=== PATIENT | female | born 1960 | race American Indian/Alaskan Native ===

== ENCOUNTER 2017-12-18 17:38 | Emergency (ER) | payer MEDICAID ==
[2017-12-18 17:52] VITALS: BP 120/69
[2017-12-18] MEDS ORDERED: TYLENOL #3 PO ONE (21:05)
--- NOTE | 2017-12-18 21:13 | Emergency Department Report ---
HPI - General Chief Complaint: Dental/Oral Time Seen by Provider: 12/18/17 20:50 - HPI HPI: The patient is a 37-year-old female presents for evaluation of mouth pain. The patient reports right upper mouth pain and toothache for the past 2 weeks, constant since onset, 10/10 severity, throbbing in quality, exacerbated with chewing. She shares that she has a long-standing history of poor dentition and recurrent toothaches. She denies headache, fever, chills, night sweats, facial swelling, throat pain or swelling, difficulty swallowing. ED Past Medical Hx - Past Medical History Previous Medical History?: Yes Hx Hypertension: Yes (1994) Hx CVA: No Hx Heart Attack/AMI: Yes (10/04/201411/2015) Hx Congestive Heart Failure: Yes Hx Diabetes: Yes (1994) Hx Deep Vein Thrombosis: No Hx Pulmonary Embolism: No Hx GERD: No Hx Liver Disease: No Hx Renal Disease: No Hx Sickle Cell Disease: No Hx Arthritis: Yes Hx Headaches / Migraines: Yes Hx Seizures: No Hx Kidney Stones: No Hx Psychiatric Treatment: No Hx Asthma: Yes Hx COPD: Yes Hx Tuberculosis: No Hx Dementia: No Hx HIV: No Additional medical history: sciatica, DDD. high cholesterol. fibromyalgia. neuropathy. 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 left nephrectomy s/p aneurysm. left carotid endarterectomy (January 2016). R BKA. Triple bypass (05/2016) - Social History Smoking Status: Former Smoker - Medications Home Medications: Home Medications Medication Instructions Recorded Confirmed Last Taken Type Montelukast [Singulair] 10 mg PO QPM #30 tablet 05/01/15 03/31/16 05/18/15 Rx ALBUTEROL Inhaler [ProAir HFA 2 puff IH QID PRN 03/16/16 03/31/16 Unknown History Inhaler] Albuterol *Only Ed* [Proventil 2.5 mg IH QIDRT PRN #7 nebu 03/22/16 03/31/16 Unknown Rx 0.5% NEBS] Butalb/Acetamin/Caff 50-325-40 1 tab PO Q8HR PRN #90 tablet 03/22/16 03/31/16 Unknown Rx [Fioricet] Gabapentin [Neurontin] 600 mg PO QHS #30 capsule 03/22/16 03/31/16 Unknown Rx HYDROcodone/APAP 5-325 [[place] 1 each PO QHS #30 tablet 03/22/16 03/31/16 Unknown Rx 5-325 mg TAB] ISOSORBIDE MONOnitrate [Imdur ER] 30 mg PO QDAY #30 tablet 03/22/16 03/31/16 Unknown Rx Insulin NPH/Regular [NovoLIN 70/30] 30 unit SQ BIDDIAB #30 units 03/22/16 Unknown Rx Aspirin [Aspirin BABY CHEW TAB] 81 mg PO QDAY #15 tab.chew 04/08/16 Unknown Rx AtorvaSTATin [Lipitor] 40 mg PO QHS #15 tablet 04/08/16 Unknown Rx Clopidogrel [Plavix] 75 mg PO QDAY #15 tablet 04/08/16 Unknown Rx Furosemide [Lasix TAB] 20 mg PO 0600,1800 #30 tablet 04/08/16 Unknown Rx Metoprolol [Lopressor TAB] 12.5 mg PO BID #30 tablet 04/08/16 Unknown Rx Nitroglycerin [Nitrostat] 0.4 mg SL Q5M PRN #100 tab 04/08/16 Unknown Rx Ranolazine ER [Ranexa ER] 500 mg PO BID #30 tablet 04/08/16 Unknown Rx Chlorhexidine Mouthwash [Peridex] 15 ml MM BID #1 bottle 12/18/17 Unknown Rx Penicillin Vk [Veetids TAB] 250 mg PO QID #20 tablet 12/18/17 Unknown Rx traMADol [Ultram 50 MG tab] 50 mg PO Q6HR PRN #15 tablet 12/18/17 Unknown Rx ED Review of Systems ROS: Stated complaint: TOOTHACHE Other details as noted in HPI Constitutional: denies: fever ENT: denies: throat or neck pain; reports mouth pain/thoothache Respiratory: denies: cough, shortness of breath Cardiovascular: denies: chest pain Endocrine: denies unexplained weight loss or gain Gastrointestinal: denies: abdominal pain, nausea Genitourinary: denies: dysuria Musculoskeletal: denies: leg swelling Skin: denies: rash Neurological: denies: headache Hematological/Lymphatic: denies: easy bleeding or easy bruising Psych: denies sadness or hopelessness Physical Exam - Physical Exam Vital Signs: Vital Signs 12/18/17 17:44 Temperature 99.2 F Pulse Rate 76 Respiratory 18 Rate Blood Pressure 120/69 O2 Sat by Pulse 99 Oximetry Physical Exam: General: well-nourished, well-developed, no acute distress Head: Normocephalic, atraumatic Eyes: normal sclera ENT: Mucous membranes are pink and moist severe dental caries extending to the pulp present to the right upper first and second molar, mild surrounding gingival erythema present, no gingival fluctuance Neck: trachea midline, neck supple, No neck stiffness, no cervical adenopathy Respiratory: Breath sounds equal bilaterally, no wheezing, rales, or rhonchi Cardio: S1 and S2 present, no murmurs, rubs, gallops, capillary refill is brisk Abdomen: Normoactive bowel sounds, soft abdomen, no rigidity, no guarding or rebound tenderness Skin: No rash Neuro: no facial drooping, normal speech Psych: Normal affect ED Course Vital Signs 12/18/17 17:44 Temperature 99.2 F Pulse Rate 76 Respiratory 18 Rate Blood Pressure 120/69 O2 Sat by Pulse 99 Oximetry ED Medical Decision Making - Medical Decision Making The patient's and examined by myself. Evaluation findings are consistent with severe dental caries and gingival cellulitis. The patient is given pain medicine. The patient is given a prescription for penicillin VK. The patient was reevaluated and reported that their symptoms were markedly improved. The patient is stable for discharge with outpatient follow-up. The patient is given follow-up and return instructions. The patient expressed understanding and agreed with the plan. The patient is discharged in stable condition. Critical care attestation.: If time is entered above; I have spent that time in minutes in the direct care of this critically ill patient, excluding procedure time. ED Disposition Clinical Impression: Toothache, Dental caries extending into pulp, Cellulitis of gingiva Disposition: DC- TO HOME OR SELFCARE Is pt being admited?: No Does the pt Need Aspirin: No Condition: Stable Instructions: Toothache (ED), Dental Caries (ED) Prescriptions: Chlorhexidine Mouthwash [Peridex] 15 ml MM BID #1 bottle Penicillin Vk [Veetids TAB] 250 mg PO QID #20 tablet traMADol [Ultram 50 MG tab] 50 mg PO Q6HR PRN #15 tablet PRN Reason: Pain Referrals: [facility] [Outside] - 3-5 Days [facility] [Outside] - 3-5 Days Time of Disposition: 21:06
== END 2017-12-18 21:20 | disposition home or self-care (01) ==
LOC: ED 17:38
DX: K02.9 Dental caries, unspecified (principal); K05.219 Aggressive periodontitis, localized, unspecified severity; G43.909 Migraine, unspecified, not intractable, without status migrainosus; I11.0 Hypertensive heart disease with heart failure; I50.9 Heart failure, unspecified; E11.9 Type 2 diabetes mellitus without complications; K21.9 Gastro-esophageal reflux disease without esophagitis; J44.9 Chronic obstructive pulmonary disease, unspecified; E78.00 Pure hypercholesterolemia, unspecified; Z98.890 Other specified postprocedural states; Z86.73 Personal history of transient ischemic attack (TIA), and cerebral infarction without residual deficits; Z95.820 Peripheral vascular angioplasty status with implants and grafts; Z87.891 Personal history of nicotine dependence
CPT/HCPCS: 99282

== ENCOUNTER 2019-07-01 13:21 | Inpatient (IN) | payer MEDICAID ==
--- NOTE | 2019-07-01 15:33 | Emergency Department Report ---
HPI - General Chief Complaint: Altered Mental Status Time Seen by Provider: 07/01/19 15:14 - HPI HPI: Room 3 The patient 59-year-old female presenting with a chief complaint of altered mental status. Family states the patient last known well time was sedated during daylight hours. Family went to check on the patient yesterday evening at 22:00 form her sleep in bed with some Lyrica pills in her hand and several pills lying on the bed next to her. When they went to check on the patient this morning they noticed that she had vomited one herself and seemed a little groggy. Family called EMS for the patient refused to be transported to the hospital. As the day progressed family states the patient appeared to get weaker and then eventually she cannot keep her eyes open. Family states they're within able to convince the patient to come to the emergency department. The patient is lying on the stretcher with somniferous respirations. When the patient is awakened and asked how she feels the patient responds favorably "fine" and then goes back to sleep. Family denies any reports of suicidal ideation from the patient Location: [See above] Duration: [See above] Quality: [See above] Severity: [See above] Timing: [See above] Context: [See above] Modifying factors: [See above] Associated signs and symptoms: [see above] ED Past Medical Hx - Past Medical History Hx Hypertension: Yes (1994) Hx Heart Attack/AMI: Yes (10/04/201411/2015) Hx Congestive Heart Failure: Yes Hx Diabetes: Yes (1994) Hx Arthritis: Yes Hx Headaches / Migraines: Yes Hx Asthma: Yes Hx COPD: Yes Additional medical history: sciatica, DDD. high cholesterol. fibromyalgia. neuropathy. 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 left nephrectomy s/p aneurysm. left carotid endarterectomy (January 2016). R BKA. Triple bypass (05/2016) - Family History Family history: no significant - Social History Smoking Status: Former Smoker (none 20 years) Substance Use Type: None - Medications Home Medications: Home Medications Medication Instructions Recorded Confirmed Last Taken Type ALBUTEROL Inhaler (OR & NICU) 2 puff IH QID PRN 03/16/16 03/31/16 Unknown History [ProAir HFA Inhaler] Albuterol *Only Ed* [Proventil 2.5 mg IH QIDRT PRN #7 nebu 03/22/16 03/31/16 Unknown Rx 0.5% NEBS] Butalb/Acetamin/Caff 50-325-40 1 tab PO Q8HR PRN #90 tablet 03/22/16 03/31/16 Unknown Rx [Fioricet 50-325-40] HYDROcodone/APAP 5-325 [[place] 1 each PO QHS #30 tablet 03/22/16 03/31/16 Unknown Rx 5-325 mg TAB] ISOSORBIDE MONOnitrate [Imdur ER] 30 mg PO QDAY #30 tablet 03/22/16 03/31/16 Unknown Rx Insulin NPH/Regular [NovoLIN 70/30] 30 unit SQ BIDDIAB #30 units 03/22/16 03/31/16 Unknown Rx Aspirin [Aspirin BABY CHEW TAB] 81 mg PO QDAY #15 tab.chew 04/08/16 Unknown Rx AtorvaSTATin [Lipitor] 40 mg PO QHS #15 tablet 04/08/16 Unknown Rx Clopidogrel [Plavix] 75 mg PO QDAY #15 tablet 04/08/16 Unknown Rx Chlorhexidine Mouthwash [Peridex] 15 ml MM BID #1 bottle 12/18/17 Unknown Rx Carvedilol [Coreg] 12.5 mg PO QDAY 07/01/19 07/01/19 06/30/19 History Escitalopram Oxalate [Lexapro] 10 mg PO QHS 07/01/19 07/01/19 06/30/19 History Ferrous Sulfate [Feosol] 325 mg PO QDAY 07/01/19 07/01/19 06/30/19 History Pregabalin [Lyrica] 75 mg PO QHS 07/01/19 07/01/19 06/30/19 History Sodium Bicarbonate 650 mg PO BID 07/01/19 07/01/19 06/30/19 History Torsemide [Demadex] 10 mg PO QDAY 07/01/19 07/01/19 06/30/19 History hydrALAZINE [Apresoline] 25 mg PO QDAY 07/01/19 07/01/19 06/30/19 History ED Review of Systems ROS: Stated complaint: ALTERED MENTAL STATUS Other details as noted in HPI Comment: Unobtainable due to pts medical conditions Physical Exam - Physical Exam Vital Signs: Vital Signs 07/01/19 14:18 Temperature 99.1 F Pulse Rate 81 Respiratory 20 Rate Blood Pressure 139/73 O2 Sat by Pulse 98 Oximetry Physical Exam: GENERAL: The patient is well-developed well-nourished female lying on stretcher with somniferous respirations. [] HEENT: Normocephalic. Atraumatic. NECK: Supple. Trachea midline CHEST/LUNGS: Somniferous respirations HEART/CARDIOVASCULAR: Regular. There is no tachycardia. There is no gallop rub or murmur. ABDOMEN: Abdomen is soft, nontender. Patient has normal bowel sounds. There is no abdominal distention. SKIN: There is no rash. There is no edema. There is no diaphoresis. NEURO: The patient is lethargic and only awakens to tactile and verbal stimuli. The patient is not cooperative with neurologic exam MUSCULOSKELETAL: There is no evidence of acute injury. ED Course Vital Signs 07/01/19 14:18 Temperature 99.1 F Pulse Rate 81 Respiratory 20 Rate Blood Pressure 139/73 O2 Sat by Pulse 98 Oximetry - Consultations Consultation #1: 07/01/19 18:17 Poison control called 07/01/19 18:25 Case discussed with poison control. Recommends checking an iron level and supportive care. ED Medical Decision Making - Lab Data Result diagrams: 07/01/19 15:22 07/01/19 15:22 Laboratory Tests 07/01/19 07/01/19 07/01/19 14:28 14:28 15:22 WBC 6.2 RBC 4.11 Hgb 10.2 Hct 33.2 MCV 81 MCH 25 L MCHC 31 RDW 22.1 H Plt Count 230 Lymph % (Auto) 18.3 [place] % (Auto) 6.6 Eos % (Auto) 2.4 Baso % (Auto) 0.9 Lymph # 1.1 L [place] # 0.4 Eos # 0.1 Baso # 0.1 Seg Neutrophils % 71.8 H Seg Neutrophils # 4.4 PT INR APTT Sodium Potassium Chloride Carbon Dioxide Anion Gap BUN Creatinine Estimated GFR BUN/Creatinine Ratio Glucose Calcium Magnesium Total Bilirubin AST ALT Alkaline Phosphatase Ammonia Troponin T Total Protein Albumin Albumin/Globulin Ratio Triglycerides Cholesterol LDL Cholesterol Direct HDL Cholesterol Cholesterol/HDL Ratio TSH Free T4 Urine Color Yellow Urine Turbidity Clear Urine pH 5.0 Ur Specific [place] 1.012 Urine Protein 100 mg/dl Urine Glucose (UA) Neg Urine Ketones Neg Urine Blood Neg Urine Nitrite Neg Urine Bilirubin Neg Urine Urobilinogen < 2.0 Ur Leukocyte Esterase Neg Urine WBC (Auto) 1.0 Urine RBC (Auto) 2.0 U Epithel Cells (Auto) 1.0 Salicylates Urine Opiates Screen Presumptive negative Urine Methadone Screen Presumptive negative Acetaminophen Ur Barbiturates Screen Presumptive negative Ur Phencyclidine Scrn Presumptive negative Ur Amphetamines Screen Presumptive negative U Benzodiazepines Scrn Presumptive positive Urine Cocaine Screen Presumptive negative U Marijuana (THC) Screen Presumptive negative Drugs of Abuse Note Disclamer Plasma/Serum Alcohol 07/01/19 07/01/19 07/01/19 15:22 15:22 15:22 WBC RBC Hgb Hct MCV MCH MCHC RDW Plt Count Lymph % (Auto) [place] % (Auto) Eos % (Auto) Baso % (Auto) Lymph # [place] # Eos # Baso # Seg Neutrophils % Seg Neutrophils # PT 15.1 H INR 1.22 H APTT 32.6 Sodium 140 Potassium 5.2 H Chloride 104.9 Carbon Dioxide 24 Anion Gap 16 BUN 67 H Creatinine 2.7 H Estimated GFR 22 BUN/Creatinine Ratio 25 Glucose 146 H Calcium 8.8 Magnesium Total Bilirubin 0.50 AST 52 H ALT 39 Alkaline Phosphatase 203 H Ammonia Troponin T 0.121 H* Total Protein 7.1 Albumin 3.4 L Albumin/Globulin Ratio 0.9 Triglycerides 93 Cholesterol 83 LDL Cholesterol Direct 38 L HDL Cholesterol 32 L Cholesterol/HDL Ratio 2.59 TSH Free T4 Urine Color Urine Turbidity Urine pH Ur Specific [place] Urine Protein Urine Glucose (UA) Urine Ketones Urine Blood Urine Nitrite Urine Bilirubin Urine Urobilinogen Ur Leukocyte Esterase Urine WBC (Auto) Urine RBC (Auto) U Epithel Cells (Auto) Salicylates Urine Opiates Screen Urine Methadone Screen Acetaminophen Ur Barbiturates Screen Ur Phencyclidine Scrn Ur Amphetamines Screen U Benzodiazepines Scrn Urine Cocaine Screen U Marijuana (THC) Screen Drugs of Abuse Note Plasma/Serum Alcohol 07/01/19 07/01/19 07/01/19 15:22 15:22 15:22 WBC RBC Hgb Hct MCV MCH MCHC RDW Plt Count Lymph % (Auto) [place] % (Auto) Eos % (Auto) Baso % (Auto) Lymph # [place] # Eos # Baso # Seg Neutrophils % Seg Neutrophils # PT INR APTT Sodium Potassium Chloride Carbon Dioxide Anion Gap BUN Creatinine Estimated GFR BUN/Creatinine Ratio Glucose Calcium Magnesium Total Bilirubin AST ALT Alkaline Phosphatase Ammonia Troponin T Total Protein Albumin Albumin/Globulin Ratio Triglycerides Cholesterol LDL Cholesterol Direct HDL Cholesterol Cholesterol/HDL Ratio TSH 1.010 Free T4 1.17 Urine Color Urine Turbidity Urine pH Ur Specific [place] Urine Protein Urine Glucose (UA) Urine Ketones Urine Blood Urine Nitrite Urine Bilirubin Urine Urobilinogen Ur Leukocyte Esterase Urine WBC (Auto) Urine RBC (Auto) U Epithel Cells (Auto) Salicylates < 0.3 L Urine Opiates Screen Urine Methadone Screen Acetaminophen < 5.0 L Ur Barbiturates Screen Ur Phencyclidine Scrn Ur Amphetamines Screen U Benzodiazepines Scrn Urine Cocaine Screen U Marijuana (THC) Screen Drugs of Abuse Note Plasma/Serum Alcohol 07/01/19 07/01/19 07/01/19 15:22 15:35 15:35 WBC RBC Hgb Hct MCV MCH MCHC RDW Plt Count Lymph % (Auto) [place] % (Auto) Eos % (Auto) Baso % (Auto) Lymph # [place] # Eos # Baso # Seg Neutrophils % Seg Neutrophils # PT INR APTT Sodium Potassium Chloride Carbon Dioxide Anion Gap BUN Creatinine Estimated GFR BUN/Creatinine Ratio Glucose Calcium Magnesium 2.00 Total Bilirubin AST ALT Alkaline Phosphatase Ammonia 64.0 H Troponin T Total Protein Albumin Albumin/Globulin Ratio Triglycerides Cholesterol LDL Cholesterol Direct HDL Cholesterol Cholesterol/HDL Ratio TSH Free T4 Urine Color Urine Turbidity Urine pH Ur Specific [place] Urine Protein Urine Glucose (UA) Urine Ketones Urine Blood Urine Nitrite Urine Bilirubin Urine Urobilinogen Ur Leukocyte Esterase Urine WBC (Auto) Urine RBC (Auto) U Epithel Cells (Auto) Salicylates Urine Opiates Screen Urine Methadone Screen Acetaminophen Ur Barbiturates Screen Ur Phencyclidine Scrn Ur Amphetamines Screen U Benzodiazepines Scrn Urine Cocaine Screen U Marijuana (THC) Screen Drugs of Abuse Note Plasma/Serum Alcohol < 0.01 - EKG Data -: EKG Interpreted by Me EKG shows normal: sinus rhythm Rate: normal - EKG Data When compared to previous EKG there are: previous EKG unavailable Interpretation: nonspecific ST-T wave berny (T-wave inversion in lead 1, V4, V5) - Radiology Data Radiology results: report reviewed (chest x-ray, CT head), image reviewed (chest x-ray, CT head) interpreted by me: Chest x-ray-no focal infiltrates, no pneumothorax [facility] [address] [place] [address] XRay Report Signed Patient: KRISSY ESCOBAR MR#: [id number] 9 : 1960 Acct:[id number] Age/Sex: 59 / F ADM Date: 07/01/19 Loc: ED Attending Dr: Ordering Physician: YURI PORTILLO MD Date of Service: 07/01/19 Procedure(s): XR chest 1V ap Accession Number(s): [id number] cc: YURI PORTILLO MD Fluoro Time In Minutes: CHEST 1 VIEW INDICATION: altered mental status, noisy respirations. COMPARISON: 04/05/2016. FINDINGS: Support devices: None. Heart: Stable mild cardiomegaly. Lungs/Pleura: Diminished lung volumes with mild increased interstitial markings. Negative for localized infiltrate or significant pleural fluid. Additional findings: None. IMPRESSION: 1. Stable cardiomegaly. 2. Diminished lung volumes with mild vascular congestion. Signer Name: Moe Lewis MD Signed: 07/01/2019 5:50 PM Workstation Name: [id number] Transcribed By: ES Dictated By: Moe Lewis MD Electronically Authenticated By: Moe Lewis MD Signed Date/Time: 07/01/191749 DD/ 48 TD/TT: [address] [address] Cat Scan Report Signed Patient: KRISSY ESCOBAR MR#: [id number] 9 : 1960 Acct:[id number] Age/Sex: 59 / F ADM Date: 07/01/19 Loc: ED Attending Dr: Ordering Physician: YURI PORTILLO MD Date of Service: 07/01/19 Procedure(s): CT head/brain wo con Accession Number(s): [id number] cc: YURI PORTILLO MD CT BRAIN: 07/01/2019 INDICATION / CLINICAL INFORMATION: altered mental status. COMPARISON: None available. FINDINGS: BRAIN/INTRACRANIAL STRUCTURES: Unenhanced CT images of the brain demonstrate no evidence of acute intracranial abnormality. Ventricles and sulci are slightly prominent in size, consistent with some atrophic change. There is no evidence of acute ischemic injury, hemorrhage, or mass. There are no abnormal extra-axial fluid collections. Atherosclerotic vascular calcifications are present in the distal internal carotid arteries and vertebral arteries. EXTRACRANIAL STRUCTURES: Unremarkable. IMPRESSION: No acute abnormali ty. Atrophy. All CT scans at this location are performed using dose reduction to ALARA by means of automated exposure control. Signer Name: Kaden Lazo MD Signed: 07/01/2019 6:44 PM Workstation Name: [id number] Transcribed By: AO Dictated By: Kaden Lazo MD Electronically Authenticated By: Kaden Lazo MD Signed Date/Time: 07/01/191843 DD/ 40 TD/TT: - Differential Diagnosis ICH, electrolyte imbalance, hepatic encephalopathy, drug overdose Critical care attestation.: If time is entered above; I have spent that time in minutes in the direct care of this critically ill patient, excluding procedure time. ED Disposition Clinical Impression: Altered mental status, Hyperkalemia, Renal insufficiency, Hepatic encephalopathy, Elevated troponin Disposition: OP ADMIT IP TO THIS HOSP Is pt being admited?: Yes Does the pt Need Aspirin: Yes Condition: Fair Referrals: PRIMARY CARE, [Primary Care Provider] - 3-5 Days Time of Disposition: 19:02 (hospitalist paged (Dr Iglesias))
[2019-07-01 15:58] LABS: INR 1.22 (0.87-1.13)
[2019-07-01 15:59] LABS: Partial Thromboplastin Time 32.6 Sec. (24.2-36.6)
[2019-07-01 16:05] LABS: Albumin 3.4 g/dL (3.9-5); Calcium 8.8 mg/dL (8.4-10.2)
[2019-07-01 16:06] LABS: Free T4 (Free Thyroxine) 1.17 ng/dL (0.76-1.46)
[2019-07-01 16:43] LABS: Basophils # (Auto) 0.1 K/mm3 (0.0-0.1); Basophils % (Auto) 0.9 % (0.0-1.8); Eosinophils # (Auto) 0.1 K/mm3 (0.0-0.4); Eosinophils % (Auto) 2.4 % (0.0-4.3); Hematocrit 33.2 % (30.3-42.9); Hemoglobin 10.2 gm/dl (10.1-14.3); Lymphocytes # (Auto) 1.1 K/mm3 (1.2-5.4); Lymphocytes % (Auto) 18.3 % (13.4-35.0); Mean Corpuscular HGB Conc 31 % (30-34); Mean Corpuscular Volume 81 fl (79-97); Monocytes # (Auto) 0.4 K/mm3 (0.0-0.8); Monocytes % (Auto) 6.6 % (0.0-7.3); Platelet Count 230 K/mm3 (140-440); Red Blood Count 4.11 M/mm3 (3.65-5.03)
[2019-07-01 16:48] LABS: Bilirubin,Urine NEG (Negative); Blood,Urine NEG (Negative); Color,Urine Yellow (Yellow); Urobilinogen,Urine < 2.0 mg/dL (<2.0)
[2019-07-01 16:50] LABS: Red Cell Distribution Width 22.1 % (13.2-15.2)
[2019-07-01 17:09] LABS: Chol/HDL Ratio 2.59 %
[2019-07-01 17:10] LABS: Amphetamine Screen,Urine PRESUMPTIVE NEGATIVE; Cannabinoid Screen,Urine PRESUMPTIVE NEGATIVE; Cocaine Screen,Urine PRESUMPTIVE NEGATIVE; Methadone Screen,Urine PRESUMPTIVE NEGATIVE; Opiate Screen,Urine PRESUMPTIVE NEGATIVE
[2019-07-01 17:28] LABS: Benzodiazepines Screen,Urine PRESUMPTIVE POSITIVE
[2019-07-01] MEDS ORDERED: LACTULOSE ENEMA 1000 ML PR ONE (17:30)
--- NOTE | 2019-07-01 17:55 | XRay Report ---
CHEST 1 VIEW INDICATION: altered mental status, noisy respirations. COMPARISON: 04/05/2016. FINDINGS: Support devices: None. Heart: Stable mild cardiomegaly. Lungs/Pleura: Diminished lung volumes with mild increased interstitial markings. Negative for localiz ed infiltrate or significant pleural fluid. Additional findings: None. IMPRESSION: 1. Stable cardiomegaly. 2. Diminished lung volumes with mild vascular congestion. Signer Name: Moe Lewis MD Signed: 07/01/2019 5:50 PM Workstation Name: [id number]
[2019-07-01] MEDS ORDERED: SODIUM CHLORIDE 0.9% 1000 ML 1,000 ML IV ONE (18:23)
[2019-07-01] MEDS ORDERED: NALOXONE 2 MG/2 ML INJ IV ONE (18:37)
--- NOTE | 2019-07-01 18:49 | Cat Scan Report ---
CT BRAIN: 07/01/2019 INDICATION / CLINICAL INFORMATION: altered mental status. COMPARISON: None available. FINDINGS: BRAIN/INTRACRANIAL STRUCTURES: Unenhanced CT images of the brain demonstrate no evidence of acute int racranial abnormality. Ventricles and sulci are slightly prominent in size, consistent with some atrophic change. There is no evidence of acute ischemic injury, hemorrhage, or mass. There are no abnormal extra-axial fluid collections. Atherosclerotic vascular calcifications are present in the distal internal carotid arteries and verte bral arteries. EXTRACRANIAL STRUCTURES: Unremarkable. IMPRESSION: No acute abnormality. Atrophy. All CT scans at this location are performed using dose reduction to ALARA by means of automated expos ure control. Signer Name: Kaden Lazo MD Signed: 07/01/2019 6:44 PM Workstation Name: [id number]
--- NOTE | 2019-07-01 19:31 | History and Physical Report ---
History of Present Illness Chief complaint: She wont wake up History of present illness: 59 YO Female with HTN, OR, CHD, Systolic CHF(EF 30%), DM complicated by Neuropathy, OA, Migraine BARRERA, COPD, CAD S/P Stent Placement, Sciatica, HLD, Fibromyalgia present to ED for evaluation. Pt is lethargic and unable to provide history. Pt history provided by her daughter who is at bedside during exam and interview. As per daughter, the patient was in her usual state of health yesterday, but was found to be "groggy" at bedtime around 2200hrs. Pt was found to have several Lyrical capsuled lying next to her in the bed. Pt was found to be difficult to around this morning. EMS was notified, and upon arrival the patient was alert and responsive and refused transport. Pt became increasingly confused and lethargic throughout the day and was found lying in her bed with vomitus in her mouth and on the side of her face. EMS was notified again and upon arrival the patient was found to be in distress and transported to [facility]. Pt seen and evaluated in ED and found to have Encephalopathy, OLEKSANDR, as well as suspected Aspiration Pneumonia. Pt admitted to [facility] and initiated on Pneumonia protocol. Prior admission on 03/16/16 reviewed. All listed medication reconciled at time of admission. Pt is lethargic but has a positive gag reflex and in able to protect her airway. - Past History Past Medical History: acute OR, CAD, COPD, diabetes, heart failure, migraines Past Surgical History: CABG, Other ( x 2. left nephrectomy s/p aneurysm. left carotid endarterectomy (January 2016). R BKA. Triple bypass (05/2016)) Social history: Family history: diabetes, hypertension Medications and Allergies Allergies Allergy/AdvReac Type Severity Reaction Status Date / Time KRYSTIAN Inhibitors Allergy Shortness Verified 04/26/14 00:50 of Breath amitriptyline Allergy Unknown Verified 12/18/17 17:44 Home Medications Medication Instructions Recorded Confirmed Last Taken Type ALBUTEROL Inhaler (OR & NICU) 2 puff IH QID PRN 03/16/16 07/01/19 06/30/19 History [ProAir HFA Inhaler] Albuterol *Only Ed* [Proventil 2.5 mg IH QIDRT PRN #7 nebu 03/22/16 07/01/1906/30/19 Rx 0.5% NEBS] Butalb/Acetamin/Caff 50-325-40 1 tab PO Q8HR PRN #90 tablet 03/22/16 07/01/19 06/30/19 Rx [Fioricet 50-325-40] HYDROcodone/APAP 5-325 [[place] 1 each PO QHS #30 tablet 03/22/16 07/01/19 9 Rx 5-325 mg TAB] ISOSORBIDE MONOnitrate [Imdur ER] 30 mg PO QDAY #30 tablet 03/22/16 07/01/19 06/30/19 Rx Insulin NPH/Regular [NovoLIN 70/30] 30 unit SQ BIDDIAB #30 units 03/22/16 07/01/19 06/30/19 Rx Aspirin [Aspirin BABY CHEW TAB] 81 mg PO QDAY #15 tab.chew 04/08/16 07/01/19 06/30/19 Rx AtorvaSTATin [Lipitor] 40 mg PO QHS #15 tablet 04/08/16 07/01/19 06/30/19 Rx Clopidogrel [Plavix] 75 mg PO QDAY #15 tablet 04/08/16 07/01/19 06/30/19 Rx Chlorhexidine Mouthwash [Peridex] 15 ml MM BID #1 bottle 12/18/17 07/01/19 06/30/19 Rx Carvedilol [Coreg] 12.5 mg PO QDAY 07/01/19 07/01/19 06/30/19 History Escitalopram Oxalate [Lexapro] 10 mg PO QHS 07/01/19 07/01/19 06/30/19 History Ferrous Sulfate [Feosol] 325 mg PO QDAY 07/01/19 07/01/19 06/30/19 History Pregabalin [Lyrica] 75 mg PO QHS 07/01/19 07/01/19 06/30/19 History Sodium Bicarbonate 650 mg PO BID 07/01/19 07/01/19 06/30/19 History Torsemide [Demadex] 10 mg PO QDAY 07/01/19 07/01/19 06/30/19 History hydrALAZINE [Apresoline] 25 mg PO QDAY 07/01/19 07/01/19 06/30/19 History Review of Systems ROS unobtainable: due to mental status Exam - Constitutional Vitals: Temp Pulse Resp BP Pulse Ox 99.1 F 85 19 132/88 97 07/01/19 14:18 07/01/19 18:00 07/01/19 18:00 07/01/19 18:00 07/01/19 18:00 General appearance: Present: mild distress, obese - EENT Eyes: Present: miosis - Respiratory Respiratory effort: labored, accessory muscle use Respiratory: bilateral: diminished, rhonchi - Cardiovascular Heart Sounds: Present: S1 & S2. Absent: rub, click - Extremities Extremity abnormal: edema - Abdominal General gastrointestinal: Present: soft, non-tender, non-distended, normal bowel sounds Female genitourinary: Present: normal - Integumentary Integumentary: Present: clear, warm, dry - Musculoskeletal Musculoskeletal: generalized weakness - Psychiatric Psychiatric: no appropriate mood/affect, no intact judgment & insight, no memory intact - Neurologic Neurologic: no focal deficits, moves all extremities, no gait normal Results - Labs CBC & Chem 7: 07/01/19 15:22 07/01/19 15:22 Labs: Abnormal lab results 07/01/19 07/01/19 07/01/19 Range/Units 15:22 15:22 15:22 MCH 25 L (28-32) pg RDW 22.1 H (13.2-15.2) % Lymph # 1.1 L (1.2-5.4) K/mm3 Seg Neutrophils % 71.8 H (40.0-70.0) % PT 15.1 H (12.2-14.9) Sec. INR 1.22 H (0.87-1.13) Potassium 5.2 H (3.6-5.0) mmol/L BUN 67 H (7-17) mg/dL Creatinine 2.7 H (0.7-1.2) mg/dL Glucose 146 H (65-100) mg/dL AST 52 H (5-40) units/L Alkaline Phosphatase 203 H (35-129) units/L Ammonia (25-60) umol/L Troponin T (0.00-0.029) ng/mL Albumin 3.4 L (3.9-5) g/dL LDL Cholesterol Direct (50-130) mg/dL HDL Cholesterol (40-59) mg/dL Salicylates (2.8-20.0) mg/dL Acetaminophen (10.0-30.0) ug/mL 07/01/19 07/01/19 07/01/19 Range/Units 15:22 15:22 15:22 MCH (28-32) pg RDW (13.2-15.2) % Lymph # (1.2-5.4) K/mm3 Seg Neutrophils % (40.0-70.0) % PT (12.2-14.9) Sec. INR (0.87-1.13) Potassium (3.6-5.0) mmol/L BUN (7-17) mg/dL Creatinine (0.7-1.2) mg/dL Glucose (65-100) mg/dL AST (5-40) units/L Alkaline Phosphatase (35-129) units/L Ammonia (25-60) umol/L Troponin T 0.121 H* (0.00-0.029) ng/mL Albumin (3.9-5) g/dL LDL Cholesterol Direct 38 L (50-130) mg/dL HDL Cholesterol 32 L (40-59) mg/dL Salicylates < 0.3 L (2.8-20.0) mg/dL Acetaminophen < 5.0 L (10.0-30.0) ug/mL 07/01/19 Range/Units 15:35 MCH (28-32) pg RDW (13.2-15.2) % Lymph # (1.2-5.4) K/mm3 Seg Neutrophils % (40.0-70.0) % PT (12.2-14.9) Sec. INR (0.87-1.13) Potassium (3.6-5.0) mmol/L BUN (7-17) mg/dL Creatinine (0.7-1.2) mg/dL Glucose (65-100) mg/dL AST (5-40) units/L Alkaline Phosphatase (35-129) units/L Ammonia 64.0 H (25-60) umol/L Troponin T (0.00-0.029) ng/mL Albumin (3.9-5) g/dL LDL Cholesterol Direct (50-130) mg/dL HDL Cholesterol (40-59) mg/dL Salicylates (2.8-20.0) mg/dL Acetaminophen (10.0-30.0) ug/mL Assessment and Plan - Patient Problems (1) Aspiration pneumonia Current Visit: Yes Status: Acute Qualifiers: Laterality: left Lung location: lower lobe of lung Plan to address problem: Admit to IMCU: pneumonia protocol, IV antibiotic therapy, supplemental oxygen, nebulizer therapy, pulse oximetry, NIPPV as clinically indicated. (2) Encephalopathy Current Visit: Yes Status: Acute Plan to address problem: CT head, neuro check, seizure precaution, Narcan in ED, seizure precautions. (3) OLEKSANDR (acute kidney injury) Current Visit: Yes Status: Acute Plan to address problem: IVF resuscitaiton therapy as tolerated, monitor uop q shift, urine electrolytes. Nephrology consulted in ED, (4) Diabetes Current Visit: Yes Status: Acute Plan to address problem: ADA diet, insulin, accu check, hypoglycemia protocol (5) HTN (hypertension) Current Visit: Yes Status: Acute Qualifiers: Hypertension type: essential hypertension Qualified Code(s): I10 - Essential (primary) hypertension Plan to address problem: Monitor bp q shift, continue medical management. (6) Elevated troponin Current Visit: Yes Status: Acute Plan to address problem: Suspected secondary OLEKSANDR as well as CHF. No EKG changes, (7) CHF (congestive heart failure) Current Visit: Yes Status: Acute Qualifiers: Heart failure type: systolic Heart failure chronicity: acute on chronic Qualified Code(s): I50.23 - Acute on chronic systolic (congestive) heart failure Plan to address problem: Admit to IMCU, Thyroid panel, cardiology consulted in ED, afterload reduction, bnp, chest x ray, monitor uop q shift, daily weight, supplemental oxygen, pulse oximetry, (8) DVT prophylaxis Current Visit: Yes Status: Acute Plan to address problem: SCD to BLE while in bed, supportive care
[2019-07-01] MEDS ORDERED: ALBUTEROL 2.5 MG/3 ML NEBU IH PRN (20:06)
[2019-07-01] MEDS ORDERED: VANCOMYCIN 2,000 MG in SODIUM CHLORIDE 0.9% 500 ML 500 ML IV ONE (20:06)
[2019-07-01] MEDS ORDERED: VANCOMYCIN PHARMACY TO DOSE IV SCH (21:00)
[2019-07-01] MEDS ORDERED: SODIUM CHLORIDE 0.45% 1000 ML 1,000 ML IV SCH (21:00)
[2019-07-01] MEDS ORDERED: ESCITALOPRAM 10 MG TAB PO SCH (22:00)
[2019-07-01] MEDS ORDERED: CEFEPIME/NS 2 GM/100 ML 2 GM/100 ML BAG IV SCH (22:00)
[2019-07-01 22:33] LABS: ABG Base Excess -3.1 mmol/L (-2.0-3.0); ABG HCO3 23.9 mmol/L (20.0-26.0); ABG Methemoglobin 0.6 % (0.0-1.5); ABG PCO2 51.5 mm Hg; ABG PH 7.284 pH Units (7.350-7.450); ABG PO2 121.4 mm Hg (80.0-90.0)
[2019-07-01] MEDS: CHLORHEXIDINE MOUTHWASH 473ML MM SCH (22:50)
[2019-07-01] MEDS ORDERED: metroNIDAZOLE/NS 500 MG/100 ML 500 MG/100 ML BAG IV ONE (23:03)
[2019-07-01] MEDS: SODIUM BICARBONATE 650 MG TAB PO SCH (23:03)
[2019-07-01] MEDS: metroNIDAZOLE/NS 500 MG/100 ML 500 MG/100 ML BAG IV SCH (23:03)
[2019-07-02 00:37] LABS: Free T4 (Free Thyroxine) 1.28 ng/dL (0.76-1.46)
[2019-07-02] MEDS: HEPARIN 5,000 UNIT/1 ML VIAL SUB-Q SCH ×3 (02:15→23:43)
[2019-07-02] MEDS: CEFEPIME/NS 2 GM/100 ML 2 GM/100 ML BAG IV SCH ×2 (03:00→11:52)
[2019-07-02] MEDS ORDERED: HEPARIN 5,000 UNIT/1 ML VIAL ONE ×2 (05:29→11:45)
[2019-07-02] MEDS ORDERED: CEFEPIME/NS 2 GM/100 ML 2 GM/100 ML BAG IV ONE ×2 (05:29→11:40)
[2019-07-02] MEDS ORDERED: SODIUM CHLORIDE 0.45% 1000 ML 1,000 ML IV ONE (07:18)
[2019-07-02] MEDS ORDERED: metroNIDAZOLE/NS 500 MG/100 ML 500 MG/100 ML BAG IV ONE ×3 (07:19→15:07)
[2019-07-02] MEDS: metroNIDAZOLE/NS 500 MG/100 ML 500 MG/100 ML BAG IV SCH ×3 (07:53→23:36)
[2019-07-02] MEDS ORDERED: CLOPIDOGREL 75 MG TAB PO SCH (10:00)
[2019-07-02] MEDS ORDERED: ASPIRIN 81 MG TAB CHEW PO SCH (10:00)
[2019-07-02] MEDS ORDERED: FERROUS SULFATE 325 MG TAB PO SCH (10:00)
[2019-07-02] MEDS ORDERED: hydrALAZINE 25 MG TAB PO SCH ×2 (10:00→14:00)
[2019-07-02] MEDS ORDERED: carvediloL 12.5 MG TAB PO SCH (10:00)
[2019-07-02] MEDS ORDERED: TORSEMIDE 10 MG TAB PO SCH (10:00)
--- NOTE | 2019-07-02 10:16 | Consultation ---
History of Present Illness Consult date: 07/02/19 Requesting physician: ЮЛИЯ BOONE Consult reason: congestive heart failure History of present illness: The pt is a 59 YO female with a past medical history of CAD s/p PCI and CABG at [place] in 05/2016, ICMP, HFrEF, carotid stenosis s/p left CEA in 01/2016, COPD, HTN, HLP, DM, CKD. She has been seen in our office in the past by Dr. FLORA Watson (last seen 09/2017). She is withdrawn and lethargic with no family members at [facility] on evaluation and thus HPI is obtained per the chart. She presented for evaluation of AMS. Family states the patient's last known well time was Monday during the daytime. Family went to check on the patient on Monday at 22:00 and found her asleep in bed with some Lyrica pills in her hand and several pills lying on the bed next to her. When they went to check on the patient Monday morning they noticed that she had vomited on herself and seemed a little groggy. Family called EMS but the pt refused to be transported to the hospital. As the day progressed family states the patient appeared to get weaker and then eventually she could not keep her eyes open. Family states they were able to convince the patient to come to the emergency department. On evaluation, the patient is lying on the stretcher with somniferous respirations. She is currently on O2 via nasal cannula with O2 sats WNL. Head CT with NAF. Cardiology has been consulted for HF. CXR with some vascular congestion, pro-BNP >96207. Other labwork significant for ABG pH 7.27, BUN/Cr 67/2.7, K+ 5.2, AST 52, ALK phos 203, ammonia 64. Echo done 09/2017 showed EF 35-40%, mild LVH, severe LAE, mild AR and MR, mod TR, RVSP 66mmHg. Past History Past Medical History: CAD, COPD, diabetes, heart failure, migraines Past Surgical History: CABG, Other ( x 2. left nephrectomy s/p aneurysm. left carotid endarterectomy (January 2016). R BKA. Triple bypass (05/2016)) Social history: Family history: diabetes, hypertension Medications and Allergies Allergies Allergy/AdvReac Type Severity Reaction Status Date / Time KRYSTIAN Inhibitors Allergy Shortness Verified 04/26/14 00:50 of Breath amitriptyline Allergy Unknown Verified 12/18/17 17:44 Home Medications Medication Instructions Recorded Confirmed Last Taken Type ALBUTEROL Inhaler (OR & NICU) 2 puff IH QID PRN 03/16/16 07/01/19 06/30/19 History [ProAir HFA Inhaler] Albuterol *Only Ed* [Proventil 2.5 mg IH QIDRT PRN #7 nebu 03/22/16 07/01/19 06/30/19 Rx 0.5% NEBS] Butalb/Acetamin/Caff 50-325-40 1 tab PO Q8HR PRN #90 tablet 03/22/16 07/01/19 06/30/19 Rx [Fioricet 50-325-40] HYDROcodone/APAP 5-325 [[place] 1 each PO QHS #30 tablet 03/22/16 07/01/19 06/30/19 Rx 5-325 mg TAB] ISOSORBIDE MONOnitrate [Imdur ER] 30 mg PO QDAY #30 tablet 03/22/16 07/01/19 06/30/19 Rx Insulin NPH/Regular [NovoLIN 70/30] 30 unit SQ BIDDIAB #30 units 03/22/16 07/01/19 06/30/19 Rx Aspirin [Aspirin BABY CHEW TAB] 81 mg PO QDAY #15 tab.chew 04/08/16 07/01/19 06/30/19 Rx AtorvaSTATin [Lipitor] 40 mg PO QHS #15 tablet 04/08/16 07/01/19 06/30/19 Rx Clopidogrel [Plavix] 75 mg PO QDAY #15 tablet 04/08/16 07/01/19 06/30/19 Rx Chlorhexidine Mouthwash [Peridex] 15 ml MM BID #1 bottle 12/18/17 07/01/19 06/30/19 Rx Carvedilol [Coreg] 12.5 mg PO QDAY 07/01/19 07/01/19 06/30/19 History Escitalopram Oxalate [Lexapro] 10 mg PO QHS 07/01/19 07/01/19 06/30/19 History Ferrous Sulfate [Feosol] 325 mg PO QDAY 07/01/19 07/01/19 06/30/19 History Pregabalin [Lyrica] 75 mg PO QHS 07/01/19 07/01/19 06/30/19 History Sodium Bicarbonate 650 mg PO BID 07/01/19 07/01/19 06/30/19 History Torsemide [Demadex] 10 mg PO QDAY 07/01/19 07/01/19 06/30/19 History hydrALAZINE [Apresoline] 25 mg PO QDAY 07/01/19 07/01/19 06/30/19 History Active Meds: Active Medications Albuterol (Proventil) 2.5 mg IH Q3HRT PRN PRN Reason: Shortness Of Breath Aspirin (Baby Aspirin) 81 mg PO QDAY [facility] Atorvastatin Calcium (Lipitor) 40 mg PO QHS [facility] Last Admin: 07/01/19 23:03 Dose: Not Given Documented by: Carvedilol (Coreg) 12.5 mg PO QDAY [facility] Chlorhexidine Gluconate (Peridex) 15 ml MM BID [facility] Last Admin: 07/01/19 22:50 Dose: Not Given Documented by: Clopidogrel Bisulfate (Plavix) 75 mg PO QDAY [facility] Escitalopram Oxalate (Lexapro) 10 mg PO QHS [facility] Last Admin: 07/01/19 23:03 Dose: Not Given Documented by: Ferrous Sulfate (Feosol) 325 mg PO QDAY [facility] Heparin Sodium (Porcine) (Heparin) 5,000 unit SUB-Q Q12HR [facility] Last Admin: 07/02/19 02:15 Dose: 5,000 unit Documented by: Hydralazine HCl (Apresoline) 25 mg PO QDAY [facility] Hydralazine HCl (Apresoline) 10 mg IV Q4H PRN PRN Reason: Blood Pressure Sodium Chloride (Nacl 0.45% 1000 Ml) 1,000 mls @ 42 mls/hr IV DIRECT [facility] Last Admin: 07/02/19 05:39 Dose: 42 mls/hr Documented by: Metronidazole (Flagyl 500 Mg/100 Ml) 500 mg in 100 mls @ 100 mls/hr IV Q8HR [facility]; Protocol Stop: 07/02/19 23:59 Last Admin: 07/02/19 07:53 Dose: 100 mls/hr Documented by: Cefepime HCl (Maxipime/Ns 2 Gm/100 Ml) 2 gm in 100 mls @ 200 mls/hr IV Q24HR [facility] Last Admin: 07/02/19 03:00 Dose: 200 mls/hr Documented by: Isosorbide Mononitrate (Imdur) 30 mg PO QDAY [facility] Sodium Bicarbonate (Sodium Bicarbonate) 650 mg PO BID [facility] Last Admin: 07/01/19 23:03 Dose: Not Given Documented by: Sodium Chloride (Sodium Chloride Flush Syringe 10 Ml) 10 ml IV BID [facility] Last Admin: 07/01/19 23:03 Dose: 10 ml Documented by: Sodium Chloride (Sodium Chloride Flush Syringe 10 Ml) 10 ml IV PRN PRN PRN Reason: LINE FLUSH Torsemide (Demadex) 10 mg PO QDAY [facility] Review of Systems ROS unobtainable: due to mental status Physical Examination Vital Signs Resp 20 07/01/19 14:15 General appearance: other (withdrawn, lethargic) HEENT: Positive: PERRL Neck: Positive: neck supple, trachea midline Cardiac: Positive: Reg Rate and Rhythm, S1/S2 Lungs: Positive: Decreased Breath Sounds, Oxygen Neuro: Positive: Other (lethargic) Skin: Negative: Rash Musculoskeletal: No Fluid Collection Extremities: Absent: edema Results 07/01/19 15:22 07/01/19 15:22 Cardiac Enzymes 07/01/19 Range/Units 15:22 AST 52 H (5-40) units/L Coagulation 07/01/19 Range/Units 15:22 PT 15.1 H (12.2-14.9) Sec. INR 1.22 H (0.87-1.13) APTT 32.6 (24.2-36.6) Sec. Lipids 07/01/19 Range/Units 15:22 Triglycerides 93 (2-149) mg/dL Cholesterol 83 (50-199) mg/dL HDL Cholesterol 32 L (40-59) mg/dL Cholesterol/HDL Ratio 2.59 % CBC 07/01/19 Range/Units 15:22 WBC 6.2 (4.5-11.0) K/mm3 RBC 4.11 (3.65-5.03) M/mm3 Hgb 10.2 (10.1-14.3) gm/dl Hct 33.2 (30.3-42.9) % Plt Count 230 (140-440) K/mm3 Lymph # 1.1 L (1.2-5.4) K/mm3 [place] # 0.4 (0.0-0.8) K/mm3 Eos # 0.1 (0.0-0.4) K/mm3 Baso # 0.1 (0.0-0.1) K/mm3 Comprehensive Metabolic Panel 07/01/19 Range/Units 15:22 Sodium 140 (137-145) mmol/L Potassium 5.2 H (3.6-5.0) mmol/L Chloride 104.9 (98-107) mmol/L Carbon Dioxide 24 (22-30) mmol/L BUN 67 H (7-17) mg/dL Creatinine 2.7 H (0.7-1.2) mg/dL Glucose 146 H (65-100) mg/dL Calcium 8.8 (8.4-10.2) mg/dL AST 52 H (5-40) units/L ALT 39 (7-56) units/L Alkaline Phosphatase 203 H (35-129) units/L Total Protein 7.1 (6.3-8.2) g/dL Albumin 3.4 L (3.9-5) g/dL - Imaging and Cardiology Echo: report reviewed (09/2017 showed EF 35-40%, mild LVH, severe LAE, mild AR and MR, mod TR, RVSP 66mmHg. ) EKG: report reviewed, image reviewed EKG interpretations - Telemetry EKG Rhythm: Sinus Rhythm - EKG Sinus rhythms and dysrhythmias: sinus rhythm Assessment and Plan Agree with present cardiac management. Pt would benefit from diuretic therapy, although we will defer volume optimization to nephrology in setting of OLEKSANDR on CKD and hyperkalemia. Troponin elevation currently appears c/w NSTEMI type II. ECG with NAF. Cont to trend Ham and obtain serial ECGs. Obtain echo. On evaluation, patient is lying on the stretcher with somniferous respirations, O2 sats currently WNL on O2 via NC. Would monitor respiratory status closely and consider pulmonary consultation per primary. The patient has been seen in conjunction with Dr. Puentes who agrees with the assessment and plan of care. - Patient Problems (1) Altered mental status Current Visit: Yes Status: Acute (2) Hepatic encephalopathy Current Visit: Yes Status: Suspected (3) Aspiration pneumonia Current Visit: Yes Status: Suspected Qualifiers: Laterality: left Lung location: lower lobe of lung (4) Acute HFrEF (heart failure with reduced ejection fraction) Current Visit: Yes Status: Acute (5) Ischemic cardiomyopathy Current Visit: Yes Status: Chronic (6) CAD (coronary artery disease) Current Visit: Yes Status: Chronic Qualifiers: Coronary Disease-Associated Artery/Lesion type: [place] coronary artery (7) History of coronary artery bypass graft Current Visit: Yes Status: Chronic (8) Hypertension Current Visit: Yes Status: Chronic Qualifiers: Hypertension type: essential hypertension Qualified Code(s): I10 - Essential (primary) hypertension (9) Hyperlipidemia Current Visit: Yes Status: Chronic (10) Diabetes Current Visit: Yes Status: Chronic (11) History of left-sided carotid endarterectomy Current Visit: Yes Status: Chronic (12) COPD (chronic obstructive pulmonary disease) Current Visit: Yes Status: Chronic Qualifiers: COPD type: emphysema (13) Acute kidney injury superimposed on chronic kidney disease Current Visit: Yes Status: Acute (14) Hyperkalemia Current Visit: Yes Status: Acute (15) NSTEMI (non-ST elevated myocardial infarction) Current Visit: Yes Status: Acute Plan to address problem: suspect type II (16) PVD (peripheral vascular disease) Current Visit: Yes Status: Chronic
[2019-07-02] MEDS: SODIUM BICARBONATE 650 MG TAB PO SCH ×2 (11:25→23:43)
[2019-07-02] MEDS: CHLORHEXIDINE MOUTHWASH 473ML MM SCH (11:27)
[2019-07-02 12:02] LABS: Hemoglobin 10.4 gm/dl (10.1-14.3); Mean Corpuscular HGB Conc 31 % (30-34); Mean Corpuscular Volume 81 fl (79-97); Platelet Count 258 K/mm3 (140-440); Red Blood Count 4.21 M/mm3 (3.65-5.03)
[2019-07-02 12:05] LABS: Red Cell Distribution Width 22.3 % (13.2-15.2)
--- NOTE | 2019-07-02 12:30 | Progress Note ---
Assessment and Plan Assessment and plan: Patient is a 59 yo woman with a history of hypertension, CAD s/p PCI, s/p CABG at [facility] in 05/2016, ICMP, HFrEF (Echo done 09/2017 showed EF 35-40%, mild LVH, severe LAE, mild AR and MR, mod TR, RVSP 66mmHg), carotid stenosis s/p left CEA in 01/2016, COPD, HTN, HLP, DM type 2 and CKD who presented to [facility] ED with AMS and unresponsiveness. According to ED record, the family found her basically somnolent in the bed with some Lyrica pills in her hand and several pills lying on the bed next to her on Monday. Then on Monday, they noticed that she had vomited on herself and seemed a little groggy. Family called EMS but the pt refused to be transported to the hospital. As the day progressed family states the patient appeared to get weaker and then eventually she could not keep her eyes open. Family states they were able to convince the patient to come to the emergency department. On evaluation, the patient is lying on the stretcher with somniferous respirations. She is currently on O2 via nasal cannula with O2 sats WNL. Head CT with NAF. Cardiology has been consulted for HF. CXR with some vascular congestion, pro-BNP >84963. Other labwork significant for ABG pH 7.27, BUN/Cr 67/2.7, K+ 5.2, AST 52, ALK phos 203, ammonia 64. Acute metabolic encephalopathy Aspiration pneumonia Acute on chronic systolic heart failure Acute on chronic CKD 3: Hepatic encephalopathy History of Ischemic cardiomyopathy History of CAD (coronary artery disease) History of coronary artery bypass graft Hypertension Hyperlipidemia Diabetes mellitus type 2 COPD (chronic obstructive pulmonary disease) Hyperkalemia NSTEMI (non-ST elevated myocardial infarction) PVD (peripheral vascular disease) Plan: Admit to IMCU: pneumonia protocol, IV antibiotic therapy, supplemental oxygen, nebulizer therapy, pulse oximetry, NIPPV as clinically indicated. CT head, neuro check, seizure precaution, Narcan in ED, seizure precautions. IVF resuscitaiton therapy as tolerated, monitor uop q shift, urine electrolytes. Nephrology consulted in ED, ADA diet, insulin, accu check, hypoglycemia protocol Monitor bp q shift, continue medical management. 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 No EKG changes, DVT prophylaxis stat ABG Consulted Pulmonology CCT 34 minutes History Interval history: Patient was seen and examined. Follow-up on current diagnosis of AMS. No overnight events reported to me. Patient denies any chest pain, shortness breath, nausea/vomiting or severe headaches. Imaging, nursing note, chart, labs and old chart reviewed. Discussed with patient. Hospitalist Physical - Physical exam Narrative exam: Gen: ill appearing, obtunded NAD, Awake, Alert, Orientated HEENT: NCAT, eyes matted shut with crust especially left eye, OP Clear Neck: supple, no adenopathy, no thyromegaly, no JVD CVS/Heart: tachycardic normal S1S2, pulses present bilaterally Chest/Lungs: tachypenic, diminished bs bilateral Symmetrical chest expansion, good air entry bilaterally GI/Abdomen: soft, NTND, good bowel sounds, no guarding or rebound /Bladder: no suprapubic tenderness, no CVA or paraspinal tenderness Extermity/Skin: no obvious rash MSK: confused Neuro: CN 2-12 grossly intact, not following directions. Psych: confused - Constitutional Vitals: Temp Pulse Resp BP Pulse Ox 99.1 F 104 H 28 H 164/64 91 07/01/19 14:18 07/02/19 11:25 07/02/19 06:01 07/02/19 11:25 07/02/19 06:01 General appearance: Present: other (withdrawn, lethargic) Results - Labs CBC & Chem 7: 07/02/19 11:39 07/01/19 15:22 Labs: Laboratory Last Values WBC 8.4 K/mm3 (4.5-11.0) 07/02/19 11:39 RBC 4.21 M/mm3 (3.65-5.03) 07/02/19 11:39 Hgb 10.4 gm/dl (10.1-14.3) 07/02/19 11:39 Hct 34.0 % (30.3-42.9) 07/02/19 11:39 MCV 81 fl (79-97) 07/02/19 11:39 MCH 25 pg (28-32) L 07/02/19 11:39 MCHC 31 % (30-34) 07/02/19 11:39 RDW 22.3 % (13.2-15.2) H 07/02/19 11:39 Plt Count 258 K/mm3 (140-440) 07/02/19 11:39 Lymph % (Auto) 18.3 % (13.4-35.0) 07/01/19 15:22 [place] % (Auto) 6.6 % (0.0-7.3) 07/01/19 15:22 Eos % (Auto) 2.4 % (0.0-4.3) 07/01/19 15:22 Baso % (Auto) 0.9 % (0.0-1.8) 07/01/19 15:22 Lymph # 1.1 K/mm3 (1.2-5.4) L 07/01/19 15:22 [place] # 0.4 K/mm3 (0.0-0.8) 07/01/19 15:22 Eos # 0.1 K/mm3 (0.0-0.4) 07/01/19 15:22 Baso # 0.1 K/mm3 (0.0-0.1) 07/01/19 15:22 Seg Neutrophils % 71.8 % (40.0-70.0) H 07/01/19 15:22 Seg Neutrophils # 4.4 K/mm3 (1.8-7.7) 07/01/19 15:22 PT 15.1 Sec. (12.2-14.9) H 07/01/19 15:22 INR 1.22 (0.87-1.13) H 07/01/19 15:22 APTT 32.6 Sec. (24.2-36.6) 07/01/19 15:22 POC ABG pH 7.275 (7.35-7.45) L 07/02/19 10:33 ABG pH 7.284 pH Units (7.350-7.450) L 07/01/19 Unknown POC ABG pCO2 43.9 (35-45) 07/02/19 10:33 ABG pCO2 51.5 mm Hg 07/01/19 Unknown POC ABG pO2 76 (80-105) L 07/02/19 10:33 ABG pO2 121.4 mm Hg (80.0-90.0) H 07/01/19 Unknown POC ABG HCO3 20.4 (22-26 mml/L) 07/02/19 10:33 ABG HCO3 23.9 mmol/L (20.0-26.0) 07/01/19 Unknown POC ABG Total CO2 22 (23-27mmol/L) 07/02/19 10:33 POC ABG O2 Sat 93 07/02/19 10:33 ABG O2 Saturation 98.0 % (95.0-99.0) 07/01/19 Unknown ABG O2 Content 14.3 (0.0-44) 07/01/19 Unknown POC ABG Base Excess -6 ((-2) - (+3)mmol/L) 07/02/19 10:33 ABG Base Excess -3.1 mmol/L (-2.0-3.0) L 07/01/19 Unknown ABG Hemoglobin 10.5 gm/dl (12.0-16.0) L 07/01/19 Unknown ABG Carboxyhemoglobin 2.0 % (0.0-5.0) 07/01/19 Unknown ABG Methemoglobin 0.6 % (0.0-1.5) 07/01/19 Unknown 95.6 % (95.0-99.0) 07/01/19 Unknown 32 % 07/02/19 10:33 Sodium 140 mmol/L (137-145) 07/01/19 15:22 Potassium 5.2 mmol/L (3.6-5.0) H 07/01/19 15:22 Chloride 104.9 mmol/L (98-107) 07/01/19 15:22 Carbon Dioxide 24 mmol/L (22-30) 07/01/19 15:22 16 mmol/L 07/01/19 15:22 BUN 67 mg/dL (7-17) H 07/01/19 15:22 2.7 mg/dL (0.7-1.2) H 07/01/19 15:22 Estimated GFR 22 ml/min 07/01/19 15:22 25 % 07/01/19 15:22 Glucose 146 mg/dL (65-100) H 07/01/19 15:22 POC Glucose 164 (70-105) H 07/02/19 07:32 Calcium 8.8 mg/dL (8.4-10.2) 07/01/19 15:22 Magnesium 2.20 mg/dL (1.7-2.3) 07/01/19 23:32 Iron 26 ug/dL (37-170) L 07/01/19 18:35 0.50 mg/dL (0.1-1.2) 07/01/19 15:22 AST 52 units/L (5-40) H 07/01/19 15:22 ALT 39 units/L (7-56) 07/01/19 15:22 203 units/L (35-129) H 07/01/19 15:22 64.0 umol/L (25-60) H 07/01/19 15:35 0.121 ng/mL (0.00-0.029) H* 07/01/19 15:22 NT-Pro-B Natriuret Pep > 33027 pg/mL (0-900) H 07/01/19 23:32 7.1 g/dL (6.3-8.2) 07/01/19 15:22 3.4 g/dL (3.9-5) L 07/01/19 15:22 0.9 % 07/01/19 15:22 Triglycerides 93 mg/dL (2-149) 07/01/19 15:22 Cholesterol 83 mg/dL (50-199) 07/01/19 15:22 38 mg/dL (50-130) L 07/01/19 15:22 32 mg/dL (40-59) L 07/01/19 15:22 2.59 % 07/01/19 15:22 TSH 0.724 mlU/mL (0.270-4.200) 07/01/19 23:32 Free T4 1.28 ng/dL (0.76-1.46) 07/01/19 23:32 Yellow (Yellow) 07/01/19 14:28 Clear (Clear) 07/01/19 14:28 5.0 (5.0-7.0) 07/01/19 14:28 Ur Specific [place] 1.012 (1.003-1.030) 07/01/19 14:28 100 mg/dl mg/dL (Negative) 07/01/19 14:28 Neg mg/dL (Negative) 07/01/19 14:28 Neg mg/dL (Negative) 07/01/19 14:28 Neg (Negative) 07/01/19 14:28 Neg (Negative) 07/01/19 14:28 Neg (Negative) 07/01/19 14:28 < 2.0 mg/dL (<2.0) 07/01/19 14:28 Ur Leukocyte Esterase Neg (Negative) 07/01/19 14:28 1.0 /HPF (0.0-6.0) 07/01/19 14:28 2.0 /HPF (0.0-6.0) 07/01/19 14:28 U Epithel Cells (Auto) 1.0 /HPF (0-13.0) 07/01/19 14:28 Salicylates < 0.3 mg/dL (2.8-20.0) L 07/01/19 15:22 Presumptive negative 07/01/19 14:28 Presumptive negative 07/01/19 14:28 Acetaminophen < 5.0 ug/mL (10.0-30.0) L 07/01/19 15:22 Ur Barbiturates Screen Presumptive negative 07/01/19 14:28 Ur Phencyclidine Scrn Presumptive negative 07/01/19 14:28 Ur Amphetamines Screen Presumptive negative 07/01/19 14:28 U Benzodiazepines Scrn Presumptive positive 07/01/19 14:28 Presumptive negative 07/01/19 14:28 U Marijuana (THC) Screen Presumptive negative 07/01/19 14:28 Disclamer 07/01/19 14:28 Plasma/Serum Alcohol < 0.01 % (0-0.07) 07/01/19 15:22 Active Medications - Current Medications Current Medications: Generic Name Dose Route Start Last Admin Trade Name Freq PRN Reason Stop Dose Admin Albuterol 2.5 mg 07/01/19 20:06 Proventil IH Q3HRT PRN Shortness Of Breath Aspirin 81 mg 07/02/19 10:00 07/02/19 11:24 Baby Aspirin PO Not Given QDAY [facility] Atorvastatin Calcium 40 mg 07/01/19 22:00 07/01/19 23:03 Lipitor PO Not Given QHS [facility] Carvedilol 12.5 mg 07/02/19 10:00 07/02/19 11:24 Coreg PO Not Given QDAY [facility] Chlorhexidine Gluconate 15 ml 07/01/19 22:00 07/02/19 11:27 Peridex MM Not Given BID [facility] Clopidogrel Bisulfate 75 mg 07/02/19 10:00 07/02/19 11:25 Plavix PO Not Given QDAY [facility] Escitalopram Oxalate 10 mg 07/01/19 22:00 07/01/19 23:03 Lexapro PO Not Given QHS [facility] Ferrous Sulfate 325 mg 07/02/19 10:00 07/02/19 11:25 Feosol PO Not Given QDAY [facility] Heparin Sodium (Porcine) 5,000 unit 07/01/19 22:00 07/02/19 11:52 Heparin SUB-Q 5,000 unit Q12HR CHRISTY Administration Hydralazine HCl 10 mg 07/02/19 05:49 Apresoline IV Q4H PRN Blood Pressure Hydralazine HCl 25 mg 07/02/19 14:00 Apresoline PO TID [facility] Sodium Chloride 1,000 mls @ 42 mls/hr 07/01/19 21:00 07/02/19 05:39 Nacl 0.45% 1000 Ml IV 42 mls/hr DIRECT CHRISTY Administration Metronidazole 500 mg in 100 mls @ 100 mls/hr 07/01/19 22:00 07/02/19 07:53 Flagyl 500 Mg/100 Ml IV 07/02/19 23:59 100 mls/hr Q8HR CHRISTY Administration Protocol Cefepime HCl 2 gm in 100 mls @ 200 mls/hr 07/01/19 22:00 07/02/19 11:52 Maxipime/Ns 2 Gm/100 Ml IV 200 mls/hr Q24HR CHRISTY Administration Isosorbide Mononitrate 30 mg 07/02/19 10:00 07/02/19 11:25 Imdur PO Not Given QDAY [facility] Sodium Bicarbonate 650 mg 07/01/19 22:00 07/02/19 11:25 Sodium Bicarbonate PO Not Given BID [facility] Sodium Chloride 10 ml 07/01/19 22:00 07/02/19 11:26 Sodium Chloride Flush Syringe 10 Ml IV 10 ml BID CHRISTY Administration Sodium Chloride 10 ml 07/01/19 20:06 Sodium Chloride Flush Syringe 10 Ml IV PRN PRN LINE FLUSH
[2019-07-02 12:39] LABS: Albumin 3.5 g/dL (3.9-5); Calcium 9.6 mg/dL (8.4-10.2)
--- NOTE | 2019-07-02 12:53 | Event Note ---
Date: 07/02/19 Full consult note to follow: Called by primary team for concern in breathing pattern. Asked for ABG and it was done. Compared to yesterday she is more hypoxic but here CO2 has improved. She has a known history of CHF and chronic renal failure. BNP was >79690 on admit. There is concern about over dose, possibly on Lyrica. Per ED documentat ion, they spoke with poison control who recommended iron levels and supportive care. Iron was low at 26 (per [facility] normal is 37-170). At this time, suggest speaking with renal in regards to worsening renal function and to see if HD is needed for lyrica overdose. Contact poison control again given Iron level being low and seeing what their recommendations are. At this point, I dont think she requires intubation. She will awaken to painful stimuli. Will order NT suction [id number] PRN and will follow along with you while in house.
--- NOTE | 2019-07-02 12:56 | Consultation ---
History of Present Illness Consult date: 07/02/19 Requesting physician: GEOVANNA GOODEN History of present illness: 59 y/o woman brought in by family secondary to AMS. Concern for possible overd ose of lyrica. Patient is obtunded but will respond to tactile stimuli. Initially I was consulted because of concern for need for intubation. Unfortunately, no family is available and patient cannot provide any history herself. Past History Past Medical History: CAD, COPD, diabetes, heart failure, migraines Past Surgical History: CABG, Other ( x 2. left nephrectomy s/p aneurysm. left carotid endarterectomy (January 2016). R BKA. Triple bypass (05/2016)) Social history: Family history: diabetes, hypertension Medications and Allergies Allergies Allergy/AdvReac Type Severity Reaction Status Date / Time KRYSTIAN Inhibitors Allergy Shortness Verified 04/26/14 00:50 of Breath amitriptyline Allergy Unknown Verified 12/18/17 17:44 Home Medications Medication Instructions Recorded Confirmed Last Taken Type ALBUTEROL Inhaler (OR & NICU) 2 puff IH QID PRN 03/16/16 07/01/19 06/30/19 History [ProAir HFA Inhaler] Albuterol *Only Ed* [Proventil 2.5 mg IH QIDRT PRN #7 nebu 03/22/16 07/01/19 06/30/19 Rx 0.5% NEBS] Butalb/Acetamin/Caff 50-325-40 1 tab PO Q8HR PRN #90 tablet 03/22/16 07/01/19 06/30/19 Rx [Fioricet 50-325-40] HYDROcodone/APAP 5-325 [[place] 1 each PO QHS #30 tablet 03/22/16 07/01/19 06/30/19 Rx 5-325 mg TAB] ISOSORBIDE MONOnitrate [Imdur ER] 30 mg PO QDAY #30 tablet 03/22/16 07/01/19 06/30/19 Rx Insulin NPH/Regular [NovoLIN 70/30] 30 unit SQ BIDDIAB #30 units 03/22/16 07/01/19 06/30/19 Rx Aspirin [Aspirin BABY CHEW TAB] 81 mg PO QDAY #15 tab.chew 04/08/16 07/01/19 06/30/19 Rx AtorvaSTATin [Lipitor] 40 mg PO QHS #15 tablet 04/08/16 07/01/19 06/30/19 Rx Clopidogrel [Plavix] 75 mg PO QDAY #15 tablet 04/08/16 07/01/19 06/30/19 Rx Chlorhexidine Mouthwash [Peridex] 15 ml MM BID #1 bottle 12/18/17 07/01/19 09/2 11/27 Rx Carvedilol [Coreg] 12.5 mg PO QDAY 07/01/19 07/01/19 06/30/19 History Escitalopram Oxalate [Lexapro] 10 mg PO QHS 07/01/19 07/01/19 06/30/19 History Ferrous Sulfate [Feosol] 325 mg PO QDAY 07/01/19 07/01/19 06/30/19 History Pregabalin [Lyrica] 75 mg PO QHS 07/01/19 07/01/19 06/30/19 History Sodium Bicarbonate 650 mg PO BID 07/01/19 07/01/19 06/30/19 History Torsemide [Demadex] 10 mg PO QDAY 07/01/19 07/01/19 06/30/19 History hydrALAZINE [Apresoline] 25 mg PO QDAY 07/01/19 07/01/19 06/30/19 History Active Meds: Active Medications Albuterol (Proventil) 2.5 mg IH Q3HRT PRN PRN Reason: Shortness Of Breath Aspirin (Baby Aspirin) 81 mg PO QDAY [facility] Last Admin: 07/02/19 11:24 Dose: Not Given Documented by: Atorvastatin Calcium (Lipitor) 40 mg PO QHS [facility] Last Admin: 07/01/19 23:03 Dose: Not Given Documented by: Carvedilol (Coreg) 12.5 mg PO QDAY [facility] Last Admin: 07/02/19 11:24 Dose: Not Given Documented by: Chlorhexidine Gluconate (Peridex) 15 ml MM BID [facility] Last Admin: 07/02/19 11:27 Dose: Not Given Documented by: Clopidogrel Bisulfate (Plavix) 75 mg PO QDAY [facility] Last Admin: 07/02/19 11:25 Dose: Not Given Documented by: Escitalopram Oxalate (Lexapro) 10 mg PO QHS [facility] Last Admin: 07/01/19 23:03 Dose: Not Given Documented by: Ferrous Sulfate (Feosol) 325 mg PO QDAY [facility] Last Admin: 07/02/19 11:25 Dose: Not Given Documented by: Heparin Sodium (Porcine) (Heparin) 5,000 unit SUB-Q Q12HR [facility] Last Admin: 07/02/19 11:52 Dose: 5,000 unit Documented by: Hydralazine HCl (Apresoline) 10 mg IV Q4H PRN PRN Reason: Blood Pressure Hydralazine HCl (Apresoline) 25 mg PO TID [facility] Metronidazole (Flagyl 500 Mg/100 Ml) 500 mg in 100 mls @ 100 mls/hr IV Q8HR [facility]; Protocol Stop: 07/02/19 23:59 Last Admin: 07/02/19 07:53 Dose: 100 mls/hr Documented by: Cefepime HCl (Maxipime/Ns 2 Gm/100 Ml) 2 gm in 100 mls @ 200 mls/hr IV Q24HR [facility] Last Admin: 07/02/19 11:52 Dose: 200 mls/hr Documented by: Isosorbide Mononitrate (Imdur) 30 mg PO QDAY [facility] Last Admin: 07/02/19 11:25 Dose: Not Given Documented by: Sodium Bicarbonate (Sodium Bicarbonate) 650 mg PO BID [facility] Last Admin: 07/02/19 11:25 Dose: Not Given Documented by: Sodium Chloride (Sodium Chloride Flush Syringe 10 Ml) 10 ml IV BID [facility] Last Admin: 07/02/19 11:26 Dose: 10 ml Documented by: Sodium Chloride (Sodium Chloride Flush Syringe 10 Ml) 10 ml IV PRN PRN PRN Reason: LINE FLUSH Review of Systems ROS unobtainable: due to mental status Physical Examination Vital signs: Vital Signs Resp 20 07/01/19 14:15 General appearance: no acute distress, other (obtunded) Eyes: non-icteric ENT: oropharynx moist Neck: supple Effort: normal Ascultation: Bilateral: diminished breath sounds Percussion: Bilateral: not dull Cardiovascular: regular rate and rhythm Gastrointestinal: normoactive bowel sounds, soft Extremities: edema unable to assess Results - Laboratory Findings CBC and BMP: 07/03/19 10:22 07/03/19 04:51 ABG POC ABG pH 7.275 (7.35-7.45) L 07/02/19 10:33 ABG pH 7.284 pH Units (7.350-7.450) L 07/01/19 Unknown POC ABG pCO2 43.9 (35-45) 07/02/19 10:33 ABG pCO2 51.5 mm Hg 07/01/19 Unknown POC ABG pO2 76 (80-105) L 07/02/19 10:33 ABG pO2 121.4 mm Hg (80.0-90.0) H 07/01/19 Unknown POC ABG HCO3 20.4 (22-26 mml/L) 07/02/19 10:33 POC ABG Total CO2 22 (23-27mmol/L) 07/02/19 10:33 POC ABG O2 Sat 93 07/02/19 10:33 ABG O2 Saturation 98.0 % (95.0-99.0) 07/01/19 Unknown PT/INR, D-dimer PT 15.1 Sec. (12.2-14.9) H 07/01/19 15:22 INR 1.22 (0.87-1.13) H 07/01/19 15:22 Abnormal lab findings: Abnormal Labs 07/01/19 07/01/19 07/01/19 15:22 15:22 15:22 MCH 25 L RDW 22.1 H Lymph # 1.1 L Seg Neutrophils % 71.8 H PT 15.1 H INR 1.22 H POC ABG pH ABG pH POC ABG pO2 ABG pO2 ABG Base Excess ABG Hemoglobin Potassium 5.2 H Chloride Carbon Dioxide BUN 67 H Creatinine 2.7 H Glucose 146 H POC Glucose Iron AST 52 H Alkaline Phosphatase 203 H Ammonia Troponin T NT-Pro-B Natriuret Pep Albumin 3.4 L LDL Cholesterol Direct HDL Cholesterol Salicylates Acetaminophen 07/01/19 07/01/19 07/01/19 15:22 15:22 15:22 MCH RDW Lymph # Seg Neutrophils % PT INR POC ABG pH ABG pH POC ABG pO2 ABG pO2 ABG Base Excess ABG Hemoglobin Potassium Chloride Carbon Dioxide BUN Creatinine Glucose POC Glucose Iron AST Alkaline Phosphatase Ammonia Troponin T 0.121 H* NT-Pro-B Natriuret Pep Albumin LDL Cholesterol Direct 38 L HDL Cholesterol 32 L Salicylates < 0.3 L Acetaminophen < 5.0 L 07/01/19 07/01/19 07/01/19 15:35 18:35 23:32 MCH RDW Lymph # Seg Neutrophils % PT INR POC ABG pH ABG pH POC ABG pO2 ABG pO2 ABG Base Excess ABG Hemoglobin Potassium Chloride Carbon Dioxide BUN Creatinine Glucose POC Glucose Iron 26 L AST Alkaline Phosphatase Ammonia 64.0 H Troponin T NT-Pro-B Natriuret Pep > 69044 H Albumin LDL Cholesterol Direct HDL Cholesterol Salicylates Acetaminophen 07/01/19 07/02/19 07/02/19 Unknown 07:32 10:33 MCH RDW Lymph # Seg Neutrophils % PT INR POC ABG pH 7.275 L ABG pH 7.284 L POC ABG pO2 76 L ABG pO2 121.4 H ABG Base Excess -3.1 L ABG Hemoglobin 10.5 L Potassium Chloride Carbon Dioxide BUN Creatinine Glucose POC Glucose 164 H Iron AST Alkaline Phosphatase Ammonia Troponin T NT-Pro-B Natriuret Pep Albumin LDL Cholesterol Direct HDL Cholesterol Salicylates Acetaminophen 07/02/19 07/02/19 07/02/19 11:39 11:39 11:39 MCH 25 L RDW 22.3 H Lymph # Seg Neutrophils % PT INR POC ABG pH ABG pH POC ABG pO2 ABG pO2 ABG Base Excess ABG Hemoglobin Potassium 5.7 H Chloride 109.5 H Carbon Dioxide 14 L D BUN 73 H Creatinine 2.6 H Glucose 187 H POC Glucose Iron AST Alkaline Phosphatase 202 H Ammonia Troponin T 0.138 H* NT-Pro-B Natriuret Pep Albumin 3.5 L LDL Cholesterol Direct HDL Cholesterol Salicylates Acetaminophen - Diagnostic Findings Chest x-ray: image reviewed (pulmonary edema) Assessment and Plan 59 y/o female with altered mental status thought secondary to overdose of lyrica vs uremic encephalopaty from worsening renal function vs acute systolic heart failure exacerbation. 1. Needs diuresis 2. Stopped IVF's 3. Ordered NT suctioning 4. Will hold off on ICU transfer and intubation 5. Follow up renal recs.
--- NOTE | 2019-07-02 13:25 | Consultation ---
History of Present Illness - Reason for Consult acute renal failure, chronic renal failure - History of Present Illness 59 y/o moridly obese female with h/o CKD IV (baseline creatinine ~2.5), in the setting of HTN, CHF, DM, who is seen in our outpatient clinic by my colleague, Dr. Hudson, who presented to the ED secondary to altered mental status and shortness of breath, possibly in the setting of CHF exacerbation. Patient is also being worked up for possible drug overdose with lyrica which may be leading to her current altered mental status. Past History Past Medical History: CAD, COPD, diabetes, heart failure, migraines Past Surgical History: CABG, Other ( x 2. left nephrectomy s/p aneurysm. left carotid endarterectomy (January 2016). R BKA. Triple bypass (05/2016)) Social history: Family history: diabetes, hypertension Medications and Allergies Allergies Allergy/AdvReac Type Severity Reaction Status Date / Time KRYSTIAN Inhibitors Allergy Shortness Verified 04/26/14 00:50 of Breath amitriptyline Allergy Unknown Verified 12/18/17 17:44 Home Medications Medication Instructions Recorded Confirmed Last Taken Type ALBUTEROL Inhaler (OR & NICU) 2 puff IH QID PRN 03/16/16 07/01/19 06/30/19 History [ProAir HFA Inhaler] Albuterol *Only Ed* [Proventil 2.5 mg IH QIDRT PRN #7 nebu 03/22/16 07/01/19 06/30/19 Rx 0.5% NEBS] Butalb/Acetamin/Caff 50-325-40 1 tab PO Q8HR PRN #90 tablet 03/22/16 07/01/19 06/30/19 Rx [Fioricet 50-325-40] HYDROcodone/APAP 5-325 [[place] 1 each PO QHS #30 tablet 03/22/16 07/01/19 06/30/19 Rx 5-325 mg TAB] ISOSORBIDE MONOnitrate [Imdur ER] 30 mg PO QDAY #30 tablet 03/22/16 07/01/19 06/30/19 Rx Insulin NPH/Regular [NovoLIN 70/30] 30 unit SQ BIDDIAB #30 units 03/22/16 07/01/19 06/30/19 Rx Aspirin [Aspirin BABY CHEW TAB] 81 mg PO QDAY #15 tab.chew 04/08/16 07/01/19 06/30/19 Rx AtorvaSTATin [Lipitor] 40 mg PO QHS #15 tablet 04/08/16 07/01/19 06/30/19 Rx Clopidogrel [Plavix] 75 mg PO QDAY #15 tablet 04/08/16 07/01/19 06/30/19 Rx Chlorhexidine Mouthwash [Peridex] 15 ml MM BID #1 bottle 12/18/17 07/01/19 06/30/19 Rx Carvedilol [Coreg] 12.5 mg PO QDAY 07/01/19 07/01/19 06/30/19 History Escitalopram Oxalate [Lexapro] 10 mg PO QHS 07/01/19 07/01/19 06/30/19 History Ferrous Sulfate [Feosol] 325 mg PO QDAY 07/01/19 07/01/19 06/30/19 History Pregabalin [Lyrica] 75 mg PO QHS 07/01/19 07/01/19 06/30/19 History Sodium Bicarbonate 650 mg PO BID 07/01/19 07/01/19 06/30/19 History Torsemide [Demadex] 10 mg PO QDAY 07/01/19 07/01/19 06/30/19 History hydrALAZINE [Apresoline] 25 mg PO QDAY 07/01/19 07/01/19 06/30/19 History Active Meds: Active Medications Albuterol (Proventil) 2.5 mg IH Q3HRT PRN PRN Reason: Shortness Of Breath Aspirin (Baby Aspirin) 81 mg PO QDAY [facility] Last Admin: 07/02/19 11:24 Dose: Not Given Documented by: Atorvastatin Calcium (Lipitor) 40 mg PO QHS [facility] Last Admin: 07/01/19 23:03 Dose: Not Given Documented by: Carvedilol (Coreg) 12.5 mg PO QDAY [facility] Last Admin: 07/02/19 11:24 Dose: Not Given Documented by: Chlorhexidine Gluconate (Peridex) 15 ml MM BID [facility] Last Admin: 07/02/19 11:27 Dose: Not Given Documented by: Clopidogrel Bisulfate (Plavix) 75 mg PO QDAY [facility] Last Admin: 07/02/19 11:25 Dose: Not Given Documented by: Escitalopram Oxalate (Lexapro) 10 mg PO QHS [facility] Last Admin: 07/01/19 23:03 Dose: Not Given Documented by: Ferrous Sulfate (Feosol) 325 mg PO QDAY [facility] Last Admin: 07/02/19 11:25 Dose: Not Given Documented by: Heparin Sodium (Porcine) (Heparin) 5,000 unit SUB-Q Q12HR [facility] Last Admin: 07/02/19 11:52 Dose: 5,000 unit Documented by: Hydralazine HCl (Apresoline) 10 mg IV Q4H PRN PRN Reason: Blood Pressure Hydralazine HCl (Apresoline) 25 mg PO TID [facility] Metronidazole (Flagyl 500 Mg/100 Ml) 500 mg in 100 mls @ 100 mls/hr IV Q8HR [facility]; Protocol Stop: 07/02/19 23:59 Last Admin: 07/02/19 07:53 Dose: 100 mls/hr Documented by: Cefepime HCl (Maxipime/Ns 2 Gm/100 Ml) 2 gm in 100 mls @ 200 mls/hr IV Q24HR [facility] Last Admin: 07/02/19 11:52 Dose: 200 mls/hr Documented by: Isosorbide Mononitrate (Imdur) 30 mg PO QDAY [facility] Last Admin: 07/02/19 11:25 Dose: Not Given Documented by: Sodium Bicarbonate (Sodium Bicarbonate) 650 mg PO BID [facility] Last Admin: 07/02/19 11:25 Dose: Not Given Documented by: Sodium Chloride (Sodium Chloride Flush Syringe 10 Ml) 10 ml IV BID [facility] Last Admin: 07/02/19 11:26 Dose: 10 ml Documented by: Sodium Chloride (Sodium Chloride Flush Syringe 10 Ml) 10 ml IV PRN PRN PRN Reason: LINE FLUSH Review of Systems ROS unobtainable: due to mental status Exam - Vital Signs Vital signs: Vital Signs Resp 07/01/19 14:15 - General Appearance General appearance: obese, other (lethargic, unable to answer questions. ) Neck: Present: neck supple Respiratory: Decreased Breath Sounds Heart: regular, normal heart rate, S1S2, no murmurs Gastrointestinal: Present: normal, normoactive bowel sounds Integumentary: warm and dry Neurologic: other (obtunded, unresponsive to questions) Musculoskeletal: Present: other (b/l AKA amputations. ) Results - Lab Results 07/02/19 11:39 07/02/19 11:39 Most recent lab results ABG pH 7.284 pH Units (7.350-7.450) L 07/01/19 Unknown ABG pCO2 51.5 mm Hg 07/01/19 Unknown ABG pO2 121.4 mm Hg (80.0-90.0) H 07/01/19 Unknown ABG HCO3 23.9 mmol/L (20.0-26.0) 07/01/19 Unknown ABG O2 Saturation 98.0 % (95.0-99.0) 07/01/19 Unknown Calcium 9.6 mg/dL (8.4-10.2) 07/02/19 11:39 Magnesium 2.20 mg/dL (1.7-2.3) 07/01/19 23:32 Assessment and Plan - Patient Problems (1) Acute kidney injury superimposed on CKD Current Visit: Yes Status: Acute Plan to address problem: Patient has mild OLEKSANDR on already progressed CKD IV. This is likely in the setting of acute/chronic systolic heart failure and cardiorena syndrome. Would recommend that we diurese patent with lasix 60 mg IV BID, with careful monitoring of I/O, daily weight, and overall respiratory status. Hoping also that with diuresis, will be able to further augment potassium e xcretion. Monitor daily renal functions. Avoid nephrotoxins. Maintain MAP >65mmHg. (2) Acute on chronic systolic heart failure Current Visit: Yes Status: Acute Plan to address problem: Would recommend that we diurese patient with lasix 60 mg IV BID. ECHO findings noted with severely decreased systolic functions, and significant elevation of BNP noted. Strict I/O. Please carefully document urine output/response with diuretic therapy. (3) Acute and chronic respiratory failure with hypoxia Current Visit: Yes Status: Acute Plan to address problem: Likely in the setting of acute on chronic CHF. Will recommend diuresis. Further recommendations per pulmonology. She also has a h/o COPD. (4) Fluid overload Current Visit: Yes Status: Acute Plan to address problem: Will diurese with lasix 60 mg IV ID and closely monitor, (5) Altered mental status Current Visit: Yes Status: Acute Plan to address problem: Possible overdose of lyrica. Per pulmonology notes, poison control notified with recommendations for conservative management. Will hold off on HD and monitor closely.
[2019-07-02 13:29] LABS: Band Neutrophils # (Manual) 0.2 K/mm3; Eosinophils % (Manual) 0 % (0.0-4.3); Total Cells Counted 100
[2019-07-02 13:30] LABS: Anisocytosis 1+; Hypochromasia 1+; Poikilocytosis Few; Target Cells Rare
[2019-07-02 13:32] LABS: Macrocytosis Rare; Spherocytes Rare
[2019-07-02 13:33] LABS: Large Platelets Few; Platelet Estimate Consistent w Auto
[2019-07-02] MEDS ORDERED: hydrALAZINE 20 MG/1 ML INJ ONE (17:34)
[2019-07-02] MEDS ORDERED: FUROSEMIDE 100 MG/10 ML INJ IV ONE (17:34)
[2019-07-02] MEDS: FUROSEMIDE 40 MG/4 ML INJ IV SCH (17:38)
[2019-07-02] MEDS: hydrALAZINE 20 MG/1 ML INJ IV PRN (17:38)
[2019-07-03] MEDS: hydrALAZINE 20 MG/1 ML INJ IV PRN ×2 (05:29→21:25)
[2019-07-03] MEDS: FUROSEMIDE 40 MG/4 ML INJ IV SCH (05:32)
[2019-07-03 05:55] LABS: Calcium 9.8 mg/dL (8.4-10.2)
[2019-07-03] MEDS: CEFEPIME/NS 2 GM/100 ML 2 GM/100 ML BAG IV SCH (09:01)
[2019-07-03] MEDS: HEPARIN 5,000 UNIT/1 ML VIAL SUB-Q SCH (09:01)
[2019-07-03] MEDS: SODIUM BICARBONATE 650 MG TAB PO SCH ×2 (09:02→21:22)
[2019-07-03 10:42] LABS: Hemoglobin 10.1 gm/dl (10.1-14.3); Mean Corpuscular HGB Conc 30 % (30-34); Mean Corpuscular Volume 82 fl (79-97); Platelet Count 240 K/mm3 (140-440); Red Blood Count 4.16 M/mm3 (3.65-5.03); Red Cell Distribution Width 22.4 % (13.2-15.2)
--- NOTE | 2019-07-03 11:03 | Progress Note ---
Assessment and Plan 59 y/o female with altered mental status thought secondary to overdose of lyrica vs uremic encephalopaty from worsening renal function vs acute systolic heart failure exacerbation. 1. Renal to increase diuresis today. 2. Stopped IVF's 3. Ordered NT suctioning, will continue. Stable on NC 4. Will hold off on ICU transfer and intubation Subjective Date of service: 07/03/19 Interval history: Oxygen requirement same. mental state about the same. Renal function slightly worse. Not sure how accurate I/O's are. Objective Vital Signs - 12hr 07/02/19 07/02/19 07/02/19 23:11 23:21 23:31 Temperature Pulse Rate 104 H 104 H 103 H Pulse Rate [ From Monitor] Respiratory 21 29 H 34 H Rate Blood Pressure 148/82 148/82 143/85 O2 Sat by Pulse 95 91 97 Oximetry 07/02/19 07/02/19 07/03/19 23:41 23:51 00:00 Temperature Pulse Rate 105 H 100 H 100 H Pulse Rate [ 100 H From Monitor] Respiratory 32 H 34 H 31 H Rate Blood Pressure 143/85 143/85 151/92 O2 Sat by Pulse 99 99 98 Oximetry 07/03/19 07/03/19 07/03/19 00:11 00:18 00:20 Temperature 98.7 F Pulse Rate 102 H 102 H Pulse Rate [ From Monitor] Respiratory 31 H 22 Rate Blood Pressure 151/92 151/92 O2 Sat by Pulse 98 98 Oximetry 07/03/19 07/03/19 07/03/19 00:30 00:40 00:50 Temperature Pulse Rate 102 H 101 H 101 H Pulse Rate [ From Monitor] Respiratory 28 H 28 H 29 H Rate Blood Pressure 151/92 156/90 156/90 O2 Sat by Pulse 98 98 98 Oximetry 07/03/19 07/03/19 07/03/19 01:00 01:10 01:20 Temperature Pulse Rate 100 H 100 H 103 H Pulse Rate [ From Monitor] Respiratory 30 H 28 H 33 H Rate Blood Pressure 156/90 167/89 167/89 O2 Sat by Pulse 98 98 97 Oximetry 07/03/19 07/03/19 07/03/19 01:34 01:41 01:51 Temperature Pulse Rate 102 H 103 H 102 H Pulse Rate [ From Monitor] Respiratory 24 22 26 H Rate Blood Pressure 156/90 156/90 161/99 O2 Sat by Pulse 98 99 98 Oximetry 07/03/19 07/03/19 07/03/19 02:00 02:11 02:21 Temperature Pulse Rate 101 H 100 H 101 H Pulse Rate [ From Monitor] Respiratory 35 H 28 H 31 H Rate Blood Pressure 164/94 164/94 164/94 O2 Sat by Pulse 98 98 96 Oximetry 07/03/19 07/03/19 07/03/19 02:31 02:41 02:51 Temperature Pulse Rate 101 H 102 H 100 H Pulse Rate [ From Monitor] Respiratory 30 H 19 31 H Rate Blood Pressure 161/90 161/90 161/90 O2 Sat by Pulse 97 97 95 Oximetry 07/03/19 07/03/19 07/03/19 03:00 03:11 03:21 Temperature Pulse Rate 102 H 101 H 102 H Pulse Rate [ From Monitor] Respiratory 23 25 H 29 H Rate Blood Pressure 159/93 159/93 159/93 O2 Sat by Pulse 94 96 97 Oximetry 07/03/19 07/03/19 07/03/19 03:30 03:41 03:51 Temperature Pulse Rate 101 H 98 H 105 H Pulse Rate [ From Monitor] Respiratory 31 H 30 H 22 Rate Blood Pressure 158/96 158/96 158/96 O2 Sat by Pulse 97 97 96 Oximetry 07/03/19 07/03/19 07/03/19 04:00 04:11 04:21 Temperature Pulse Rate 100 H 104 H 101 H Pulse Rate [ 102 H From Monitor] Respiratory 33 H 28 H 28 H Rate Blood Pressure 168/88 168/88 168/88 O2 Sat by Pulse 98 98 98 Oximetry 07/03/19 07/03/19 07/03/19 04:23 04:30 04:41 Temperature 98.4 F Pulse Rate 102 H 100 H Pulse Rate [ From Monitor] Respiratory 27 H 30 H Rate Blood Pressure 162/97 162/97 O2 Sat by Pulse 99 99 Oximetry 07/03/19 07/03/19 07/03/19 04:51 05:00 05:11 Temperature Pulse Rate 102 H 100 H 100 H Pulse Rate [ From Monitor] Respiratory 32 H 28 H 32 H Rate Blood Pressure 162/97 172/100 172/100 O2 Sat by Pulse 95 93 93 Oximetry 07/03/19 07/03/19 07/03/19 05:21 05:29 05:31 Temperature Pulse Rate 101 H 102 H 103 H Pulse Rate [ From Monitor] Respiratory 32 H 27 H Rate Blood Pressure 172/100 172/100 164/99 O2 Sat by Pulse 93 97 Oximetry 07/03/19 07/03/19 07/03/19 05:41 05:51 06:01 Temperature Pulse Rate 102 H 101 H 101 H Pulse Rate [ From Monitor] Respiratory 31 H 27 H 18 Rate Blood Pressure 164/99 164/99 156/106 O2 Sat by Pulse 96 98 97 Oximetry 07/03/19 07/03/19 07/03/19 06:10 06:21 06:31 Temperature Pulse Rate 104 H 100 H 101 H Pulse Rate [ From Monitor] Respiratory 21 31 H 30 H Rate Blood Pressure 154/104 166/95 162/93 O2 Sat by Pulse 94 95 96 Oximetry 07/03/19 07/03/19 07/03/19 06:41 06:51 07:00 Temperature Pulse Rate 100 H 100 H 101 H Pulse Rate [ From Monitor] Respiratory 30 H 27 H 24 Rate Blood Pressure 162/93 162/93 162/96 O2 Sat by Pulse 96 95 97 Oximetry 07/03/19 07/03/19 07/03/19 07:11 07:21 07:30 Temperature Pulse Rate 102 H 101 H 101 H Pulse Rate [ From Monitor] Respiratory 29 H 29 H 28 H Rate Blood Pressure 162/96 162/96 178/100 O2 Sat by Pulse 97 97 98 Oximetry 07/03/19 07/03/19 07/03/19 07:41 07:51 07:53 Temperature 98.6 F Pulse Rate 101 H 103 H Pulse Rate [ From Monitor] Respiratory 28 H 31 H Rate Blood Pressure 178/100 137/26 O2 Sat by Pulse 98 97 Oximetry 07/03/19 07/03/19 07/03/19 08:00 08:11 08:21 Temperature Pulse Rate 101 H 98 H 101 H Pulse Rate [ 103 H From Monitor] Respiratory 28 H 30 H 30 H Rate Blood Pressure 121/71 121/71 121/71 O2 Sat by Pulse 98 98 98 Oximetry 07/03/19 07/03/19 07/03/19 08:30 08:41 08:43 Temperature Pulse Rate 103 H 100 H Pulse Rate [ From Monitor] Respiratory 33 H 30 H Rate Blood Pressure 129/71 129/71 O2 Sat by Pulse 98 99 97 Oximetry 07/03/19 07/03/19 07/03/19 08:51 09:00 09:11 Temperature Pulse Rate 101 H 101 H 101 H Pulse Rate [ From Monitor] Respiratory 28 H 23 30 H Rate Blood Pressure 129/71 130/73 130/73 O2 Sat by Pulse 99 98 98 Oximetry 07/03/19 07/03/19 07/03/19 09:21 09:30 09:41 Temperature Pulse Rate 101 H 102 H 101 H Pulse Rate [ From Monitor] Respiratory 28 H 32 H 19 Rate Blood Pressure 130/73 139/76 130/73 O2 Sat by Pulse 99 98 98 Oximetry 07/03/19 07/03/19 09:51 10:01 Temperature Pulse Rate 101 H 102 H Pulse Rate [ From Monitor] Respiratory 27 H 23 Rate Blood Pressure 130/73 133/59 O2 Sat by Pulse 98 99 Oximetry Constitutional: no acute distress, other (obtunded) Eyes: non-icteric ENT: oropharynx moist Neck: supple Effort: normal Ascultation: Bilateral: diminished breath sounds Percussion: Bilateral: not dull Cardiovascular: regular rate and rhythm Gastrointestinal: normoactive bowel sounds, soft Extremities: edema Neurologic: unable to assess CBC and BMP: 07/03/19 10:22 07/03/19 04:51 ABG, PT/INR, D-dimer: ABG POC ABG pH 7.275 (7.35-7.45) L 07/02/19 10:33 ABG pH 7.284 pH Units (7.350-7.450) L 07/01/19 Unknown POC ABG pCO2 43.9 (35-45) 07/02/19 10:33 ABG pCO2 51.5 mm Hg 07/01/19 Unknown POC ABG pO2 76 (80-105) L 07/02/19 10:33 ABG pO2 121.4 mm Hg (80.0-90.0) H 07/01/19 Unknown POC ABG HCO3 20.4 (22-26 mml/L) 07/02/19 10:33 POC ABG Total CO2 22 (23-27mmol/L) 07/02/19 10:33 POC ABG O2 Sat 93 07/02/19 10:33 ABG O2 Saturation 98.0 % (95.0-99.0) 07/01/19 Unknown PT/INR, D-dimer PT 15.1 Sec. (12.2-14.9) H 07/01/19 15:22 INR 1.22 (0.87-1.13) H 07/01/19 15:22 Abnormal lab findings: Abnormal Labs 07/01/19 07/01/19 07/01/19 15:22 15:22 15:22 MCH 25 L RDW 22.1 H Lymph # 1.1 L Seg Neutrophils % 71.8 H Seg Neuts % (Manual) Lymphocytes % (Manual) Nucleated RBC % Lymphocytes # (Manual) PT 15.1 H INR 1.22 H POC ABG pH ABG pH POC ABG pO2 ABG pO2 ABG Base Excess ABG Hemoglobin Sodium Potassium 5.2 H Chloride Carbon Dioxide BUN 67 H Creatinine 2.7 H Glucose 146 H POC Glucose Iron AST 52 H Alkaline Phosphatase 203 H Ammonia Troponin T NT-Pro-B Natriuret Pep Albumin 3.4 L LDL Cholesterol Direct HDL Cholesterol Salicylates Acetaminophen 07/01/19 07/01/19 07/01/19 15:22 15:22 15:22 MCH RDW Lymph # Seg Neutrophils % Seg Neuts % (Manual) Lymphocytes % (Manual) Nucleated RBC % Lymphocytes # (Manual) PT INR POC ABG pH ABG pH POC ABG pO2 ABG pO2 ABG Base Excess ABG Hemoglobin Sodium Potassium Chloride Carbon Dioxide BUN Creatinine Glucose POC Glucose Iron AST Alkaline Phosphatase Ammonia Troponin T 0.121 H* NT-Pro-B Natriuret Pep Albumin LDL Cholesterol Direct 38 L HDL Cholesterol 32 L Salicylates < 0.3 L Acetaminophen < 5.0 L 07/01/19 07/01/19 07/01/19 15:35 18:35 23:32 MCH RDW Lymph # Seg Neutrophils % Seg Neuts % (Manual) Lymphocytes % (Manual) Nucleated RBC % Lymphocytes # (Manual) PT INR POC ABG pH ABG pH POC ABG pO2 ABG pO2 ABG Base Excess ABG Hemoglobin Sodium Potassium Chloride Carbon Dioxide BUN Creatinine Glucose POC Glucose Iron 26 L AST Alkaline Phosphatase Ammonia 64.0 H Troponin T NT-Pro-B Natriuret Pep > 79032 H Albumin LDL Cholesterol Direct HDL Cholesterol Salicylates Acetaminophen 07/01/19 07/02/19 07/02/19 Unknown 07:32 10:33 MCH RDW Lymph # Seg Neutrophils % Seg Neuts % (Manual) Lymphocytes % (Manual) Nucleated RBC % Lymphocytes # (Manual) PT INR POC ABG pH 7.275 L ABG pH 7.284 L POC ABG pO2 76 L ABG pO2 121.4 H ABG Base Excess -3.1 L ABG Hemoglobin 10.5 L Sodium Potassium Chloride Carbon Dioxide BUN Creatinine Glucose POC Glucose 164 H Iron AST Alkaline Phosphatase Ammonia Troponin T NT-Pro-B Natriuret Pep Albumin LDL Cholesterol Direct HDL Cholesterol Salicylates Acetaminophen 07/02/19 07/02/19 07/02/19 11:39 11:39 11:39 MCH 25 L RDW 22.3 H Lymph # Seg Neutrophils % Seg Neuts % (Manual) 81.0 H Lymphocytes % (Manual) 8.0 L Nucleated RBC % 1.0 H Lymphocytes # (Manual) 0.7 L PT INR POC ABG pH ABG pH POC ABG pO2 ABG pO2 ABG Base Excess ABG Hemoglobin Sodium Potassium 5.7 H Chloride 109.5 H Carbon Dioxide 14 L D BUN 73 H Creatinine 2.6 H Glucose 187 H POC Glucose Iron AST Alkaline Phosphatase 202 H Ammonia Troponin T 0.138 H* NT-Pro-B Natriuret Pep Albumin 3.5 L LDL Cholesterol Direct HDL Cholesterol Salicylates Acetaminophen 07/03/19 07/03/19 04:51 10:22 MCH 24 L RDW 22.4 H Lymph # Seg Neutrophils % Seg Neuts % (Manual) Lymphocytes % (Manual) Nucleated RBC % Lymphocytes # (Manual) PT INR POC ABG pH ABG pH POC ABG pO2 ABG pO2 ABG Base Excess ABG Hemoglobin Sodium 149 H Potassium 5.3 H Chloride 110.6 H Carbon Dioxide 17 L BUN 79 H Creatinine 2.8 H Glucose 244 H POC Glucose Iron AST Alkaline Phosphatase Ammonia Troponin T 0.193 H* D NT-Pro-B Natriuret Pep Albumin LDL Cholesterol Direct HDL Cholesterol Salicylates Acetaminophen
--- NOTE | 2019-07-03 11:25 | Progress Note ---
Assessment and Plan Agree with present cardiac management. Cont IV lasix BID per nephrology. Pt currently NPO in setting of AMS. Additionally, she is noted to have dark red secretions coming from NG tube. H/H WNL. Consider GI consultation per primary. Echo reviewed - EF 20-25%. Once PO intake is resumed, resume home coreg. No ACEI/ARB at this time in setting of renal insufficiency. Can consider ischemic evaluation once medically stabilized. The patient has been seen in conjunction with Dr. Puentes who agrees with the assessment and plan of care. - Patient Problems (1) Altered mental status Current Visit: Yes Status: Acute (2) Hepatic encephalopathy Current Visit: Yes Status: Suspected (3) Aspiration pneumonia Current Visit: Yes Status: Suspected Qualifiers: Laterality: left Lung location: lower lobe of lung (4) Acute HFrEF (heart failure with reduced ejection fraction) Current Visit: Yes Status: Acute (5) Ischemic cardiomyopathy Current Visit: Yes Status: Chronic (6) CAD (coronary artery disease) Current Visit: Yes Status: Chronic Qualifiers: Coronary Disease-Associated Artery/Lesion type: [place] coronary artery (7) History of coronary artery bypass graft Current Visit: Yes Status: Chronic (8) Hypertension Current Visit: Yes Status: Chronic Qualifiers: Hypertension type: essential hypertension Qualified Code(s): I10 - Essential (primary) hypertension (9) Hyperlipidemia Current Visit: Yes Status: Chronic (10) Diabetes Current Visit: Yes Status: Chronic (11) History of left-sided carotid endarterectomy Current Visit: Yes Status: Chronic (12) COPD (chronic obstructive pulmonary disease) Current Visit: Yes Status: Chronic Qualifiers: COPD type: emphysema (13) Acute kidney injury superimposed on chronic kidney disease Current Visit: Yes Status: Acute (14) Hyperkalemia Current Visit: Yes Status: Acute (15) NSTEMI (non-ST elevated myocardial infarction) Current Visit: Yes Status: Acute (16) PVD (peripheral vascular disease) Current Visit: Yes Status: Chronic Subjective Date of service: 07/03/19 Objective Vital Signs Temp Pulse Pulse Resp BP Pulse Ox 07/03/19 11:00 98 H 21 140/64 99 07/03/19 10:51 102 H 29 H 133/59 98 07/03/19 10:41 101 H 27 H 133/59 98 07/03/19 10:30 102 H 28 H 136/72 98 07/03/19 10:21 99 H 23 139/76 98 07/03/19 10:11 101 H 27 H 139/76 99 07/03/19 10:01 102 H 23 133/59 99 07/03/19 09:51 101 H 27 H 130/73 98 07/03/19 09:41 101 H 19 130/73 98 07/03/19 09:30 102 H 32 H 139/76 98 07/03/19 09:21 101 H 28 H 130/73 99 07/03/19 09:11 101 H 30 H 130/73 98 07/03/19 09:00 101 H 23 130/73 98 07/03/19 08:51 101 H 28 H 129/71 99 07/03/19 08:43 97 07/03/19 08:41 100 H 30 H 129/71 99 07/03/19 08:30 103 H 33 H 129/71 98 07/03/19 08:21 101 H 30 H 121/71 98 07/03/19 08:11 98 H 30 H 121/71 98 07/03/19 08:00 101 H 103 H 28 H 121/71 98 07/03/19 07:53 98.6 F 07/03/19 07:51 103 H 31 H 137/26 97 07/03/19 07:41 101 H 28 H 178/100 98 07/03/19 07:30 101 H 28 H 178/100 98 07/03/19 07:21 101 H 29 H 162/96 97 07/03/19 07:11 102 H 29 H 162/96 97 07/03/19 07:00 101 H 24 162/96 97 07/03/19 06:51 100 H 27 H 162/93 95 07/03/19 06:41 100 H 30 H 162/93 96 07/03/19 06:31 101 H 30 H 162/93 96 07/03/19 06:21 100 H 31 H 166/95 95 07/03/19 06:10 104 H 21 154/104 94 07/03/19 06:01 101 H 18 156/106 97 07/03/19 05:51 101 H 27 H 164/99 98 07/03/19 05:41 102 H 31 H 164/99 96 07/03/19 05:31 103 H 27 H 164/99 97 07/03/19 05:29 102 H 172/100 07/03/19 05:21 101 H 32 H 172/100 93 07/03/19 05:11 100 H 32 H 172/100 93 07/03/19 05:00 100 H 28 H 172/100 93 07/03/19 04:51 102 H 32 H 162/97 95 07/03/19 04:41 100 H 30 H 162/97 99 07/03/19 04:30 102 H 27 H 162/97 99 07/03/19 04:23 98.4 F 07/03/19 04:21 101 H 28 H 168/88 98 07/03/19 04:11 104 H 28 H 168/88 98 07/03/19 04:00 100 H 102 H 33 H 168/88 98 07/03/19 03:51 105 H 22 158/96 96 07/03/19 03:41 98 H 30 H 158/96 97 07/03/19 03:30 101 H 31 H 158/96 97 07/03/19 03:21 102 H 29 H 159/93 97 07/03/19 03:11 101 H 25 H 159/93 96 07/03/19 03:00 102 H 23 159/93 94 07/03/19 02:51 100 H 31 H 161/90 95 07/03/19 02:41 102 H 19 161/90 97 07/03/19 02:31 101 H 30 H 161/90 97 07/03/19 02:21 101 H 31 H 164/94 96 07/03/19 02:11 100 H 28 H 164/94 98 07/03/19 02:00 101 H 35 H 164/94 98 07/03/19 01:51 102 H 26 H 161/99 98 07/03/19 01:41 103 H 22 156/90 99 07/03/19 01:34 102 H 24 156/90 98 07/03/19 01:20 103 H 33 H 167/89 97 07/03/19 01:10 100 H 28 H 167/89 98 07/03/19 01:00 100 H 30 H 156/90 98 07/03/19 00:50 101 H 29 H 156/90 98 07/03/19 00:40 101 H 28 H 156/90 98 07/03/19 00:30 102 H 28 H 151/92 98 07/03/19 00:20 102 H 22 151/92 98 07/03/19 00:18 98.7 F 07/03/19 00:11 102 H 31 H 151/92 98 07/03/19 00:00 100 H 100 H 31 H 151/92 98 07/02/19 23:51 100 H 34 H 143/85 99 07/02/19 23:41 105 H 32 H 143/85 99 07/02/19 23:31 103 H 34 H 143/85 97 07/02/19 23:21 104 H 29 H 148/82 91 07/02/19 23:11 104 H 21 148/82 95 07/02/19 23:01 105 H 32 H 148/82 94 07/02/19 22:51 104 H 26 H 155/86 94 07/02/19 22:41 104 H 32 H 155/86 94 07/02/19 22:30 104 H 31 H 157/79 94 07/02/19 22:21 103 H 34 H 155/86 94 07/02/19 22:11 105 H 30 H 155/86 93 07/02/19 22:00 105 H 32 H 155/86 89 07/02/19 21:51 104 H 32 H 141/100 94 07/02/19 21:41 104 H 27 H 141/100 93 07/02/19 21:31 102 H 29 H 144/79 93 07/02/19 21:21 106 H 33 H 141/100 94 07/02/19 21:11 105 H 29 H 141/100 95 07/02/19 21:00 106 H 34 H 141/100 98 07/02/19 20:51 105 H 28 H 140/98 97 07/02/19 20:41 105 H 27 H 140/98 97 07/02/19 20:31 104 H 25 H 140/98 98 07/02/19 20:26 98.4 F 07/02/19 20:21 104 H 25 H 115/88 98 07/02/19 20:11 103 H 28 H 115/88 98 07/02/19 20:00 101 H 34 H 115/88 97 07/02/19 19:53 93 07/02/19 19:51 103 H 29 H 125/92 96 07/02/19 19:41 103 H 26 H 125/92 93 07/02/19 19:31 102 H 33 H 125/92 96 07/02/19 19:21 104 H 21 155/94 92 07/02/19 19:19 105 H 34 H 98 07/02/19 19:10 105 H 24 07/02/19 19:04 113 H 17 07/02/19 18:43 105 H 34 H 178/89 99 07/02/19 18:00 104 H 36 H 178/89 98 07/02/19 17:38 104 H 183/103 07/02/19 17:00 106 H 36 H 191/104 90 07/02/19 16:00 106 H 31 H 160/110 95 07/02/19 15:00 106 H 38 H 174/90 96 07/02/19 14:00 106 H 40 H 166/101 97 07/02/19 13:00 100 H 32 H 172/97 96 07/02/19 12:01 100 H 38 H 161/96 93 07/02/19 11:25 104 H 164/64 07/02/19 11:24 104 H 164/64 - Physical Examination HEENT: Positive: PERRL Neck: Positive: neck supple Neuro: Positive: Other (lethargic) Skin: Negative: Rash Musculoskeletal: No Fluid Collection Extremities: Absent: edema - Labs and Meds Cardiac Enzymes 07/02/19 Range/Units 11:39 AST 37 (5-40) units/L CBC 07/02/19 07/03/19 Range/Units 11:39 10:22 WBC 8.4 9.6 (4.5-11.0) K/mm3 RBC 4.21 4.16 (3.65-5.03) M/mm3 Hgb 10.4 10.1 (10.1-14.3) gm/dl Hct 34.0 34.0 (30.3-42.9) % Plt Count 258 240 (140-440) K/mm3 Comprehensive Metabolic Panel 07/02/19 07/03/19 Range/Units 11:39 04:51 Sodium 142 149 H (137-145) mmol/L Potassium 5.7 H 5.3 H (3.6-5.0) mmol/L Chloride 109.5 H 110.6 H (98-107) mmol/L Carbon Dioxide 14 L D 17 L (22-30) mmol/L BUN 73 H 79 H (7-17) mg/dL Creatinine 2.6 H 2.8 H (0.7-1.2) mg/dL Glucose 187 H 244 H (65-100) mg/dL Calcium 9.6 9.8 (8.4-10.2) mg/dL AST 37 (5-40) units/L ALT 36 (7-56) units/L Alkaline Phosphatase 202 H (35-129) units/L Total Protein 7.6 (6.3-8.2) g/dL Albumin 3.5 L (3.9-5) g/dL - Imaging and Cardiology EKG: report reviewed, image reviewed Echo: report reviewed (09/2017 showed EF 35-40%, mild LVH, severe LAE, mild AR and MR, mod TR, RVSP 66mmHg. ) - EKG Sinus rhythms and dysrhythmias: sinus rhythm
--- NOTE | 2019-07-03 13:16 | Progress Note ---
Assessment and Plan - Patient Problems (1) Acute kidney injury superimposed on CKD Current Visit: Yes Status: Acute Plan to address problem: Patient has mild OLEKSANDR on already progressed CKD IV. This is likely in the setting of acute/chronic systolic heart failure and cardiorenal syndrome. Minimal response with lasix 60 mg IV BID, will increase to Bumex 2mg BID IV, with careful monitoring of I/O, daily weight, and overall respiratory status. Hoping also that with diuresis, will be able to further augment potassium excretion. Monitor daily renal functions. Avoid nephrotoxins. Maintain MAP >65mmHg. (2) Acute on chronic systolic heart failure Current Visit: Yes Status: Acute Plan to address problem: Would recommend that we switch current diuretic regimen to Bumex 2 mg BID. ECHO findings noted with severely decreased systolic functions, and significant elevation of BNP noted. Strict I/O. Please carefully document urine output/response with diuretic therapy. (3) Acute and chronic respiratory failure with hypoxia Current Visit: Yes Status: Acute Plan to address problem: Likely in the setting of acute on chronic CHF. Will recommend diuresis. Further recommendations per pulmonology. She also has a h/o COPD. (4) Fluid overload Current Visit: Yes Status: Acute Plan to address problem: Will diurese with bumex 2mg IV BID and closely monitor, (5) Altered mental status Current Visit: Yes Status: Acute Plan to address problem: Possible overdose of lyrica. Per pulmonology notes, poison control notified with recommendations for conservative management. Will hold off on HD and monitor closely. Will see if she can begin to diurese and improve her overall clearance, which may help with her overall mental status. If no improvement, then will readdress possibility of HD. Subjective Date of service: 07/03/19 Interval history: Remains lethargic, with no improvement in overall mental status. Minimal response with lasix IV. Will change to bumex IV. Will monitor closely. Overall renal function is stable and essentially close to her baseline (Scr 2.5). Objective - Vital Signs Vital signs: Vital Signs - 12hr 07/03/19 07/03/19 07/03/19 01:20 01:34 01:41 Temperature Pulse Rate 103 H 102 H 103 H Pulse Rate [ From Monitor] Respiratory 33 H 24 22 Rate Blood Pressure 167/89 156/90 156/90 O2 Sat by Pulse 97 98 99 Oximetry 07/03/19 07/03/19 07/03/19 01:51 02:00 02:11 Temperature Pulse Rate 102 H 101 H 100 H Pulse Rate [ From Monitor] Respiratory 26 H 35 H 28 H Rate Blood Pressure 161/99 164/94 164/94 O2 Sat by Pulse 98 98 98 Oximetry 07/03/19 07/03/19 07/03/19 02:21 02:31 02:41 Temperature Pulse Rate 101 H 101 H 102 H Pulse Rate [ From Monitor] Respiratory 31 H 30 H 19 Rate Blood Pressure 164/94 161/90 161/90 O2 Sat by Pulse 96 97 97 Oximetry 07/03/19 07/03/19 07/03/19 02:51 03:00 03:11 Temperature Pulse Rate 100 H 102 H 101 H Pulse Rate [ From Monitor] Respiratory 31 H 23 25 H Rate Blood Pressure 161/90 159/93 159/93 O2 Sat by Pulse 95 94 96 Oximetry 07/03/19 07/03/19 07/03/19 03:21 03:30 03:41 Temperature Pulse Rate 102 H 101 H 98 H Pulse Rate [ From Monitor] Respiratory 29 H 31 H 30 H Rate Blood Pressure 159/93 158/96 158/96 O2 Sat by Pulse 97 97 97 Oximetry 07/03/19 07/03/19 07/03/19 03:51 04:00 04:11 Temperature Pulse Rate 105 H 100 H 104 H Pulse Rate [ 102 H From Monitor] Respiratory 22 33 H 28 H Rate Blood Pressure 158/96 168/88 168/88 O2 Sat by Pulse 96 98 98 Oximetry 07/03/19 07/03/19 07/03/19 04:21 04:23 04:30 Temperature 98.4 F Pulse Rate 101 H 102 H Pulse Rate [ From Monitor] Respiratory 28 H 27 H Rate Blood Pressure 168/88 162/97 O2 Sat by Pulse 98 99 Oximetry 07/03/19 07/03/19 07/03/19 04:41 04:51 05:00 Temperature Pulse Rate 100 H 102 H 100 H Pulse Rate [ From Monitor] Respiratory 30 H 32 H 28 H Rate Blood Pressure 162/97 162/97 172/100 O2 Sat by Pulse 99 95 93 Oximetry 07/03/19 07/03/19 07/03/19 05:11 05:21 05:29 Temperature Pulse Rate 100 H 101 H 102 H Pulse Rate [ From Monitor] Respiratory 32 H 32 H Rate Blood Pressure 172/100 172/100 172/100 O2 Sat by Pulse 93 93 Oximetry 07/03/19 07/03/19 07/03/19 05:31 05:41 05:51 Temperature Pulse Rate 103 H 102 H 101 H Pulse Rate [ From Monitor] Respiratory 27 H 31 H 27 H Rate Blood Pressure 164/99 164/99 164/99 O2 Sat by Pulse 97 96 98 Oximetry 07/03/19 07/03/19 07/03/19 06:01 06:10 06:21 Temperature Pulse Rate 101 H 104 H 100 H Pulse Rate [ From Monitor] Respiratory 18 21 31 H Rate Blood Pressure 156/106 154/104 166/95 O2 Sat by Pulse 97 94 95 Oximetry 07/03/19 07/03/19 07/03/19 06:31 06:41 06:51 Temperature Pulse Rate 101 H 100 H 100 H Pulse Rate [ From Monitor] Respiratory 30 H 30 H 27 H Rate Blood Pressure 162/93 162/93 162/93 O2 Sat by Pulse 96 96 95 Oximetry 07/03/19 07/03/19 07/03/19 07:00 07:11 07:21 Temperature Pulse Rate 101 H 102 H 101 H Pulse Rate [ From Monitor] Respiratory 24 29 H 29 H Rate Blood Pressure 162/96 162/96 162/96 O2 Sat by Pulse 97 97 97 Oximetry 07/03/19 07/03/19 07/03/19 07:30 07:41 07:51 Temperature Pulse Rate 101 H 101 H 103 H Pulse Rate [ From Monitor] Respiratory 28 H 28 H 31 H Rate Blood Pressure 178/100 178/100 137/26 O2 Sat by Pulse 98 98 97 Oximetry 07/03/19 07/03/19 07/03/19 07:53 08:00 08:11 Temperature 98.6 F Pulse Rate 101 H 98 H Pulse Rate [ 103 H From Monitor] Respiratory 28 H 30 H Rate Blood Pressure 121/71 121/71 O2 Sat by Pulse 98 98 Oximetry 07/03/19 07/03/19 07/03/19 08:21 08:30 08:41 Temperature Pulse Rate 101 H 103 H 100 H Pulse Rate [ From Monitor] Respiratory 30 H 33 H 30 H Rate Blood Pressure 121/71 129/71 129/71 O2 Sat by Pulse 98 98 99 Oximetry 07/03/19 07/03/19 07/03/19 08:43 08:51 09:00 Temperature Pulse Rate 101 H 101 H Pulse Rate [ From Monitor] Respiratory 28 H 23 Rate Blood Pressure 129/71 130/73 O2 Sat by Pulse 97 99 98 Oximetry 07/03/19 07/03/19 07/03/19 09:11 09:21 09:30 Temperature Pulse Rate 101 H 101 H 102 H Pulse Rate [ From Monitor] Respiratory 30 H 28 H 32 H Rate Blood Pressure 130/73 130/73 139/76 O2 Sat by Pulse 98 99 98 Oximetry 07/03/19 07/03/19 07/03/19 09:41 09:51 10:01 Temperature Pulse Rate 101 H 101 H 102 H Pulse Rate [ From Monitor] Respiratory 19 27 H 23 Rate Blood Pressure 130/73 130/73 133/59 O2 Sat by Pulse 98 98 99 Oximetry 07/03/19 07/03/19 07/03/19 10:11 10:21 10:30 Temperature Pulse Rate 101 H 99 H 102 H Pulse Rate [ From Monitor] Respiratory 27 H 23 28 H Rate Blood Pressure 139/76 139/76 136/72 O2 Sat by Pulse 99 98 98 Oximetry 07/03/19 07/03/19 07/03/19 10:41 10:51 11:00 Temperature Pulse Rate 101 H 102 H 98 H Pulse Rate [ From Monitor] Respiratory 27 H 29 H 21 Rate Blood Pressure 133/59 133/59 140/64 O2 Sat by Pulse 98 98 99 Oximetry 07/03/19 07/03/19 07/03/19 11:11 11:21 11:31 Temperature Pulse Rate 101 H 101 H 100 H Pulse Rate [ From Monitor] Respiratory 31 H 23 21 Rate Blood Pressure 140/64 140/64 140/64 O2 Sat by Pulse 99 98 97 Oximetry 07/03/19 07/03/19 07/03/19 11:41 11:51 12:00 Temperature Pulse Rate 102 H 102 H Pulse Rate [ 100 H From Monitor] Respiratory 30 H 26 H 28 H Rate Blood Pressure 140/64 140/64 O2 Sat by Pulse 95 98 97 Oximetry 07/03/19 12:01 Temperature Pulse Rate 102 H Pulse Rate [ From Monitor] Respiratory 26 H Rate Blood Pressure 142/98 O2 Sat by Pulse 98 Oximetry - General Appearance General appearance: obese, chronically ill EENT: ATNC, PERRL Neck: no JVD, no thyromegaly Respiratory: Present: [place] Cardiology: regular, S1S2 Gastrointestinal: normal Integumentary: warm and dry Neurologic: other (lethargic, unable to follow commands, ) Musculoskeletal: other (B/L AKA ) - Lab 07/03/19 10:22 07/03/19 04:51 Most recent lab results ABG pH 7.284 pH Units (7.350-7.450) L 07/01/19 Unknown ABG pCO2 51.5 mm Hg 07/01/19 Unknown ABG pO2 121.4 mm Hg (80.0-90.0) H 07/01/19 Unknown ABG HCO3 23.9 mmol/L (20.0-26.0) 07/01/19 Unknown ABG O2 Saturation 98.0 % (95.0-99.0) 07/01/19 Unknown Calcium 9.8 mg/dL (8.4-10.2) 07/03/19 04:51 Magnesium 2.20 mg/dL (1.7-2.3) 07/01/19 23:32 - Imaging Chest x-ray: report reviewed, image reviewed - Allied health notes Allied health notes reviewed: nursing Medications & Allergies - Medications Allergies/Adverse Reactions: Allergies KRYSTIAN Inhibitors Allergy (Verified 04/26/14 00:50) Shortness of Breath amitriptyline Allergy (Verified 12/18/17 17:44) Unknown Home Medications: Home Medications Medication Instructions Recorded Confirmed Last Taken Type ALBUTEROL Inhaler (OR & NICU) 2 puff IH QID PRN 03/16/16 07/01/19 06/30/19 History [ProAir HFA Inhaler] Albuterol *Only Ed* [Proventil 2.5 mg IH QIDRT PRN #7 nebu 03/22/16 07/01/19 06/30/19 Rx 0.5% NEBS] Butalb/Acetamin/Caff 50-325-40 1 tab PO Q8HR PRN #90 tablet 03/22/16 07/01/19 06/30/19 Rx [Fioricet 50-325-40] HYDROcodone/APAP 5-325 [[place] 1 each PO QHS #30 tablet 03/22/16 07/01/19 06/30/19 Rx 5-325 mg TAB] ISOSORBIDE MONOnitrate [Imdur ER] 30 mg PO QDAY #30 tablet 03/22/16 07/01/19 06/30/19 Rx Insulin NPH/Regular [NovoLIN 70/30] 30 unit SQ BIDDIAB #30 units 03/22/16 07/01/19 06/30/19 Rx Aspirin [Aspirin BABY CHEW TAB] 81 mg PO QDAY #15 tab.chew 04/08/16 07/01/19 06/30/19 Rx AtorvaSTATin [Lipitor] 40 mg PO QHS #15 tablet 04/08/16 07/01/19 06/30/19 Rx Clopidogrel [Plavix] 75 mg PO QDAY #15 tablet 04/08/16 07/01/19 06/30/19 Rx Chlorhexidine Mouthwash [Peridex] 15 ml MM BID #1 bottle 12/18/17 07/01/19 06/30/19 Rx Carvedilol [Coreg] 12.5 mg PO QDAY 07/01/19 07/01/19 06/30/19 History Escitalopram Oxalate [Lexapro] 10 mg PO QHS 07/01/19 07/01/19 06/30/19 History Ferrous Sulfate [Feosol] 325 mg PO QDAY 07/01/19 07/01/19 06/30/19 History Pregabalin [Lyrica] 75 mg PO QHS 07/01/19 07/01/19 06/30/19 History Sodium Bicarbonate 650 mg PO BID 07/01/19 07/01/19 06/30/19 History Torsemide [Demadex] 10 mg PO QDAY 07/01/19 07/01/19 06/30/19 History hydrALAZINE [Apresoline] 25 mg PO QDAY 07/01/19 07/01/19 06/30/19 History Active Medications: Generic Name Dose Route Start Last Admin Trade Name Freq PRN Reason Stop Dose Admin Albuterol 2.5 mg 07/01/19 20:06 Proventil IH Q3HRT PRN Shortness Of Breath Bumetanide 2 mg 07/03/19 18:00 Bumex IV BID@0600,1800 CHRISTY Hydralazine HCl 10 mg 07/02/19 05:49 07/03/19 05:29 Apresoline IV 10 mg Q4H PRN Administration Blood Pressure Cefepime HCl 2 gm in 100 mls @ 200 mls/hr 07/01/19 22:00 07/03/19 09:01 Maxipime/Ns 2 Gm/100 Ml IV 200 mls/hr Q24HR CHRISTY Administration Sodium Bicarbonate 650 mg 07/01/19 22:00 07/03/19 09:02 Sodium Bicarbonate PO Not Given BID CHRISTY Sodium Chloride 10 ml 07/01/19 22:00 07/03/19 09:02 Sodium Chloride Flush Syringe 10 Ml IV 10 ml BID CHRISTY Administration Sodium Chloride 10 ml 07/01/19 20:06 Sodium Chloride Flush Syringe 10 Ml IV PRN PRN LINE FLUSH
--- NOTE | 2019-07-03 15:30 | Progress Note ---
Assessment and Plan Assessment and plan: Patient is a 59 yo woman with a history of hypertension, CAD s/p PCI, s/p CABG at [facility] in 05/2016, ICMP, HFrEF (Echo done 09/2017 showed EF 35-40%, mild LVH, severe LAE, mild AR and MR, mod TR, RVSP 66mmHg), carotid stenosis s/p left CEA in 01/2016, COPD, HTN, HLP, DM type 2 and CKD who presented to [facility] ED with AMS and unresponsiveness. According to ED record, the family found her basically somnolent in the bed with some Lyrica pills in her hand and several pills lying on the bed next to her on Monday. Then on Monday, they noticed that she had vomited on herself and seemed a little groggy. Family called EMS but the pt refused to be transported to the hospital. As the day progressed family states the patient appeared to get weaker and then eventually she could not keep her eyes open. Family states they were able to convince the patient to come to the emergency department. On evaluation, the patient is lying on the stretcher with somniferous respirations. She is currently on O2 via nasal cannula with O2 sats WNL. Head CT with NAF. Cardiology has been consulted for HF. CXR with some vascular congestion, pro-BNP >07433. Other labwork significant for ABG pH 7.27, BUN/Cr 67/2.7, K+ 5.2, AST 52, ALK phos 203, ammonia 64. * TTE Conclusions: Global lvsf is severely decreased, estimated EF 20-25%, lv diastolic filling is restrictive, RV is mildly dilated, RVSF is moderately reduced, mild MR, moderate TR, RVSP is calcuated at 54 mmHg, mild pulmonic regurgitation, no pericardial effusion, Inferior vena cava is dilated * pCXR Impression: 1.Stable cardiomegaly 2. Diminshed lung volumes with mild vascular congestion Acute on chronic hypoxic respiratory failure: diuresis Acute metabolic encephalopathy most likely from drug overdose: poison control recommended conservative management. Suspect Lyrica Overdose: see above Aspiration pneumonia unlikely: stop abx Acute on chronic systolic heart failure: treat with IV diuretic bid, monitor bmp daily, Cardiology is following Acute on chronic CKD 3: Nephrology is following, input noted, Monitor daily renal functions. Avoid nephrotoxins. Maintain MAP >65mmHg. Bloody substance in NGT: stopped the L.I.S and consulted GI, treat with IV PPI History of Ischemic cardiomyopathy History of CAD (coronary artery disease) History of coronary artery bypass graft Hypertension: continue to monitor Hyperlipidemia: statins Diabetes mellitus type 2: ssi, accuchecks COPD (chronic obstructive pulmonary disease): nebs Hyperkalemia: treated hyperkalemia with kayexalate NSTEMI (non-ST elevated myocardial infarction) type 2: Cardiology is following, input noted PVD (peripheral vascular disease) CCT 37 minutes History Interval history: Patient was seen and examined. Follow-up on current diagnosis of AMS. No overnight events reported to me. Patient denies any chest pain, shortness breath, nausea/vomiting or severe headaches. Imaging, nursing note, chart, labs and old chart reviewed. Discussed with patient. Hospitalist Physical - Physical exam Narrative exam: Gen: ill appearing, obtunded, mildly increase accessory muscles HEENT: NCAT, eyes matted shut with crust especially left eye, OP Clear Neck: supple, no adenopathy, no thyromegaly, no JVD CVS/Heart: tachycardic normal S1S2, pulses present bilaterally Chest/Lungs: tachypenic, diminished bs bilateral Symmetrical chest expansion, good air entry bilaterally GI/Abdomen: soft, NTND, good bowel sounds, no guarding or rebound /Bladder: no suprapubic tenderness, no CVA or paraspinal tenderness Extermity/Skin: no obvious rash MSK: confused Neuro: CN 2-12 grossly intact, not following directions. Psych: confused - Constitutional Vitals: Temp Pulse Resp BP Pulse Ox 98.6 F 100 H 27 H 145/77 91 07/03/19 07:53 07/03/19 15:11 07/03/19 15:11 07/03/19 15:11 07/03/19 15:11 General appearance: Present: other (withdrawn, lethargic) Results - Labs CBC & Chem 7: 07/03/19 10:22 07/03/19 04:51 Labs: Laboratory Last Values WBC 9.6 K/mm3 (4.5-11.0) 07/03/19 10:22 RBC 4.16 M/mm3 (3.65-5.03) 07/03/19 10:22 Hgb 10.1 gm/dl (10.1-14.3) 07/03/19 10:22 Hct 34.0 % (30.3-42.9) 07/03/19 10:22 MCV 82 fl (79-97) 07/03/19 10:22 MCH 24 pg (28-32) L 07/03/19 10:22 MCHC 30 % (30-34) 07/03/19 10:22 RDW 22.4 % (13.2-15.2) H 07/03/19 10:22 Plt Count 240 K/mm3 (140-440) 07/03/19 10:22 Lymph % (Auto) 18.3 % (13.4-35.0) 07/01/19 15:22 [place] % (Auto) 6.6 % (0.0-7.3) 07/01/19 15:22 Eos % (Auto) 2.4 % (0.0-4.3) 07/01/19 15:22 Baso % (Auto) 0.9 % (0.0-1.8) 07/01/19 15:22 Lymph # 1.1 K/mm3 (1.2-5.4) L 07/01/19 15:22 [place] # 0.4 K/mm3 (0.0-0.8) 07/01/19 15:22 Eos # 0.1 K/mm3 (0.0-0.4) 07/01/19 15:22 Baso # 0.1 K/mm3 (0.0-0.1) 07/01/19 15:22 Add Manual Diff Complete 07/02/19 11:39 Total Counted 100 07/02/19 11:39 Seg Neutrophils % 71.8 % (40.0-70.0) H 07/01/19 15:22 Seg Neuts % (Manual) 81.0 % (40.0-70.0) H 07/02/19 11:39 2.0 % 07/02/19 11:39 8.0 % (13.4-35.0) L 07/02/19 11:39 Reactive Lymphs % (Man) 0 % 07/02/19 11:39 7.0 % (0.0-7.3) 07/02/19 11:39 0 % (0.0-4.3) 07/02/19 11:39 1.0 % (0.0-1.8) 07/02/19 11:39 1.0 % 07/02/19 11:39 0 % 07/02/19 11:39 0 % 07/02/19 11:39 0 % 07/02/19 11:39 Nucleated RBC % 1.0 % (0.0-0.9) H 07/02/19 11:39 Seg Neutrophils # 4.4 K/mm3 (1.8-7.7) 07/01/19 15:22 Seg Neutrophils # Man 6.8 K/mm3 (1.8-7.7) 07/02/19 11:39 Band Neutrophils # 0.2 K/mm3 07/02/19 11:39 0.7 K/mm3 (1.2-5.4) L 07/02/19 11:39 Abs React Lymphs (Man) 0.0 K/mm3 07/02/19 11:39 0.6 K/mm3 (0.0-0.8) 07/02/19 11:39 0.0 K/mm3 (0.0-0.4) 07/02/19 11:39 0.1 K/mm3 (0.0-0.1) 07/02/19 11:39 0.1 K/mm3 07/02/19 11:39 0.0 K/mm3 07/02/19 11:39 0.0 K/mm3 07/02/19 11:39 Blast Cells # 0.0 K/mm3 07/02/19 11:39 WBC Morphology Not Reportable 07/02/19 11:39 Hypersegmented Neuts Not Reportable 07/02/19 11:39 Hyposegmented Neuts Not Reportable 07/02/19 11:39 Hypogranular Neuts Not Reportable 07/02/19 11:39 Not Reportable 07/02/19 11:39 Not Reportable 07/02/19 11:39 Not Reportable 07/02/19 11:39 Not Reportable 07/02/19 11:39 Not Reportable 07/02/19 11:39 Not Reportable 07/02/19 11:39 Consistent w auto 07/02/19 11:39 Not Reportable 07/02/19 11:39 Plt Clumps, EDTA Not Reportable 07/02/19 11:39 Few 07/02/19 11:39 Not Reportable 07/02/19 11:39 Not Reportable 07/02/19 11:39 Plt Morphology Comment Not Reportable 07/02/19 11:39 RBC Morphology Not Reportable 07/02/19 11:39 Dimorphic RBCs Not Reportable 07/02/19 11:39 Rare 07/02/19 11:39 1+ 07/02/19 11:39 Few 07/02/19 11:39 1+ 07/02/19 11:39 Not Reportable 07/02/19 11:39 Rare 07/02/19 11:39 Rare 07/02/19 11:39 Not Reportable 07/02/19 11:39 Not Reportable 07/02/19 11:39 Rare 07/02/19 11:39 Not Reportable 07/02/19 11:39 Not Reportable 07/02/19 11:39 Not Reportable 07/02/19 11:39 Not Reportable 07/02/19 11:39 Not Reportable 07/02/19 11:39 Not Reportable 07/02/19 11:39 Not Reportable 07/02/19 11:39 Not Reportable 07/02/19 11:39 Not Reportable 07/02/19 11:39 Acanthocytes (Spur) Not Reportable 07/02/19 11:39 Rouleaux Not Reportable 07/02/19 11:39 Not Reportable 07/02/19 11:39 Not Reportable 07/02/19 11:39 Not Reportable 07/02/19 11:39 Not Reportable 07/02/19 11:39 Hem Pathologist Commnt No 07/02/19 11:39 PT 15.1 Sec. (12.2-14.9) H 07/01/19 15:22 INR 1.22 (0.87-1.13) H 07/01/19 15:22 APTT 32.6 Sec. (24.2-36.6) 07/01/19 15:22 POC ABG pH 7.275 (7.35-7.45) L 07/02/19 10:33 ABG pH 7.284 pH Units (7.350-7.450) L 07/01/19 Unknown POC ABG pCO2 43.9 (35-45) 07/02/19 10:33 ABG pCO2 51.5 mm Hg 07/01/19 Unknown POC ABG pO2 76 (80-105) L 07/02/19 10:33 ABG pO2 121.4 mm Hg (80.0-90.0) H 07/01/19 Unknown POC ABG HCO3 20.4 (22-26 mml/L) 07/02/19 10:33 ABG HCO3 23.9 mmol/L (20.0-26.0) 07/01/19 Unknown POC ABG Total CO2 22 (23-27mmol/L) 07/02/19 10:33 POC ABG O2 Sat 93 07/02/19 10:33 ABG O2 Saturation 98.0 % (95.0-99.0) 07/01/19 Unknown ABG O2 Content 14.3 (0.0-44) 07/01/19 Unknown POC ABG Base Excess -6 ((-2) - (+3)mmol/L) 07/02/19 10:33 ABG Base Excess -3.1 mmol/L (-2.0-3.0) L 07/01/19 Unknown ABG Hemoglobin 10.5 gm/dl (12.0-16.0) L 07/01/19 Unknown ABG Carboxyhemoglobin 2.0 % (0.0-5.0) 07/01/19 Unknown ABG Methemoglobin 0.6 % (0.0-1.5) 07/01/19 Unknown 95.6 % (95.0-99.0) 07/01/19 Unknown 32 % 07/02/19 10:33 Sodium 149 mmol/L (137-145) H 07/03/19 04:51 Potassium 5.3 mmol/L (3.6-5.0) H 07/03/19 04:51 Chloride 110.6 mmol/L (98-107) H 07/03/19 04:51 Carbon Dioxide 17 mmol/L (22-30) L 07/03/19 04:51 27 mmol/L 07/03/19 04:51 BUN 79 mg/dL (7-17) H 07/03/19 04:51 2.8 mg/dL (0.7-1.2) H 07/03/19 04:51 Estimated GFR 21 ml/min 07/03/19 04:51 28 % 07/03/19 04:51 Glucose 244 mg/dL (65-100) H 07/03/19 04:51 POC Glucose 164 (70-105) H 07/02/19 07:32 Calcium 9.8 mg/dL (8.4-10.2) 07/03/19 04:51 Magnesium 2.20 mg/dL (1.7-2.3) 07/01/19 23:32 Iron 26 ug/dL (37-170) L 07/01/19 18:35 0.90 mg/dL (0.1-1.2) 07/02/19 11:39 AST 37 units/L (5-40) 07/02/19 11:39 ALT 36 units/L (7-56) 07/02/19 11:39 202 units/L (35-129) H 07/02/19 11:39 64.0 umol/L (25-60) H 07/01/19 15:35 0.193 ng/mL (0.00-0.029) H* D 07/03/19 04:51 NT-Pro-B Natriuret Pep > 75891 pg/mL (0-900) H 07/01/19 23:32 7.6 g/dL (6.3-8.2) 07/02/19 11:39 3.5 g/dL (3.9-5) L 07/02/19 11:39 0.9 % 07/02/19 11:39 Triglycerides 93 mg/dL (2-149) 07/01/19 15:22 Cholesterol 83 mg/dL (50-199) 07/01/19 15:22 38 mg/dL (50-130) L 07/01/19 15:22 32 mg/dL (40-59) L 07/01/19 15:22 2.59 % 07/01/19 15:22 TSH 0.724 mlU/mL (0.270-4.200) 07/01/19 23:32 Free T4 1.28 ng/dL (0.76-1.46) 07/01/19 23:32 Yellow (Yellow) 07/01/19 14:28 Clear (Clear) 07/01/19 14:28 5.0 (5.0-7.0) 07/01/19 14:28 Ur Specific [place] 1.012 (1.003-1.030) 07/01/19 14:28 100 mg/dl mg/dL (Negative) 07/01/19 14:28 Neg mg/dL (Negative) 07/01/19 14:28 Neg mg/dL (Negative) 07/01/19 14:28 Neg (Negative) 07/01/19 14:28 Neg (Negative) 07/01/19 14:28 Neg (Negative) 07/01/19 14:28 < 2.0 mg/dL (<2.0) 07/01/19 14:28 Ur Leukocyte Esterase Neg (Negative) 07/01/19 14:28 1.0 /HPF (0.0-6.0) 07/01/19 14:28 2.0 /HPF (0.0-6.0) 07/01/19 14:28 U Epithel Cells (Auto) 1.0 /HPF (0-13.0) 07/01/19 14:28 Salicylates < 0.3 mg/dL (2.8-20.0) L 07/01/19 15:22 Presumptive negative 07/01/19 14:28 Presumptive negative 07/01/19 14:28 Acetaminophen < 5.0 ug/mL (10.0-30.0) L 07/01/19 15:22 Ur Barbiturates Screen Presumptive negative 07/01/19 14:28 Ur Phencyclidine Scrn Presumptive negative 07/01/19 14:28 Ur Amphetamines Screen Presumptive negative 07/01/19 14:28 U Benzodiazepines Scrn Presumptive positive 07/01/19 14:28 Presumptive negative 07/01/19 14:28 U Marijuana (THC) Screen Presumptive negative 07/01/19 14:28 Disclamer 07/01/19 14:28 Plasma/Serum Alcohol < 0.01 % (0-0.07) 07/01/19 15:22 Active Medications - Current Medications Current Medications: Generic Name Dose Route Start Last Admin Trade Name Freq PRN Reason Stop Dose Admin Albuterol 2.5 mg 07/01/19 20:06 Proventil IH Q3HRT PRN Shortness Of Breath Bumetanide 2 mg 07/03/19 18:00 Bumex IV BID@0600,1800 CHRISTY Hydralazine HCl 10 mg 07/02/19 05:49 07/03/19 05:29 Apresoline IV 10 mg Q4H PRN Administration Blood Pressure Cefepime HCl 2 gm in 100 mls @ 200 mls/hr 07/01/19 22:00 07/03/19 09:01 Maxipime/Ns 2 Gm/100 Ml IV 200 mls/hr Q24HR CHRISTY Administration Sodium Bicarbonate 650 mg 07/01/19 22:00 07/03/19 09:02 Sodium Bicarbonate PO Not Given BID CHRISTY Sodium Chloride 10 ml 07/01/19 22:00 07/03/19 09:02 Sodium Chloride Flush Syringe 10 Ml IV 10 ml BID CHRSITY Administration Sodium Chloride 10 ml 07/01/19 20:06 Sodium Chloride Flush Syringe 10 Ml IV PRN PRN LINE FLUSH Nutrition/Malnutrition Assess - Dietary Evaluation Nutrition/Malnutrition Findings: Nutrition Notes Start: 07/03/19 10:46 Freq: Status: Active Protocol: Document 07/03/19 10:46 PS (Rec: 07/03/19 12:16 PS [id number]) Co-Sign 07/03/19 10:46 LP Nutrition Notes Need for Assessment generated from: medical technologist blood bank Initial or Follow up Assessment Current Diagnosis Acute Kidney Injury,COPD, Coronary Artery Disease, Diabetes,Hypertension Current Diet NPO Labs/Tests Na 149 K 5.3 BUN 79 Creat. 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 Pt. was alseep during visit. Pt. had NG tube for suction. No signs of muscle or fat wasting Burn Absent Trauma Absent Minimum of two criteria No #1 Nutrition Diagnosis Inadequate energy intake Etiology altered GI function As Evidenced by Signs and Symptoms NG to LIS and NPO Is patient on ventilator? No Is Patient Ambulatory and/or Out of Bed Yes REE-([place]-St. Jeor-ambulatory/OOB) [ 2270.394 NUTR.[id number]] Calculation Used for Recommendations [place] Jeor Additional Notes Protein: 91 - 109 g (1-1.2 g/ kg) Fluids: 1850 ml (1ml/kcal) Nutrition Intervention Change Diet Order: Advance as tolerated Goal #1 Advance diet Anticipated Discharge Needs: Cardiac/Consistent Carbohydrate Diet via PO and ONS Follow-Up By: 07/05/19 Additional Comments Follow up for possible diet progression
[2019-07-03] MEDS: PANTOPRAZOLE 40 MG INJ IV SCH ×2 (16:36→21:25)
[2019-07-03] MEDS: BUMETANIDE 1 MG/4 ML INJ IV SCH (17:07)
[2019-07-03] MEDS ORDERED: PROPOFOL 1,000 MG/100 ML BOTTLE IV SCH (17:15)
[2019-07-03] MEDS ORDERED: PROPOFOL 1,000 MG/100 ML BOTTLE IV ONE (17:16)
--- NOTE | 2019-07-03 17:17 | XRay Report ---
CHEST 1 VIEW INDICATION: aspiration pneumonia. COMPARISON: 07/01/2019. FINDINGS: Support devices: NG tube in satisfactory position. Heart: Stable mild cardiomegaly. Lungs/Pleura: Edema has improved. More localized infiltrate is developed at the left base. Additional findings: None. IMPRESSION: 1. NG tube in satisfactory position. 2. Improving edema. 3. Suspect left basilar pneumonia. Signer Name: Moe Lewis MD Signed: 07/03/2019 5:12 PM Workstation Name: [id number]
[2019-07-03] MEDS ORDERED: PROPOFOL 200 MG/20 ML VIAL IV ONE (17:22)
--- NOTE | 2019-07-03 18:07 | XRay Report ---
CHEST 1 VIEW 5:27 PM INDICATION: s/p intubation. COMPARISON: Earlier the same day FINDINGS: Support devices: Endotracheal tube has been placed in satisfactory position. Esophagogastric tube is again noted. Heart: Stable. Lungs/Pleura: No pneumothorax or significant effusion. Mild pulmonary opacities have slightly improve d. IMPRESSION: 1. Endotracheal tube is in satisfactory position. No complications are seen. Signer Name: Hunter Kim MD Signed: 07/03/2019 6:03 PM Workstation Name: [id number]
[2019-07-03] MEDS ORDERED: MINERAL OIL/PETROLATUM, WHITE OPHTH OINT 3.5 GM OU PRN (19:12)
[2019-07-03] MEDS ORDERED: LIP THERAPY VASELINE TP PRN (19:12)
[2019-07-04] MEDS: hydrALAZINE 20 MG/1 ML INJ IV PRN ×2 (02:04→08:33)
--- NOTE | 2019-07-04 03:49 | XRay Report ---
CHEST 1 VIEW 07/04/2019 2:35 AM INDICATION / CLINICAL INFORMATION: follow up respiratory failure. COMPARISON: 07/03/2019. FINDINGS: SUPPORT DEVICES: Stable satisfactory device positioning. HEART / MEDIASTINUM: Stable. LUNGS / PLEURA: Stable mild diffuse bilateral interstitial opacities. No pneumothorax. ADDITIONAL FINDINGS: No significant additional findings. IMPRESSION: 1. No adverse change from the prior exam. Signer Name: Nacho Henley MD Signed: 07/04/2019 3:45 AM Workstation Name: [id number]
[2019-07-04 05:20] LABS: Mean Corpuscular HGB Conc 30 % (30-34); Mean Corpuscular Volume 81 fl (79-97); Platelet Count 260 K/mm3 (140-440)
[2019-07-04 05:26] LABS: Hematocrit 33.9 % (30.3-42.9); Hemoglobin 10.2 gm/dl (10.1-14.3); Red Cell Distribution Width 22.7 % (13.2-15.2)
[2019-07-04] MEDS: BUMETANIDE 1 MG/4 ML INJ IV SCH ×2 (06:04→18:25)
[2019-07-04 07:37] LABS: Calcium 10.5 mg/dL (8.4-10.2)
--- NOTE | 2019-07-04 08:06 | Progress Note ---
Assessment and Plan Assessment and plan: Patient is a 59 yo woman with a history of hypertension, CAD s/p PCI, s/p CABG at [facility] in 05/2016, ICMP, HFrEF (Echo done 09/2017 showed EF 35-40%, mild LVH, severe LAE, mild AR and MR, mod TR, RVSP 66mmHg), carotid stenosis s/p left CEA in 01/2016, COPD, HTN, HLP, DM type 2 and CKD who presented to [facility] ED with AMS and unresponsiveness. According to ED record, the family found her basically somnolent in the bed with some Lyrica pills in her hand and several pills lying on the bed next to her on Monday. Then on Monday, they noticed that she had vomited on herself and seemed a little groggy. Family called EMS but the pt refused to be transported to the hospital. As the day progressed family states the patient appeared to get weaker and then eventually she could not keep her eyes open. Family states they were able to convince the patient to come to the emergency department. On evaluation, the patient is lying on the stretcher with somniferous respirations. She is currently on O2 via nasal cannula with O2 sats WNL. Head CT with NAF. Cardiology has been consulted for HF. CXR with some vascular congestion, pro-BNP >51817. Other labwork significant for ABG pH 7.27, BUN/Cr 67/2.7, K+ 5.2, AST 52, ALK phos 203, ammonia 64. On 07/03/19 around 5pm; patient became hypoxic and obtunded, ABG showed worsening acidosis with hypercapnea, I discuss Dr. Lozoya. I elected to Intubated instead of bipap because pt is obtunded. I called Anesthesia and uneventful intubation done via guide-scope. D/w Dr. Lozoya and daughter Vickiekarina at bedside and another daughter over the phone. Also, spoke with her PCP Dr. Booth over the phone prior to intubation. Flakito handed me the phone with Dr. Booth and her sister on [address] way. * TTE Conclusions: Global LVSF is severely decreased, estimated EF 20-25%, lv diastolic filling is restrictive, RV is mildly dilated, RVSF is moderately reduced, mild MR, moderate TR, RVSP is calcuated at 54 mmHg, mild pulmonic regurgitation, no pericardial effusion, Inferior vena cava is dilated * pCXR Impression: 1.Stable cardiomegaly 2. Diminished lung volumes with mild vascular congestion Acute on chronic hypoxic respiratory failure: Diuresis Acute metabolic encephalopathy most likely from drug overdose: poison control recommended conservative management. Suspect Lyrica Overdose: see above Aspiration pneumonia unlikely: stop abx Acute on chronic systolic heart failure: treat with IV diuretic bid, monitor bmp daily, Cardiology is following Acute on chronic CKD 3: Nephrology is following, input noted, Monitor daily renal functions. Avoid nephrotoxins. Maintain MAP >65mmHg. Bloody substance in NGT: stopped the L.I.S and consulted GI, treat with IV PPI History of Ischemic cardiomyopathy History of CAD (coronary artery disease) History of coronary artery bypass graft Hypertension: continue to monitor Hyperlipidemia: statins Diabetes mellitus type 2: ssi, accuchecks COPD (chronic obstructive pulmonary disease): nebs Hyperkalemia: treated hyperkalemia with kayexalate NSTEMI (non-ST elevated myocardial infarction) type 2: Cardiology is following, input noted PVD (peripheral vascular disease) Restraints renewed, just in case patient wakes up and tries to remove ETT, Diprivan on standby D/w son Juan Manuel over the phone, he is in [place], [place]. Also, d.w daughter Isis at bedside. They want to transfer to [facility] because of preference. CCT 32 minutes History Interval history: Patient was seen and examined. Follow-up on current diagnosis of AMS. No overnight events reported to me. Patient denies any chest pain, shortness breath, nausea/vomiting or severe headaches. Imaging, nursing note, chart, labs and old chart reviewed. Discussed with patient. Hospitalist Physical - Physical exam Narrative exam: Gen: ill appearing, obtunded, mildly increase accessory muscles HEENT: NCAT, eyes matted shut with crust especially left eye, OP Clear Neck: supple, no adenopathy, no thyromegaly, no JVD CVS/Heart: tachycardic normal S1S2, pulses present bilaterally Chest/Lungs: tachypenic, diminished bs bilateral Symmetrical chest expansion, good air entry bilaterally GI/Abdomen: soft, NTND, good bowel sounds, no guarding or rebound /Bladder: no suprapubic tenderness, no CVA or paraspinal tenderness Extermity/Skin: no obvious rash MSK: confused Neuro: CN 2-12 grossly intact, not following directions. Psych: confused - Constitutional Vitals: Temp Pulse Resp BP Pulse Ox 99.0 F 113 H 23 163/95 99 07/04/19 04:00 07/04/19 07:30 07/04/19 07:30 07/04/19 07:30 07/04/19 07:30 General appearance: Present: other (withdrawn, lethargic) Results - Labs CBC & Chem 7: 07/04/19 04:19 07/04/19 04:19 Labs: Laboratory Last Values WBC 8.8 K/mm3 (4.5-11.0) 07/04/19 04:19 RBC 4.20 M/mm3 (3.65-5.03) 07/04/19 04:19 Hgb 10.2 gm/dl (10.1-14.3) 07/04/19 04:19 Hct 33.9 % (30.3-42.9) 07/04/19 04:19 MCV 81 fl (79-97) 07/04/19 04:19 MCH 24 pg (28-32) L 07/04/19 04:19 MCHC 30 % (30-34) 07/04/19 04:19 RDW 22.7 % (13.2-15.2) H 07/04/19 04:19 Plt Count 260 K/mm3 (140-440) 07/04/19 04:19 Lymph % (Auto) 18.3 % (13.4-35.0) 07/01/19 15:22 [place] % (Auto) 6.6 % (0.0-7.3) 07/01/19 15:22 Eos % (Auto) 2.4 % (0.0-4.3) 07/01/19 15:22 Baso % (Auto) 0.9 % (0.0-1.8) 07/01/19 15:22 Lymph # 1.1 K/mm3 (1.2-5.4) L 07/01/19 15:22 [place] # 0.4 K/mm3 (0.0-0.8) 07/01/19 15:22 Eos # 0.1 K/mm3 (0.0-0.4) 07/01/19 15:22 Baso # 0.1 K/mm3 (0.0-0.1) 07/01/19 15:22 Add Manual Diff Complete 07/02/19 11:39 Total Counted 100 07/02/19 11:39 Seg Neutrophils % 71.8 % (40.0-70.0) H 07/01/19 15:22 Seg Neuts % (Manual) 81.0 % (40.0-70.0) H 07/02/19 11:39 2.0 % 07/02/19 11:39 8.0 % (13.4-35.0) L 07/02/19 11:39 Reactive Lymphs % (Man) 0 % 07/02/19 11:39 7.0 % (0.0-7.3) 07/02/19 11:39 0 % (0.0-4.3) 07/02/19 11:39 1.0 % (0.0-1.8) 07/02/19 11:39 1.0 % 07/02/19 11:39 0 % 07/02/19 11:39 0 % 07/02/19 11:39 0 % 07/02/19 11:39 Nucleated RBC % 1.0 % (0.0-0.9) H 07/02/19 11:39 Seg Neutrophils # 4.4 K/mm3 (1.8-7.7) 07/01/19 15:22 Seg Neutrophils # Man 6.8 K/mm3 (1.8-7.7) 07/02/19 11:39 Band Neutrophils # 0.2 K/mm3 07/02/19 11:39 0.7 K/mm3 (1.2-5.4) L 07/02/19 11:39 Abs React Lymphs (Man) 0.0 K/mm3 07/02/19 11:39 0.6 K/mm3 (0.0-0.8) 07/02/19 11:39 0.0 K/mm3 (0.0-0.4) 07/02/19 11:39 0.1 K/mm3 (0.0-0.1) 07/02/19 11:39 0.1 K/mm3 07/02/19 11:39 0.0 K/mm3 07/02/19 11:39 0.0 K/mm3 07/02/19 11:39 Blast Cells # 0.0 K/mm3 07/02/19 11:39 WBC Morphology Not Reportable 07/02/19 11:39 Hypersegmented Neuts Not Reportable 07/02/19 11:39 Hyposegmented Neuts Not Reportable 07/02/19 11:39 Hypogranular Neuts Not Reportable 07/02/19 11:39 Not Reportable 07/02/19 11:39 Not Reportable 07/02/19 11:39 Not Reportable 07/02/19 11:39 Not Reportable 07/02/19 11:39 Not Reportable 07/02/19 11:39 Not Reportable 07/02/19 11:39 Consistent w auto 07/02/19 11:39 Not Reportable 07/02/19 11:39 Plt Clumps, EDTA Not Reportable 07/02/19 11:39 Few 07/02/19 11:39 Not Reportable 07/02/19 11:39 Not Reportable 07/02/19 11:39 Plt Morphology Comment Not Reportable 07/02/19 11:39 RBC Morphology Not Reportable 07/02/19 11:39 Dimorphic RBCs Not Reportable 07/02/19 11:39 Rare 07/02/19 11:39 1+ 07/02/19 11:39 Few 07/02/19 11:39 1+ 07/02/19 11:39 Not Reportable 07/02/19 11:39 Rare 07/02/19 11:39 Rare 07/02/19 11:39 Not Reportable 07/02/19 11:39 Not Reportable 07/02/19 11:39 Rare 07/02/19 11:39 Not Reportable 07/02/19 11:39 Not Reportable 07/02/19 11:39 Not Reportable 07/02/19 11:39 Not Reportable 07/02/19 11:39 Not Reportable 07/02/19 11:39 Not Reportable 07/02/19 11:39 Not Reportable 07/02/19 11:39 Not Reportable 07/02/19 11:39 Not Reportable 07/02/19 11:39 Acanthocytes (Spur) Not Reportable 07/02/19 11:39 Rouleaux Not Reportable 07/02/19 11:39 Not Reportable 07/02/19 11:39 Not Reportable 07/02/19 11:39 Not Reportable 07/02/19 11:39 Not Reportable 07/02/19 11:39 Hem Pathologist Commnt No 07/02/19 11:39 PT 15.1 Sec. (12.2-14.9) H 07/01/19 15:22 INR 1.22 (0.87-1.13) H 07/01/19 15:22 APTT 32.6 Sec. (24.2-36.6) 07/01/19 15:22 POC ABG pH 7.395 (7.35-7.45) 07/04/19 04:17 ABG pH 7.284 pH Units (7.350-7.450) L 07/01/19 Unknown POC ABG pCO2 31.8 (35-45) L 07/04/19 04:17 ABG pCO2 51.5 mm Hg 07/01/19 Unknown POC ABG pO2 155 (80-105) H 07/04/19 04:17 ABG pO2 121.4 mm Hg (80.0-90.0) H 07/01/19 Unknown POC ABG HCO3 19.5 (22-26 mml/L) 07/04/19 04:17 ABG HCO3 23.9 mmol/L (20.0-26.0) 07/01/19 Unknown POC ABG Total CO2 20 (23-27mmol/L) 07/04/19 04:17 POC ABG O2 Sat 99 07/04/19 04:17 ABG O2 Saturation 98.0 % (95.0-99.0) 07/01/19 Unknown ABG O2 Content 14.3 (0.0-44) 07/01/19 Unknown POC ABG Base Excess -5 ((-2) - (+3)mmol/L) 07/04/19 04:17 ABG Base Excess -3.1 mmol/L (-2.0-3.0) L 07/01/19 Unknown ABG Hemoglobin 10.5 gm/dl (12.0-16.0) L 07/01/19 Unknown ABG Carboxyhemoglobin 2.0 % (0.0-5.0) 07/01/19 Unknown ABG Methemoglobin 0.6 % (0.0-1.5) 07/01/19 Unknown 95.6 % (95.0-99.0) 07/01/19 Unknown 35 % 07/04/19 04:17 Sodium 151 mmol/L (137-145) H 07/04/19 04:19 Potassium 4.7 mmol/L (3.6-5.0) 07/04/19 04:19 Chloride 110.7 mmol/L (98-107) H 07/04/19 04:19 Carbon Dioxide 16 mmol/L (22-30) L 07/04/19 04:19 29 mmol/L 07/04/19 04:19 BUN 88 mg/dL (7-17) H 07/04/19 04:19 2.8 mg/dL (0.7-1.2) H 07/04/19 04:19 Estimated GFR 21 ml/min 07/04/19 04:19 31 % 07/04/19 04:19 Glucose 303 mg/dL (65-100) H 07/04/19 04:19 POC Glucose 164 (70-105) H 07/02/19 07:32 Calcium 10.5 mg/dL (8.4-10.2) H 07/04/19 04:19 Magnesium 2.30 mg/dL (1.7-2.3) 07/04/19 04:19 Iron 26 ug/dL (37-170) L 07/01/19 18:35 0.90 mg/dL (0.1-1.2) 07/02/19 11:39 AST 37 units/L (5-40) 07/02/19 11:39 ALT 36 units/L (7-56) 07/02/19 11:39 202 units/L (35-129) H 07/02/19 11:39 64.0 umol/L (25-60) H 07/01/19 15:35 0.193 ng/mL (0.00-0.029) H* D 07/03/19 04:51 NT-Pro-B Natriuret Pep > 78468 pg/mL (0-900) H 07/01/19 23:32 7.6 g/dL (6.3-8.2) 07/02/19 11:39 3.5 g/dL (3.9-5) L 07/02/19 11:39 0.9 % 07/02/19 11:39 Triglycerides 93 mg/dL (2-149) 07/01/19 15:22 Cholesterol 83 mg/dL (50-199) 07/01/19 15:22 38 mg/dL (50-130) L 07/01/19 15:22 32 mg/dL (40-59) L 07/01/19 15:22 2.59 % 07/01/19 15:22 TSH 0.724 mlU/mL (0.270-4.200) 07/01/19 23:32 Free T4 1.28 ng/dL (0.76-1.46) 07/01/19 23:32 Yellow (Yellow) 07/01/19 14:28 Clear (Clear) 07/01/19 14:28 5.0 (5.0-7.0) 07/01/19 14:28 Ur Specific [place] 1.012 (1.003-1.030) 07/01/19 14:28 100 mg/dl mg/dL (Negative) 07/01/19 14:28 Neg mg/dL (Negative) 07/01/19 14:28 Neg mg/dL (Negative) 07/01/19 14:28 Neg (Negative) 07/01/19 14:28 Neg (Negative) 07/01/19 14:28 Neg (Negative) 07/01/19 14:28 < 2.0 mg/dL (<2.0) 07/01/19 14:28 Ur Leukocyte Esterase Neg (Negative) 07/01/19 14:28 1.0 /HPF (0.0-6.0) 07/01/19 14:28 2.0 /HPF (0.0-6.0) 07/01/19 14:28 U Epithel Cells (Auto) 1.0 /HPF (0-13.0) 07/01/19 14:28 Salicylates < 0.3 mg/dL (2.8-20.0) L 07/01/19 15:22 Presumptive negative 07/01/19 14:28 Presumptive negative 07/01/19 14:28 Acetaminophen < 5.0 ug/mL (10.0-30.0) L 07/01/19 15:22 Ur Barbiturates Screen Presumptive negative 07/01/19 14:28 Ur Phencyclidine Scrn Presumptive negative 07/01/19 14:28 Ur Amphetamines Screen Presumptive negative 07/01/19 14:28 U Benzodiazepines Scrn Presumptive positive 07/01/19 14:28 Presumptive negative 07/01/19 14:28 U Marijuana (THC) Screen Presumptive negative 07/01/19 14:28 Disclamer 07/01/19 14:28 Plasma/Serum Alcohol < 0.01 % (0-0.07) 07/01/19 15:22 Active Medications - Current Medications Current Medications: Generic Name Dose Route Start Last Admin Trade Name Freq PRN Reason Stop Dose Admin Albuterol 2.5 mg 07/01/19 20:06 Proventil IH Q3HRT PRN Shortness Of Breath Bumetanide 2 mg 07/03/19 18:00 07/04/19 06:04 Bumex IV 2 mg BID@0600,1800 CHRISTY Administration Hydralazine HCl 10 mg 07/02/19 05:49 07/04/19 02:04 Apresoline IV 10 mg Q4H PRN Administration Blood Pressure Hydrophilic Ointment 1 applic 07/03/19 19:12 Vaseline Lip Therapy TP Q2HR PRN Dry Lips Multi-Ingred Cream/Lotion/Oil/Oint 1 applic 07/03/19 19:12 Artificial Tears Ophth Oint OU Q4HR PRN Dry Eye(s) Pantoprazole Sodium 40 mg 07/03/19 16:00 07/03/19 21:25 Protonix IV 40 mg BID CHRISTY Administration Sodium Bicarbonate 650 mg 07/01/19 22:00 07/03/19 21:22 Sodium Bicarbonate PO Not Given BID CHRISTY Sodium Chloride 10 ml 07/01/19 22:00 07/03/19 21:26 Sodium Chloride Flush Syringe 10 Ml IV 10 ml BID CHRISTY Administration Sodium Chloride 10 ml 07/01/19 20:06 Sodium Chloride Flush Syringe 10 Ml IV PRN PRN LINE FLUSH Nutrition/Malnutrition Assess - Dietary Evaluation Nutrition/Malnutrition Findings: Nutrition Notes Start: 07/03/19 10:46 Freq: Status: Active Protocol: Document 07/03/19 10:46 PS (Rec: 07/03/19 12:16 PS [id number]) Co-Sign 07/03/19 10:46 LP Nutrition Notes 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 2.8 Glu 244 Pertinent Medications Lasix Height 5 ft 1 in Weight 91.1 kg [place] Body Weight (kg) 47.72 BMI 37.9 Weight Status Obese Subjective/Other Information machine tester for MST. Pt. was alseep during visit. Pt. had NG tube for suction. No signs of muscle or fat wasting Burn Absent Trauma Absent Minimum of two criteria No #1 Nutrition Diagnosis Inadequate energy intake Etiology altered GI function As Evidenced by Signs and Symptoms NG to LIS and NPO Is patient on ventilator? No Is Patient Ambulatory and/or Out of Bed Yes REE-([facility]-ambulatory/OOB) [ 1850.394 [id number]] Calculation [facility] Additional Notes Protein: 91 - 109 g (1-1.2 g/ kg) Fluids: 1850 ml (1ml/kcal) Nutrition Intervention Change Diet Order: Advance as tolerated Goal #1 Advance diet Anticipated Discharge Needs: Cardiac/Consistent Carbohydrate Diet via PO and ONS Follow-Up By: 07/05/19 Additional Comments Follow up for possible diet progression
[2019-07-04] MEDS: PANTOPRAZOLE 40 MG INJ IV SCH ×2 (09:52→22:57)
[2019-07-04] MEDS: SODIUM BICARBONATE 650 MG TAB PO SCH (09:53)
--- NOTE | 2019-07-04 11:45 | Progress Note ---
Assessment and Plan 59 y/o female with altered mental status thought secondary to overdose of lyrica vs uremic encephalopaty from worsening renal function vs acute systolic heart failure exacerbation. 1. Spoke with renal over the phone. Given prolonged mental state and now requirement of intubation will have an attempt at HD. 2. Consulted vascular and I have already obtained consent from the daughter for them for this 3. Continue current vent support 4. No sedation 5. Place lewis for accurate I/O 6. Needs accuchecks ordered 7. Will feed patient as well. 8. GI saw and will monitor only CCT 31 minutes. Subjective Date of service: 07/04/19 Interval history: Intubated last night secondary to worsening hypxoemia. Despite correction of this and slightly elevated CO2, still remains unresponsive. Not on sedation. Family at bedside this am. Objective Vital Signs - 12hr 07/03/19 07/04/19 07/04/19 23:45 00:00 00:03 Temperature 98.6 F Pulse Rate 107 H 107 H 106 H Pulse Rate [ From Monitor] Respiratory 21 23 22 Rate Blood Pressure 137/101 160/96 160/96 O2 Sat by Pulse 100 98 100 Oximetry 07/04/19 07/04/19 07/04/19 00:15 00:30 00:45 Temperature Pulse Rate 107 H 105 H 107 H Pulse Rate [ From Monitor] Respiratory 21 21 22 Rate Blood Pressure 175/104 171/98 164/100 O2 Sat by Pulse 100 100 100 Oximetry 07/04/19 07/04/19 07/04/19 01:00 01:15 01:30 Temperature Pulse Rate 107 H 107 H 107 H Pulse Rate [ From Monitor] Respiratory 21 21 23 Rate Blood Pressure 171/99 165/107 173/102 O2 Sat by Pulse 100 100 100 Oximetry 07/04/19 07/04/19 07/04/19 01:45 02:00 02:04 Temperature Pulse Rate 106 H 107 H 120 H Pulse Rate [ From Monitor] Respiratory 18 25 H Rate Blood Pressure 171/101 172/102 172/102 O2 Sat by Pulse 100 100 Oximetry 07/04/19 07/04/19 07/04/19 02:15 02:30 02:45 Temperature Pulse Rate 113 H 112 H 111 H Pulse Rate [ From Monitor] Respiratory 20 17 11 L Rate Blood Pressure 154/88 157/94 159/94 O2 Sat by Pulse 100 100 100 Oximetry 07/04/19 07/04/19 07/04/19 03:00 03:15 03:30 Temperature Pulse Rate 112 H 111 H 111 H Pulse Rate [ From Monitor] Respiratory 18 20 16 Rate Blood Pressure 164/98 161/96 154/102 O2 Sat by Pulse 100 100 100 Oximetry 07/04/19 07/04/19 07/04/19 03:45 04:00 04:06 Temperature 99.0 F Pulse Rate 112 H 110 H 112 H Pulse Rate [ From Monitor] Respiratory 20 20 Rate Blood Pressure 161/102 168/100 168/100 O2 Sat by Pulse 100 100 99 Oximetry 07/04/19 07/04/19 07/04/19 04:15 04:30 04:45 Temperature Pulse Rate 110 H 113 H 113 H Pulse Rate [ From Monitor] Respiratory 18 18 22 Rate Blood Pressure 164/99 167/101 165/103 O2 Sat by Pulse 99 99 99 Oximetry 07/04/19 07/04/19 07/04/19 05:00 05:15 05:30 Temperature Pulse Rate 112 H 112 H 113 H Pulse Rate [ From Monitor] Respiratory 21 21 Rate Blood Pressure 151/99 168/101 168/103 O2 Sat by Pulse 98 99 99 Oximetry 07/04/19 07/04/19 07/04/19 05:45 06:00 06:30 Temperature Pulse Rate 114 H 114 H 113 H Pulse Rate [ From Monitor] Respiratory 24 18 21 Rate Blood Pressure 163/101 164/103 156/105 O2 Sat by Pulse 99 99 99 Oximetry 07/04/19 07/04/19 07/04/19 07:00 07:11 07:30 Temperature Pulse Rate 114 H 114 H 113 H Pulse Rate [ From Monitor] Respiratory 24 23 Rate Blood Pressure 172/105 163/106 163/95 O2 Sat by Pulse 99 99 99 Oximetry 07/04/19 07/04/19 07/04/19 08:00 08:30 08:33 Temperature 99.2 F Pulse Rate 117 H 109 H 110 H Pulse Rate [ 117 H From Monitor] Respiratory 18 21 Rate Blood Pressure 164/100 160/108 160/108 O2 Sat by Pulse 99 99 Oximetry 07/04/19 07/04/19 09:00 11:00 Temperature Pulse Rate 107 H 108 H Pulse Rate [ From Monitor] Respiratory 27 H Rate Blood Pressure 160/96 165/94 O2 Sat by Pulse 99 99 Oximetry Constitutional: no acute distress, other (obtunded) Eyes: non-icteric ENT: oropharynx moist Neck: supple Effort: normal Ascultation: Bilateral: diminished breath sounds Percussion: Bilateral: not dull Cardiovascular: regular rate and rhythm Gastrointestinal: normoactive bowel sounds, soft Extremities: edema Neurologic: unable to assess CBC and BMP: 07/04/19 04:19 07/04/19 04:19 ABG, PT/INR, D-dimer: ABG POC ABG pH 7.395 (7.35-7.45) 07/04/19 04:17 ABG pH 7.284 pH Units (7.350-7.450) L 07/01/19 Unknown POC ABG pCO2 31.8 (35-45) L 07/04/19 04:17 ABG pCO2 51.5 mm Hg 07/01/19 Unknown POC ABG pO2 155 (80-105) H 07/04/19 04:17 ABG pO2 121.4 mm Hg (80.0-90.0) H 07/01/19 Unknown POC ABG HCO3 19.5 (22-26 mml/L) 07/04/19 04:17 POC ABG Total CO2 20 (23-27mmol/L) 07/04/19 04:17 POC ABG O2 Sat 99 07/04/19 04:17 ABG O2 Saturation 98.0 % (95.0-99.0) 07/01/19 Unknown PT/INR, D-dimer PT 15.1 Sec. (12.2-14.9) H 07/01/19 15:22 INR 1.22 (0.87-1.13) H 07/01/19 15:22 Abnormal lab findings: Abnormal Labs 07/01/19 07/01/19 07/01/19 15:22 15:22 15:22 MCH 25 L RDW 22.1 H Lymph # 1.1 L Seg Neutrophils % 71.8 H Seg Neuts % (Manual) Lymphocytes % (Manual) Nucleated RBC % Lymphocytes # (Manual) PT 15.1 H INR 1.22 H POC ABG pH ABG pH POC ABG pCO2 POC ABG pO2 ABG pO2 ABG Base Excess ABG Hemoglobin Sodium Potassium 5.2 H Chloride Carbon Dioxide BUN 67 H Creatinine 2.7 H Glucose 146 H POC Glucose Calcium Iron AST 52 H Alkaline Phosphatase 203 H Ammonia Troponin T NT-Pro-B Natriuret Pep Albumin 3.4 L LDL Cholesterol Direct HDL Cholesterol Salicylates Acetaminophen 07/01/19 07/01/19 07/01/19 15:22 15:22 15:22 MCH RDW Lymph # Seg Neutrophils % Seg Neuts % (Manual) Lymphocytes % (Manual) Nucleated RBC % Lymphocytes # (Manual) PT INR POC ABG pH ABG pH POC ABG pCO2 POC ABG pO2 ABG pO2 ABG Base Excess ABG Hemoglobin Sodium Potassium Chloride Carbon Dioxide BUN Creatinine Glucose POC Glucose Calcium Iron AST Alkaline Phosphatase Ammonia Troponin T 0.121 H* NT-Pro-B Natriuret Pep Albumin LDL Cholesterol Direct 38 L HDL Cholesterol 32 L Salicylates < 0.3 L Acetaminophen < 5.0 L 07/01/19 07/01/19 07/01/19 15:35 18:35 23:32 MCH RDW Lymph # Seg Neutrophils % Seg Neuts % (Manual) Lymphocytes % (Manual) Nucleated RBC % Lymphocytes # (Manual) PT INR POC ABG pH ABG pH POC ABG pCO2 POC ABG pO2 ABG pO2 ABG Base Excess ABG Hemoglobin Sodium Potassium Chloride Carbon Dioxide BUN Creatinine Glucose POC Glucose Calcium Iron 26 L AST Alkaline Phosphatase Ammonia 64.0 H Troponin T NT-Pro-B Natriuret Pep > 26274 H Albumin LDL Cholesterol Direct HDL Cholesterol Salicylates Acetaminophen 07/01/19 07/02/19 07/02/19 Unknown 07:32 10:33 MCH RDW Lymph # Seg Neutrophils % Seg Neuts % (Manual) Lymphocytes % (Manual) Nucleated RBC % Lymphocytes # (Manual) PT INR POC ABG pH 7.275 L ABG pH 7.284 L POC ABG pCO2 POC ABG pO2 76 L ABG pO2 121.4 H ABG Base Excess -3.1 L ABG Hemoglobin 10.5 L Sodium Potassium Chloride Carbon Dioxide BUN Creatinine Glucose POC Glucose 164 H Calcium Iron AST Alkaline Phosphatase Ammonia Troponin T NT-Pro-B Natriuret Pep Albumin LDL Cholesterol Direct HDL Cholesterol Salicylates Acetaminophen 07/02/19 07/02/19 07/02/19 11:39 11:39 11:39 MCH 25 L RDW 22.3 H Lymph # Seg Neutrophils % Seg Neuts % (Manual) 81.0 H Lymphocytes % (Manual) 8.0 L Nucleated RBC % 1.0 H Lymphocytes # (Manual) 0.7 L PT INR POC ABG pH ABG pH POC ABG pCO2 POC ABG pO2 ABG pO2 ABG Base Excess ABG Hemoglobin Sodium Potassium 5.7 H Chloride 109.5 H Carbon Dioxide 14 L D BUN 73 H Creatinine 2.6 H Glucose 187 H POC Glucose Calcium Iron AST Alkaline Phosphatase 202 H Ammonia Troponin T 0.138 H* NT-Pro-B Natriuret Pep Albumin 3.5 L LDL Cholesterol Direct HDL Cholesterol Salicylates Acetaminophen 07/03/19 07/03/19 07/03/19 04:51 10:22 16:53 MCH 24 L RDW 22.4 H Lymph # Seg Neutrophils % Seg Neuts % (Manual) Lymphocytes % (Manual) Nucleated RBC % Lymphocytes # (Manual) PT INR POC ABG pH 7.222 L ABG pH POC ABG pCO2 60.0 H POC ABG pO2 167 H ABG pO2 ABG Base Excess ABG Hemoglobin Sodium 149 H Potassium 5.3 H Chloride 110.6 H Carbon Dioxide 17 L BUN 79 H Creatinine 2.8 H Glucose 244 H POC Glucose Calcium Iron AST Alkaline Phosphatase Ammonia Troponin T 0.193 H* D NT-Pro-B Natriuret Pep Albumin LDL Cholesterol Direct HDL Cholesterol Salicylates Acetaminophen 07/03/19 07/04/19 07/04/19 20:42 04:17 04:19 MCH RDW Lymph # Seg Neutrophils % Seg Neuts % (Manual) Lymphocytes % (Manual) Nucleated RBC % Lymphocytes # (Manual) PT INR POC ABG pH ABG pH POC ABG pCO2 32.8 L 31.8 L POC ABG pO2 207 H 155 H ABG pO2 ABG Base Excess ABG Hemoglobin Sodium 151 H Potassium Chloride 110.7 H Carbon Dioxide 16 L BUN 88 H Creatinine 2.8 H Glucose 303 H POC Glucose Calcium 10.5 H Iron AST Alkaline Phosphatase Ammonia Troponin T NT-Pro-B Natriuret Pep Albumin LDL Cholesterol Direct HDL Cholesterol Salicylates Acetaminophen 07/04/19 04:19 MCH 24 L RDW 22.7 H Lymph # Seg Neutrophils % Seg Neuts % (Manual) Lymphocytes % (Manual) Nucleated RBC % Lymphocytes # (Manual) PT INR POC ABG pH ABG pH POC ABG pCO2 POC ABG pO2 ABG pO2 ABG Base Excess ABG Hemoglobin Sodium Potassium Chloride Carbon Dioxide BUN Creatinine Glucose POC Glucose Calcium Iron AST Alkaline Phosphatase Ammonia Troponin T NT-Pro-B Natriuret Pep Albumin LDL Cholesterol Direct HDL Cholesterol Salicylates Acetaminophen Allied health notes reviewed: nursing
--- NOTE | 2019-07-04 11:47 | Progress Note ---
Assessment and Plan Pt intubated overnight. She is to undergo HD today. Cont volume optimization per nephrology. Optimize BPs - resume home coreg. No ACEI/ARB at this time in setting of renal insufficiency. EF 20-25% (EF 35-40% in 09/2017). Can consider ischemic evaluation once medically stabilized. The patient has been seen in conjunction with Dr. Puentes who agrees with the assessment and plan of care. - Patient Problems (1) Altered mental status Current Visit: Yes Status: Acute (2) Hepatic encephalopathy Current Visit: Yes Status: Suspected (3) Acute respiratory failure Current Visit: Yes Status: Acute (4) Aspiration pneumonia Current Visit: Yes Status: Suspected Qualifiers: Laterality: left Lung location: lower lobe of lung (5) Acute HFrEF (heart failure with reduced ejection fraction) Current Visit: Yes Status: Acute (6) Ischemic cardiomyopathy Current Visit: Yes Status: Chronic (7) CAD (coronary artery disease) Current Visit: Yes Status: Chronic Qualifiers: Coronary Disease-Associated Artery/Lesion type: [place] coronary artery (8) History of coronary artery bypass graft Current Visit: Yes Status: Chronic (9) Hypertension Current Visit: Yes Status: Chronic Qualifiers: Hypertension type: essential hypertension Qualified Code(s): I10 - Essential (primary) hypertension (10) Hyperlipidemia Current Visit: Yes Status: Chronic (11) Diabetes Current Visit: Yes Status: Chronic (12) History of left-sided carotid endarterectomy Current Visit: Yes Status: Chronic (13) COPD (chronic obstructive pulmonary disease) Current Visit: Yes Status: Chronic Qualifiers: COPD type: emphysema (14) Acute kidney injury superimposed on chronic kidney disease Current Visit: Yes Status: Acute (15) Hyperkalemia Current Visit: Yes Status: Acute (16) NSTEMI (non-ST elevated myocardial infarction) Current Visit: Yes Status: Acute Plan to address problem: suspect type II (17) PVD (peripheral vascular disease) Current Visit: Yes Status: Chronic Subjective Date of service: 07/04/19 Principal diagnosis: AMS Interval history: pt intubated overnight, remains intubated, daughter at bedside. for dialysis today. Objective Last Vital Signs Temp 99.2 F 07/04/19 08:00 Pulse 108 H 07/04/19 11:00 Resp 27 H 07/04/19 09:00 BP 165/94 07/04/19 11:00 Pulse Ox 99 07/04/19 11:00 - Physical Examination General: Other (intubated) HEENT: Positive: PERRL Neck: Positive: neck supple Cardiac: Positive: Reg Rate and Rhythm, S1/S2 Lungs: Positive: Decreased Breath Sounds, Oxygen, Ventilated Respirations Neuro: Positive: Other (intubated) Skin: Negative: Rash Musculoskeletal: No Fluid Collection Extremities: Absent: edema - Labs and Meds CBC 07/04/19 Range/Units 04:19 WBC 8.8 (4.5-11.0) K/mm3 RBC 4.20 (3.65-5.03) M/mm3 Hgb 10.2 (10.1-14.3) gm/dl Hct 33.9 (30.3-42.9) % Plt Count 260 (140-440) K/mm3 Comprehensive Metabolic Panel 07/04/19 Range/Units 04:19 Sodium 151 H (137-145) mmol/L Potassium 4.7 (3.6-5.0) mmol/L Chloride 110.7 H (98-107) mmol/L Carbon Dioxide 16 L (22-30) mmol/L BUN 88 H (7-17) mg/dL Creatinine 2.8 H (0.7-1.2) mg/dL Glucose 303 H (65-100) mg/dL Calcium 10.5 H (8.4-10.2) mg/dL - Imaging and Cardiology EKG: report reviewed, image reviewed Echo: report reviewed (09/2017 showed EF 35-40%, mild LVH, severe LAE, mild AR and MR, mod TR, RVSP 66mmHg. 06/2019: EF 20-25%, restrictive diastolic filling, RV mildly dilated, mild MR, mod TR, RVSP 54mmHg, mild MO. ) - Telemetry EKG Rhythm: Sinus Rhythm - EKG Sinus rhythms and dysrhythmias: sinus rhythm - Allied health notes Allied health notes reviewed: nursing
--- NOTE | 2019-07-04 12:59 | Gastroenterology Consultation ---
<JM MAJOR - Last Filed: 07/04/19 13:20> History of Present Illness - Reason for Consult Consult date: 07/04/19 blood in NGT Requesting physician: GEOVANNA GOODEN - History of Present Illness Patient is a 59 y/o female with PMH of CAD s/p PCI and CABG at [place] in 05/2016, ICMP, HFrEF, carotid stenosis s/p left CEA in 01/2016, COPD, HTN, HLP, DM, CKD who was brought to ED for AMS thought to be 2/2 overdose of lyrica vs uremic encephalopathy from worsening renal function vs acute systolic heart failure exacerbation to whom GI has been consulted for evaluation of blood in NGT. Currently patient is in ICU, unresponsive on vent with HD pending for today. Family (daughter) at bedside this am who assisted with obtaining history. Upon exam, there is a small amount dark brown/black blood noted in NG tubing but no bright red blood or signs of active bleeding. No melena or hematochezia per nursing. Takes occasional Ibuprofen at home but no prior hx of GI bleeding or PUD per family. Past History Past Medical History: CAD, COPD, diabetes, heart failure, migraines Past Surgical History: CABG, Other ( x 2. left nephrectomy s/p aneurysm. left carotid endarterectomy (January 2016). R BKA. Triple bypass (05/2016)) Social history: Family history: diabetes, hypertension Medications and Allergies Allergies Allergy/AdvReac Type Severity Reaction Status Date / Time KRYSTIAN Inhibitors Allergy Shortness Verified 04/26/14 00:50 of Breath amitriptyline Allergy Unknown Verified 12/18/17 17:44 Home Medications Medication Instructions Recorded Confirmed Last Taken Type ALBUTEROL Inhaler (OR & NICU) 2 puff IH QID PRN 03/16/16 07/01/19 06/30/19 History [ProAir HFA Inhaler] Albuterol *Only Ed* [Proventil 2.5 mg IH QIDRT PRN #7 nebu 03/22/16 07/01/19 06/30/19 Rx 0.5% NEBS] Butalb/Acetamin/Caff 50-325-40 1 tab PO Q8HR PRN #90 tablet 03/22/16 07/01/19 06/30/19 Rx [Fioricet 50-325-40] HYDROcodone/APAP 5-325 [[place] 1 each PO QHS #30 tablet 03/22/16 07/01/19 06/30/19 Rx 5-325 mg TAB] ISOSORBIDE MONOnitrate [Imdur ER] 30 mg PO QDAY #30 tablet 03/22/16 07/01/19 06/30/19 Rx Insulin NPH/Regular [NovoLIN 70/30] 30 unit SQ BIDDIAB #30 units 03/22/16 07/01/19 06/30/19 Rx Aspirin [Aspirin BABY CHEW TAB] 81 mg PO QDAY #15 tab.chew 04/08/16 07/01/19 06/30/19 Rx AtorvaSTATin [Lipitor] 40 mg PO QHS #15 tablet 04/08/16 07/01/19 06/30/19 Rx Clopidogrel [Plavix] 75 mg PO QDAY #15 tablet 04/08/16 07/01/19 06/30/19 Rx Chlorhexidine Mouthwash [Peridex] 15 ml MM BID #1 bottle 12/18/17 07/01/19 06/30/19 Rx Carvedilol [Coreg] 12.5 mg PO QDAY 07/01/19 07/01/19 06/30/19 History Escitalopram Oxalate [Lexapro] 10 mg PO QHS 07/01/19 07/01/19 06/30/19 History Ferrous Sulfate [Feosol] 325 mg PO QDAY 07/01/19 07/01/19 06/30/19 History Pregabalin [Lyrica] 75 mg PO QHS 07/01/19 07/01/19 06/30/19 History Sodium Bicarbonate 650 mg PO BID 07/01/19 07/01/19 06/30/19 History Torsemide [Demadex] 10 mg PO QDAY 07/01/19 07/01/19 06/30/19 History hydrALAZINE [Apresoline] 25 mg PO QDAY 07/01/19 07/01/19 06/30/19 History Active Meds: Active Medications Albuterol (Proventil) 2.5 mg IH Q3HRT PRN PRN Reason: Shortness Of Breath Bumetanide (Bumex) 2 mg IV BID@0600,1800 CHRISTY Last Admin: 07/04/19 06:04 Dose: 2 mg Documented by: Carvedilol (Coreg) 12.5 mg PO BID [facility] Hydralazine HCl (Apresoline) 10 mg IV Q4H PRN PRN Reason: Blood Pressure Last Admin: 07/04/19 08:33 Dose: 10 mg Documented by: Hydrophilic Ointment (Vaseline Lip Therapy) 1 applic TP Q2HR PRN PRN Reason: Dry Lips Multi-Ingred Cream/Lotion/Oil/Oint (Artificial Tears Ophth Oint) 1 applic OU Q4HR PRN PRN Reason: Dry Eye(s) Pantoprazole Sodium (Protonix) 40 mg IV BID [facility] Last Admin: 07/04/19 09:52 Dose: 40 mg Documented by: Sodium Chloride (Sodium Chloride Flush Syringe 10 Ml) 10 ml IV BID [facility] Last Admin: 07/04/19 09:53 Dose: 10 ml Documented by: Sodium Chloride (Sodium Chloride Flush Syringe 10 Ml) 10 ml IV PRN PRN PRN Reason: LINE FLUSH medications reviewed/updated as required Review of Systems - Review of Systems ROS unobtainable: due to endotracheal tube, due to mental status Exam - Constitutional Vital Signs: Temp Pulse Resp BP Pulse Ox 99.2 F 108 H 27 H 165/94 99 07/04/19 08:00 07/04/19 11:00 07/04/19 09:00 07/04/19 11:00 07/04/19 11:00 General appearance: no acute distress, other (in ICU, unresponsive on vent) - EENT ENT: other (+NGT with small amout old dark brown blood) - Respiratory Respiratory effort: normal - Cardiovascular Rhythm: other (tachycardia) - Gastrointestinal General gastrointestinal: Present: soft, non-distended, normal bowel sounds, other (obese) - Integumentary Integumentary: Present: warm, dry - Neurologic Neurological: other (unable to assess) - Labs CBC & Chem 7: 07/04/19 04:19 07/04/19 04:19 Lab Results: Laboratory Results - last 24 hr 07/03/19 07/03/19 07/04/19 16:53 20:42 04:17 WBC RBC Hgb Hct MCV MCH MCHC RDW Plt Count POC ABG pH 7.222 L 7.434 7.395 POC ABG pCO2 60.0 H 32.8 L 31.8 L POC ABG pO2 167 H 207 H 155 H POC ABG HCO3 24.7 22.0 19.5 POC ABG Total CO2 26 23 20 POC ABG O2 Sat 99 100 99 POC ABG Base Excess -3 -2 -5 FiO2 100 50 35 Sodium Potassium Chloride Carbon Dioxide Anion Gap BUN Creatinine Estimated GFR BUN/Creatinine Ratio Glucose Calcium Magnesium 07/04/19 07/04/19 04:19 04:19 WBC 8.8 RBC 4.20 Hgb 10.2 Hct 33.9 MCV 81 MCH 24 L MCHC 30 RDW 22.7 H Plt Count 260 POC ABG pH POC ABG pCO2 POC ABG pO2 POC ABG HCO3 POC ABG Total CO2 POC ABG O2 Sat POC ABG Base Excess FiO2 Sodium 151 H Potassium 4.7 Chloride 110.7 H Carbon Dioxide 16 L Anion Gap 29 BUN 88 H Creatinine 2.8 H Estimated GFR 21 BUN/Creatinine Ratio 31 Glucose 303 H Calcium 10.5 H Magnesium 2.30 Assessment and Plan 1.UGIB?/blood in NGT -H/H WNL (10.2/33.9)-stable -continue to monitor H/H and transfuse as needed -Upon exam, there is a small amount of old dark blood in NGT but no bright red blood or evidence of active bleeding. No melena or hematochezia per nursing -etiology-likely 2/2 trauma vs other -clinically, patient is currently in critical condistion in ICU, unresponsive on vent awaiting initiation of HD today. -no plan for EGD at this time unless overt bleeding develops -continue PPI and supportive care -will follow <AMARILYS PIERRE - Last Filed: 07/04/19 23:09> Medications and Allergies Active Meds: Active Medications Albuterol (Proventil) 2.5 mg IH Q3HRT PRN PRN Reason: Shortness Of Breath Bumetanide (Bumex) 2 mg IV BID@0600,1800 [facility] Last Admin: 07/04/19 18:25 Dose: Not Given Documented by: Carvedilol (Coreg) 12.5 mg PO BID [facility] Last Admin: 07/04/19 22:57 Dose: 12.5 mg Documented by: Hydralazine HCl (Apresoline) 10 mg IV Q4H PRN PRN Reason: Blood Pressure Last Admin: 07/04/19 08:33 Dose: 10 mg Documented by: Hydrophilic Ointment (Vaseline Lip Therapy) 1 applic TP Q2HR PRN PRN Reason: Dry Lips Sodium Chloride (Nacl 0.9%) 100 mls @ 999 mls/hr IV LA PRN PRN Reason: Hypotension Desmopressin Acetate 20 mcg/ (Sodium Chloride) 55 mls @ 100 mls/hr IV ONCE PRN PRN Reason: for bleeding at site trialysat Stop: 07/04/19 23:59 Multi-Ingred Cream/Lotion/Oil/Oint (Artificial Tears Ophth Oint) 1 applic OU Q4HR PRN PRN Reason: Dry Eye(s) Pantoprazole Sodium (Protonix) 40 mg IV BID [facility] Last Admin: 07/04/19 22:57 Dose: 40 mg Documented by: Sodium Chloride (Sodium Chloride Flush Syringe 10 Ml) 10 ml IV BID [facility] Last Admin: 07/04/19 09:53 Dose: 10 ml Documented by: Sodium Chloride (Sodium Chloride Flush Syringe 10 Ml) 10 ml IV PRN PRN PRN Reason: LINE FLUSH Exam - Constitutional Vital Signs: Temp Pulse Resp BP Pulse Ox 98.4 F 92 H 19 174/104 100 07/04/19 22:01 07/04/19 22:30 07/04/19 22:30 07/04/19 22:30 07/04/19 22:30 - Labs CBC & Chem 7: 07/04/19 04:19 07/04/19 04:19 Lab Results: Laboratory Results - last 24 hr 07/04/19 07/04/19 07/04/19 04:17 04:19 04:19 WBC 8.8 RBC 4.20 Hgb 10.2 Hct 33.9 MCV 81 MCH 24 L MCHC 30 RDW 22.7 H Plt Count 260 POC ABG pH 7.395 POC ABG pCO2 31.8 L POC ABG pO2 155 H POC ABG HCO3 19.5 POC ABG Total CO2 20 POC ABG O2 Sat 99 POC ABG Base Excess -5 FiO2 35 Sodium 151 H Potassium 4.7 Chloride 110.7 H Carbon Dioxide 16 L Anion Gap 29 BUN 88 H Creatinine 2.8 H Estimated GFR 21 BUN/Creatinine Ratio 31 Glucose 303 H POC Glucose Calcium 10.5 H Magnesium 2.30 Hepatitis A IgM Ab Hep Bs Antigen Hep B Core IgM Ab Hepatitis C Antibody 0907/04/19 07/04/19 13:32 15:58 17:42 WBC RBC Hgb Hct MCV MCH MCHC RDW Plt Count POC ABG pH POC ABG pCO2 POC ABG pO2 POC ABG HCO3 POC ABG Total CO2 POC ABG O2 Sat POC ABG Base Excess FiO2 Sodium Potassium Chloride Carbon Dioxide Anion Gap BUN Creatinine Estimated GFR BUN/Creatinine Ratio Glucose POC Glucose 340 H 334 H Calcium Magnesium Hepatitis A IgM Ab Non-reactive Hep Bs Antigen Non-reactive Hep B Core IgM Ab Non-reactive Hepatitis C Antibody Non-reactive Assessment and Plan Patient seen and examined. I have reviewed the advanced practitioner's evalu ation, assessment, and plan, and agree with them. I note the following additions: no active bleeding currently no drop in Hgb, and patient with NGT placement which can cause trauma with minor bleeding Therefore EGD unlikely to be beneficial at this time based upon currently available data, If she has major drop in Hgb or significant overt bleeding, will strongly consider endoscopy - Patient Problems (1) Upper GI bleed Current Visit: Yes Status: Acute
--- NOTE | 2019-07-04 14:37 | Event Note ---
Date: 07/04/19 patient with over 2L UOP after lewis placed this AM patient d/w Dr. Lozoya will wait on vascath insertion until Nephrology evaluates patient today to determine if dialysis is still required
[2019-07-04] MEDS ORDERED: SODIUM CHLORIDE 0.9% 100 ML IV PRN (15:00)
--- NOTE | 2019-07-04 15:30 | Consultation ---
History of Present Illness - Reason for Consult Consult date: 07/04/19 - History of Present Illness HPI: 59yo female currently hospitalized for possible drug overdose. Patient with baseline CKD and initially not responding to diuresis until lewis placed. Patient currently intubated with no sedation and currently only grimacing to pain. Consulted by the primary team for temporary dialysis catheter placement to assista with clinical picture. ROS: unable to obtain PE: intubated RRR bilateral BKA Plan: will plan on vascath insertion today Past History Past Medical History: CAD, COPD, diabetes, heart failure, migraines Past Surgical History: CABG, Other ( x 2. left nephrectomy s/p aneurysm. left carotid endarterectomy (January 2016). R BKA. Triple bypass (05/2016)) Social history: Family history: diabetes, hypertension Medications and Allergies Allergies Allergy/AdvReac Type Severity Reaction Status Date / Time KRYSTIAN Inhibitors Allergy Shortness Verified 04/26/14 00:50 of Breath amitriptyline Allergy Unknown Verified 12/18/17 17:44 Home Medications Medication Instructions Recorded Confirmed Last Taken Type ALBUTEROL Inhaler (OR & NICU) 2 puff IH QID PRN 03/16/16 07/01/19 06/30/19 History [ProAir HFA Inhaler] Albuterol *Only Ed* [Proventil 2.5 mg IH QIDRT PRN #7 nebu 03/22/16 07/01/19 06/30/19 Rx 0.5% NEBS] Butalb/Acetamin/Caff 50-325-40 1 tab PO Q8HR PRN #90 tablet 03/22/16 07/01/19 06/30/19 Rx [Fioricet 50-325-40] HYDROcodone/APAP 5-325 [[place] 1 each PO QHS #30 tablet 03/22/16 07/01/19 06/30/19 Rx 5-325 mg TAB] ISOSORBIDE MONOnitrate [Imdur ER] 30 mg PO QDAY #30 tablet 03/22/16 07/01/19 06/30/19 Rx Insulin NPH/Regular [NovoLIN 70/30] 30 unit SQ BIDDIAB #30 units 03/22/16 07/01/19 06/30/19 Rx Aspirin [Aspirin BABY CHEW TAB] 81 mg PO QDAY #15 tab.chew 04/08/16 07/01/19 06/30/19 Rx AtorvaSTATin [Lipitor] 40 mg PO QHS #15 tablet 04/08/16 07/01/19 06/30/19 Rx Clopidogrel [Plavix] 75 mg PO QDAY #15 tablet 04/08/16 07/01/19 06/30/19 Rx Chlorhexidine Mouthwash [Peridex] 15 ml MM BID #1 bottle 12/18/17 07/01/19 06/30/19 Rx Carvedilol [Coreg] 12.5 mg PO QDAY 07/01/19 07/01/19 06/30/19 History Escitalopram Oxalate [Lexapro] 10 mg PO QHS 07/01/19 07/01/19 06/30/19 History Ferrous Sulfate [Feosol] 325 mg PO QDAY 07/01/19 07/01/19 06/30/19 History Pregabalin [Lyrica] 75 mg PO QHS 07/01/19 07/01/19 06/30/19 History Sodium Bicarbonate 650 mg PO BID 07/01/19 07/01/19 06/30/19 History Torsemide [Demadex] 10 mg PO QDAY 07/01/19 07/01/19 06/30/19 History hydrALAZINE [Apresoline] 25 mg PO QDAY 07/01/19 07/01/19 06/30/19 History Active Meds: Active Medications Albuterol (Proventil) 2.5 mg IH Q3HRT PRN PRN Reason: Shortness Of Breath Bumetanide (Bumex) 2 mg IV BID@0600,1800 CHRISTY Last Admin: 07/04/19 06:04 Dose: 2 mg Documented by: Carvedilol (Coreg) 12.5 mg PO BID [facility] Hydralazine HCl (Apresoline) 10 mg IV Q4H PRN PRN Reason: Blood Pressure Last Admin: 07/04/19 08:33 Dose: 10 mg Documented by: Hydrophilic Ointment (Vaseline Lip Therapy) 1 applic TP Q2HR PRN PRN Reason: Dry Lips Sodium Chloride (Nacl 0.9%) 100 mls @ 999 mls/hr IV LA PRN PRN Reason: Hypotension Multi-Ingred Cream/Lotion/Oil/Oint (Artificial Tears Ophth Oint) 1 applic OU Q4HR PRN PRN Reason: Dry Eye(s) Pantoprazole Sodium (Protonix) 40 mg IV BID [facility] Last Admin: 07/04/19 09:52 Dose: 40 mg Documented by: Sodium Chloride (Sodium Chloride Flush Syringe 10 Ml) 10 ml IV BID [facility] Last Admin: 07/04/19 09:53 Dose: 10 ml Documented by: Sodium Chloride (Sodium Chloride Flush Syringe 10 Ml) 10 ml IV PRN PRN PRN Reason: LINE FLUSH Exam - Constitutional Vitals: Temp Pulse Resp BP Pulse Ox 99.3 F 94 H 18 153/90 97 07/04/19 12:00 07/04/19 14:00 07/04/19 14:00 07/04/19 14:00 07/04/19 14:00 Results - Labs CBC & Chem 7: 07/04/19 04:19 07/04/19 04:19 Labs: Abnormal lab results 07/03/19 07/03/19 07/04/19 Range/Units 16:53 20:42 04:17 MCH (28-32) pg RDW (13.2-15.2) % POC ABG pH 7.222 L (7.35-7.45) POC ABG pCO2 60.0 H 32.8 L 31.8 L (35-45) POC ABG pO2 167 H 207 H 155 H (80-105) Sodium (137-145) mmol/L Chloride (98-107) mmol/L Carbon Dioxide (22-30) mmol/L BUN (7-17) mg/dL Creatinine (0.7-1.2) mg/dL Glucose (65-100) mg/dL POC Glucose (70-105) Calcium (8.4-10.2) mg/dL 07/04/19 07/04/19 07/04/19 Range/Units 04:19 04:19 13:32 MCH 24 L (28-32) pg RDW 22.7 H (13.2-15.2) % POC ABG pH (7.35-7.45) POC ABG pCO2 (35-45) POC ABG pO2 (80-105) Sodium 151 H (137-145) mmol/L Chloride 110.7 H (98-107) mmol/L Carbon Dioxide 16 L (22-30) mmol/L BUN 88 H (7-17) mg/dL Creatinine 2.8 H (0.7-1.2) mg/dL Glucose 303 H (65-100) mg/dL POC Glucose 340 H (70-105) Calcium 10.5 H (8.4-10.2) mg/dL
--- NOTE | 2019-07-04 15:38 | Post Operative Note ---
Pre-op diagnosis: Chronic Kidney Disease Post-op diagnosis: same Procedure: Right Femoral Vascath Insertion Anesthesia: local Estimated blood loss: minimal Pathology: none Condition: stable Disposition: ICU
--- NOTE | 2019-07-04 16:34 | Progress Note ---
Assessment and Plan - Patient Problems (1) Acute kidney injury superimposed on CKD Current Visit: Yes Status: Acute Plan to address problem: Patient has OLEKSANDR on already progressed CKD IV. This is likely in the setting of acute/chronic systolic heart failure and cardiorenal syndrome. Response noted with placement of lewis. Patient is now on bumex 2mg BID IV. further augmentation of potassium excretion noted with diuresis, Monitor daily renal functions. Avoid nephrotoxins. Maintain MAP >65mmHg. (2) Altered mental status Current Visit: Yes Status: Acute Plan to address problem: Possible overdose of lyrica. Per pulmonology notes, poison control notified with recommendations for conservative management. As there has been no changes in her overall mental status, discussed with pulmonology and plan will be to proceed to dialysis on a daily basis, for three consecutive sessions to assist in improvement in mentation but clearance of the aforementioned lyrica. Orders written, and patient is going to obtain vascath today, As we are doing this for removal of lyrica, need to have a longer HD time of 4 hours, with optimal DFR/BFR to augment in clearance of the drug. Will monitor mental status daily to see affects. (3) Acute on chronic systolic heart failure Current Visit: Yes Status: Acute Plan to address problem: Continue current diuretic regimen to Bumex 2 mg BID. ECHO findings noted with severely decreased systolic functions, and significant elevation of BNP noted. Strict I/O. Please carefully document urine output/response with diuretic therapy. (4) Acute and chronic respiratory failure with hypoxia Current Visit: Yes Status: Acute Plan to address problem: Likely in the setting of acute on chronic CHF. Will recommend diuresis. Further recommendations per pulmonology. She also has a h/o COPD. Intubated at this time (5) Fluid overload Current Visit: Yes Status: Acute Plan to address problem: Will diurese with bumex 2mg IV BID and closely monitor, Lewis placed for adequate monitoring purposes. Subjective Date of service: 07/04/19 Principal diagnosis: AMS Interval history: No changes in her mentation, and patient had to be intubated. Lewis placed, and increased UO noted, likely evidence of retention. No significant changes in overall renal function noted. Plan will be to set patient up for HD on 3 consecutive session to help with removal of lyrica in setting of possible OD which may be a significant contributing factor to her current mentation/encephalopathy. Objective - Vital Signs Vital signs: Vital Signs - 12hr 07/04/19 07/04/19 07/04/19 04:30 04:45 05:00 Temperature Pulse Rate 113 H 113 H 112 H Pulse Rate [ From Monitor] Respiratory 18 22 21 Rate Blood Pressure 167/101 165/103 151/99 O2 Sat by Pulse 99 99 98 Oximetry 07/04/19 07/04/19 07/04/19 05:15 05:30 05:45 Temperature Pulse Rate 112 H 113 H 114 H Pulse Rate [ From Monitor] Respiratory 21 21 24 Rate Blood Pressure 168/101 168/103 163/101 O2 Sat by Pulse 99 99 99 Oximetry 07/04/19 07/04/19 07/04/19 06:00 06:30 07:00 Temperature Pulse Rate 114 H 113 H 114 H Pulse Rate [ From Monitor] Respiratory 18 21 24 Rate Blood Pressure 164/103 156/105 172/105 O2 Sat by Pulse 99 99 99 Oximetry 07/04/19 07/04/19 07/04/19 07:11 07:30 08:00 Temperature 99.2 F Pulse Rate 114 H 113 H 117 H Pulse Rate [ 117 H From Monitor] Respiratory 23 18 Rate Blood Pressure 163/106 163/95 164/100 O2 Sat by Pulse 99 99 99 Oximetry 07/04/19 07/04/19 07/04/19 08:30 08:33 09:00 Temperature Pulse Rate 109 H 110 H 107 H Pulse Rate [ From Monitor] Respiratory 21 27 H Rate Blood Pressure 160/108 160/108 160/96 O2 Sat by Pulse 99 99 Oximetry 07/04/19 07/04/19 07/04/19 09:30 10:00 10:30 Temperature Pulse Rate 108 H 110 H 110 H Pulse Rate [ From Monitor] Respiratory 25 H 22 22 Rate Blood Pressure 160/95 164/95 152/103 O2 Sat by Pulse 100 100 100 Oximetry 07/04/19 07/04/19 07/04/19 11:00 11:30 12:00 Temperature 99.3 F Pulse Rate 109 H 106 H 92 H Pulse Rate [ 95 H From Monitor] Respiratory 22 19 17 Rate Blood Pressure 165/94 157/92 141/84 O2 Sat by Pulse 99 98 97 Oximetry 09/26/19 09/26/19 09/26/19 12:30 13:00 13:30 Temperature Pulse Rate 95 H 100 H 92 H Pulse Rate [ From Monitor] Respiratory 18 19 18 Rate Blood Pressure 140/80 147/83 150/84 O2 Sat by Pulse 97 96 97 Oximetry 07/04/19 07/04/19 14:00 16:00 Temperature Pulse Rate 94 H 99 H Pulse Rate [ From Monitor] Respiratory 18 Rate Blood Pressure 153/90 168/98 O2 Sat by Pulse 97 98 Oximetry - General Appearance General appearance: appears stated age, obese, intubated EENT: ATNC Neck: no JVD, no thyromegaly Respiratory: Present: Decreased Breath Sounds Cardiology: regular, S1S2 Gastrointestinal: normoactive bowel sounds Integumentary: no rash, warm and dry Neurologic: other (only grimaces to pain, otherwise does not follow commands, ) Musculoskeletal: other (-edema ) Psychiatric: other (comatose ) - Lab 07/04/19 04:19 07/04/19 04:19 Most recent lab results ABG pH 7.284 pH Units (7.350-7.450) L 07/01/19 Unknown ABG pCO2 51.5 mm Hg 07/01/19 Unknown ABG pO2 121.4 mm Hg (80.0-90.0) H 07/01/19 Unknown ABG HCO3 23.9 mmol/L (20.0-26.0) 07/01/19 Unknown ABG O2 Saturation 98.0 % (95.0-99.0) 07/01/19 Unknown Calcium 10.5 mg/dL (8.4-10.2) H 07/04/19 04:19 Magnesium 2.30 mg/dL (1.7-2.3) 07/04/19 04:19 - Allied health notes Allied health notes reviewed: nursing Medications & Allergies - Medications Allergies/Adverse Reactions: Allergies KRYSTIAN Inhibitors Allergy (Verified 04/26/14 00:50) Shortness of Breath amitriptyline Allergy (Verified 12/18/17 17:44) Unknown Home Medications: Home Medications Medication Instructions Recorded Confirmed Last Taken Type ALBUTEROL Inhaler (OR & NICU) 2 puff IH QID PRN 03/16/16 07/01/19 06/30/19 History [ProAir HFA Inhaler] Albuterol *Only Ed* [Proventil 2.5 mg IH QIDRT PRN #7 nebu 03/22/16 07/01/19 06/30/19 Rx 0.5% NEBS] Butalb/Acetamin/Caff 50-325-40 1 tab PO Q8HR PRN #90 tablet 03/22/16 07/01/19 06/30/19 Rx [Fioricet 50-325-40] HYDROcodone/APAP 5-325 [[place] 1 each PO QHS #30 tablet 03/22/16 07/01/19 06/30/19 Rx 5-325 mg TAB] ISOSORBIDE MONOnitrate [Imdur ER] 30 mg PO QDAY #30 tablet 03/22/16 07/01/19 06/30/19 Rx Insulin NPH/Regular [NovoLIN 70/30] 30 unit SQ BIDDIAB #30 units 03/22/16 07/01/19 06/30/19 Rx Aspirin [Aspirin BABY CHEW TAB] 81 mg PO QDAY #15 tab.chew 04/08/16 07/01/19 06/30/19 Rx AtorvaSTATin [Lipitor] 40 mg PO QHS #15 tablet 04/08/16 07/01/19 06/30/19 Rx Clopidogrel [Plavix] 75 mg PO QDAY #15 tablet 04/08/16 07/01/19 06/30/19 Rx Chlorhexidine Mouthwash [Peridex] 15 ml MM BID #1 bottle 12/18/17 07/01/19 06/30/19 Rx Carvedilol [Coreg] 12.5 mg PO QDAY 07/01/19 07/01/19 06/30/19 History Escitalopram Oxalate [Lexapro] 10 mg PO QHS 07/01/19 07/01/19 06/30/19 History Ferrous Sulfate [Feosol] 325 mg PO QDAY 07/01/19 07/01/19 06/30/19 History Pregabalin [Lyrica] 75 mg PO QHS 07/01/19 07/01/19 06/30/19 History Sodium Bicarbonate 650 mg PO BID 07/01/19 07/01/19 06/30/19 History Torsemide [Demadex] 10 mg PO QDAY 07/01/19 07/01/19 06/30/19 History hydrALAZINE [Apresoline] 25 mg PO QDAY 07/01/19 07/01/1906/30/19 History Active Medications: Generic Name Dose Route Start Last Admin Trade Name Freq PRN Reason Stop Dose Admin Albuterol 2.5 mg 07/01/19 20:06 Proventil IH Q3HRT PRN Shortness Of Breath Bumetanide 2 mg 07/03/19 18:00 07/04/19 06:04 Bumex IV 2 mg BID@0600,1800 CHRISTY Administration Carvedilol 12.5 mg 07/04/19 22:00 Coreg PO BID CHRISTY Hydralazine HCl 10 mg 07/02/19 05:49 07/04/19 08:33 Apresoline IV 10 mg Q4H PRN Administration Blood Pressure Hydrophilic Ointment 1 applic 07/03/19 19:12 Vaseline Lip Therapy TP Q2HR PRN Dry Lips Sodium Chloride 100 mls @ 999 mls/hr 07/04/19 15:00 Nacl 0.9% IV LA PRN Hypotension Multi-Ingred Cream/Lotion/Oil/Oint 1 applic 07/03/19 19:12 Artificial Tears Ophth Oint OU Q4HR PRN Dry Eye(s) Pantoprazole Sodium 40 mg 07/03/19 16:00 07/04/19 09:52 Protonix IV 40 mg BID CHRISTY Administration Sodium Chloride 10 ml 07/01/19 22:00 07/04/19 09:53 Sodium Chloride Flush Syringe 10 Ml IV 10 ml BID CHRISTY Administration Sodium Chloride 10 ml 07/01/19 20:06 Sodium Chloride Flush Syringe 10 Ml IV PRN PRN LINE FLUSH
[2019-07-04 16:39] LABS: Hepatitis B Surface Antigen Non-Reactive (Negative); Hepatitis C Virus Antibody Non-Reactive (NonReactive)
[2019-07-04] MEDS ORDERED: HEPARIN 10,000 UNIT/1 ML VIAL ONE (17:05)
--- NOTE | 2019-07-04 22:00 | Procedure Note ---
SURGEON: Dr. Alexis Aldana. PREOPERATIVE DIAGNOSIS: Acute on chronic kidney disease. POSTOPERATIVE DIAGNOSIS: Acute on chronic kidney disease. PROCEDURE PERFORMED: Right femoral Vas-Cath insertion. COMPLICATIONS: None. ESTIMATED BLOOD LOSS: Less than 10 mL. ANESTHESIA: Local. INDICATION FOR PROCEDURE: This is a 59-year-old female who currently hospitalized for drug overdose, who was found to be obtunded and eventually required intubation and the patient's mental status has not improved despite attempted diuresis. Therefore, a vascular consultation was obtained for dialysis catheter placement to assist with the patient's clinical picture. The patient's family was explained the risks and benefits of the procedure, expressed understanding and wished to proceed. DESCRIPTION OF PROCEDURE: After appropriate consent was obtained, the patient's right groin was prepped and draped in the usual sterile fashion with ChloraPrep, then proceeded to obtain percutaneous access of the right femoral vein using 18-gauge needle was obtained access. Stiff J-wire was placed into the inferior vena cava. The needle was removed. The access site was sealed with dilator appropriately and then a 30 cm 13-[place] Vas-Cath was then placed over the wire into the IVC. Wire was removed. All 3 lumens myesha blood appropriately were flushed with heparinized saline. Appropriate amount of heparin was placed in each port. Catheter was then sutured in place with 2-0 nylon and appropriate dressing was placed. The patient tolerated the procedure well. JOB# [id number] NICK/ZA
[2019-07-04] MEDS ORDERED: DESMOPRESSIN ACETATE 20 MCG in SODIUM CHLORIDE 0.9% 50 ML IV PRN (22:13)
[2019-07-04] MEDS: carvediloL 12.5 MG TAB PO SCH (22:57)
--- NOTE | 2019-07-05 03:14 | XRay Report ---
CHEST 1 VIEW 07/05/2019 2:21 AM INDICATION / CLINICAL INFORMATION: follow up respiratory failure. COMPARISON: 07/04/2019. FINDINGS: SUPPORT DEVICES: Stable satisfactory device positioning. HEART / MEDIASTINUM: Stable. LUNGS / PLEURA: Mildly improved bilateral interstitial opacities. No pneumothorax. ADDITIONAL FINDINGS: No significant additional findings. IMPRESSION: 1. Mildly improved bilateral interstitial opacities compared with 07/04/2019. Signer Name: Nacho Henlye MD Signed: 07/05/2019 3:10 AM Workstation Name: [id number]
[2019-07-05] MEDS: BUMETANIDE 1 MG/4 ML INJ IV SCH ×2 (05:35→17:34)
[2019-07-05 06:01] LABS: Hematocrit 32.8 % (30.3-42.9); Hemoglobin 10.2 gm/dl (10.1-14.3); Mean Corpuscular HGB Conc 31 % (30-34); Mean Corpuscular Volume 80 fl (79-97); Platelet Count 223 K/mm3 (140-440); Red Blood Count 4.12 M/mm3 (3.65-5.03)
[2019-07-05 06:02] LABS: Red Cell Distribution Width 22.4 % (13.2-15.2)
[2019-07-05 06:14] LABS: Calcium 9.2 mg/dL (8.4-10.2)
--- NOTE | 2019-07-05 08:34 | Progress Note ---
Assessment and Plan Assessment and plan: Patient is a 59 yo woman with a history of hypertension, CAD s/p PCI, s/p CABG at [facility] in 05/2016, ICMP, HFrEF (Echo done 09/2017 showed EF 35-40%, mild LVH, severe LAE, mild AR and MR, mod TR, RVSP 66mmHg), carotid stenosis s/p left CEA in 01/2016, COPD, HTN, HLP, DM type 2 and CKD who presented to [facility] ED with AMS and unresponsiveness. According to ED record, the family found her basically somnolent in the bed with some Lyrica pills in her hand and several pills lying on the bed next to her on Monday. Then on Monday, they noticed that she had vomited on herself and seemed a little groggy. Family called EMS but the pt refused to be transported to the hospital. As the day progressed family states the patient appeared to get weaker and then eventually she could not keep her eyes open. Family states they were able to convince the patient to come to the emergency department. On evaluation, the patient is lying on the stretcher with somniferous respirations. She is currently on O2 via nasal cannula with O2 sats WNL. Head CT with NAF. Cardiology has been consulted for HF. CXR with some vascular congestion, pro-BNP >02125. Other labwork significant for ABG pH 7.27, BUN/Cr 67/2.7, K+ 5.2, AST 52, ALK phos 203, ammonia 64. On 07/03/19 around 5pm; patient became hypoxic and obtunded, ABG showed worsening acidosis with hypercapnea, I discuss Dr. Lozoya. I elected to Intubated instead of bipap because pt is obtunded. I called Anesthesia and uneventful intubation done via guide-scope. D/w Dr. Lozoya and daughter Vickiekarina at bedside and another daughter over the phone. Also, spoke with her PCP Dr. Booth over the phone prior to intubation. Flakito handed me the phone with Dr. Booth and her sister on 3 way. * TTE Conclusions: Global LVSF is severely decreased, estimated EF 20-25%, lv diastolic filling is restrictive, RV is mildly dilated, RVSF is moderately reduced, mild MR, moderate TR, RVSP is calcuated at 54 mmHg, mild pulmonic regurgitation, no pericardial effusion, Inferior vena cava is dilated * pCXR Impression: 1.Stable cardiomegaly 2. Diminished lung volumes with mild vascular congestion Acute on chronic hypoxic respiratory failure: Diuresis Acute metabolic encephalopathy most likely from drug overdose: poison control recommended conservative management. Suspect Lyrica Overdose: see above Aspiration pneumonia unlikely: stop abx Acute on chronic systolic heart failure: treat with IV diuretic bid, monitor bmp daily, Cardiology is following Acute on chronic CKD 3: Nephrology is following, input noted, Monitor daily renal functions. Avoid nephrotoxins. Maintain MAP >65mmHg. Bloody substance in NGT: stopped the L.I.S and consulted GI, treat with IV PPI History of Ischemic cardiomyopathy History of CAD (coronary artery disease) History of coronary artery bypass graft Hypertension: continue to monitor Hyperlipidemia: statins Diabetes mellitus type 2: ssi, accuchecks COPD (chronic obstructive pulmonary disease): nebs Hyperkalemia: treated hyperkalemia with kayexalate NSTEMI (non-ST elevated myocardial infarction) type 2: Cardiology is following, input noted PVD (peripheral vascular disease) Restraints renewed, just in case patient wakes up and tries to remove ETT, Diprivan on standby 07/04/19 D/w son Juan Manuel over the phone, he is in [place], [place]. Also, d.w daughter Isis at bedside. They want to transfer to [facility] because of preference but her PCP Dr. Booth doesn't admit to ICU. Hemodialysis to start 07/05/19: Mental status improved. Still intubated and no sedation is needed. Restraints renewed. 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 She tracking with her eyes and her eyes . She had lewis catheter inserted yesterday 07/04/19 and 1600 urine was expelled immediately. The urine retention was probably related to the drug overdose and should get better. She had right femoral vas cath placed and Hemodialysis yesterday. CCT 36 minutes History Interval history: Patient was seen and examined. Follow-up on current diagnosis of AMS. No overnight events reported to me. Imaging, nursing note, chart, labs and old chart reviewed. Intubated but not sedated. This is the first day she follows some commands. She tracking with her eyes. She had lewis catheter inserted yesterday 07/04/19 and ~1600 urine was expelled. She had right femoral vas cath placed and Hemodialysis Hospitalist Physical - Physical exam Narrative exam: Gen: ill appearing, obtunded, mildly increase accessory muscles HEENT: NCAT, eyes matted shut with crust especially left eye, OP Clear Neck: supple, no adenopathy, no thyromegaly, no JVD CVS/Heart: tachycardic normal S1S2, pulses present bilaterally Chest/Lungs: tachypenic, diminished bs bilateral Symmetrical chest expansion, good air entry bilaterally GI/Abdomen: soft, NTND, good bowel sounds, no guarding or rebound /Bladder: no suprapubic tenderness, no CVA or paraspinal tenderness Extermity/Skin: no obvious rash MSK: confused Neuro: CN 2-12 grossly intact, not following directions. Psych: confused - Constitutional Vitals: Temp Pulse Resp BP Pulse Ox 99.8 F H 95 H 19 147/87 99 07/05/19 03:46 07/05/19 08:19 07/05/19 08:00 07/05/19 08:19 07/05/19 08:19 General appearance: Present: other (withdrawn, lethargic) Results - Labs CBC & Chem 7: 07/05/19 05:23 07/05/19 05:23 Labs: Laboratory Last Values WBC 8.3 K/mm3 (4.5-11.0) 07/05/19 05:23 RBC 4.12 M/mm3 (3.65-5.03) 07/05/19 05:23 Hgb 10.2 gm/dl (10.1-14.3) 07/05/19 05:23 Hct 32.8 % (30.3-42.9) 07/05/19 05:23 MCV 80 fl (79-97) 07/05/19 05:23 MCH 25 pg (28-32) L 07/05/19 05:23 MCHC 31 % (30-34) 07/05/19 05:23 RDW 22.4 % (13.2-15.2) H 07/05/19 05:23 Plt Count 223 K/mm3 (140-440) 07/05/19 05:23 Lymph % (Auto) 18.3 % (13.4-35.0) 07/01/19 15:22 [place] % (Auto) 6.6 % (0.0-7.3) 07/01/19 15:22 Eos % (Auto) 2.4 % (0.0-4.3) 07/01/19 15:22 Baso % (Auto) 0.9 % (0.0-1.8) 07/01/19 15:22 Lymph # 1.1 K/mm3 (1.2-5.4) L 07/01/19 15:22 [place] # 0.4 K/mm3 (0.0-0.8) 07/01/19 15:22 Eos # 0.1 K/mm3 (0.0-0.4) 07/01/19 15:22 Baso # 0.1 K/mm3 (0.0-0.1) 07/01/19 15:22 Add Manual Diff Complete 07/02/19 11:39 Total Counted 100 07/02/19 11:39 Seg Neutrophils % 71.8 % (40.0-70.0) H 07/01/19 15:22 Seg Neuts % (Manual) 81.0 % (40.0-70.0) H 07/02/19 11:39 2.0 % 07/02/19 11:39 8.0 % (13.4-35.0) L 07/02/19 11:39 Reactive Lymphs % (Man) 0 % 07/02/19 11:39 7.0 % (0.0-7.3) 07/02/19 11:39 0 % (0.0-4.3) 07/02/19 11:39 1.0 % (0.0-1.8) 07/02/19 11:39 1.0 % 07/02/19 11:39 0 % 07/02/19 11:39 0 % 07/02/19 11:39 0 % 07/02/19 11:39 Nucleated RBC % 1.0 % (0.0-0.9) H 07/02/19 11:39 Seg Neutrophils # 4.4 K/mm3 (1.8-7.7) 07/01/19 15:22 Seg Neutrophils # Man 6.8 K/mm3 (1.8-7.7) 07/02/19 11:39 Band Neutrophils # 0.2 K/mm3 07/02/19 11:39 0.7 K/mm3 (1.2-5.4) L 07/02/19 11:39 Abs React Lymphs (Man) 0.0 K/mm3 07/02/19 11:39 0.6 K/mm3 (0.0-0.8) 07/02/19 11:39 0.0 K/mm3 (0.0-0.4) 07/02/19 11:39 0.1 K/mm3 (0.0-0.1) 07/02/19 11:39 0.1 K/mm3 07/02/19 11:39 0.0 K/mm3 07/02/19 11:39 0.0 K/mm3 07/02/19 11:39 Blast Cells # 0.0 K/mm3 07/02/19 11:39 WBC Morphology Not Reportable 07/02/19 11:39 Hypersegmented Neuts Not Reportable 07/02/19 11:39 Hyposegmented Neuts Not Reportable 07/02/19 11:39 Hypogranular Neuts Not Reportable 07/02/19 11:39 Not Reportable 07/02/19 11:39 Not Reportable 07/02/19 11:39 Not Reportable 07/02/19 11:39 Not Reportable 07/02/19 11:39 Not Reportable 07/02/19 11:39 Not Reportable 07/02/19 11:39 Consistent w auto 07/02/19 11:39 Not Reportable 07/02/19 11:39 Plt Clumps, EDTA Not Reportable 07/02/19 11:39 Few 07/02/19 11:39 Not Reportable 07/02/19 11:39 Not Reportable 07/02/19 11:39 Plt Morphology Comment Not Reportable 07/02/19 11:39 RBC Morphology Not Reportable 07/02/19 11:39 Dimorphic RBCs Not Reportable 07/02/19 11:39 Rare 07/02/19 11:39 1+ 07/02/19 11:39 Few 07/02/19 11:39 1+ 07/02/19 11:39 Not Reportable 07/02/19 11:39 Rare 07/02/19 11:39 Rare 07/02/19 11:39 Not Reportable 07/02/19 11:39 Not Reportable 07/02/19 11:39 Rare 07/02/19 11:39 Not Reportable 07/02/19 11:39 Not Reportable 07/02/19 11:39 Not Reportable 07/02/19 11:39 Not Reportable 07/02/19 11:39 Not Reportable 07/02/19 11:39 Not Reportable 07/02/19 11:39 Not Reportable 07/02/19 11:39 Not Reportable 07/02/19 11:39 Not Reportable 07/02/19 11:39 Acanthocytes (Spur) Not Reportable 07/02/19 11:39 Rouleaux Not Reportable 07/02/19 11:39 Not Reportable 07/02/19 11:39 Not Reportable 07/02/19 11:39 Not Reportable 07/02/19 11:39 Not Reportable 07/02/19 11:39 Hem Pathologist Commnt No 07/02/19 11:39 PT 15.1 Sec. (12.2-14.9) H 07/01/19 15:22 INR 1.22 (0.87-1.13) H 07/01/19 15:22 APTT 32.6 Sec. (24.2-36.6) 07/01/19 15:22 POC ABG pH 7.447 (7.35-7.45) 07/05/19 04:22 ABG pH 7.284 pH Units (7.350-7.450) L 07/01/19 Unknown POC ABG pCO2 32.9 (35-45) L 07/05/19 04:22 ABG pCO2 51.5 mm Hg 07/01/19 Unknown POC ABG pO2 82 (80-105) 07/05/19 04:22 ABG pO2 121.4 mm Hg (80.0-90.0) H 07/01/19 Unknown POC ABG HCO3 22.7 (22-26 mml/L) 07/05/19 04:22 ABG HCO3 23.9 mmol/L (20.0-26.0) 07/01/19 Unknown POC ABG Total CO2 24 (23-27mmol/L) 07/05/19 04:22 POC ABG O2 Sat 97 07/05/19 04:22 ABG O2 Saturation 98.0 % (95.0-99.0) 07/01/19 Unknown ABG O2 Content 14.3 (0.0-44) 07/01/19 Unknown POC ABG Base Excess -1 ((-2) - (+3)mmol/L) 07/05/19 04:22 ABG Base Excess -3.1 mmol/L (-2.0-3.0) L 07/01/19 Unknown ABG Hemoglobin 10.5 gm/dl (12.0-16.0) L 07/01/19 Unknown ABG Carboxyhemoglobin 2.0 % (0.0-5.0) 07/01/19 Unknown ABG Methemoglobin 0.6 % (0.0-1.5) 07/01/19 Unknown 95.6 % (95.0-99.0) 07/01/19 Unknown 25 % 07/05/19 04:22 Sodium 142 mmol/L (137-145) D 07/05/19 05:23 Potassium 3.3 mmol/L (3.6-5.0) L D 07/05/19 05:23 Chloride 100.2 mmol/L (98-107) 07/05/19 05:23 Carbon Dioxide 23 mmol/L (22-30) D 07/05/19 05:23 22 mmol/L 07/05/19 05:23 BUN 33 mg/dL (7-17) H 07/05/19 05:23 1.4 mg/dL (0.7-1.2) H 07/05/19 05:23 Estimated GFR 47 ml/min 07/05/19 05:23 24 % 07/05/19 05:23 Glucose 250 mg/dL (65-100) H 07/05/19 05:23 POC Glucose 262 (70-105) H 07/05/19 05:38 Calcium 9.2 mg/dL (8.4-10.2) 07/05/19 05:23 Magnesium 2.30 mg/dL (1.7-2.3) 07/04/19 04:19 Iron 26 ug/dL (37-170) L 07/01/19 18:35 0.90 mg/dL (0.1-1.2) 07/02/19 11:39 AST 37 units/L (5-40) 07/02/19 11:39 ALT 36 units/L (7-56) 07/02/19 11:39 202 units/L (35-129) H 07/02/19 11:39 64.0 umol/L (25-60) H 07/01/19 15:35 0.193 ng/mL (0.00-0.029) H* D 07/03/19 04:51 NT-Pro-B Natriuret Pep > 20577 pg/mL (0-900) H 07/01/19 23:32 7.6 g/dL (6.3-8.2) 07/02/19 11:39 3.5 g/dL (3.9-5) L 07/02/19 11:39 0.9 % 07/02/19 11:39 Triglycerides 93 mg/dL (2-149) 07/01/19 15:22 Cholesterol 83 mg/dL (50-199) 07/01/19 15:22 38 mg/dL (50-130) L 07/01/19 15:22 32 mg/dL (40-59) L 07/01/19 15:22 2.59 % 07/01/19 15:22 TSH 0.724 mlU/mL (0.270-4.200) 07/01/19 23:32 Free T4 1.28 ng/dL (0.76-1.46) 07/01/19 23:32 Yellow (Yellow) 07/01/19 14:28 Clear (Clear) 07/01/19 14:28 5.0 (5.0-7.0) 07/01/19 14:28 Ur Specific [place] 1.012 (1.003-1.030) 07/01/19 14:28 100 mg/dl mg/dL (Negative) 07/01/19 14:28 Neg mg/dL (Negative) 07/01/19 14:28 Neg mg/dL (Negative) 07/01/19 14:28 Neg (Negative) 07/01/19 14:28 Neg (Negative) 07/01/19 14:28 Neg (Negative) 07/01/19 14:28 < 2.0 mg/dL (<2.0) 07/01/19 14:28 Ur Leukocyte Esterase Neg (Negative) 07/01/19 14:28 1.0 /HPF (0.0-6.0) 07/01/19 14:28 2.0 /HPF (0.0-6.0) 07/01/19 14:28 U Epithel Cells (Auto) 1.0 /HPF (0-13.0) 07/01/19 14:28 Salicylates < 0.3 mg/dL (2.8-20.0) L 07/01/19 15:22 Presumptive negative 07/01/19 14:28 Presumptive negative 07/01/19 14:28 Acetaminophen < 5.0 ug/mL (10.0-30.0) L 07/01/19 15:22 Ur Barbiturates Screen Presumptive negative 07/01/19 14:28 Ur Phencyclidine Scrn Presumptive negative 07/01/19 14:28 Ur Amphetamines Screen Presumptive negative 07/01/19 14:28 U Benzodiazepines Scrn Presumptive positive 07/01/19 14:28 Presumptive negative 07/01/19 14:28 U Marijuana (THC) Screen Presumptive negative 07/01/19 14:28 Disclamer 07/01/19 14:28 Plasma/Serum Alcohol < 0.01 % (0-0.07) 07/01/19 15:22 Hepatitis A IgM Ab Non-reactive (NonReactive) 07/04/19 15:58 Hep Bs Antigen Non-reactive (Negative) 07/04/19 15:58 Hep B Core IgM Ab Non-reactive (NonReactive) 07/04/19 15:58 Non-reactive (NonReactive) 07/04/19 15:58 Active Medications - Current Medications Current Medications: Generic Name Dose Route Start Last Admin Trade Name Freq PRN Reason Stop Dose Admin Albuterol 2.5 mg 07/01/19 20:06 Proventil IH Q3HRT PRN Shortness Of Breath Bumetanide 2 mg 07/03/19 18:00 07/05/19 05:35 Bumex IV 2 mg BID@0600,1800 CHRISTY Administration Carvedilol 12.5 mg 07/04/19 22:00 07/04/19 22:57 Coreg PO 12.5 mg BID CHRISTY Administration Hydralazine HCl 10 mg 07/02/19 05:49 07/04/19 08:33 Apresoline IV 10 mg Q4H PRN Administration Blood Pressure Hydrophilic Ointment 1 applic 07/03/19 19:12 Vaseline Lip Therapy TP Q2HR PRN Dry Lips Sodium Chloride 100 mls @ 999 mls/hr 07/04/19 15:00 Nacl 0.9% IV LA PRN Hypotension Potassium Chloride 10 meq in 100 mls @ 100 mls/hr 07/05/19 09:00 Kcl 10meq/100ml IV 07/05/19 10:59 Q1H CHRISTY Multi-Ingred Cream/Lotion/Oil/Oint 1 applic 07/03/19 19:12 Artificial Tears Ophth Oint OU Q4HR PRN Dry Eye(s) Pantoprazole Sodium 40 mg 07/03/19 16:00 07/04/19 22:57 Protonix IV 40 mg BID CHRISTY Administration Sodium Chloride 10 ml 07/01/19 22:00 07/04/19 23:26 Sodium Chloride Flush Syringe 10 Ml IV 10 ml BID CHRISTY Administration Sodium Chloride 10 ml 07/01/19 20:06 Sodium Chloride Flush Syringe 10 Ml IV PRN PRN LINE FLUSH Nutrition/Malnutrition Assess - Dietary Evaluation Nutrition/Malnutrition Findings: Nutrition Notes Start: 07/03/19 10:46 Freq: Status: Active Protocol: Document 07/04/19 08:05 LM (Rec: 07/04/19 08:23 LM [id number]) Nutrition Notes Initial or Follow up Reassessment Current Diagnosis Acute Kidney Injury,CKD(stage I-IV),COPD,Coronary Artery Disease,Diabetes,Hypertension Current Diet NPO Labs/Tests Na 151 BUN 88 Cr 2.8 BG 303 Pertinent Medications Reviewed Height 5 ft 1 in Weight 91.1 kg [place] Body Weight (kg) 47.72 BMI 37.9 Subjective/Other Information MD consult to evaluate nutritional intake. Pt intubated. Family member stated that she is unaware of pt's intake OSTEOLOGIST but stated pt has voluntarily lost about 100 lb in past 2 years for health reasons and has gained most of the weight back due to health issues. Family member stated UBW was 230 lb before pt lost wt. Burn Absent Trauma Absent Minimum of two criteria No #2 Nutrition Diagnosis Inadequate oral intake Etiology Mechanical vent As Evidenced by Signs and Symptoms pt NPO #1 Nutrition Diagnosis Inadequate energy intake Diagnosis Progress(for reassessment Continues documentation) Is patient on ventilator? Yes Is Patient Ambulatory and/or Out of Bed No REE-([facility]-confined to bed) 1712.616 Kcal/Kg value to use for calculation 16 Approximate Energy Requirements Using 1458 kcal/Kg Calculation Used for Recommendations Kcal/kg Additional Notes Protein: 62-95 g (1.3-2g/kg IBW 47.72 kg) Fluids: 1 ml/kcal or per MD Nutrition Intervention Change Diet Order: Recommend TF Nutrition Support: Nepro 1.8 at 40 ml/hr Flush 170 ml q4hr or per MD Kcal 1,728 Protein (gm) 78 Fluid (mL) 698 Goal #1 TF start/tolerance Anticipated Discharge Needs: unable to determine at this time Follow-Up By: 07/08/19 Additional Comments F/U for TF consult
--- NOTE | 2019-07-05 08:58 | XRay Report ---
ABDOMEN 2 VIEW(S) INDICATION / CLINICAL INFORMATION: NGT placement. COMPARISON: None available. FINDINGS: TUBES / LINES: NG tube tip in the proximal stomach should be advanced another 5 cm so that the proxim al sidehole is within the stomach. BOWEL GAS PATTERN: No significant abnormality. FREE AIR / EXTRALUMINAL GAS: None seen. ADDITIONAL FINDINGS: No significant additional findings. IMPRESSION: 1. NG tube as above. Signer Name: Chris Sebastian MD Signed: 07/05/2019 8:54 AM Workstation Name: [id number]
--- NOTE | 2019-07-05 09:21 | Progress Note ---
Assessment and Plan - Patient Problems (1) Acute kidney injury superimposed on CKD Current Visit: Yes Status: Acute Plan to address problem: Patient has OLEKSANDR on already progressed CKD IV. This is likely in the setting of acute/chronic systolic heart failure and cardiorenal syndrome. Response noted with placement of lewis. Patient is now on bumex 2mg BID IV. further augmentation of potassium excretion noted with diuresis, Monitor daily renal functions. Avoid nephrotoxins. Maintain MAP >65mmHg. (2) Altered mental status Current Visit: Yes Status: Acute Plan to address problem: Possible overdose of lyrica. Per pulmonology notes, poison control notified with recommendations for conservative management. As there has been no changes in her overall mental status, discussed with pulmonology and plan will be to proceed to dialysis on a daily basis, for three consecutive sessions to assist in improvement in mentation but clearance of the aforementioned lyrica. Orders written, and patient is going to obtain vascath today, As we are doing this for removal of lyrica, need to have a longer HD time of 4 hours, with optimal DFR/BFR to augment in clearance of the drug. Plan for second session today (3) Acute on chronic systolic heart failure Current Visit: Yes Status: Acute Plan to address problem: Continue current diuretic regimen to Bumex 2 mg BID. ECHO findings noted with severely decreased systolic functions, and significant elevation of BNP noted. Strict I/O. Please carefully document urine output/response with diuretic therapy. (4) Acute and chronic respiratory failure with hypoxia Current Visit: Yes Status: Acute Plan to address problem: Likely in the setting of acute on chronic CHF. Will recommend diuresis. Further recommendations per pulmonology. She also has a h/o COPD. Intubated at this time (5) Fluid overload Current Visit: Yes Status: Acute Plan to address problem: Will diurese with bumex 2mg IV BID and closely monitor, Lewis placed for adequate monitoring purposes. Subjective Date of service: 07/05/19 Principal diagnosis: AMS Interval history: No acute issues overnight. tolerated HD well. Will plan for second session today. Per nursing staff she apparently was able to follow some simple commands last night, and this am she began to open her eyes spontaneously. Objective - Vital Signs Vital signs: Vital Signs - 12hr 07/04/19 07/04/19 07/04/19 21:30 21:40 22:00 Temperature Pulse Rate 89 91 H 94 H Pulse Rate [ From Monitor] Respiratory 22 22 Rate Respiratory 23 Rate [Back] Respiratory 23 Rate [Chest] Respiratory 23 Rate [Head] Respiratory 23 Rate [Right Leg ] Blood Pressure 186/110 189/110 178/107 O2 Sat by Pulse 100 100 Oximetry O2 Sat by Pulse Oximetry [ Bilateral Throughout] 07/04/19 07/04/19 07/04/19 22:01 22:13 22:14 Temperature 98.4 F Pulse Rate 92 H 95 H Pulse Rate [ 92 H From Monitor] Respiratory 22 23 19 Rate Respiratory Rate [Back] Respiratory Rate [Chest] Respiratory Rate [Head] Respiratory Rate [Right Leg ] Blood Pressure 178/107 O2 Sat by Pulse 93 100 Oximetry O2 Sat by Pulse 100 Oximetry [ Bilateral Throughout] 07/04/19 07/04/19 07/04/19 22:30 22:36 23:00 Temperature Pulse Rate 92 H 99 H 95 H Pulse Rate [ From Monitor] Respiratory 19 20 21 Rate Respiratory Rate [Back] Respiratory Rate [Chest] Respiratory Rate [Head] Respiratory Rate [Right Leg ] Blood Pressure 174/104 174/104 165/93 O2 Sat by Pulse 100 100 100 Oximetry O2 Sat by Pulse Oximetry [ Bilateral Throughout] 07/04/19 07/04/19 07/04/19 23:10 23:15 23:30 Temperature 99.2 F Pulse Rate 93 H 90 Pulse Rate [ From Monitor] Respiratory 18 Rate Respiratory Rate [Back] Respiratory Rate [Chest] Respiratory Rate [Head] Respiratory Rate [Right Leg ] Blood Pressure 167/89 164/93 O2 Sat by Pulse 97 100 Oximetry O2 Sat by Pulse Oximetry [ Bilateral Throughout] 07/05/19 07/05/19 07/05/19 00:00 00:30 01:00 Temperature Pulse Rate 91 H 97 H 96 H Pulse Rate [ From Monitor] Respiratory 21 20 18 Rate Respiratory Rate [Back] Respiratory Rate [Chest] Respiratory Rate [Head] Respiratory Rate [Right Leg ] Blood Pressure 164/86 164/90 150/102 O2 Sat by Pulse 99 99 100 Oximetry O2 Sat by Pulse Oximetry [ Bilateral Throughout] 07/05/19 07/05/19 07/05/19 01:05 01:30 02:00 Temperature Pulse Rate 91 H 90 Pulse Rate [ 92 H From Monitor] Respiratory 16 17 12 Rate Respiratory Rate [Back] Respiratory Rate [Chest] Respiratory Rate [Head] Respiratory Rate [Right Leg ] Blood Pressure 150/102 150/102 O2 Sat by Pulse 93 98 95 Oximetry O2 Sat by Pulse Oximetry [ Bilateral Throughout] 07/05/19 07/05/19 07/05/19 02:30 03:00 03:30 Temperature Pulse Rate 94 H 98 H 93 H Pulse Rate [ From Monitor] Respiratory 18 15 20 Rate Respiratory Rate [Back] Respiratory Rate [Chest] Respiratory Rate [Head] Respiratory Rate [Right Leg ] Blood Pressure 150/102 150/102 150/102 O2 Sat by Pulse 98 97 96 Oximetry O2 Sat by Pulse Oximetry [ Bilateral Throughout] 07/05/19 07/05/19 07/05/19 03:46 04:00 04:05 Temperature 99.8 F H Pulse Rate 91 H 88 Pulse Rate [ 92 H From Monitor] Respiratory 18 16 Rate Respiratory Rate [Back] Respiratory Rate [Chest] Respiratory Rate [Head] Respiratory Rate [Right Leg ] Blood Pressure 139/88 O2 Sat by Pulse 99 93 Oximetry O2 Sat by Pulse Oximetry [ Bilateral Throughout] 07/05/19 07/05/19 07/05/19 04:11 04:30 04:45 Temperature Pulse Rate 88 100 H Pulse Rate [ 92 H From Monitor] Respiratory 18 16 Rate Respiratory Rate [Back] Respiratory Rate [Chest] Respiratory Rate [Head] Respiratory Rate [Right Leg ] Blood Pressure 161/90 140/87 O2 Sat by Pulse 97 97 93 Oximetry O2 Sat by Pulse Oximetry [ Bilateral Throughout] 07/05/19 07/05/19 07/05/19 05:00 05:30 06:00 Temperature Pulse Rate 96 H 86 80 Pulse Rate [ From Monitor] Respiratory 14 16 19 Rate Respiratory Rate [Back] Respiratory Rate [Chest] Respiratory Rate [Head] Respiratory Rate [Right Leg ] Blood Pressure 154/82 169/97 155/85 O2 Sat by Pulse 100 99 99 Oximetry O2 Sat by Pulse Oximetry [ Bilateral Throughout] 07/05/19 07/05/19 07/05/19 06:30 07:00 07:30 Temperature Pulse Rate 80 94 H 98 H Pulse Rate [ From Monitor] Respiratory 18 17 13 Rate Respiratory Rate [Back] Respiratory Rate [Chest] Respiratory Rate [Head] Respiratory Rate [Right Leg ] Blood Pressure 164/88 171/105 181/114 O2 Sat by Pulse 99 98 100 Oximetry O2 Sat by Pulse Oximetry [ Bilateral Throughout] 07/05/19 07/05/19 07/05/19 08:00 08:09 08:19 Temperature Pulse Rate 96 H 98 H 95 H Pulse Rate [ From Monitor] Respiratory 19 Rate Respiratory Rate [Back] Respiratory Rate [Chest] Respiratory Rate [Head] Respiratory Rate [Right Leg ] Blood Pressure 156/93 153/93 147/87 O2 Sat by Pulse 99 100 99 Oximetry O2 Sat by Pulse Oximetry [ Bilateral Throughout] - General Appearance General appearance: appears stated age, obese, intubated EENT: ATNC, PERRL Neck: no JVD, no thyromegaly Respiratory: Present: Decreased Breath Sounds Cardiology: regular, S1S2 Gastrointestinal: normal, normoactive bowel sounds Integumentary: no rash, warm and dry Neurologic: other (remains lethargic this am, not following commands during my exam, grimacing noted to pain) - Lab 07/05/19 05:23 07/05/19 05:23 Most recent lab results ABG pH 7.284 pH Units (7.350-7.450) L 07/01/19 Unknown ABG pCO2 51.5 mm Hg 07/01/19 Unknown ABG pO2 121.4 mm Hg (80.0-90.0) H 07/01/19 Unknown ABG HCO3 23.9 mmol/L (20.0-26.0) 07/01/19 Unknown ABG O2 Saturation 98.0 % (95.0-99.0) 07/01/19 Unknown Calcium 9.2 mg/dL (8.4-10.2) 07/05/19 05:23 Magnesium 2.30 mg/dL (1.7-2.3) 07/04/19 04:19 Medications & Allergies - Medications Allergies/Adverse Reactions: Allergies KRYSTIAN Inhibitors Allergy (Verified 04/26/14 00:50) Shortness of Breath amitriptyline Allergy (Verified 12/18/17 17:44) Unknown Home Medications: Home Medications Medication Instructions Recorded Confirmed Last Taken Type ALBUTEROL Inhaler (OR & NICU) 2 puff IH QID PRN 03/16/16 07/01/19 06/30/19 History [ProAir HFA Inhaler] Albuterol *Only Ed* [Proventil 2.5 mg IH QIDRT PRN #7 nebu 03/22/16 07/01/1919 Rx 0.5% NEBS] Butalb/Acetamin/Caff 50-325-40 1 tab PO Q8HR PRN #90 tablet 03/22/16 07/01/19 06/30/19 Rx [Fioricet 50-325-40] HYDROcodone/APAP 5-325 [[place] 1 each PO QHS #30 tablet 03/22/16 07/01/19 06/30/19 Rx 5-325 mg TAB] ISOSORBIDE MONOnitrate [Imdur ER] 30 mg PO QDAY #30 tablet 03/22/16 07/01/19 06/30/19 Rx Insulin NPH/Regular [NovoLIN 70/30] 30 unit SQ BIDDIAB #30 units 03/22/16 07/01/19 06/30/19 Rx Aspirin [Aspirin BABY CHEW TAB] 81 mg PO QDAY #15 tab.chew 04/08/16 07/01/19 06/30/19 Rx AtorvaSTATin [Lipitor] 40 mg PO QHS #15 tablet 04/08/16 07/01/19 06/30/19 Rx Clopidogrel [Plavix] 75 mg PO QDAY #15 tablet 04/08/16 07/01/19 06/30/19 Rx Chlorhexidine Mouthwash [Peridex] 15 ml MM BID #1 bottle 12/18/17 07/01/19 06/30/19 Rx Carvedilol [Coreg] 12.5 mg PO QDAY 07/01/19 07/01/19 06/30/19 History Escitalopram Oxalate [Lexapro] 10 mg PO QHS 07/01/19 07/01/19 06/30/19 History Ferrous Sulfate [Feosol] 325 mg PO QDAY 07/01/19 07/01/19 06/30/19 History Pregabalin [Lyrica] 75 mg PO QHS 07/01/19 07/01/19 06/30/19 History Sodium Bicarbonate 650 mg PO BID 07/01/19 07/01/19 06/30/19 History Torsemide [Demadex] 10 mg PO QDAY 07/01/19 07/01/19 06/30/19 History hydrALAZINE [Apresoline] 25 mg PO QDAY 07/01/19 07/01/19 06/30/19 History Active Medications: Generic Name Dose Route Start Last Admin Trade Name Freq PRN Reason Stop Dose Admin Albuterol 2.5 mg 07/01/19 20:06 Proventil IH Q3HRT PRN Shortness Of Breath Bumetanide 2 mg 07/03/19 18:00 07/05/19 05:35 Bumex IV 2 mg BID@0600,1800 CHRISTY Administration Carvedilol 12.5 mg 07/04/19 22:00 07/04/19 22:57 Coreg PO 12.5 mg BID CHRISTY Administration Hydralazine HCl 10 mg 07/02/19 05:49 07/04/19 08:33 Apresoline IV 10 mg Q4H PRN Administration Blood Pressure Hydrophilic Ointment 1 applic 07/03/19 19:12 Vaseline Lip Therapy TP Q2HR PRN Dry Lips Sodium Chloride 100 mls @ 999 mls/hr 07/04/19 15:00 Nacl 0.9% IV LA PRN Hypotension Potassium Chloride 10 meq in 100 mls @ 100 mls/hr 07/05/19 09:00 Kcl 10meq/100ml IV 07/05/19 10:59 Q1H CHRISTY Multi-Ingred Cream/Lotion/Oil/Oint 1 applic 07/03/19 19:12 Artificial Tears Ophth Oint OU Q4HR PRN Dry Eye(s) Pantoprazole Sodium 40 mg 07/03/19 16:00 07/04/19 22:57 Protonix IV 40 mg BID CHRISTY Administration Sodium Chloride 10 ml 07/01/19 22:00 07/04/19 23:26 Sodium Chloride Flush Syringe 10 Ml IV 10 ml BID CHRISTY Administration Sodium Chloride 10 ml 07/01/19 20:06 Sodium Chloride Flush Syringe 10 Ml IV PRN PRN LINE FLUSH
--- NOTE | 2019-07-05 09:54 | Gastroenterology Progress Note ---
<JM MAJOR - Last Filed: 07/05/19 09:55> Assessment and Plan 1.UGIB?/blood in NGT -H/H WNL (10.2/32.9)-stable -continue to monitor H/H and transfuse as needed -no active signs of GI bleeding overnight or this am per nursing. NGT with no bilious non-bloody drainage. -etiology-most likely 2/2 trauma vs other -clinically, patient remains in critical condition in ICU on vent. -no plan for EGD at this time unless overt bleeding develops -continue PPI and supportive care -no further GI recommendations at this time; will sign off, please call back if needed. Subjective Date of service: 07/05/19 Principal diagnosis: blood in NGT Interval history: No active signs of GI bleeding overnight or this am per nursing. NGT with non- bloody bilious drainage. Objective - Constitutional Vitals: Temp Pulse Resp BP Pulse Ox 99.8 F H 95 H 19 147/87 99 07/05/19 03:46 07/05/19 08:19 07/05/19 08:00 07/05/19 08:19 07/05/19 08:19 General appearance: other (in IUC on vent) - Respiratory Respiratory: bilateral: diminished - Cardiovascular Rhythm: regular - Gastrointestinal General gastrointestinal: Present: soft, non-distended, normal bowel sounds - Neurologic Neurological: other (unable to assess) - Labs CBC & Chem 7: 07/05/19 05:23 07/05/19 05:23 Labs: Laboratory Results - last 24 hr 07/04/19 07/04/19 07/04/19 13:32 15:58 17:42 WBC RBC Hgb Hct MCV MCH MCHC RDW Plt Count POC ABG pH POC ABG pCO2 POC ABG pO2 POC ABG HCO3 POC ABG Total CO2 POC ABG O2 Sat POC ABG Base Excess FiO2 Sodium Potassium Chloride Carbon Dioxide Anion Gap BUN Creatinine Estimated GFR BUN/Creatinine Ratio Glucose POC Glucose 340 H 334 H Calcium Hepatitis A IgM Ab Non-reactive Hep Bs Antigen Non-reactive Hep B Core IgM Ab Non-reactive Hepatitis C Antibody Non-reactive 07/04/19 07/05/19 07/05/19 23:31 04:22 05:23 WBC RBC Hgb Hct MCV MCH MCHC RDW Plt Count POC ABG pH 7.447 POC ABG pCO2 32.9 L POC ABG pO2 82 POC ABG HCO3 22.7 POC ABG Total CO2 24 POC ABG O2 Sat 97 POC ABG Base Excess -1 FiO2 25 Sodium 142 D Potassium 3.3 L D Chloride 100.2 Carbon Dioxide 23 D Anion Gap 22 BUN 33 H Creatinine 1.4 H Estimated GFR 47 BUN/Creatinine Ratio 24 Glucose 250 H POC Glucose 223 H Calcium 9.2 Hepatitis A IgM Ab Hep Bs Antigen Hep B Core IgM Ab Hepatitis C Antibody 07/05/19 07/05/19 05:23 05:38 WBC 8.3 RBC 4.12 Hgb 10.2 Hct 32.8 MCV 80 MCH 25 L MCHC 31 RDW 22.4 H Plt Count 223 POC ABG pH POC ABG pCO2 POC ABG pO2 POC ABG HCO3 POC ABG Total CO2 POC ABG O2 Sat POC ABG Base Excess FiO2 Sodium Potassium Chloride Carbon Dioxide Anion Gap BUN Creatinine Estimated GFR BUN/Creatinine Ratio Glucose POC Glucose 262 H Calcium Hepatitis A IgM Ab Hep Bs Antigen Hep B Core IgM Ab Hepatitis C Antibody <AMARIYLS PIERRE - Last Filed: 07/05/19 14:16> Assessment and Plan Patient seen and examined. I have reviewed the advanced practitioner's evaluation, assessment, and plan, and agree with them. I note the following additions: No overt bleeding, hgb stable, will sign off, please call back if pt develops significant bleeding - Patient Problems (1) Upper GI bleed Current Visit: Yes Status: Acute Objective - Constitutional Vitals: Temp Pulse Resp BP Pulse Ox 98.8 F 87 10 L 124/85 100 07/05/19 12:00 07/05/19 13:45 07/05/19 13:30 07/05/19 13:45 07/05/19 13:30 - Labs CBC & Chem 7: 07/05/19 05:23 07/05/19 05:23 Labs: Laboratory Results - last 24 hr 07/04/19 07/04/19 07/04/19 15:58 17:42 23:31 WBC RBC Hgb Hct MCV MCH MCHC RDW Plt Count POC ABG pH POC ABG pCO2 POC ABG pO2 POC ABG HCO3 POC ABG Total CO2 POC ABG O2 Sat POC ABG Base Excess FiO2 Sodium Potassium Chloride Carbon Dioxide Anion Gap BUN Creatinine Estimated GFR BUN/Creatinine Ratio Glucose POC Glucose 334 H 223 H Calcium Hepatitis A IgM Ab Non-reactive Hep Bs Antigen Non-reactive Hep B Core IgM Ab Non-reactive Hepatitis C Antibody Non-reactive 07/05/19 07/05/19 07/05/19 04:22 05:23 05:23 WBC 8.3 RBC 4.12 Hgb 10.2 Hct 32.8 MCV 80 MCH 25 L MCHC 31 RDW 22.4 H Plt Count 223 POC ABG pH 7.447 POC ABG pCO2 32.9 L POC ABG pO2 82 POC ABG HCO3 22.7 POC ABG Total CO2 24 POC ABG O2 Sat 97 POC ABG Base Excess -1 FiO2 25 Sodium 142 D Potassium 3.3 L D Chloride 100.2 Carbon Dioxide 23 D Anion Gap 22 BUN 33 H Creatinine 1.4 H Estimated GFR 47 BUN/Creatinine Ratio 24 Glucose 250 H POC Glucose Calcium 9.2 Hepatitis A IgM Ab Hep Bs Antigen Hep B Core IgM Ab Hepatitis C Antibody 07/05/19 07/05/19 05:38 11:21 WBC RBC Hgb Hct MCV MCH MCHC RDW Plt Count POC ABG pH POC ABG pCO2 POC ABG pO2 POC ABG HCO3 POC ABG Total CO2 POC ABG O2 Sat POC ABG Base Excess FiO2 Sodium Potassium Chloride Carbon Dioxide Anion Gap BUN Creatinine Estimated GFR BUN/Creatinine Ratio Glucose POC Glucose 262 H 256 H Calcium Hepatitis A IgM Ab Hep Bs Antigen Hep B Core IgM Ab Hepatitis C Antibody
[2019-07-05] MEDS ORDERED: POTASSIUM CHLORIDE 20 MEQ PACKET FEEDTUBE ONE (11:00)
--- NOTE | 2019-07-05 11:14 | Progress Note ---
Assessment and Plan 59 y/o female with altered mental status thought secondary to overdose of lyrica vs uremic encephalopaty from worsening renal function vs acute systolic heart failure exacerbation. 1. HD per renal, suggest continue lewis placement as well 2. Continue current vent support 3. No sedation 4. Will feed patient as well. 5. Reassess mental state tomorrow. On very minimal vent support so should be easy to extubate CCT 31 minutes. Subjective Date of service: 07/05/19 Principal diagnosis: blood in NGT Interval history: Responded well to lewis placement and HD on yesterday. Numbers improved. Mental state is slightly better Objective Vital Signs - 12hr 07/04/19 07/04/19 07/05/19 23:15 23:30 00:00 Temperature Pulse Rate 93 H 90 91 H Pulse Rate [ From Monitor] Respiratory 18 21 Rate Blood Pressure 167/89 164/93 164/86 O2 Sat by Pulse 97 100 99 Oximetry O2 Sat by Pulse Oximetry [ Bilateral Throughout] 07/05/19 07/05/19 07/05/19 00:30 01:00 01:05 Temperature Pulse Rate 97 H 96 H Pulse Rate [ 92 H From Monitor] Respiratory 20 18 16 Rate Blood Pressure 164/90 150/102 O2 Sat by Pulse 99 100 93 Oximetry O2 Sat by Pulse Oximetry [ Bilateral Throughout] 07/05/19 07/05/19 07/05/19 01:30 02:00 02:30 Temperature Pulse Rate 91 H 90 94 H Pulse Rate [ From Monitor] Respiratory 17 12 18 Rate Blood Pressure 150/102 150/102 150/102 O2 Sat by Pulse 98 95 98 Oximetry O2 Sat by Pulse Oximetry [ Bilateral Throughout] 07/05/19 07/05/19 07/05/19 03:00 03:30 03:46 Temperature 99.8 F H Pulse Rate 98 H 93 H Pulse Rate [ From Monitor] Respiratory 15 20 Rate Blood Pressure 150/102 150/102 O2 Sat by Pulse 97 96 Oximetry O2 Sat by Pulse Oximetry [ Bilateral Throughout] 07/05/19 07/05/19 07/05/19 04:00 04:05 04:11 Temperature Pulse Rate 91 H 88 88 Pulse Rate [ 92 H From Monitor] Respiratory 18 16 Rate Blood Pressure 139/88 161/90 O2 Sat by Pulse 99 93 97 Oximetry O2 Sat by Pulse Oximetry [ Bilateral Throughout] 0907/05/19 07/05/19 04:30 04:45 05:00 Temperature Pulse Rate 100 H 96 H Pulse Rate [ 92 H From Monitor] Respiratory 18 16 14 Rate Blood Pressure 140/87 154/82 O2 Sat by Pulse 97 93 100 Oximetry O2 Sat by Pulse Oximetry [ Bilateral Throughout] 07/05/19 07/05/19 07/05/19 05:30 06:00 06:30 Temperature Pulse Rate 86 80 80 Pulse Rate [ From Monitor] Respiratory 16 19 18 Rate Blood Pressure 169/97 155/85 164/88 O2 Sat by Pulse 99 99 99 Oximetry O2 Sat by Pulse Oximetry [ Bilateral Throughout] 07/05/19 07/05/19 07/05/19 07:00 07:30 08:00 Temperature Pulse Rate 94 H 98 H 96 H Pulse Rate [ From Monitor] Respiratory 17 13 19 Rate Blood Pressure 171/105 181/114 156/93 O2 Sat by Pulse 98 100 99 Oximetry O2 Sat by Pulse Oximetry [ Bilateral Throughout] 07/05/19 07/05/19 07/05/19 08:09 08:19 10:25 Temperature 98.8 F Pulse Rate 98 H 95 H 86 Pulse Rate [ From Monitor] Respiratory 20 Rate Blood Pressure 153/93 147/87 140/75 O2 Sat by Pulse 100 99 Oximetry O2 Sat by Pulse 100 Oximetry [ Bilateral Throughout] 07/05/19 07/05/19 07/05/19 10:30 10:45 11:00 Temperature Pulse Rate 87 99 H 97 H Pulse Rate [ From Monitor] Respiratory Rate Blood Pressure 154/87 151/95 151/93 O2 Sat by Pulse Oximetry O2 Sat by Pulse Oximetry [ Bilateral Throughout] Constitutional: no acute distress, other (obtunded) Eyes: non-icteric ENT: oropharynx moist Neck: supple Effort: normal Ascultation: Bilateral: diminished breath sounds Percussion: Bilateral: not dull Cardiovascular: regular rate and rhythm Gastrointestinal: normoactive bowel sounds, soft Extremities: edema Neurologic: unable to assess CBC and BMP: 07/05/19 05:23 07/05/19 05:23 ABG, PT/INR, D-dimer: ABG POC ABG pH 7.447 (7.35-7.45) 07/05/19 04:22 ABG pH 7.284 pH Units (7.350-7.450) L 07/01/19 Unknown POC ABG pCO2 32.9 (35-45) L 07/05/19 04:22 ABG pCO2 51.5 mm Hg 07/01/19 Unknown POC ABG pO2 82 (80-105) 07/05/19 04:22 ABG pO2 121.4 mm Hg (80.0-90.0) H 07/01/19 Unknown POC ABG HCO3 22.7 (22-26 mml/L) 07/05/19 04:22 POC ABG Total CO2 24 (23-27mmol/L) 07/05/19 04:22 POC ABG O2 Sat 97 07/05/19 04:22 ABG O2 Saturation 98.0 % (95.0-99.0) 07/01/19 Unknown PT/INR, D-dimer PT 15.1 Sec. (12.2-14.9) H 07/01/19 15:22 INR 1.22 (0.87-1.13) H 07/01/19 15:22 Abnormal lab findings: Abnormal Labs 07/01/19 07/01/19 07/01/19 15:22 15:22 15:22 MCH 25 L RDW 22.1 H Lymph # 1.1 L Seg Neutrophils % 71.8 H Seg Neuts % (Manual) Lymphocytes % (Manual) Nucleated RBC % Lymphocytes # (Manual) PT 15.1 H INR 1.22 H POC ABG pH ABG pH POC ABG pCO2 POC ABG pO2 ABG pO2 ABG Base Excess ABG Hemoglobin Sodium Potassium 5.2 H Chloride Carbon Dioxide BUN 67 H Creatinine 2.7 H Glucose 146 H POC Glucose Calcium Iron AST 52 H Alkaline Phosphatase 203 H Ammonia Troponin T NT-Pro-B Natriuret Pep Albumin 3.4 L LDL Cholesterol Direct HDL Cholesterol Salicylates Acetaminophen 07/01/19 07/01/19 07/01/19 15:22 15:22 15:22 MCH RDW Lymph # Seg Neutrophils % Seg Neuts % (Manual) Lymphocytes % (Manual) Nucleated RBC % Lymphocytes # (Manual) PT INR POC ABG pH ABG pH POC ABG pCO2 POC ABG pO2 ABG pO2 ABG Base Excess ABG Hemoglobin Sodium Potassium Chloride Carbon Dioxide BUN Creatinine Glucose POC Glucose Calcium Iron AST Alkaline Phosphatase Ammonia Troponin T 0.121 H* NT-Pro-B Natriuret Pep Albumin LDL Cholesterol Direct 38 L HDL Cholesterol 32 L Salicylates < 0.3 L Acetaminophen < 5.0 L 07/01/19 07/01/19 07/01/19 15:35 18:35 23:32 MCH RDW Lymph # Seg Neutrophils % Seg Neuts % (Manual) Lymphocytes % (Manual) Nucleated RBC % Lymphocytes # (Manual) PT INR POC ABG pH ABG pH POC ABG pCO2 POC ABG pO2 ABG pO2 ABG Base Excess ABG Hemoglobin Sodium Potassium Chloride Carbon Dioxide BUN Creatinine Glucose POC Glucose Calcium Iron 26 L AST Alkaline Phosphatase Ammonia 64.0 H Troponin T NT-Pro-B Natriuret Pep > 92280 H Albumin LDL Cholesterol Direct HDL Cholesterol Salicylates Acetaminophen 07/01/19 07/02/19 07/02/19 Unknown 07:32 10:33 MCH RDW Lymph # Seg Neutrophils % Seg Neuts % (Manual) Lymphocytes % (Manual) Nucleated RBC % Lymphocytes # (Manual) PT INR POC ABG pH 7.275 L ABG pH 7.284 L POC ABG pCO2 POC ABG pO2 76 L ABG pO2 121.4 H ABG Base Excess -3.1 L ABG Hemoglobin 10.5 L Sodium Potassium Chloride Carbon Dioxide BUN Creatinine Glucose POC Glucose 164 H Calcium Iron AST Alkaline Phosphatase Ammonia Troponin T NT-Pro-B Natriuret Pep Albumin LDL Cholesterol Direct HDL Cholesterol Salicylates Acetaminophen 07/02/19 07/02/19 07/02/19 11:39 11:39 11:39 MCH 25 L RDW 22.3 H Lymph # Seg Neutrophils % Seg Neuts % (Manual) 81.0 H Lymphocytes % (Manual) 8.0 L Nucleated RBC % 1.0 H Lymphocytes # (Manual) 0.7 L PT INR POC ABG pH ABG pH POC ABG pCO2 POC ABG pO2 ABG pO2 ABG Base Excess ABG Hemoglobin Sodium Potassium 5.7 H Chloride 109.5 H Carbon Dioxide 14 L D BUN 73 H Creatinine 2.6 H Glucose 187 H POC Glucose Calcium Iron AST Alkaline Phosphatase 202 H Ammonia Troponin T 0.138 H* NT-Pro-B Natriuret Pep Albumin 3.5 L LDL Cholesterol Direct HDL Cholesterol Salicylates Acetaminophen 07/03/19 07/03/19 07/03/19 04:51 10:22 16:53 MCH 24 L RDW 22.4 H Lymph # Seg Neutrophils % Seg Neuts % (Manual) Lymphocytes % (Manual) Nucleated RBC % Lymphocytes # (Manual) PT INR POC ABG pH 7.222 L ABG pH POC ABG pCO2 60.0 H POC ABG pO2 167 H ABG pO2 ABG Base Excess ABG Hemoglobin Sodium 149 H Potassium 5.3 H Chloride 110.6 H Carbon Dioxide 17 L BUN 79 H Creatinine 2.8 H Glucose 244 H POC Glucose Calcium Iron AST Alkaline Phosphatase Ammonia Troponin T 0.193 H* D NT-Pro-B Natriuret Pep Albumin LDL Cholesterol Direct HDL Cholesterol Salicylates Acetaminophen 07/03/19 07/04/19 07/04/19 20:42 04:17 04:19 MCH RDW Lymph # Seg Neutrophils % Seg Neuts % (Manual) Lymphocytes % (Manual) Nucleated RBC % Lymphocytes # (Manual) PT INR POC ABG pH ABG pH POC ABG pCO2 32.8 L 31.8 L POC ABG pO2 207 H 155 H ABG pO2 ABG Base Excess ABG Hemoglobin Sodium 151 H Potassium Chloride 110.7 H Carbon Dioxide 16 L BUN 88 H Creatinine 2.8 H Glucose 303 H POC Glucose Calcium 10.5 H Iron AST Alkaline Phosphatase Ammonia Troponin T NT-Pro-B Natriuret Pep Albumin LDL Cholesterol Direct HDL Cholesterol Salicylates Acetaminophen 07/04/19 07/04/19 07/04/19 04:19 13:32 17:42 MCH 24 L RDW 22.7 H Lymph # Seg Neutrophils % Seg Neuts % (Manual) Lymphocytes % (Manual) Nucleated RBC % Lymphocytes # (Manual) PT INR POC ABG pH ABG pH POC ABG pCO2 POC ABG pO2 ABG pO2 ABG Base Excess ABG Hemoglobin Sodium Potassium Chloride Carbon Dioxide BUN Creatinine Glucose POC Glucose 340 H 334 H Calcium Iron AST Alkaline Phosphatase Ammonia Troponin T NT-Pro-B Natriuret Pep Albumin LDL Cholesterol Direct HDL Cholesterol Salicylates Acetaminophen 07/04/19 07/05/19 07/05/19 23:31 04:22 05:23 MCH RDW Lymph # Seg Neutrophils % Seg Neuts % (Manual) Lymphocytes % (Manual) Nucleated RBC % Lymphocytes # (Manual) PT INR POC ABG pH ABG pH POC ABG pCO2 32.9 L POC ABG pO2 ABG pO2 ABG Base Excess ABG Hemoglobin Sodium Potassium 3.3 L D Chloride Carbon Dioxide BUN 33 H Creatinine 1.4 H Glucose 250 H POC Glucose 223 H Calcium Iron AST Alkaline Phosphatase Ammonia Troponin T NT-Pro-B Natriuret Pep Albumin LDL Cholesterol Direct HDL Cholesterol Salicylates Acetaminophen 07/05/19 07/05/19 05:23 05:38 MCH 25 L RDW 22.4 H Lymph # Seg Neutrophils % Seg Neuts % (Manual) Lymphocytes % (Manual) Nucleated RBC % Lymphocytes # (Manual) PT INR POC ABG pH ABG pH POC ABG pCO2 POC ABG pO2 ABG pO2 ABG Base Excess ABG Hemoglobin Sodium Potassium Chloride Carbon Dioxide BUN Creatinine Glucose POC Glucose 262 H Calcium Iron AST Alkaline Phosphatase Ammonia Troponin T NT-Pro-B Natriuret Pep Albumin LDL Cholesterol Direct HDL Cholesterol Salicylates Acetaminophen Allied health notes reviewed: nursing
[2019-07-05] MEDS: POTASSIUM CHLORIDE 10 MEQ 10 MEQ/100 ML BAG IV SCH ×2 (11:28→12:23)
[2019-07-05] MEDS: PANTOPRAZOLE 40 MG INJ IV SCH ×2 (11:28→22:10)
[2019-07-05] MEDS: carvediloL 12.5 MG TAB PO SCH ×2 (11:29→22:10)
[2019-07-05] MEDS ORDERED: LIPASE 10,500/PROTEASE 25,000/AMYLASE 43,750 (UNITS) DR CAP FEEDTUBE PRN (11:31)
[2019-07-05] MEDS ORDERED: SIMPLE SYRUP 15 ML FEEDTUBE PRN ×2 (11:31)
[2019-07-05] MEDS ORDERED: SODIUM BICARBONATE 325 MG TAB FEEDTUBE PRN (11:31)
--- NOTE | 2019-07-05 11:45 | Progress Note ---
Assessment and Plan Cont present cardiac management. No ACEI/ARB at this time in setting of renal insufficiency. Cont volume optimization per nephrology. EF 20-25% (EF 35-40% in 09/2017). Can consider ischemic evaluation once medically stabilized. The patient has been seen in conjunction with Dr. Puentes who agrees with the assessment and plan of care. - Patient Problems (1) Altered mental status Current Visit: Yes Status: Acute (2) Hepatic encephalopathy Current Visit: Yes Status: Suspected (3) Acute respiratory failure Current Visit: Yes Status: Acute (4) Aspiration pneumonia Current Visit: Yes Status: Suspected Qualifiers: Laterality: left Lung location: lower lobe of lung (5) Acute HFrEF (heart failure with reduced ejection fraction) Current Visit: Yes Status: Acute (6) Ischemic cardiomyopathy Current Visit: Yes Status: Chronic (7) CAD (coronary artery disease) Current Visit: Yes Status: Chronic Qualifiers: Coronary Disease-Associated Artery/Lesion type: [place] coronary artery (8) History of coronary artery bypass graft Current Visit: Yes Status: Chronic (9) Hypertension Current Visit: Yes Status: Chronic Qualifiers: Hypertension type: essential hypertension Qualified Code(s): I10 - Essential (primary) hypertension (10) Hyperlipidemia Current Visit: Yes Status: Chronic (11) Diabetes Current Visit: Yes Status: Chronic (12) History of left-sided carotid endarterectomy Current Visit: Yes Status: Chronic (13) COPD (chronic obstructive pulmonary disease) Current Visit: Yes Status: Chronic Qualifiers: COPD type: emphysema (14) Acute kidney injury superimposed on chronic kidney disease Current Visit: Yes Status: Acute (15) Hyperkalemia Current Visit: Yes Status: Acute (16) NSTEMI (non-ST elevated myocardial infarction) Current Visit: Yes Status: Acute (17) PVD (peripheral vascular disease) Current Visit: Yes Status: Chronic Subjective Date of service: 07/05/19 Principal diagnosis: AMS Interval history: pt remains intubated, no family at bedside. underwent HD yesterday and for HD again today. BP improved. Objective Last Vital Signs Temp 98.8 F 07/05/19 10:25 Pulse 96 H 07/05/19 11:29 Resp 20 07/05/19 10:25 BP 151/96 07/05/19 11:29 Pulse Ox 100 07/05/19 10:25 - Physical Examination General: Other (intubated) HEENT: Positive: PERRL Neck: Positive: neck supple Cardiac: Positive: Reg Rate and Rhythm, S1/S2 Lungs: Positive: Decreased Breath Sounds Neuro: Positive: Other (intubated) Skin: Negative: Rash Musculoskeletal: No Fluid Collection Extremities: Absent: edema - Labs and Meds CBC 07/05/19 Range/Units 05:23 WBC 8.3 (4.5-11.0) K/mm3 RBC 4.12 (3.65-5.03) M/mm3 Hgb 10.2 (10.1-14.3) gm/dl Hct 32.8 (30.3-42.9) % Plt Count 223 (140-440) K/mm3 Comprehensive Metabolic Panel 07/05/19 Range/Units 05:23 Sodium 142 D (137-145) mmol/L Potassium 3.3 L D (3.6-5.0) mmol/L Chloride 100.2 (98-107) mmol/L Carbon Dioxide 23 D (22-30) mmol/L BUN 33 H (7-17) mg/dL Creatinine 1.4 H (0.7-1.2) mg/dL Glucose 250 H (65-100) mg/dL Calcium 9.2 (8.4-10.2) mg/dL - Imaging and Cardiology EKG: report reviewed, image reviewed Echo: report reviewed (09/2017 showed EF 35-40%, mild LVH, severe LAE, mild AR and MR, mod TR, RVSP 66mmHg. 06/2019: EF 20-25%, restrictive diastolic filling, RV mildly dilated, mild MR, mod TR, RVSP 54mmHg, mild [place]. ) - EKG Sinus rhythms and dysrhythmias: sinus rhythm - Allied health notes Allied health notes reviewed: nursing
[2019-07-05] MEDS: INSULIN GLARGINE 100 UNITS/ML SUB-Q SCH (12:23)
[2019-07-05] MEDS: hydrALAZINE 20 MG/1 ML INJ IV PRN (19:48)
[2019-07-05] MEDS ORDERED: LORazepam 2 MG/ML VIAL IV ONE (20:21)
--- NOTE | 2019-07-06 03:09 | XRay Report ---
CHEST 1 VIEW 07/06/2019 2:19 AM INDICATION / CLINICAL INFORMATION: follow up respiratory failure. COMPARISON: 07/05/19 FINDINGS: SUPPORT DEVICES: Endotracheal and esophagogastric tubes are unchanged. HEART / MEDIASTINUM: Stable. LUNGS / PLEURA: Stable mild bibasilar densities. No pneumothorax. ADDITIONAL FINDINGS: No significant additional findings. IMPRESSION: 1. No significant change. Signer Name: Sukhi De La Torre MD Signed: 07/06/2019 3:05 AM Workstation Name: [id number]
[2019-07-06 05:02] LABS: Hematocrit 35.5 % (30.3-42.9); Hemoglobin 11.1 gm/dl (10.1-14.3); Mean Corpuscular HGB Conc 31 % (30-34); Mean Corpuscular Volume 80 fl (79-97); Platelet Count 206 K/mm3 (140-440); Red Blood Count 4.46 M/mm3 (3.65-5.03)
[2019-07-06 05:13] LABS: Red Cell Distribution Width 22.9 % (13.2-15.2)
[2019-07-06 05:14] LABS: Calcium 9.2 mg/dL (8.4-10.2)
[2019-07-06] MEDS ORDERED: LORazepam 2 MG/ML VIAL IV ONE (06:08)
[2019-07-06] MEDS: BUMETANIDE 1 MG/4 ML INJ IV SCH (06:21)
[2019-07-06] MEDS: carvediloL 12.5 MG TAB PO SCH ×2 (09:19→22:23)
[2019-07-06] MEDS: PANTOPRAZOLE 40 MG INJ IV SCH (09:19)
[2019-07-06] MEDS: hydrALAZINE 20 MG/1 ML INJ IV PRN (09:24)
[2019-07-06] MEDS: INSULIN GLARGINE 100 UNITS/ML SUB-Q SCH (09:26)
--- NOTE | 2019-07-06 10:38 | Progress Note ---
Assessment and Plan - Patient Problems (1) Acute kidney injury superimposed on chronic kidney disease Current Visit: Yes Status: Acute Plan to address problem: Patient has OLEKSANDR on already progressed CKD IV, likely in the setting of acute/chronic systolic heart failure and cardiorenal syndrome. pt with good UOP on lewis, improved volume status. will decrease IV bumex to 2mg once daily. pt scheduled for another HD today for solute clearance. Monitor daily renal functions. Avoid nephrotoxins. Maintain MAP >65mmHg. (2) Altered mental status Current Visit: Yes Status: Acute Plan to address problem: Possible overdose of lyrica. plan for another dialysis today for three consecutive sessions to assist in improvement in mentation but clearance of the lyrica. As we are doing this for removal of lyrica, need to have a longer HD time of 4 hours, with optimal DFR/BFR to augment in clearance of the drug. (3) Acute HFrEF (heart failure with reduced ejection fraction) Current Visit: Yes Status: Acute Plan to address problem: ECHO findings noted with severely decreased systolic functions, and significant elevation of BNP noted. Strict I/O. cont Bumex 2mg IV qd. Please carefully document urine output/response with diuretic therapy. (4) Acute and chronic respiratory failure with hypoxia Current Visit: Yes Status: Acute Plan to address problem: Likely in the setting of acute on chronic CHF. cont IV diuresis, fluid removal with HD Further recommendations per pulmonology. She also has a h/o COPD. Intubated at this time (5) Fluid overload Current Visit: Yes Status: Acute Plan to address problem: on IV bumex, volume control with HD Subjective Date of service: 07/06/19 Principal diagnosis: AMS Interval history: Pt is intubated however opening eyes spontaneously, following simple commands. Objective - Vital Signs Vital signs: Vital Signs - 12hr 07/05/19 07/05/19 07/05/19 23:00 23:08 23:30 Temperature Pulse Rate 81 79 83 Pulse Rate [ From Monitor] Respiratory 18 18 22 Rate Blood Pressure 118/67 118/67 153/87 O2 Sat by Pulse 97 97 98 Oximetry 07/05/19 07/06/19 07/06/19 23:32 00:00 00:10 Temperature 98.6 F Pulse Rate 100 H 99 H Pulse Rate [ From Monitor] Respiratory 11 L Rate Blood Pressure 181/88 148/90 O2 Sat by Pulse 100 100 Oximetry 07/06/19 07/06/19 07/06/19 00:20 00:30 01:00 Temperature Pulse Rate 97 H 99 H 100 H Pulse Rate [ 97 H From Monitor] Respiratory 18 19 16 Rate Blood Pressure 129/87 137/91 O2 Sat by Pulse 99 99 98 Oximetry 07/06/19 07/06/19 07/06/19 01:30 02:00 02:30 Temperature Pulse Rate 97 H 95 H 95 H Pulse Rate [ From Monitor] Respiratory 14 19 15 Rate Blood Pressure 142/85 140/78 150/78 O2 Sat by Pulse 99 99 100 Oximetry 07/06/19 07/06/19 07/06/19 03:00 03:30 03:53 Temperature Pulse Rate 96 H 99 H 100 H Pulse Rate [ From Monitor] Respiratory 16 20 Rate Blood Pressure 154/81 146/84 137/84 O2 Sat by Pulse 99 97 98 Oximetry 07/06/19 07/06/19 07/06/19 04:00 04:30 05:00 Temperature 98.7 F Pulse Rate 99 H 100 H 102 H Pulse Rate [ 99 H From Monitor] Respiratory 25 H 22 16 Rate Blood Pressure 137/84 127/70 120/76 O2 Sat by Pulse 97 95 98 Oximetry 07/06/19 07/06/19 07/06/19 05:30 06:00 06:30 Temperature Pulse Rate 99 H 101 H 99 H Pulse Rate [ From Monitor] Respiratory 20 22 16 Rate Blood Pressure 116/67 121/75 129/85 O2 Sat by Pulse 97 100 99 Oximetry 07/06/19 07/06/19 07/06/19 07:00 07:30 07:41 Temperature Pulse Rate 100 H 104 H 104 H Pulse Rate [ From Monitor] Respiratory 19 15 Rate Blood Pressure 127/77 135/81 135/81 O2 Sat by Pulse 99 99 100 Oximetry 07/06/19 07/06/19 07/06/19 08:00 08:31 09:00 Temperature 99.3 F Pulse Rate 106 H 107 H 110 H Pulse Rate [ 107 H From Monitor] Respiratory 17 23 28 H Rate Blood Pressure 128/83 157/95 157/98 O2 Sat by Pulse 99 99 99 Oximetry 07/06/19 07/06/19 07/06/19 09:19 09:24 09:30 Temperature Pulse Rate 113 H 110 H 111 H Pulse Rate [ From Monitor] Respiratory 23 Rate Blood Pressure 161/103 161/103 138/89 O2 Sat by Pulse 99 Oximetry 07/06/19 10:01 Temperature Pulse Rate 107 H Pulse Rate [ From Monitor] Respiratory 22 Rate Blood Pressure 128/62 O2 Sat by Pulse 98 Oximetry - General Appearance General appearance: well-developed, well-nourished, appears stated age, intubated EENT: ATNC, PERRL, mucous membranes moist Neck: no JVD Respiratory: Present: Decreased Breath Sounds Cardiology: regular, S1S2 Gastrointestinal: normoactive bowel sounds Integumentary: no rash Neurologic: no focal deficit, CN 3-12 intact, other (intubated ) - Lab 07/06/19 Unknown 07/06/19 Unknown Most recent lab results ABG pH 7.284 pH Units (7.350-7.450) L 07/01/19 Unknown ABG pCO2 51.5 mm Hg 07/01/19 Unknown ABG pO2 121.4 mm Hg (80.0-90.0) H 07/01/19 Unknown ABG HCO3 23.9 mmol/L (20.0-26.0) 07/01/19 Unknown ABG O2 Saturation 98.0 % (95.0-99.0) 07/01/19 Unknown Calcium 9.2 mg/dL (8.4-10.2) 07/06/19 Unknown Magnesium 2.30 mg/dL (1.7-2.3) 07/04/19 04:19 Medications & Allergies - Medications Allergies/Adverse Reactions: Allergies KRYSTIAN Inhibitors Allergy (Verified 04/26/14 00:50) Shortness of Breath amitriptyline Allergy (Verified 12/18/17 17:44) Unknown Home Medications: Home Medications Medication Instructions Recorded Confirmed Last Taken Type ALBUTEROL Inhaler (OR & NICU) 2 puff IH QID PRN 03/16/16 07/01/19 06/30/19 History [ProAir HFA Inhaler] Albuterol *Only Ed* [Proventil 2.5 mg IH QIDRT PRN #7 nebu 03/22/16 07/01/19 06/30/19 Rx 0.5% NEBS] Butalb/Acetamin/Caff 50-325-40 1 tab PO Q8HR PRN #90 tablet 0607/01/19 06/30/19 Rx [Fioricet 50-325-40] HYDROcodone/APAP 5-325 [[place] 1 each PO QHS #30 tablet 03/22/16 07/01/19 06/30/19 Rx 5-325 mg TAB] ISOSORBIDE MONOnitrate [Imdur ER] 30 mg PO QDAY #30 tablet 03/22/16 07/01/19 06/30/19 Rx Insulin NPH/Regular [NovoLIN 70/30] 30 unit SQ BIDDIAB #30 units 03/22/16 07/01/19 06/30/19 Rx Aspirin [Aspirin BABY CHEW TAB] 81 mg PO QDAY #15 tab.chew 04/08/16 07/01/19 06/30/19 Rx AtorvaSTATin [Lipitor] 40 mg PO QHS #15 tablet 04/08/16 07/01/19 06/30/19 Rx Clopidogrel [Plavix] 75 mg PO QDAY #15 tablet 04/08/16 07/01/19 06/30/19 Rx Chlorhexidine Mouthwash [Peridex] 15 ml MM BID #1 bottle 12/18/17 07/01/19 06/30/19 Rx Carvedilol [Coreg] 12.5 mg PO QDAY 07/01/19 07/01/19 06/30/19 History Escitalopram Oxalate [Lexapro] 10 mg PO QHS 07/01/19 07/01/19 06/30/19 History Ferrous Sulfate [Feosol] 325 mg PO QDAY 07/01/19 07/01/19 06/30/19 History Pregabalin [Lyrica] 75 mg PO QHS 07/01/19 07/01/19 06/30/19 History Sodium Bicarbonate 650 mg PO BID 07/01/19 07/01/19 06/30/19 History Torsemide [Demadex] 10 mg PO QDAY 07/01/19 07/01/19 06/30/19 History hydrALAZINE [Apresoline] 25 mg PO QDAY 07/01/19 07/01/19 06/30/19 History Active Medications: Generic Name Dose Route Start Last Admin Trade Name Freq PRN Reason Stop Dose Admin Albuterol 2.5 mg 07/01/19 20:06 Proventil IH Q3HRT PRN Shortness Of Breath Lipase/Protease/Amylase 1 each 07/05/19 11:31 Pancreazsil Alexandre 10,500 Unit FEEDTUBE PRN PRN For Clogged Feeding Tube Bumetanide 2 mg 07/03/19 18:00 07/06/19 06:21 Bumex IV 2 mg BID@0600,1800 CHRISTY Administration Carvedilol 12.5 mg 07/04/19 22:00 07/06/19 09:19 Coreg PO 12.5 mg BID CHRISTY Administration Hydralazine HCl 10 mg 07/02/19 05:49 07/06/19 09:24 Apresoline IV 10 mg Q4H PRN Administration Blood Pressure Hydrophilic Ointment 1 applic 07/03/19 19:12 Vaseline Lip Therapy TP Q2HR PRN Dry Lips Sodium Chloride 100 mls @ 999 mls/hr 07/04/19 15:00 Nacl 0.9% IV LA PRN Hypotension Insulin Glargine 10 units 07/05/19 12:00 07/06/19 09:26 Lantus SUB-Q 10 units DAILY CHRISTY Administration Lansoprazole 30 mg 07/06/19 22:00 Prevacid Solutab FEEDTUBE BID CHRISTY Multi-Ingred Cream/Lotion/Oil/Oint 1 applic 07/03/19 19:12 Artificial Tears Ophth Oint OU Q4HR PRN Dry Eye(s) Simple Syrup 15 ml 07/05/19 11:31 Simple Syrup FEEDTUBE PRN PRN Hypoglycemia Simple Syrup 30 ml 07/05/19 11:31 Simple Syrup FEEDTUBE PRN PRN Hypoglycemia Sodium Bicarbonate 325 mg 07/05/19 11:31 Sodium Bicarbonate FEEDTUBE PRN PRN For Clogged Feeding Tube Sodium Chloride 10 ml 07/01/19 22:00 07/06/19 09:19 Sodium Chloride Flush Syringe 10 Ml IV 10 ml BID CHRISTY Administration Sodium Chloride 10 ml 07/01/19 20:06 Sodium Chloride Flush Syringe 10 Ml IV PRN PRN LINE FLUSH
[2019-07-06] MEDS ORDERED: SODIUM CHLORIDE 0.9% 100 ML IV PRN (10:45)
[2019-07-06] MEDS ORDERED: DEXTROSE 50% IN WATER (25GM) 50 ML SYRINGE IV PRN (11:32)
--- NOTE | 2019-07-06 11:42 | Progress Note ---
Assessment and Plan Assessment and plan: Patient is a 59 yo woman with a history of hypertension, CAD s/p PCI, s/p CABG at [facility] in 05/2016, ICMP, HFrEF (Echo done 09/2017 showed EF 35-40%, mild LVH, severe LAE, mild AR and MR, mod TR, RVSP 66mmHg), carotid stenosis s/p left CEA in 01/2016, COPD, HTN, HLP, DM type 2 and CKD who presented to [facility] ED with AMS and unresponsiveness. According to ED record, the family found her basically somnolent in the bed with some Lyrica pills in her hand and several pills lying on the bed next to her on Monday. Then on Monday, they noticed that she had vomited on herself and seemed a little groggy. Family called EMS but the pt refused to be transported to the hospital. As the day progressed family states the patient appeared to get weaker and then eventually she could not keep her eyes open. Family states they were able to convince the patient to come to the emergency department. On evaluation, the patient is lying on the stretcher with somniferous respirations. She is currently on O2 via nasal cannula with O2 sats WNL. Head CT with NAF. Cardiology has been consulted for HF. CXR with some vascular congestion, pro-BNP >55327. Other labwork significant for ABG pH 7.27, BUN/Cr 67/2.7, K+ 5.2, AST 52, ALK phos 203, ammonia 64. On 07/03/19 around 5pm; patient became hypoxic and obtunded, ABG showed worsening acidosis with hypercapnea, I discuss Dr. Lozoya. I elected to Intubated instead of bipap because pt is obtunded. I called Anesthesia and uneventful intubation done via guide-scope. D/w Dr. Lozoya and daughter Vickiekarina at bedside and another daughter over the phone. Also, spoke with her PCP Dr. Booth over the phone prior to intubation. Flakito handed me the phone with Dr. Booth and her sister on 3 way. * TTE Conclusions: Global LVSF is severely decreased, estimated EF 20-25%, lv diastolic filling is restrictive, RV is mildly dilated, RVSF is moderately reduced, mild MR, moderate TR, RVSP is calcuated at 54 mmHg, mild pulmonic regurgitation, no pericardial effusion, Inferior vena cava is dilated * pCXR Impression: 1.Stable cardiomegaly 2. Diminished lung volumes with mild vascular congestion Acute on chronic hypoxic respiratory failure with ETT in place since 07/03/19: Diuresis, trying to extubate today Acute metabolic encephalopathy most likely from drug overdose: poison control recommended conservative management. Suspect Lyrica Overdose: HD for clearance Aspiration pneumonia unlikely: stopped abx Acute on chronic systolic heart failure: treat with IV diuretic bid, monitor bmp daily, Cardiology is following Acute on chronic CKD 3: Nephrology is following, input noted, Monitor daily renal functions. Avoid nephrotoxins. Maintain MAP >65mmHg. Bloody substance in NGT: stopped the L.I.S and consulted GI, treat with IV PPI History of Ischemic cardiomyopathy History of CAD (coronary artery disease) History of coronary artery bypass graft Hypertension: continue to monitor Hyperlipidemia: statins Diabetes mellitus type 2: ssi, accuchecks COPD (chronic obstructive pulmonary disease): nebs Hyperkalemia: treated hyperkalemia with kayexalate NSTEMI (non-ST elevated myocardial infarction) type 2: Cardiology is following, input noted PVD (peripheral vascular disease) Restraints renewed, just in case patient wakes up and tries to remove ETT, Gilbertriregla on standby 07/01/19: Admitted to [facility], stayed in ED over 24 hours. Admitted to IMCU 07/02/19: I took over care and requested ICU bed for possible intubation as her mental status was poor (she was obtunded), consulted CCM who evaluate patient, ABG done and Intensvist determined she did not need intubation at the time and ok to admitted to IMCU, so I changed location back from ICU to IMCU. 07/03/19: Renal function worsened, Mental status worsened, she became hypoxic and pCO2 increased with worsening acidosis, and she was emergently intubated by Anesthesia in the IMCU, transferred to ICU 07/04/19 D/w son Juan Manuel over the phone, he is in [place], [place]. Also, d.w daughter Isis at bedside. They want to transfer to [facility] because of preference but her PCP Dr. Booth doesn't admit to ICU. Hemodialysis started via Right Femoral vas cath 07/05/19: Mental status improved. Still intubated and no sedation is needed. Restraints renewed. This is the first day she follows some commands, weak hand stable cleaner and opens eyes to verbal command. She tracking with her eyes and her eyes . She had lewis catheter inserted yesterday 07/04/19 and 1600 urine was expelled immediately. The urine retention was probably related to the drug overdose and should get better. She had right femoral vas cath placed and Hemodialysis yesterday. D/W son Juan Manuel at bedside 07/06/19: HD today, mental status improving, she is squeezing my hand on command with good and equal strength bilaterally, hopefully to extubated today. SSI ordered, increase Lantus as BG uncontrolled, renew restraints. She spiked a fe eusebia, give tylenol and ordered set of blood culture CCT 39 minutes History Interval history: Patient was seen and examined. Follow-up on current diagnosis of AMS. No overnight events reported to me. Imaging, nursing note, chart, labs and old chart reviewed. Intubated but not sedated. This is the first day she follows some commands. She tracking with her eyes. On 07/04/19, She had lewis catheter inserted and ~1600 urine was expelled then She had right femoral vas cath placed and Hemodialysis done. Hospitalist Physical - Physical exam Narrative exam: Gen: ill appearing, obtunded, mildly increase accessory muscles HEENT: NCAT, eyes matted shut with crust especially left eye, OP Clear Neck: supple, no adenopathy, no thyromegaly, no JVD CVS/Heart: tachycardic normal S1S2, pulses present bilaterally Chest/Lungs: tachypenic, diminished bs bilateral Symmetrical chest expansion, good air entry bilaterally GI/Abdomen: soft, NTND, good bowel sounds, no guarding or rebound /Bladder: no suprapubic tenderness, no CVA or paraspinal tenderness Extermity/Skin: no obvious rash MSK: confused Neuro: CN 2-12 grossly intact, not following directions. Psych: confused - Constitutional Vitals: Temp Pulse Resp BP Pulse Ox 99.3 F 99 H 10 L 117/72 98 07/06/19 08:00 07/06/19 11:18 07/06/19 11:00 07/06/19 11:18 07/06/19 11:18 General appearance: Present: other (withdrawn, lethargic) Results - Labs CBC & Chem 7: 07/06/19 Unknown 07/06/19 Unknown Labs: Laboratory Last Values WBC 10.2 K/mm3 (4.5-11.0) 07/06/19 Unknown RBC 4.46 M/mm3 (3.65-5.03) 07/06/19 Unknown Hgb 11.1 gm/dl (10.1-14.3) 07/06/19 Unknown Hct 35.5 % (30.3-42.9) 07/06/19 Unknown MCV 80 fl (79-97) 07/06/19 Unknown MCH 25 pg (28-32) L 07/06/19 Unknown MCHC 31 % (30-34) 07/06/19 Unknown RDW 22.9 % (13.2-15.2) H 07/06/19 Unknown Plt Count 206 K/mm3 (140-440) 07/06/19 Unknown Lymph % (Auto) 18.3 % (13.4-35.0) 07/01/19 15:22 [place] % (Auto) 6.6 % (0.0-7.3) 07/01/19 15:22 Eos % (Auto) 2.4 % (0.0-4.3) 07/01/19 15:22 Baso % (Auto) 0.9 % (0.0-1.8) 07/01/19 15:22 Lymph # 1.1 K/mm3 (1.2-5.4) L 07/01/19 15:22 [place] # 0.4 K/mm3 (0.0-0.8) 07/01/19 15:22 Eos # 0.1 K/mm3 (0.0-0.4) 07/01/19 15:22 Baso # 0.1 K/mm3 (0.0-0.1) 07/01/19 15:22 Add Manual Diff Complete 07/02/19 11:39 Total Counted 100 07/02/19 11:39 Seg Neutrophils % 71.8 % (40.0-70.0) H 07/01/19 15:22 Seg Neuts % (Manual) 81.0 % (40.0-70.0) H 07/02/19 11:39 2.0 % 07/02/19 11:39 8.0 % (13.4-35.0) L 07/02/19 11:39 Reactive Lymphs % (Man) 0 % 07/02/19 11:39 7.0 % (0.0-7.3) 07/02/19 11:39 0 % (0.0-4.3) 07/02/19 11:39 1.0 % (0.0-1.8) 07/02/19 11:39 1.0 % 07/02/19 11:39 0 % 07/02/19 11:39 0 % 07/02/19 11:39 0 % 07/02/19 11:39 Nucleated RBC % 1.0 % (0.0-0.9) H 07/02/19 11:39 Seg Neutrophils # 4.4 K/mm3 (1.8-7.7) 07/01/19 15:22 Seg Neutrophils # Man 6.8 K/mm3 (1.8-7.7) 07/02/19 11:39 Band Neutrophils # 0.2 K/mm3 07/02/19 11:39 0.7 K/mm3 (1.2-5.4) L 07/02/19 11:39 Abs React Lymphs (Man) 0.0 K/mm3 07/02/19 11:39 0.6 K/mm3 (0.0-0.8) 07/02/19 11:39 0.0 K/mm3 (0.0-0.4) 07/02/19 11:39 0.1 K/mm3 (0.0-0.1) 07/02/19 11:39 0.1 K/mm3 07/02/19 11:39 0.0 K/mm3 07/02/19 11:39 0.0 K/mm3 07/02/19 11:39 Blast Cells # 0.0 K/mm3 07/02/19 11:39 WBC Morphology Not Reportable 07/02/19 11:39 Hypersegmented Neuts Not Reportable 07/02/19 11:39 Hyposegmented Neuts Not Reportable 07/02/19 11:39 Hypogranular Neuts Not Reportable 07/02/19 11:39 Not Reportable 07/02/19 11:39 Not Reportable 07/02/19 11:39 Not Reportable 07/02/19 11:39 Not Reportable 07/02/19 11:39 Not Reportable 07/02/19 11:39 Not Reportable 07/02/19 11:39 Consistent w auto 07/02/19 11:39 Not Reportable 07/02/19 11:39 Plt Clumps, EDTA Not Reportable 07/02/19 11:39 Few 07/02/19 11:39 Not Reportable 07/02/19 11:39 Not Reportable 07/02/19 11:39 Plt Morphology Comment Not Reportable 07/02/19 11:39 RBC Morphology Not Reportable 07/02/19 11:39 Dimorphic RBCs Not Reportable 07/02/19 11:39 Rare 07/02/19 11:39 1+ 07/02/19 11:39 Few 07/02/19 11:39 1+ 07/02/19 11:39 Not Reportable 07/02/19 11:39 Rare 07/02/19 11:39 Rare 07/02/19 11:39 Not Reportable 07/02/19 11:39 Not Reportable 07/02/19 11:39 Rare 07/02/19 11:39 Not Reportable 07/02/19 11:39 Not Reportable 07/02/19 11:39 Not Reportable 07/02/19 11:39 Not Reportable 07/02/19 11:39 Not Reportable 07/02/19 11:39 Not Reportable 07/02/19 11:39 Not Reportable 07/02/19 11:39 Not Reportable 07/02/19 11:39 Not Reportable 07/02/19 11:39 Acanthocytes (Spur) Not Reportable 07/02/19 11:39 Rouleaux Not Reportable 07/02/19 11:39 Not Reportable 07/02/19 11:39 Not Reportable 07/02/19 11:39 Not Reportable 07/02/19 11:39 Not Reportable 07/02/19 11:39 Hem Pathologist Commnt No 07/02/19 11:39 PT 15.1 Sec. (12.2-14.9) H 07/01/19 15:22 INR 1.22 (0.87-1.13) H 07/01/19 15:22 APTT 32.6 Sec. (24.2-36.6) 07/01/19 15:22 POC ABG pH 7.480 (7.35-7.45) H 07/06/19 11:37 ABG pH 7.284 pH Units (7.350-7.450) L 07/01/19 Unknown POC ABG pCO2 33.7 (35-45) L 07/06/19 11:37 ABG pCO2 51.5 mm Hg 07/01/19 Unknown POC ABG pO2 91 (80-105) 07/06/19 11:37 ABG pO2 121.4 mm Hg (80.0-90.0) H 07/01/19 Unknown POC ABG HCO3 25.1 (22-26 mml/L) 07/06/19 11:37 ABG HCO3 23.9 mmol/L (20.0-26.0) 07/01/19 Unknown POC ABG Total CO2 26 (23-27mmol/L) 07/06/19 11:37 POC ABG O2 Sat 98 07/06/19 11:37 ABG O2 Saturation 98.0 % (95.0-99.0) 07/01/19 Unknown ABG O2 Content 14.3 (0.0-44) 07/01/19 Unknown POC ABG Base Excess 2 ((-2) - (+3)mmol/L) 07/06/19 11:37 ABG Base Excess -3.1 mmol/L (-2.0-3.0) L 07/01/19 Unknown ABG Hemoglobin 10.5 gm/dl (12.0-16.0) L 07/01/19 Unknown ABG Carboxyhemoglobin 2.0 % (0.0-5.0) 07/01/19 Unknown ABG Methemoglobin 0.6 % (0.0-1.5) 07/01/19 Unknown 95.6 % (95.0-99.0) 07/01/19 Unknown 25 % 07/06/19 11:37 Sodium 140 mmol/L (137-145) 07/06/19 Unknown Potassium 3.5 mmol/L (3.6-5.0) L 07/06/19 Unknown Chloride 98.7 mmol/L (98-107) 07/06/19 Unknown Carbon Dioxide 25 mmol/L (22-30) 07/06/19 Unknown 20 mmol/L 07/06/19 Unknown BUN 22 mg/dL (7-17) H 07/06/19 Unknown 1.4 mg/dL (0.7-1.2) H 07/06/19 Unknown Estimated GFR 47 ml/min 07/06/19 Unknown 16 % 07/06/19 Unknown Glucose 316 mg/dL (65-100) H 07/06/19 Unknown POC Glucose 300 (70-105) H 07/06/19 05:03 Calcium 9.2 mg/dL (8.4-10.2) 07/06/19 Unknown Magnesium 2.30 mg/dL (1.7-2.3) 07/04/19 04:19 Iron 26 ug/dL (37-170) L 07/01/19 18:35 0.90 mg/dL (0.1-1.2) 07/02/19 11:39 AST 37 units/L (5-40) 07/02/19 11:39 ALT 36 units/L (7-56) 07/02/19 11:39 202 units/L (35-129) H 07/02/19 11:39 64.0 umol/L (25-60) H 07/01/19 15:35 0.193 ng/mL (0.00-0.029) H* D 07/03/19 04:51 NT-Pro-B Natriuret Pep > 10763 pg/mL (0-900) H 07/01/19 23:32 7.6 g/dL (6.3-8.2) 07/02/19 11:39 3.5 g/dL (3.9-5) L 07/02/19 11:39 0.9 % 07/02/19 11:39 Triglycerides 93 mg/dL (2-149) 07/01/19 15:22 Cholesterol 83 mg/dL (50-199) 07/01/19 15:22 38 mg/dL (50-130) L 07/01/19 15:22 32 mg/dL (40-59) L 07/01/19 15:22 2.59 % 07/01/19 15:22 TSH 0.724 mlU/mL (0.270-4.200) 07/01/19 23:32 Free T4 1.28 ng/dL (0.76-1.46) 07/01/19 23:32 Yellow (Yellow) 07/01/19 14:28 Clear (Clear) 07/01/19 14:28 5.0 (5.0-7.0) 07/01/19 14:28 Ur Specific [place] 1.012 (1.003-1.030) 07/01/19 14:28 100 mg/dl mg/dL (Negative) 07/01/19 14:28 Neg mg/dL (Negative) 07/01/19 14:28 Neg mg/dL (Negative) 07/01/19 14:28 Neg (Negative) 07/01/19 14:28 Neg (Negative) 07/01/19 14:28 Neg (Negative) 07/01/19 14:28 < 2.0 mg/dL (<2.0) 07/01/19 14:28 Ur Leukocyte Esterase Neg (Negative) 07/01/19 14:28 1.0 /HPF (0.0-6.0) 07/01/19 14:28 2.0 /HPF (0.0-6.0) 07/01/19 14:28 U Epithel Cells (Auto) 1.0 /HPF (0-13.0) 07/01/19 14:28 Salicylates < 0.3 mg/dL (2.8-20.0) L 07/01/19 15:22 Presumptive negative 07/01/19 14:28 Presumptive negative 07/01/19 14:28 Acetaminophen < 5.0 ug/mL (10.0-30.0) L 07/01/19 15:22 Ur Barbiturates Screen Presumptive negative 07/01/19 14:28 Ur Phencyclidine Scrn Presumptive negative 07/01/19 14:28 Ur Amphetamines Screen Presumptive negative 07/01/19 14:28 U Benzodiazepines Scrn Presumptive positive 07/01/19 14:28 Presumptive negative 07/01/19 14:28 U Marijuana (THC) Screen Presumptive negative 07/01/19 14:28 Disclamer 07/01/19 14:28 Plasma/Serum Alcohol < 0.01 % (0-0.07) 07/01/19 15:22 Hepatitis A IgM Ab Non-reactive (NonReactive) 07/04/19 15:58 Hep Bs Antigen Non-reactive (Negative) 07/04/19 15:58 Hep B Core IgM Ab Non-reactive (NonReactive) 07/04/19 15:58 Non-reactive (NonReactive) 07/04/19 15:58 Active Medications - Current Medications Current Medications: Generic Name Dose Route Start Last Admin Trade Name Freq PRN Reason Stop Dose Admin Acetaminophen 650 mg 07/06/19 11:31 Tylenol FEEDTUBE Q6H PRN Non Cardiac Pain or Temp>100.5 Albuterol 2.5 mg 07/01/19 20:06 Proventil IH Q3HRT PRN Shortness Of Breath Lipase/Protease/Amylase 1 each 07/05/19 11:31 Pancreethan Alexandre 10,500 Unit FEEDTUBE PRN PRN For Clogged Feeding Tube Bumetanide 2 mg 07/07/19 10:00 Bumex IV DAILY CHRISTY Carvedilol 12.5 mg 07/04/19 22:00 07/06/19 09:19 Coreg PO 12.5 mg BID CHRISTY Administration Dextrose 50 ml 07/06/19 11:32 D50w (25gm) Syringe IV PRN PRN Hypoglycemia Hydralazine HCl 10 mg 07/02/19 05:49 07/06/19 09:24 Apresoline IV 10 mg Q4H PRN Administration Blood Pressure Hydrophilic Ointment 1 applic 07/03/19 19:12 Vaseline Lip Therapy TP Q2HR PRN Dry Lips Sodium Chloride 100 mls @ 999 mls/hr 07/04/19 15:00 Nacl 0.9% IV LA PRN Hypotension Insulin Glargine 10 units 07/05/19 12:00 07/06/19 09:26 Lantus SUB-Q 10 units DAILY CHRISTY Administration Insulin Human Lispro 0 unit 07/06/19 12:00 Humalog SUB-Q Q6HR [facility] Protocol Lansoprazole 30 mg 07/06/19 22:00 Prevacid Solutab FEEDTUBE BID [facility] Multi-Ingred Cream/Lotion/Oil/Oint 1 applic 07/03/19 19:12 Artificial Tears Ophth Oint OU Q4HR PRN Dry Eye(s) Simple Syrup 15 ml 07/05/19 11:31 Simple Syrup FEEDTUBE PRN PRN Hypoglycemia Simple Syrup 30 ml 07/05/19 11:31 Simple Syrup FEEDTUBE PRN PRN Hypoglycemia Sodium Bicarbonate 325 mg 07/05/19 11:31 Sodium Bicarbonate FEEDTUBE PRN PRN For Clogged Feeding Tube Sodium Chloride 10 ml 07/01/19 22:00 07/06/19 09:19 Sodium Chloride Flush Syringe 10 Ml IV 10 ml BID CHRISTY Administration Sodium Chloride 10 ml 07/01/19 20:06 Sodium Chloride Flush Syringe 10 Ml IV PRN PRN LINE FLUSH Nutrition/Malnutrition Assess - Dietary Evaluation Nutrition/Malnutrition Findings: Nutrition Notes Start: 07/03/19 10:46 Freq: Status: Active Protocol: Document 07/05/19 11:16 LM (Rec: 07/05/19 11:30 LM [email or web address]) Nutrition Notes Initial or Follow up Reassessment Current Diagnosis Acute Kidney Injury,CKD(stage I-IV),COPD,Coronary Artery Disease,Diabetes,Hypertension Other Pertinent Diagnosis on HD Current Diet NPO Labs/Tests K 3.3 BUN 33 Cr 1.4 BG 250 Pertinent Medications Reviewed Height 5 ft 1 in Weight 91.1 kg [place] Body Weight (kg) 47.72 BMI 37.9 Subjective/Other Information MD consult for TF. Pt getting HD. Burn Absent Trauma Absent Minimum of two criteria No #2 Nutrition Diagnosis Inadequate oral intake Diagnosis Progress(for reassessment Continues documentation) #1 Nutrition Diagnosis Inadequate energy intake Diagnosis Progress(for reassessment Continues documentation) Is patient on ventilator? Yes Is Patient Ambulatory and/or Out of Bed No REE-([facility]-confined to bed) 1712.616 Kcal/Kg value to use for calculation 16 Approximate Energy Requirements Using 1458 kcal/Kg Calculation Used for Recommendations Kcal/kg Additional Notes Protein: 57-95 g (1.2-2g/kg IBW 47.72 kg) Fluids: 1 ml/kcal or per Nutrition Intervention Change Diet Order: TF Nutrition Support: Nepro 1.8 at 40 ml/hr Flush 170 ml q4hr or per MD Kcal 1,728 Protein (gm) 78 Fluid (mL) 698 Goal #1 TF start/tolerance Goal #2 Meet at least 75% of energy and protein needs Anticipated Discharge Needs: unable to determine at this time Follow-Up By: 07/08/19 Additional Comments F/U for TF tolerance
[2019-07-06] MEDS: ACETAMINOPHEN 325 MG/10.15 ML ORAL LIQD UNIT DOSE FEEDTUBE PRN ×2 (11:48→18:14)
[2019-07-06] MEDS ORDERED: INSULIN GLARGINE 100 UNITS/ML SUB-Q ONE (12:00)
[2019-07-06] MEDS ORDERED: INSULIN LISPRO 100 UNIT/ML SUB-Q ONE (12:05)
[2019-07-06] MEDS: INSULIN LISPRO 100 UNIT/ML SUB-Q SCH ×3 (12:15→22:10)
--- NOTE | 2019-07-06 13:38 | Progress Note ---
Assessment and Plan This is a 59-year-old female who was brought in respiratory failure and is currently intubated. Dialysis is in progress. Patient is known to have coronary artery disease and ischemic cardiomyopathy. Patient had previous bypass surgery. Recent echocardiogram showed ejection fraction of about 25% [07/02/2019]. Patient is also known to have mitral regurgitation and moderate tricuspid regurgitation with a RVSP of 54 mmHg. Patient is also known to have peripheral vascular disease and had left carotid endarterectomy.The patient is a lso known to have had COPD hypertension hyperlipidemia and type 2 diabetes. Patient appears to be improving and her rhythm is stable today. Continue current management. Weaning from ventilator is in progress. Prognosis remains guarded because of multiple medical issues. - Patient Problems (1) History of coronary artery bypass graft Current Visit: Yes Status: Chronic (2) Hyperlipidemia Current Visit: Yes Status: Chronic (3) Hypertension Current Visit: Yes Status: Chronic Qualifiers: Hypertension type: essential hypertension Qualified Code(s): I10 - Essential (primary) hypertension (4) Ischemic cardiomyopathy Current Visit: Yes Status: Chronic (5) NSTEMI (non-ST elevated myocardial infarction) Current Visit: No Status: Acute (6) PAD (peripheral artery disease) Current Visit: No Status: Acute (7) Chronic kidney disease Current Visit: No Status: Chronic (8) Diabetes mellitus Current Visit: No Status: Chronic Qualifiers: Diabetes mellitus type: type 2 Subjective Date of service: 07/06/19 Principal diagnosis: AMS Interval history: Patient is on a ventilator dialysis is in progress. Patient appears to be alert and feels well with no significant chest pain. Weaning in progress. Cardiac rhythm is stable Objective Vital Signs Temp Pulse Pulse Resp BP Pulse Ox Pulse Ox 07/06/19 13:15 96 H 121/76 07/06/19 13:00 97 H 20 133/78 99 07/06/19 12:45 97 H 139/77 07/06/19 12:30 105 H 20 127/79 99 07/06/19 12:15 102 H 121/67 07/06/19 12:00 100.8 F H 99 H 99 H 21 123/71 99 07/06/19 11:50 100.8 F H 07/06/19 11:45 98 H 136/81 07/06/19 11:31 98 H 13 129/70 98 07/06/19 11:20 100.8 F H 97 H 18 129/70 99 07/06/19 11:18 99 H 117/72 98 07/06/19 11:00 102 H 10 L 113/66 98 07/06/19 10:30 104 H 13 128/76 99 07/06/19 10:01 107 H 22 128/62 98 07/06/19 09:30 111 H 23 138/89 99 07/06/19 09:24 110 H 161/103 07/06/19 09:19 113 H 161/103 07/06/19 09:00 110 H 28 H 157/98 99 07/06/19 08:31 107 H 23 157/95 99 07/06/19 08:00 99.3 F 107 H 107 H 17 128/83 99 07/06/19 07:41 104 H 135/81 100 07/06/19 07:30 104 H 15 135/81 99 07/06/19 07:00 100 H 19 127/77 99 07/06/19 06:30 99 H 16 129/85 99 07/06/19 06:00 101 H 22 121/75 100 07/06/19 05:30 99 H 20 116/67 97 07/06/19 05:00 102 H 16 120/76 98 07/06/19 04:30 100 H 22 127/70 95 07/06/19 04:00 98.7 F 99 H 99 H 25 H 137/84 97 07/06/19 03:53 100 H 137/84 98 07/06/19 03:30 99 H 20 146/84 97 07/06/19 03:00 96 H 16 154/81 99 07/06/19 02:30 95 H 15 150/78 100 07/06/19 02:00 95 H 19 140/78 99 07/06/19 01:30 97 H 14 142/85 99 07/06/19 01:00 100 H 16 137/91 98 07/06/19 00:30 99 H 19 129/87 99 07/06/19 00:20 97 H 97 H 18 99 07/06/19 00:10 99 H 148/90 100 07/06/19 00:00 100 H 11 L 181/88 100 07/05/19 23:32 98.6 F 07/05/19 23:30 83 22 153/87 98 07/05/19 23:08 79 18 118/67 97 07/05/19 23:00 81 18 118/67 97 07/05/19 22:30 82 19 126/68 97 07/05/19 22:10 88 138/80 07/05/19 22:00 89 15 138/80 100 07/05/19 21:30 88 16 136/78 99 07/05/19 21:00 96 H 14 130/72 99 07/05/19 20:30 98 H 17 134/75 99 07/05/19 20:16 92 H 134/75 98 07/05/19 20:00 98.6 F 95 H 95 H 18 99 07/05/19 19:48 95 H 155/102 07/05/19 19:30 97 H 14 160/101 100 07/05/19 19:00 97 H 13 158/92 100 07/05/19 18:30 97 H 14 153/89 100 07/05/19 18:00 94 H 12 149/91 100 07/05/19 17:30 94 H 12 155/79 99 07/05/19 17:00 94 H 12 163/87 100 07/05/19 16:35 90 166/94 100 07/05/19 16:30 93 H 15 166/94 99 07/05/19 16:00 96.8 F L 88 88 17 161/89 100 07/05/19 15:30 90 15 158/81 100 07/05/19 15:00 87 17 149/86 99 07/05/19 14:45 98.8 F 87 20 132/78 99 07/05/19 14:30 88 10 L 126/80 100 07/05/19 14:15 87 132/77 07/05/19 14:00 85 15 128/80 100 07/05/19 13:45 87 124/85 - Physical Examination General: Appears Well, Other (intubated. Dialysis in progress) HEENT: Positive: PERRL Neck: Positive: neck supple Cardiac: Positive: Regular Rhythm Lungs: Positive: Decreased Breath Sounds (both bases.) Neuro: Positive: Other (intubated) Abdomen: Positive: Soft Skin: Negative: Rash Musculoskeletal: No Fluid Collection Extremities: Absent: edema - Labs and Meds CBC 07/06/19 Range/Units Unknown WBC 10.2 (4.5-11.0) K/mm3 RBC 4.46 (3.65-5.03) M/mm3 Hgb 11.1 (10.1-14.3) gm/dl Hct 35.5 (30.3-42.9) % Plt Count 206 (140-440) K/mm3 Comprehensive Metabolic Panel 07/06/19 Range/Units Unknown Sodium 140 (137-145) mmol/L Potassium 3.5 L (3.6-5.0) mmol/L Chloride 98.7 (98-107) mmol/L Carbon Dioxide 25 (22-30) mmol/L BUN 22 H (7-17) mg/dL Creatinine 1.4 H (0.7-1.2) mg/dL Glucose 316 H (65-100) mg/dL Calcium 9.2 (8.4-10.2) mg/dL - Imaging and Cardiology EKG: report reviewed, image reviewed Echo: report reviewed (09/2017 showed EF 35-40%, mild LVH, severe LAE, mild AR and MR, mod TR, RVSP 66mmHg. 06/2019: EF 20-25%, restrictive diastolic filling, RV mildly dilated, mild MR, mod TR, RVSP 54mmHg, mild [place]. ) - EKG Sinus rhythms and dysrhythmias: sinus rhythm - Allied health notes Allied health notes reviewed: nursing
--- NOTE | 2019-07-06 14:36 | Progress Note ---
Assessment and Plan 59 y/o female with altered mental status thought secondary to overdose of lyrica vs uremic encephalopaty from worsening renal function vs acute systolic heart failure exacerbation. 1. Will attempt extubation today post HD 2. BP control 3. Continue lewis catheter for strict I/O 4. Bedside swallow once extubated. CCT 31 minutes. Subjective Date of service: 07/06/19 Principal diagnosis: AMS Interval history: Awake and alert, following commands. No family at bedside. Currently on HD. Tolerating well. Objective Vital Signs - 12hr 07/06/19 07/06/19 07/06/19 03:00 03:30 03:53 Temperature Pulse Rate 96 H 99 H 100 H Pulse Rate [ From Monitor] Respiratory 16 20 Rate Blood Pressure 154/81 146/84 137/84 O2 Sat by Pulse 99 97 98 Oximetry O2 Sat by Pulse Oximetry [ Bilateral Throughout] 07/06/19 07/06/19 07/06/19 04:00 04:30 05:00 Temperature 98.7 F Pulse Rate 99 H 100 H 102 H Pulse Rate [ 99 H From Monitor] Respiratory 25 H 22 16 Rate Blood Pressure 137/84 127/70 120/76 O2 Sat by Pulse 97 95 98 Oximetry O2 Sat by Pulse Oximetry [ Bilateral Throughout] 07/06/19 07/06/19 07/06/19 05:30 06:00 06:30 Temperature Pulse Rate 99 H 101 H 99 H Pulse Rate [ From Monitor] Respiratory 20 22 16 Rate Blood Pressure 116/67 121/75 129/85 O2 Sat by Pulse 97 100 99 Oximetry O2 Sat by Pulse Oximetry [ Bilateral Throughout] 07/06/19 07/06/19 07/06/19 07:00 07:30 07:41 Temperature Pulse Rate 100 H 104 H 104 H Pulse Rate [ From Monitor] Respiratory 19 15 Rate Blood Pressure 127/77 135/81 135/81 O2 Sat by Pulse 99 99 100 Oximetry O2 Sat by Pulse Oximetry [ Bilateral Throughout] 07/06/19 07/06/19 07/06/19 08:00 08:31 09:00 Temperature 99.3 F Pulse Rate 107 H 107 H 110 H Pulse Rate [ 107 H From Monitor] Respiratory 17 23 28 H Rate Blood Pressure 128/83 157/95 157/98 O2 Sat by Pulse 99 99 99 Oximetry O2 Sat by Pulse Oximetry [ Bilateral Throughout] 07/06/19 07/06/1919 09:19 09:24 09:30 Temperature Pulse Rate 113 H 110 H 111 H Pulse Rate [ From Monitor] Respiratory 23 Rate Blood Pressure 161/103 161/103 138/89 O2 Sat by Pulse 99 Oximetry O2 Sat by Pulse Oximetry [ Bilateral Throughout] 07/06/19 07/06/19 07/06/19 10:01 10:30 11:00 Temperature Pulse Rate 107 H 104 H 102 H Pulse Rate [ From Monitor] Respiratory 22 13 10 L Rate Blood Pressure 128/62 128/76 113/66 O2 Sat by Pulse 98 99 98 Oximetry O2 Sat by Pulse Oximetry [ Bilateral Throughout] 07/06/19 07/06/19 07/06/19 11:18 11:20 11:31 Temperature 100.8 F H Pulse Rate 99 H 97 H 98 H Pulse Rate [ From Monitor] Respiratory 18 13 Rate Blood Pressure 117/72 129/70 129/70 O2 Sat by Pulse 98 98 Oximetry O2 Sat by Pulse 99 Oximetry [ Bilateral Throughout] 07/06/19 07/06/19 07/06/19 11:45 11:50 12:00 Temperature 100.8 F H 100.8 F H Pulse Rate 98 H 99 H Pulse Rate [ 99 H From Monitor] Respiratory 21 Rate Blood Pressure 136/81 123/71 O2 Sat by Pulse 99 Oximetry O2 Sat by Pulse Oximetry [ Bilateral Throughout] 07/06/19 07/06/19 07/06/19 12:15 12:30 12:45 Temperature Pulse Rate 102 H 105 H 97 H Pulse Rate [ From Monitor] Respiratory 20 Rate Blood Pressure 121/67 127/79 139/77 O2 Sat by Pulse 99 Oximetry O2 Sat by Pulse Oximetry [ Bilateral Throughout] 07/06/19 07/06/19 07/06/19 13:00 13:15 13:30 Temperature Pulse Rate 97 H 96 H 94 H Pulse Rate [ From Monitor] Respiratory 20 15 Rate Blood Pressure 133/78 121/76 123/76 O2 Sat by Pulse 99 99 Oximetry O2 Sat by Pulse Oximetry [ Bilateral Throughout] 07/06/19 07/06/19 07/06/19 13:45 14:00 14:15 Temperature Pulse Rate 96 H 97 H 97 H Pulse Rate [ From Monitor] Respiratory 12 Rate Blood Pressure 120/84 122/80 124/78 O2 Sat by Pulse 100 Oximetry O2 Sat by Pulse Oximetry [ Bilateral Throughout] 07/06/19 14:30 Temperature Pulse Rate 96 H Pulse Rate [ From Monitor] Respiratory 10 L Rate Blood Pressure 124/73 O2 Sat by Pulse 100 Oximetry O2 Sat by Pulse Oximetry [ Bilateral Throughout] Constitutional: no acute distress, other (obtunded) Eyes: non-icteric ENT: oropharynx moist Neck: supple Effort: normal Ascultation: Bilateral: diminished breath sounds Percussion: Bilateral: not dull Cardiovascular: regular rate and rhythm Gastrointestinal: normoactive bowel sounds, soft Extremities: edema Neurologic: unable to assess CBC and BMP: 07/06/19 Unknown 07/06/19 Unknown ABG, PT/INR, D-dimer: ABG POC ABG pH 7.480 (7.35-7.45) H 07/06/19 11:37 ABG pH 7.284 pH Units (7.350-7.450) L 07/01/19 Unknown POC ABG pCO2 33.7 (35-45) L 07/06/19 11:37 ABG pCO2 51.5 mm Hg 07/01/19 Unknown POC ABG pO2 91 (80-105) 07/06/19 11:37 ABG pO2 121.4 mm Hg (80.0-90.0) H 07/01/19 Unknown POC ABG HCO3 25.1 (22-26 mml/L) 07/06/19 11:37 POC ABG Total CO2 26 (23-27mmol/L) 07/06/19 11:37 POC ABG O2 Sat 98 07/06/19 11:37 ABG O2 Saturation 98.0 % (95.0-99.0) 07/01/19 Unknown PT/INR, D-dimer PT 15.1 Sec. (12.2-14.9) H 07/01/19 15:22 INR 1.22 (0.87-1.13) H 07/01/19 15:22 Abnormal lab findings: Abnormal Labs 07/01/19 07/01/19 07/01/19 15:22 15:22 15:22 MCH 25 L RDW 22.1 H Lymph # 1.1 L Seg Neutrophils % 71.8 H Seg Neuts % (Manual) Lymphocytes % (Manual) Nucleated RBC % Lymphocytes # (Manual) PT 15.1 H INR 1.22 H POC ABG pH ABG pH POC ABG pCO2 POC ABG pO2 ABG pO2 ABG Base Excess ABG Hemoglobin Sodium Potassium 5.2 H Chloride Carbon Dioxide BUN 67 H Creatinine 2.7 H Glucose 146 H POC Glucose Calcium Iron AST 52 H Alkaline Phosphatase 203 H Ammonia Troponin T NT-Pro-B Natriuret Pep Albumin 3.4 L LDL Cholesterol Direct HDL Cholesterol Salicylates Acetaminophen 07/01/19 07/01/19 07/01/19 15:22 15:22 15:22 MCH RDW Lymph # Seg Neutrophils % Seg Neuts % (Manual) Lymphocytes % (Manual) Nucleated RBC % Lymphocytes # (Manual) PT INR POC ABG pH ABG pH POC ABG pCO2 POC ABG pO2 ABG pO2 ABG Base Excess ABG Hemoglobin Sodium Potassium Chloride Carbon Dioxide BUN Creatinine Glucose POC Glucose Calcium Iron AST Alkaline Phosphatase Ammonia Troponin T 0.121 H* NT-Pro-B Natriuret Pep Albumin LDL Cholesterol Direct 38 L HDL Cholesterol 32 L Salicylates < 0.3 L Acetaminophen < 5.0 L 07/01/19 07/01/19 07/01/19 15:35 18:35 23:32 MCH RDW Lymph # Seg Neutrophils % Seg Neuts % (Manual) Lymphocytes % (Manual) Nucleated RBC % Lymphocytes # (Manual) PT INR POC ABG pH ABG pH POC ABG pCO2 POC ABG pO2 ABG pO2 ABG Base Excess ABG Hemoglobin Sodium Potassium Chloride Carbon Dioxide BUN Creatinine Glucose POC Glucose Calcium Iron 26 L AST Alkaline Phosphatase Ammonia 64.0 H Troponin T NT-Pro-B Natriuret Pep > 09872 H Albumin LDL Cholesterol Direct HDL Cholesterol Salicylates Acetaminophen 07/01/19 07/02/19 07/02/19 Unknown 07:32 10:33 MCH RDW Lymph # Seg Neutrophils % Seg Neuts % (Manual) Lymphocytes % (Manual) Nucleated RBC % Lymphocytes # (Manual) PT INR POC ABG pH 7.275 L ABG pH 7.284 L POC ABG pCO2 POC ABG pO2 76 L ABG pO2 121.4 H ABG Base Excess -3.1 L ABG Hemoglobin 10.5 L Sodium Potassium Chloride Carbon Dioxide BUN Creatinine Glucose POC Glucose 164 H Calcium Iron AST Alkaline Phosphatase Ammonia Troponin T NT-Pro-B Natriuret Pep Albumin LDL Cholesterol Direct HDL Cholesterol Salicylates Acetaminophen 07/02/19 07/02/19 07/02/19 11:39 11:39 11:39 MCH 25 L RDW 22.3 H Lymph # Seg Neutrophils % Seg Neuts % (Manual) 81.0 H Lymphocytes % (Manual) 8.0 L Nucleated RBC % 1.0 H Lymphocytes # (Manual) 0.7 L PT INR POC ABG pH ABG pH POC ABG pCO2 POC ABG pO2 ABG pO2 ABG Base Excess ABG Hemoglobin Sodium Potassium 5.7 H Chloride 109.5 H Carbon Dioxide 14 L D BUN 73 H Creatinine 2.6 H Glucose 187 H POC Glucose Calcium Iron AST Alkaline Phosphatase 202 H Ammonia Troponin T 0.138 H* NT-Pro-B Natriuret Pep Albumin 3.5 L LDL Cholesterol Direct HDL Cholesterol Salicylates Acetaminophen 07/03/19 07/03/19 07/03/19 04:51 10:22 16:53 MCH 24 L RDW 22.4 H Lymph # Seg Neutrophils % Seg Neuts % (Manual) Lymphocytes % (Manual) Nucleated RBC % Lymphocytes # (Manual) PT INR POC ABG pH 7.222 L ABG pH POC ABG pCO2 60.0 H POC ABG pO2 167 H ABG pO2 ABG Base Excess ABG Hemoglobin Sodium 149 H Potassium 5.3 H Chloride 110.6 H Carbon Dioxide 17 L BUN 79 H Creatinine 2.8 H Glucose 244 H POC Glucose Calcium Iron AST Alkaline Phosphatase Ammonia Troponin T 0.193 H* D NT-Pro-B Natriuret Pep Albumin LDL Cholesterol Direct HDL Cholesterol Salicylates Acetaminophen 07/03/19 07/04/19 07/04/19 20:42 04:17 04:19 MCH RDW Lymph # Seg Neutrophils % Seg Neuts % (Manual) Lymphocytes % (Manual) Nucleated RBC % Lymphocytes # (Manual) PT INR POC ABG pH ABG pH POC ABG pCO2 32.8 L 31.8 L POC ABG pO2 207 H 155 H ABG pO2 ABG Base Excess ABG Hemoglobin Sodium 151 H Potassium Chloride 110.7 H Carbon Dioxide 16 L BUN 88 H Creatinine 2.8 H Glucose 303 H POC Glucose Calcium 10.5 H Iron AST Alkaline Phosphatase Ammonia Troponin T NT-Pro-B Natriuret Pep Albumin LDL Cholesterol Direct HDL Cholesterol Salicylates Acetaminophen 07/04/19 07/04/19 07/04/19 04:19 13:32 17:42 MCH 24 L RDW 22.7 H Lymph # Seg Neutrophils % Seg Neuts % (Manual) Lymphocytes % (Manual) Nucleated RBC % Lymphocytes # (Manual) PT INR POC ABG pH ABG pH POC ABG pCO2 POC ABG pO2 ABG pO2 ABG Base Excess ABG Hemoglobin Sodium Potassium Chloride Carbon Dioxide BUN Creatinine Glucose POC Glucose 340 H 334 H Calcium Iron AST Alkaline Phosphatase Ammonia Troponin T NT-Pro-B Natriuret Pep Albumin LDL Cholesterol Direct HDL Cholesterol Salicylates Acetaminophen 07/04/19 07/05/19 07/05/19 23:31 04:22 05:23 MCH RDW Lymph # Seg Neutrophils % Seg Neuts % (Manual) Lymphocytes % (Manual) Nucleated RBC % Lymphocytes # (Manual) PT INR POC ABG pH ABG pH POC ABG pCO2 32.9 L POC ABG pO2 ABG pO2 ABG Base Excess ABG Hemoglobin Sodium Potassium 3.3 L D Chloride Carbon Dioxide BUN 33 H Creatinine 1.4 H Glucose 250 H POC Glucose 223 H Calcium Iron AST Alkaline Phosphatase Ammonia Troponin T NT-Pro-B Natriuret Pep Albumin LDL Cholesterol Direct HDL Cholesterol Salicylates Acetaminophen 07/05/19 07/05/19 07/05/19 05:23 05:38 11:21 MCH 25 L RDW 22.4 H Lymph # Seg Neutrophils % Seg Neuts % (Manual) Lymphocytes % (Manual) Nucleated RBC % Lymphocytes # (Manual) PT INR POC ABG pH ABG pH POC ABG pCO2 POC ABG pO2 ABG pO2 ABG Base Excess ABG Hemoglobin Sodium Potassium Chloride Carbon Dioxide BUN Creatinine Glucose POC Glucose 262 H 256 H Calcium Iron AST Alkaline Phosphatase Ammonia Troponin T NT-Pro-B Natriuret Pep Albumin LDL Cholesterol Direct HDL Cholesterol Salicylates Acetaminophen 07/05/19 07/05/19 07/05/19 16:54 17:43 23:58 MCH RDW Lymph # Seg Neutrophils % Seg Neuts % (Manual) Lymphocytes % (Manual) Nucleated RBC % Lymphocytes # (Manual) PT INR POC ABG pH 7.518 H ABG pH POC ABG pCO2 32.4 L POC ABG pO2 ABG pO2 ABG Base Excess ABG Hemoglobin Sodium Potassium Chloride Carbon Dioxide BUN Creatinine Glucose POC Glucose 219 H 254 H Calcium Iron AST Alkaline Phosphatase Ammonia Troponin T NT-Pro-B Natriuret Pep Albumin LDL Cholesterol Direct HDL Cholesterol Salicylates Acetaminophen 07/06/19 07/06/19 07/06/19 04:23 05:03 11:37 MCH RDW Lymph # Seg Neutrophils % Seg Neuts % (Manual) Lymphocytes % (Manual) Nucleated RBC % Lymphocytes # (Manual) PT INR POC ABG pH 7.480 H ABG pH POC ABG pCO2 33.7 L POC ABG pO2 70 L ABG pO2 ABG Base Excess ABG Hemoglobin Sodium Potassium Chloride Carbon Dioxide BUN Creatinine Glucose POC Glucose 300 H Calcium Iron AST Alkaline Phosphatase Ammonia Troponin T NT-Pro-B Natriuret Pep Albumin LDL Cholesterol Direct HDL Cholesterol Salicylates Acetaminophen 07/06/19 07/06/19 07/06/19 12:09 Unknown Unknown MCH 25 L RDW 22.9 H Lymph # Seg Neutrophils % Seg Neuts % (Manual) Lymphocytes % (Manual) Nucleated RBC % Lymphocytes # (Manual) PT INR POC ABG pH ABG pH POC ABG pCO2 POC ABG pO2 ABG pO2 ABG Base Excess ABG Hemoglobin Sodium Potassium 3.5 L Chloride Carbon Dioxide BUN 22 H Creatinine 1.4 H Glucose 316 H POC Glucose 355 H Calcium Iron AST Alkaline Phosphatase Ammonia Troponin T NT-Pro-B Natriuret Pep Albumin LDL Cholesterol Direct HDL Cholesterol Salicylates Acetaminophen Allied health notes reviewed: nursing
[2019-07-06] MEDS ORDERED: SODIUM CHLORIDE 0.9% 1000 ML 2,000 ML ONE (15:00)
[2019-07-06] MEDS: LANSOPRAZOLE 30 MG SOLUTAB FEEDTUBE SCH (22:23)
[2019-07-07 05:31] LABS: Hematocrit 37.2 % (30.3-42.9); Hemoglobin 11.6 gm/dl (10.1-14.3); Mean Corpuscular HGB Conc 31 % (30-34); Mean Corpuscular Volume 79 fl (79-97); Platelet Count 191 K/mm3 (140-440); Red Blood Count 4.68 M/mm3 (3.65-5.03)
[2019-07-07] MEDS: INSULIN LISPRO 100 UNIT/ML SUB-Q SCH ×4 (05:34→22:06)
[2019-07-07 05:36] LABS: Red Cell Distribution Width 23.2 % (13.2-15.2)
[2019-07-07 05:40] LABS: Calcium 8.9 mg/dL (8.4-10.2)
--- NOTE | 2019-07-07 06:37 | Progress Note ---
Assessment and Plan Assessment and plan: Patient is a 59 yo woman with a history of hypertension, CAD s/p PCI, s/p CABG at [place] in 05/2016, ICMP, HFrEF (Echo done 09/2017 showed EF 35-40%, mild LVH, severe LAE, mild AR and MR, mod TR, RVSP 66mmHg), carotid stenosis s/p left CEA in 01/2016, COPD, HTN, HLP, DM type 2 and CKD who presented to [facility] ED with AMS and unresponsiveness. According to ED record, the family found her basically somnolent in the bed with some Lyrica pills in her hand and several pills lying on the bed next to her on Monday. Then on Monday, they noticed that she had vomited on herself and seemed a little groggy. Family called EMS but the pt refused to be transported to the hospital. As the day progressed family states the patient appeared to get weaker and then eventually she could not keep her eyes open. Family states they were able to convince the patient to come to the emergency department. On evaluation, the patient is lying on the stretcher with somniferous respirations. She is currently on O2 via nasal cannula with O2 sats WNL. Head CT with NAF. Cardiology has been consulted for HF. CXR with some vascular congestion, pro-BNP >23934. Other labwork significant for ABG pH 7.27, BUN/Cr 67/2.7, K+ 5.2, AST 52, ALK phos 203, ammonia 64. On 07/03/19 around 5pm; patient became hypoxic and obtunded, ABG showed worsening acidosis with hypercapnea, I discuss Dr. Lozoya. I elected to Intubated instead of bipap because pt is obtunded. I called Anesthesia and uneventful intubation done via guide-scope. D/w Dr. Lozoya and daughter Vickieakrina at bedside and another daughter over the phone. Also, spoke with her PCP Dr. Booth over the phone prior to intubation. Flakito handed me the phone with Dr. Booth and her sister on 3 way. * TTE Conclusions: Global LVSF is severely decreased, estimated EF 20-25%, lv diastolic filling is restrictive, RV is mildly dilated, RVSF is moderately reduced, mild MR, moderate TR, RVSP is calcuated at 54 mmHg, mild pulmonic regurgitation, no pericardial effusion, Inferior vena cava is dilated * pCXR Impression: 1.Stable cardiomegaly 2. Diminished lung volumes with mild vascular congestion Acute on chronic hypoxic respiratory failure with ETT in place since 07/03/19: Diuresis, trying to extubate today Acute metabolic encephalopathy most likely from drug overdose: poison control recommended conservative management. Suspect Lyrica Overdose: HD for clearance Aspiration pneumonia unlikely: stopped abx Acute on chronic systolic heart failure: treat with IV diuretic bid, monitor bmp daily, Cardiology is following Acute on chronic CKD 3: Nephrology is following, input noted, Monitor daily renal functions. Avoid nephrotoxins. Maintain MAP >65mmHg. Bloody substance in NGT: stopped the L.I.S and consulted GI, treat with IV PPI History of Ischemic cardiomyopathy History of CAD (coronary artery disease) History of coronary artery bypass graft Hypertension: continue to monitor Hyperlipidemia: statins Diabetes mellitus type 2: ssi, accuchecks COPD (chronic obstructive pulmonary disease): nebs Hyperkalemia: treated hyperkalemia with kayexalate NSTEMI (non-ST elevated myocardial infarction) type 2: Cardiology is following, input noted PVD (peripheral vascular disease) Restraints renewed, just in case patient wakes up and tries to remove ETT, Anastasiya on standby 07/01/19: Admitted to [facility], stayed in ED over 24 hours. Admitted to IMCU 07/02/19: I took over care and requested ICU bed for possible intubation as her mental status was poor (she was obtunded), consulted CCM who evaluate patient, ABG done and Intensvist determined she did not need intubation at the time and ok to admitted to IMCU, so I changed location back from ICU to IMCU. 07/03/19: Renal function worsened, Mental status worsened, she became hypoxic and pCO2 increased with worsening acidosis, and she was emergently intubated by Anesthesia in the IMCU, transferred to ICU 07/04/19 On 07/04/19, She had lewis catheter inserted and ~1600 urine was expell ed then She had right femoral vas cath placed and Hemodialysis done. D/w son Juan Manuel over the phone, he is in [place], [place]. Also, d.w daughter Isis at bedside. They want to transfer to [facility] because of preference but her PCP Dr. Booth doesn't admit to ICU. Hemodialysis started via Right Femoral vas cath 07/05/19: Mental status improved. Still intubated and no sedation is needed. Restraints renewed. 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 She tracking with her eyes and her eyes . She had lewis catheter inserted yesterday 07/04/19 and 1600 urine was expelled immediately. The urine retention was probably related to the drug overdose and should get better. She had right femoral vas cath placed and Hemodialysis yesterday. D/W son Juan Manuel at bedside 07/06/19: HD today, mental status improving, she is squeezing my hand on command with good and equal strength bilaterally, hopefully to extubated today. SSI ordered, increase Lantus as BG uncontrolled, renew restraints. She spiked a fever, give tylenol and ordered set of blood culture 07/07/19: Extubated yesterday around 4pm. Overnight uneventful. She pulled out NGT, bedside swallow evaluation pending. Consider downgrading to IMCU or tele, defer to Squaring Machine Operator. Blood culture pending, consulted ID for new onset fevers. CCT 31 minutes History Interval history: Patient was seen and examined. Follow-up on current diagnosis of AMS. No overnight events reported to me. Imaging, nursing note, chart, labs and old chart reviewed. Extubated. This is the first day she follows some commands. She tracking with her eyes. Hospitalist Physical - Physical exam Narrative exam: Gen: ill appearing, obtunded, mildly increase accessory muscles HEENT: NCAT, eyes matted shut with crust especially left eye, OP Clear Neck: supple, no adenopathy, no thyromegaly, no JVD CVS/Heart: tachycardic normal S1S2, pulses present bilaterally Chest/Lungs: tachypenic, diminished bs bilateral Symmetrical chest expansion, good air entry bilaterally GI/Abdomen: soft, NTND, good bowel sounds, no guarding or rebound /Bladder: no suprapubic tenderness, no CVA or paraspinal tenderness Extermity/Skin: no obvious rash MSK: confused Neuro: CN 2-12 grossly intact, not following directions. Psych: confused - Constitutional Vitals: Temp Pulse Resp BP Pulse Ox 98 F 92 H 27 H 107/60 100 07/07/19 04:00 07/07/19 06:00 07/07/19 06:00 07/07/19 06:00 07/07/19 06:00 General appearance: Present: other (withdrawn, lethargic) Results - Labs CBC & Chem 7: 07/07/19 04:43 07/07/19 04:43 Labs: Laboratory Last Values WBC 11.1 K/mm3 (4.5-11.0) H 07/07/19 04:43 RBC 4.68 M/mm3 (3.65-5.03) 07/07/19 04:43 Hgb 11.6 gm/dl (10.1-14.3) 07/07/19 04:43 Hct 37.2 % (30.3-42.9) 07/07/19 04:43 MCV 79 fl (79-97) 07/07/19 04:43 MCH 25 pg (28-32) L 07/07/19 04:43 MCHC 31 % (30-34) 07/07/19 04:43 RDW 23.2 % (13.2-15.2) H 07/07/19 04:43 Plt Count 191 K/mm3 (140-440) 07/07/19 04:43 Lymph % (Auto) 18.3 % (13.4-35.0) 07/01/19 15:22 Frederick % (Auto) 6.6 % (0.0-7.3) 07/01/19 15:22 Eos % (Auto) 2.4 % (0.0-4.3) 07/01/19 15:22 Baso % (Auto) 0.9 % (0.0-1.8) 07/01/19 15:22 Lymph # 1.1 K/mm3 (1.2-5.4) L 07/01/19 15:22 Frederick # 0.4 K/mm3 (0.0-0.8) 07/01/19 15:22 Eos # 0.1 K/mm3 (0.0-0.4) 07/01/19 15:22 Baso # 0.1 K/mm3 (0.0-0.1) 07/01/19 15:22 Add Manual Diff Complete 07/02/19 11:39 Total Counted 100 07/02/19 11:39 Seg Neutrophils % 71.8 % (40.0-70.0) H 07/01/19 15:22 Seg Neuts % (Manual) 81.0 % (40.0-70.0) H 07/02/19 11:39 2.0 % 07/02/19 11:39 8.0 % (13.4-35.0) L 07/02/19 11:39 Reactive Lymphs % (Man) 0 % 07/02/19 11:39 7.0 % (0.0-7.3) 07/02/19 11:39 0 % (0.0-4.3) 07/02/19 11:39 1.0 % (0.0-1.8) 07/02/19 11:39 1.0 % 07/02/19 11:39 0 % 07/02/19 11:39 0 % 07/02/19 11:39 0 % 07/02/19 11:39 Nucleated RBC % 1.0 % (0.0-0.9) H 07/02/19 11:39 Seg Neutrophils # 4.4 K/mm3 (1.8-7.7) 07/01/19 15:22 Seg Neutrophils # Man 6.8 K/mm3 (1.8-7.7) 07/02/19 11:39 Band Neutrophils # 0.2 K/mm3 07/02/19 11:39 0.7 K/mm3 (1.2-5.4) L 07/02/19 11:39 Abs React Lymphs (Man) 0.0 K/mm3 07/02/19 11:39 0.6 K/mm3 (0.0-0.8) 07/02/19 11:39 0.0 K/mm3 (0.0-0.4) 07/02/19 11:39 0.1 K/mm3 (0.0-0.1) 07/02/19 11:39 0.1 K/mm3 07/02/19 11:39 0.0 K/mm3 07/02/19 11:39 0.0 K/mm3 07/02/19 11:39 Blast Cells # 0.0 K/mm3 07/02/19 11:39 WBC Morphology Not Reportable 07/02/19 11:39 Hypersegmented Neuts Not Reportable 07/02/19 11:39 Hyposegmented Neuts Not Reportable 07/02/19 11:39 Hypogranular Neuts Not Reportable 07/02/19 11:39 Not Reportable 07/02/19 11:39 Not Reportable 07/02/19 11:39 Not Reportable 07/02/19 11:39 Not Reportable 07/02/19 11:39 Not Reportable 07/02/19 11:39 Not Reportable 07/02/19 11:39 Consistent w auto 07/02/19 11:39 Not Reportable 07/02/19 11:39 Plt Clumps, EDTA Not Reportable 07/02/19 11:39 Few 07/02/19 11:39 Not Reportable 07/02/19 11:39 Not Reportable 07/02/19 11:39 Plt Morphology Comment Not Reportable 07/02/19 11:39 RBC Morphology Not Reportable 07/02/19 11:39 Dimorphic RBCs Not Reportable 07/02/19 11:39 Rare 07/02/19 11:39 1+ 07/02/19 11:39 Few 07/02/19 11:39 1+ 07/02/19 11:39 Not Reportable 07/02/19 11:39 Rare 07/02/19 11:39 Rare 07/02/19 11:39 Not Reportable 07/02/19 11:39 Not Reportable 07/02/19 11:39 Rare 07/02/19 11:39 Not Reportable 07/02/19 11:39 Not Reportable 07/02/19 11:39 Not Reportable 07/02/19 11:39 Not Reportable 07/02/19 11:39 Not Reportable 07/02/19 11:39 Not Reportable 07/02/19 11:39 Not Reportable 07/02/19 11:39 Not Reportable 07/02/19 11:39 Not Reportable 07/02/19 11:39 Acanthocytes (Spur) Not Reportable 07/02/19 11:39 Rouleaux Not Reportable 07/02/19 11:39 Not Reportable 07/02/19 11:39 Not Reportable 07/02/19 11:39 Not Reportable 07/02/19 11:39 Not Reportable 07/02/19 11:39 Hem Pathologist Commnt No 07/02/19 11:39 PT 15.1 Sec. (12.2-14.9) H 07/01/19 15:22 INR 1.22 (0.87-1.13) H 07/01/19 15:22 APTT 32.6 Sec. (24.2-36.6) 07/01/19 15:22 POC ABG pH 7.480 (7.35-7.45) H 07/06/19 11:37 ABG pH 7.284 pH Units (7.350-7.450) L 07/01/19 Unknown POC ABG pCO2 33.7 (35-45) L 07/06/19 11:37 ABG pCO2 51.5 mm Hg 07/01/19 Unknown POC ABG pO2 91 (80-105) 07/06/19 11:37 ABG pO2 121.4 mm Hg (80.0-90.0) H 07/01/19 Unknown POC ABG HCO3 25.1 (22-26 mml/L) 07/06/19 11:37 ABG HCO3 23.9 mmol/L (20.0-26.0) 07/01/19 Unknown POC ABG Total CO2 26 (23-27mmol/L) 07/06/19 11:37 POC ABG O2 Sat 98 07/06/19 11:37 ABG O2 Saturation 98.0 % (95.0-99.0) 07/01/19 Unknown ABG O2 Content 14.3 (0.0-44) 07/01/19 Unknown POC ABG Base Excess 2 ((-2) - (+3)mmol/L) 07/06/19 11:37 ABG Base Excess -3.1 mmol/L (-2.0-3.0) L 07/01/19 Unknown ABG Hemoglobin 10.5 gm/dl (12.0-16.0) L 07/01/19 Unknown ABG Carboxyhemoglobin 2.0 % (0.0-5.0) 07/01/19 Unknown ABG Methemoglobin 0.6 % (0.0-1.5) 07/01/19 Unknown 95.6 % (95.0-99.0) 07/01/19 Unknown 25 % 07/06/19 11:37 Sodium 142 mmol/L (137-145) 07/07/19 04:43 Potassium 3.1 mmol/L (3.6-5.0) L 07/07/19 04:43 Chloride 103.3 mmol/L (98-107) 07/07/19 04:43 Carbon Dioxide 28 mmol/L (22-30) 07/07/19 04:43 14 mmol/L 07/07/19 04:43 BUN 13 mg/dL (7-17) 07/07/19 04:43 1.2 mg/dL (0.7-1.2) 07/07/19 04:43 Estimated GFR 56 ml/min 07/07/19 04:43 11 % 07/07/19 04:43 Glucose 162 mg/dL (65-100) H 07/07/19 04:43 POC Glucose 163 (70-105) H 07/07/19 05:29 Calcium 8.9 mg/dL (8.4-10.2) 07/07/19 04:43 Magnesium 2.30 mg/dL (1.7-2.3) 07/04/19 04:19 Iron 26 ug/dL (37-170) L 07/01/19 18:35 0.90 mg/dL (0.1-1.2) 07/02/19 11:39 AST 37 units/L (5-40) 07/02/19 11:39 ALT 36 units/L (7-56) 07/02/19 11:39 202 units/L (35-129) H 07/02/19 11:39 64.0 umol/L (25-60) H 07/01/19 15:35 0.193 ng/mL (0.00-0.029) H* D 07/03/19 04:51 NT-Pro-B Natriuret Pep > 21128 pg/mL (0-900) H 07/01/19 23:32 7.6 g/dL (6.3-8.2) 07/02/19 11:39 3.5 g/dL (3.9-5) L 07/02/19 11:39 0.9 % 07/02/19 11:39 Triglycerides 93 mg/dL (2-149) 07/01/19 15:22 Cholesterol 83 mg/dL (50-199) 07/01/19 15:22 38 mg/dL (50-130) L 07/01/19 15:22 32 mg/dL (40-59) L 07/01/19 15:22 2.59 % 07/01/19 15:22 TSH 0.724 mlU/mL (0.270-4.200) 07/01/19 23:32 Free T4 1.28 ng/dL (0.76-1.46) 07/01/19 23:32 Yellow (Yellow) 07/01/19 14:28 Clear (Clear) 07/01/19 14:28 5.0 (5.0-7.0) 07/01/19 14:28 Ur Specific Ambler 1.012 (1.003-1.030) 07/01/19 14:28 100 mg/dl mg/dL (Negative) 07/01/19 14:28 Neg mg/dL (Negative) 07/01/19 14:28 Neg mg/dL (Negative) 07/01/19 14:28 Neg (Negative) 07/01/19 14:28 Neg (Negative) 07/01/19 14:28 Neg (Negative) 07/01/19 14:28 < 2.0 mg/dL (<2.0) 07/01/19 14:28 Ur Leukocyte Esterase Neg (Negative) 07/01/19 14:28 1.0 /HPF (0.0-6.0) 07/01/19 14:28 2.0 /HPF (0.0-6.0) 07/01/19 14:28 U Epithel Cells (Auto) 1.0 /HPF (0-13.0) 07/01/19 14:28 Salicylates < 0.3 mg/dL (2.8-20.0) L 07/01/19 15:22 Presumptive negative 07/01/19 14:28 Presumptive negative 07/01/19 14:28 Acetaminophen < 5.0 ug/mL (10.0-30.0) L 07/01/19 15:22 Ur Barbiturates Screen Presumptive negative 07/01/19 14:28 Ur Phencyclidine Scrn Presumptive negative 07/01/19 14:28 Ur Amphetamines Screen Presumptive negative 07/01/19 14:28 U Benzodiazepines Scrn Presumptive positive 07/01/19 14:28 Presumptive negative 07/01/19 14:28 U Marijuana (THC) Screen Presumptive negative 07/01/19 14:28 Disclamer 09/23/19 14:28 Plasma/Serum Alcohol < 0.01 % (0-0.07) 07/01/19 15:22 Hepatitis A IgM Ab Non-reactive (NonReactive) 07/04/19 15:58 Hep Bs Antigen Non-reactive (Negative) 07/04/19 15:58 Hep B Core IgM Ab Non-reactive (NonReactive) 07/04/19 15:58 Non-reactive (NonReactive) 07/04/19 15:58 Active Medications - Current Medications Current Medications: Generic Name Dose Route Start Last Admin Trade Name Freq PRN Reason Stop Dose Admin Acetaminophen 650 mg 07/06/19 11:31 07/06/19 18:14 Tylenol FEEDTUBE 650 mg Q6H PRN Administration Non Cardiac Pain or Temp>100.5 Albuterol 2.5 mg 07/01/19 20:06 Proventil IH Q3HRT PRN Shortness Of Breath Lipase/Protease/Amylase 1 each 07/05/19 11:31 Pancreaze 10,500 Unit FEEDTUBE PRN PRN For Clogged Feeding Tube Bumetanide 2 mg 07/07/19 10:00 Bumex IV DAILY [facility] Carvedilol 12.5 mg 07/04/19 22:00 07/06/19 22:23 Coreg PO 12.5 mg BID [facility] Administration Dextrose 50 ml 07/06/19 11:32 D50w (25gm) Syringe IV PRN PRN Hypoglycemia Hydralazine HCl 10 mg 07/02/19 05:49 07/06/19 09:24 Apresoline IV 10 mg Q4H PRN Administration Blood Pressure Hydrophilic Ointment 1 applic 07/03/19 19:12 Vaseline Lip Therapy TP Q2HR PRN Dry Lips Sodium Chloride 100 mls @ 999 mls/hr 07/04/19 15:00 Nacl 0.9% IV LA PRN Hypotension Insulin Glargine 15 units 07/07/19 08:00 Lantus SUB-Q QAMDIAB [facility] Insulin Human Lispro 0 unit 07/06/19 12:00 07/07/19 05:34 Humalog SUB-Q Not Given Q6HR [facility] Protocol Lansoprazole 30 mg 07/06/19 22:00 07/06/19 22:23 Prevacid Solutab FEEDTUBE 30 mg BID [facility] Administration Multi-Ingred Cream/Lotion/Oil/Oint 1 applic 07/03/19 19:12 Artificial Tears Ophth Oint OU Q4HR PRN Dry Eye(s) Simple Syrup 15 ml 07/05/19 11:31 Simple Syrup FEEDTUBE PRN PRN Hypoglycemia Simple Syrup 30 ml 07/05/19 11:31 Simple Syrup FEEDTUBE PRN PRN Hypoglycemia Sodium Bicarbonate 325 mg 07/05/19 11:31 Sodium Bicarbonate FEEDTUBE PRN PRN For Clogged Feeding Tube Sodium Chloride 10 ml 07/01/19 22:00 07/07/19 01:00 Sodium Chloride Flush Syringe 10 Ml IV 10 ml BID CHRISTY Administration Sodium Chloride 10 ml 07/01/19 20:06 Sodium Chloride Flush Syringe 10 Ml IV PRN PRN LINE FLUSH Nutrition/Malnutrition Assess - Dietary Evaluation Nutrition/Malnutrition Findings: Nutrition Notes Start: 07/03/19 10:46 Freq: Status: Active Protocol: Document 07/05/19 11:16 LM (Rec: 07/05/19 11:30 LM [email or web address]) Nutrition Notes Initial or Follow up Reassessment Current Diagnosis Acute Kidney Injury,CKD(stage I-IV),COPD,Coronary Artery Disease,Diabetes,Hypertension Other Pertinent Diagnosis on HD Current Diet NPO Labs/Tests K 3.3 BUN 33 Cr 1.4 BG 250 Pertinent Medications Reviewed Height 5 ft 1 in Weight 91.1 kg [place] Body Weight (kg) 47.72 BMI 37.9 Subjective/Other Information MD consult for TF. Pt getting HD. Burn Absent Trauma Absent Minimum of two criteria No #2 Nutrition Diagnosis Inadequate oral intake Diagnosis Progress(for reassessment Continues documentation) #1 Nutrition Diagnosis Inadequate energy intake Diagnosis Progress(for reassessment Continues documentation) Is patient on ventilator? Yes Is Patient Ambulatory and/or Out of Bed No REE-([place]-confined to bed) 1712.616 Kcal/Kg value to use for calculation 16 Approximate Energy Requirements Using 1458 kcal/Kg Calculation Used for Recommendations Kcal/kg Additional Notes Protein: 57-95 g (1.2-2g/kg IBW 47.72 kg) Fluids: 1 ml/kcal or per MD Nutrition Intervention Change Diet Order: TF Nutrition Support: Nepro 1.8 at 40 ml/hr Flush 170 ml q4hr or per MD Kcal 1,728 Protein (gm) 78 Fluid (mL) 698 Goal #1 TF start/tolerance Goal #2 Meet at least 75% of energy and protein needs Anticipated Discharge Needs: unable to determine at this time Follow-Up By: 07/08/19 Additional Comments F/U for TF tolerance
[2019-07-07] MEDS: INSULIN GLARGINE 100 UNITS/ML SUB-Q SCH (08:08)
--- NOTE | 2019-07-07 09:13 | XRay Report ---
CHEST 1 VIEW 8:18 AM INDICATION / CLINICAL INFORMATION: Respiratory failure. Fever. COMPARISON: Yesterday. FINDINGS: SUPPORT DEVICES: The endotracheal and nasogastric tubes have been removed. HEART / MEDIASTINUM: Unchanged. LUNGS / PLEURA: Diffuse interstitial lung disease has increased significantly. No pneumothorax. ADDITIONAL FINDINGS: No significant additional findings. IMPRESSION: Mild diffuse bilateral pulmonary edema pattern. Signer Name: Praveen Cota MD Signed: 07/07/2019 9:08 AM Workstation Name: [id number]
[2019-07-07] MEDS: carvediloL 12.5 MG TAB PO SCH ×2 (09:52→22:06)
[2019-07-07] MEDS ORDERED: BUMETANIDE 1 MG/4 ML INJ IV SCH (10:00)
[2019-07-07] MEDS: LANSOPRAZOLE 30 MG SOLUTAB FEEDTUBE SCH ×2 (10:01→22:06)
[2019-07-07] MEDS ORDERED: DEXTROSE 50% IN WATER (25GM) 50 ML SYRINGE IV PRN (10:53)
--- NOTE | 2019-07-07 11:17 | Progress Note ---
Assessment and Plan This is a 59-year-old female who was brought in respiratory failure and required intubation until yesterday. Dialysis is in progress. Patient is known to have coronary artery disease and ischemic cardiomyopathy. Patient had previous bypass surgery. Recent echocardiogram showed ejection fraction of about 25% [07/02/2019]. Patient is also known to have mitral regurgitation and moderate tricuspid regurgitation with a RVSP of 54 mmHg. Patient is also known to have peripheral vascular disease and had left carotid endarterectomy.The patient is also known to have had COPD hypertension hyperlipidemia and type 2 diabetes. Patient appears to be improving and her rhythm is stable today. Continue current management. Patient has been extubated. Patient is gradually progressing. Continue current management - Patient Problems (1) History of coronary artery bypass graft Current Visit: Yes Status: Chronic (2) Hyperlipidemia Current Visit: Yes Status: Chronic (3) Hypertension Current Visit: Yes Status: Chronic Qualifiers: Hypertension type: essential hypertension Qualified Code(s): I10 - Essential (primary) hypertension (4) Ischemic cardiomyopathy Current Visit: Yes Status: Chronic (5) NSTEMI (non-ST elevated myocardial infarction) Current Visit: No Status: Acute (6) PAD (peripheral artery disease) Current Visit: No Status: Acute (7) Chronic kidney disease Current Visit: No Status: Chronic (8) Diabetes mellitus Current Visit: No Status: Chronic Qualifiers: Diabetes mellitus type: type 2 Subjective Date of service: 07/07/19 Principal diagnosis: AMS Interval history: Patient is comfortable. She has been extubated. Patient denies chest pain or difficulty in breathing. Objective Vital Signs Temp Pulse Pulse Pulse Pulse Resp Resp 07/07/19 09:52 88 07/07/19 09:31 88 25 H 07/07/19 09:01 91 H 18 07/07/19 08:30 89 15 07/07/19 08:00 97.8 F 87 87 16 07/07/19 07:31 07/07/19 07:30 89 20 07/07/19 07:00 91 H 22 07/07/19 06:30 92 H 18 07/07/19 06:00 92 H 27 H 07/07/19 05:30 90 23 07/07/19 05:00 91 H 19 07/07/19 04:30 90 32 H 07/07/19 04:00 98 F 92 H 93 H 93 H 93 H 18 07/07/19 03:31 91 H 20 07/07/19 03:01 92 H 25 H 07/07/19 02:30 92 H 25 H 07/07/19 02:00 90 24 07/07/19 01:31 93 H 15 07/07/19 01:00 91 H 17 07/07/19 00:30 90 19 07/07/19 00:00 99.8 F H 91 H 83 83 83 20 07/06/19 23:30 95 H 18 07/06/19 23:00 94 H 18 07/06/19 22:30 91 H 29 H 07/06/19 22:23 93 H 07/06/19 22:00 93 H 19 23 07/06/19 21:30 94 H 13 07/06/19 21:01 93 H 12 07/06/19 20:30 96 H 13 07/06/19 20:23 94 H 10 L 07/06/19 20:18 07/06/19 20:00 99.6 F 95 H 93 H 93 H 93 H 11 L 07/06/19 19:30 96 H 11 L 07/06/19 19:01 99 H 31 H 07/06/19 18:30 97 H 31 H 07/06/19 18:01 97 H 22 07/06/19 17:31 97 H 22 07/06/19 17:00 94 H 16 07/06/19 16:30 96 H 27 H 07/06/19 16:25 96 H 07/06/19 16:10 96 H 28 H 07/06/19 16:06 07/06/19 16:00 99 F 94 H 18 07/06/19 15:30 100.2 F H 95 H 12 07/06/19 15:22 94 H 18 07/06/19 15:15 94 H 07/06/19 15:00 94 H 15 07/06/19 14:45 96 H 07/06/19 14:30 96 H 10 L 07/06/19 14:15 97 H 07/06/19 14:00 97 H 12 07/06/19 13:45 96 H 07/06/19 13:30 94 H 15 07/06/19 13:15 96 H 07/06/19 13:00 97 H 20 07/06/19 12:45 97 H 07/06/19 12:30 105 H 20 07/06/19 12:15 102 H 07/06/19 12:00 100.8 F H 99 H 99 H 21 07/06/19 11:50 100.8 F H 07/06/19 11:45 98 H 07/06/19 11:31 98 H 13 07/06/19 11:20 100.8 F H 97 H 18 07/06/19 11:18 99 H Resp Resp Resp BP Pulse Ox Pulse Ox 07/07/19 09:52 115/61 07/07/19 09:31 115/61 100 07/07/19 09:01 140/59 100 07/07/19 08:30 120/60 100 07/07/19 08:00 101/61 99 07/07/19 07:31 100 07/07/19 07:30 114/59 100 07/07/19 07:00 110/57 100 07/07/19 06:30 106/55 100 07/07/19 06:00 107/60 100 07/07/19 05:30 133/77 100 07/07/19 05:00 122/78 100 07/07/19 04:30 114/67 100 07/07/19 04:00 116/70 100 07/07/19 03:31 118/70 100 07/07/19 03:01 107/67 100 07/07/19 02:30 135/77 96 07/07/19 02:00 133/75 98 07/07/19 01:31 125/77 100 07/07/19 01:00 134/82 100 07/07/19 00:30 136/76 100 07/07/19 00:00 124/82 100 07/06/19 23:30 110/69 100 07/06/19 23:00 104/77 100 07/06/19 22:30 132/77 100 07/06/19 22:23 122/77 07/06/19 22:00 23 23 23 122/77 99 07/06/19 21:30 130/79 100 07/06/19 21:01 114/66 100 07/06/19 20:30 92/67 100 07/06/19 20:23 110/73 100 07/06/19 20:18 98 07/06/19 20:00 110/73 98 07/06/19 19:30 119/71 100 07/06/19 19:01 124/67 100 07/06/19 18:30 100/73 100 07/06/19 18:01 102/75 100 07/06/19 17:31 131/81 100 07/06/19 17:00 131/81 100 07/06/19 16:30 122/83 99 07/06/19 16:25 07/06/19 16:10 100 07/06/19 16:06 99 07/06/19 16:00 100/69 98 07/06/19 15:30 118/76 99 99 07/06/19 15:22 118/82 100 07/06/19 15:15 118/82 07/06/19 15:00 109/74 100 07/06/19 14:45 133/81 07/06/19 14:30 124/73 100 07/06/19 14:15 124/78 07/06/19 14:00 122/80 100 07/06/19 13:45 120/84 07/06/19 13:30 123/76 99 07/06/19 13:15 121/76 07/06/19 13:00 133/78 99 07/06/19 12:45 139/77 07/06/19 12:30 127/79 99 07/06/19 12:15 121/67 07/06/19 12:00 123/71 99 07/06/19 11:50 07/06/19 11:45 136/81 07/06/19 11:31 129/70 98 07/06/19 11:20 129/70 99 07/06/19 11:18 117/72 98 - Physical Examination General: Appears Well, Other ( ) HEENT: Positive: PERRL Neck: Positive: neck supple Cardiac: Positive: Regular Rhythm Lungs: Positive: Decreased Breath Sounds (in both bases.) Neuro: Positive: Other (intubated) Abdomen: Positive: Soft Skin: Negative: Rash Musculoskeletal: No Fluid Collection Extremities: Present: Other (bilateral below-knee amputation). Absent: edema - Labs and Meds CBC 07/07/19 Range/Units 04:43 WBC 11.1 H (4.5-11.0) K/mm3 RBC 4.68 (3.65-5.03) M/mm3 Hgb 11.6 (10.1-14.3) gm/dl Hct 37.2 (30.3-42.9) % Plt Count 191 (140-440) K/mm3 Comprehensive Metabolic Panel 07/07/19 Range/Units 04:43 Sodium 142 (137-145) mmol/L Potassium 3.1 L (3.6-5.0) mmol/L Chloride 103.3 (98-107) mmol/L Carbon Dioxide 28 (22-30) mmol/L BUN 13 (7-17) mg/dL Creatinine 1.2 (0.7-1.2) mg/dL Glucose 162 H (65-100) mg/dL Calcium 8.9 (8.4-10.2) mg/dL - Imaging and Cardiology EKG: report reviewed, image reviewed Echo: report reviewed (09/2017 showed EF 35-40%, mild LVH, severe LAE, mild AR and MR, mod TR, RVSP 66mmHg. 06/2019: EF 20-25%, restrictive diastolic filling, RV mildly dilated, mild MR, mod TR, RVSP 54mmHg, mild MO. ) - EKG Sinus rhythms and dysrhythmias: sinus rhythm - Allied health notes Allied health notes reviewed: nursing
--- NOTE | 2019-07-07 11:20 | Progress Note ---
Assessment and Plan 59 y/o female with altered mental status thought secondary to overdose of lyrica vs uremic encephalopaty from worsening renal function vs acute systolic heart failure exacerbation. 1. Agree with transfer 2. Discontinue oxygen 3. Discontinue lewis 4. Will sign off once out of unit. Subjective Date of service: 07/07/19 Principal diagnosis: AMS Interval history: nO ACUTE EVENTS. Awake and alert. Son at bedside. Concerned that mother has not gone to sleep. Wants her to rest. Objective Vital Signs - 12hr 07/06/19 07/07/19 07/07/19 23:30 00:00 00:30 Temperature 99.8 F H Pulse Rate 95 H 91 H 90 Pulse Rate [ 83 From Monitor] Pulse Rate [ 83 Left Radial] Pulse Rate [ 83 Right Radial] Respiratory 18 20 19 Rate Blood Pressure 110/69 124/82 136/76 O2 Sat by Pulse 100 100 100 Oximetry 07/07/19 07/07/19 07/07/19 01:00 01:31 02:00 Temperature Pulse Rate 91 H 93 H 90 Pulse Rate [ From Monitor] Pulse Rate [ Left Radial] Pulse Rate [ Right Radial] Respiratory 17 15 24 Rate Blood Pressure 134/82 125/77 133/75 O2 Sat by Pulse 100 100 98 Oximetry 07/07/19 07/07/19 07/07/19 02:30 03:01 03:31 Temperature Pulse Rate 92 H 92 H 91 H Pulse Rate [ From Monitor] Pulse Rate [ Left Radial] Pulse Rate [ Right Radial] Respiratory 25 H 25 H 20 Rate Blood Pressure 135/77 107/67 118/70 O2 Sat by Pulse 96 100 100 Oximetry 07/07/19 07/07/19 07/07/19 04:00 04:30 05:00 Temperature 98 F Pulse Rate 92 H 90 91 H Pulse Rate [ 93 H From Monitor] Pulse Rate [ 93 H Left Radial] Pulse Rate [ 93 H Right Radial] Respiratory 18 32 H 19 Rate Blood Pressure 116/70 114/67 122/78 O2 Sat by Pulse 100 100 100 Oximetry 07/07/19 07/07/19 07/07/19 05:30 06:00 06:30 Temperature Pulse Rate 90 92 H 92 H Pulse Rate [ From Monitor] Pulse Rate [ Left Radial] Pulse Rate [ Right Radial] Respiratory 23 27 H 18 Rate Blood Pressure 133/77 107/60 106/55 O2 Sat by Pulse 100 100 100 Oximetry 07/07/19 07/07/19 07/07/19 07:00 07:30 07:31 Temperature Pulse Rate 91 H 89 Pulse Rate [ From Monitor] Pulse Rate [ Left Radial] Pulse Rate [ Right Radial] Respiratory 22 20 Rate Blood Pressure 110/57 114/59 O2 Sat by Pulse 100 100 100 Oximetry 07/07/19 07/07/19 07/07/19 08:00 08:30 09:01 Temperature 97.8 F Pulse Rate 87 89 91 H Pulse Rate [ 87 From Monitor] Pulse Rate [ Left Radial] Pulse Rate [ Right Radial] Respiratory 16 15 18 Rate Blood Pressure 101/61 120/60 140/59 O2 Sat by Pulse 99 100 100 Oximetry 07/07/19 07/07/19 09:31 09:52 Temperature Pulse Rate 88 88 Pulse Rate [ From Monitor] Pulse Rate [ Left Radial] Pulse Rate [ Right Radial] Respiratory 25 H Rate Blood Pressure 115/61 115/61 O2 Sat by Pulse 100 Oximetry Constitutional: no acute distress, other (obtunded) Eyes: non-icteric ENT: oropharynx moist Neck: supple Effort: normal Ascultation: Bilateral: diminished breath sounds Percussion: Bilateral: not dull Cardiovascular: regular rate and rhythm Gastrointestinal: normoactive bowel sounds, soft Extremities: edema Neurologic: unable to assess CBC and BMP: 07/07/19 04:43 07/07/19 04:43 ABG, PT/INR, D-dimer: ABG POC ABG pH 7.480 (7.35-7.45) H 07/06/19 11:37 ABG pH 7.284 pH Units (7.350-7.450) L 07/01/19 Unknown POC ABG pCO2 33.7 (35-45) L 07/06/19 11:37 ABG pCO2 51.5 mm Hg 07/01/19 Unknown POC ABG pO2 91 (80-105) 07/06/19 11:37 ABG pO2 121.4 mm Hg (80.0-90.0) H 07/01/19 Unknown POC ABG HCO3 25.1 (22-26 mml/L) 07/06/19 11:37 POC ABG Total CO2 26 (23-27mmol/L) 07/06/19 11:37 POC ABG O2 Sat 98 07/06/19 11:37 ABG O2 Saturation 98.0 % (95.0-99.0) 07/01/19 Unknown PT/INR, D-dimer PT 15.1 Sec. (12.2-14.9) H 07/01/19 15:22 INR 1.22 (0.87-1.13) H 07/01/19 15:22 Abnormal lab findings: Abnormal Labs 07/01/19 07/01/19 07/01/19 15:22 15:22 15:22 WBC MCH 25 L RDW 22.1 H Lymph # 1.1 L Seg Neutrophils % 71.8 H Seg Neuts % (Manual) Lymphocytes % (Manual) Nucleated RBC % Lymphocytes # (Manual) PT 15.1 H INR 1.22 H POC ABG pH ABG pH POC ABG pCO2 POC ABG pO2 ABG pO2 ABG Base Excess ABG Hemoglobin Sodium Potassium 5.2 H Chloride Carbon Dioxide BUN 67 H Creatinine 2.7 H Glucose 146 H POC Glucose Calcium Iron AST 52 H Alkaline Phosphatase 203 H Ammonia Troponin T NT-Pro-B Natriuret Pep Albumin 3.4 L LDL Cholesterol Direct HDL Cholesterol Salicylates Acetaminophen 07/01/19 07/01/19 07/01/19 15:22 15:22 15:22 WBC MCH RDW Lymph # Seg Neutrophils % Seg Neuts % (Manual) Lymphocytes % (Manual) Nucleated RBC % Lymphocytes # (Manual) PT INR POC ABG pH ABG pH POC ABG pCO2 POC ABG pO2 ABG pO2 ABG Base Excess ABG Hemoglobin Sodium Potassium Chloride Carbon Dioxide BUN Creatinine Glucose POC Glucose Calcium Iron AST Alkaline Phosphatase Ammonia Troponin T 0.121 H* NT-Pro-B Natriuret Pep Albumin LDL Cholesterol Direct 38 L HDL Cholesterol 32 L Salicylates < 0.3 L Acetaminophen < 5.0 L 07/01/19 07/01/19 07/01/19 15:35 18:35 23:32 WBC MCH RDW Lymph # Seg Neutrophils % Seg Neuts % (Manual) Lymphocytes % (Manual) Nucleated RBC % Lymphocytes # (Manual) PT INR POC ABG pH ABG pH POC ABG pCO2 POC ABG pO2 ABG pO2 ABG Base Excess ABG Hemoglobin Sodium Potassium Chloride Carbon Dioxide BUN Creatinine Glucose POC Glucose Calcium Iron 26 L AST Alkaline Phosphatase Ammonia 64.0 H Troponin T NT-Pro-B Natriuret Pep > 82643 H Albumin LDL Cholesterol Direct HDL Cholesterol Salicylates Acetaminophen 07/01/19 07/02/19 07/02/19 Unknown 07:32 10:33 WBC MCH RDW Lymph # Seg Neutrophils % Seg Neuts % (Manual) Lymphocytes % (Manual) Nucleated RBC % Lymphocytes # (Manual) PT INR POC ABG pH 7.275 L ABG pH 7.284 L POC ABG pCO2 POC ABG pO2 76 L ABG pO2 121.4 H ABG Base Excess -3.1 L ABG Hemoglobin 10.5 L Sodium Potassium Chloride Carbon Dioxide BUN Creatinine Glucose POC Glucose 164 H Calcium Iron AST Alkaline Phosphatase Ammonia Troponin T NT-Pro-B Natriuret Pep Albumin LDL Cholesterol Direct HDL Cholesterol Salicylates Acetaminophen 07/02/19 07/02/19 07/02/19 11:39 11:39 11:39 WBC MCH 25 L RDW 22.3 H Lymph # Seg Neutrophils % Seg Neuts % (Manual) 81.0 H Lymphocytes % (Manual) 8.0 L Nucleated RBC % 1.0 H Lymphocytes # (Manual) 0.7 L PT INR POC ABG pH ABG pH POC ABG pCO2 POC ABG pO2 ABG pO2 ABG Base Excess ABG Hemoglobin Sodium Potassium 5.7 H Chloride 109.5 H Carbon Dioxide 14 L D BUN 73 H Creatinine 2.6 H Glucose 187 H POC Glucose Calcium Iron AST Alkaline Phosphatase 202 H Ammonia Troponin T 0.138 H* NT-Pro-B Natriuret Pep Albumin 3.5 L LDL Cholesterol Direct HDL Cholesterol Salicylates Acetaminophen 07/03/19 07/03/19 07/03/19 04:51 10:22 16:53 WBC MCH 24 L RDW 22.4 H Lymph # Seg Neutrophils % Seg Neuts % (Manual) Lymphocytes % (Manual) Nucleated RBC % Lymphocytes # (Manual) PT INR POC ABG pH 7.222 L ABG pH POC ABG pCO2 60.0 H POC ABG pO2 167 H ABG pO2 ABG Base Excess ABG Hemoglobin Sodium 149 H Potassium 5.3 H Chloride 110.6 H Carbon Dioxide 17 L BUN 79 H Creatinine 2.8 H Glucose 244 H POC Glucose Calcium Iron AST Alkaline Phosphatase Ammonia Troponin T 0.193 H* D NT-Pro-B Natriuret Pep Albumin LDL Cholesterol Direct HDL Cholesterol Salicylates Acetaminophen 07/03/19 07/04/19 07/04/19 20:42 04:17 04:19 WBC MCH RDW Lymph # Seg Neutrophils % Seg Neuts % (Manual) Lymphocytes % (Manual) Nucleated RBC % Lymphocytes # (Manual) PT INR POC ABG pH ABG pH POC ABG pCO2 32.8 L 31.8 L POC ABG pO2 207 H 155 H ABG pO2 ABG Base Excess ABG Hemoglobin Sodium 151 H Potassium Chloride 110.7 H Carbon Dioxide 16 L BUN 88 H Creatinine 2.8 H Glucose 303 H POC Glucose Calcium 10.5 H Iron AST Alkaline Phosphatase Ammonia Troponin T NT-Pro-B Natriuret Pep Albumin LDL Cholesterol Direct HDL Cholesterol Salicylates Acetaminophen 07/04/19 07/04/19 07/04/19 04:19 13:32 17:42 WBC MCH 24 L RDW 22.7 H Lymph # Seg Neutrophils % Seg Neuts % (Manual) Lymphocytes % (Manual) Nucleated RBC % Lymphocytes # (Manual) PT INR POC ABG pH ABG pH POC ABG pCO2 POC ABG pO2 ABG pO2 ABG Base Excess ABG Hemoglobin Sodium Potassium Chloride Carbon Dioxide BUN Creatinine Glucose POC Glucose 340 H 334 H Calcium Iron AST Alkaline Phosphatase Ammonia Troponin T NT-Pro-B Natriuret Pep Albumin LDL Cholesterol Direct HDL Cholesterol Salicylates Acetaminophen 07/04/19 07/05/19 07/05/19 23:31 04:22 05:23 WBC MCH RDW Lymph # Seg Neutrophils % Seg Neuts % (Manual) Lymphocytes % (Manual) Nucleated RBC % Lymphocytes # (Manual) PT INR POC ABG pH ABG pH POC ABG pCO2 32.9 L POC ABG pO2 ABG pO2 ABG Base Excess ABG Hemoglobin Sodium Potassium 3.3 L D Chloride Carbon Dioxide BUN 33 H Creatinine 1.4 H Glucose 250 H POC Glucose 223 H Calcium Iron AST Alkaline Phosphatase Ammonia Troponin T NT-Pro-B Natriuret Pep Albumin LDL Cholesterol Direct HDL Cholesterol Salicylates Acetaminophen 07/05/19 07/05/19 07/05/19 05:23 05:38 11:21 WBC MCH 25 L RDW 22.4 H Lymph # Seg Neutrophils % Seg Neuts % (Manual) Lymphocytes % (Manual) Nucleated RBC % Lymphocytes # (Manual) PT INR POC ABG pH ABG pH POC ABG pCO2 POC ABG pO2 ABG pO2 ABG Base Excess ABG Hemoglobin Sodium Potassium Chloride Carbon Dioxide BUN Creatinine Glucose POC Glucose 262 H 256 H Calcium Iron AST Alkaline Phosphatase Ammonia Troponin T NT-Pro-B Natriuret Pep Albumin LDL Cholesterol Direct HDL Cholesterol Salicylates Acetaminophen 07/05/19 07/05/19 07/05/19 16:54 17:43 23:58 WBC MCH RDW Lymph # Seg Neutrophils % Seg Neuts % (Manual) Lymphocytes % (Manual) Nucleated RBC % Lymphocytes # (Manual) PT INR POC ABG pH 7.518 H ABG pH POC ABG pCO2 32.4 L POC ABG pO2 ABG pO2 ABG Base Excess ABG Hemoglobin Sodium Potassium Chloride Carbon Dioxide BUN Creatinine Glucose POC Glucose 219 H 254 H Calcium Iron AST Alkaline Phosphatase Ammonia Troponin T NT-Pro-B Natriuret Pep Albumin LDL Cholesterol Direct HDL Cholesterol Salicylates Acetaminophen 07/06/19 07/06/19 07/06/19 04:23 05:03 11:37 WBC MCH RDW Lymph # Seg Neutrophils % Seg Neuts % (Manual) Lymphocytes % (Manual) Nucleated RBC % Lymphocytes # (Manual) PT INR POC ABG pH 7.480 H ABG pH POC ABG pCO2 33.7 L POC ABG pO2 70 L ABG pO2 ABG Base Excess ABG Hemoglobin Sodium Potassium Chloride Carbon Dioxide BUN Creatinine Glucose POC Glucose 300 H Calcium Iron AST Alkaline Phosphatase Ammonia Troponin T NT-Pro-B Natriuret Pep Albumin LDL Cholesterol Direct HDL Cholesterol Salicylates Acetaminophen 07/06/19 07/06/19 07/06/19 12:09 17:39 23:26 WBC MCH RDW Lymph # Seg Neutrophils % Seg Neuts % (Manual) Lymphocytes % (Manual) Nucleated RBC % Lymphocytes # (Manual) PT INR POC ABG pH ABG pH POC ABG pCO2 POC ABG pO2 ABG pO2 ABG Base Excess ABG Hemoglobin Sodium Potassium Chloride Carbon Dioxide BUN Creatinine Glucose POC Glucose 355 H 266 H 235 H Calcium Iron AST Alkaline Phosphatase Ammonia Troponin T NT-Pro-B Natriuret Pep Albumin LDL Cholesterol Direct HDL Cholesterol Salicylates Acetaminophen 07/06/19 07/06/19 07/07/19 Unknown Unknown 04:43 WBC 11.1 H MCH 25 L 25 L RDW 22.9 H 23.2 H Lymph # Seg Neutrophils % Seg Neuts % (Manual) Lymphocytes % (Manual) Nucleated RBC % Lymphocytes # (Manual) PT INR POC ABG pH ABG pH POC ABG pCO2 POC ABG pO2 ABG pO2 ABG Base Excess ABG Hemoglobin Sodium Potassium 3.5 L Chloride Carbon Dioxide BUN 22 H Creatinine 1.4 H Glucose 316 H POC Glucose Calcium Iron AST Alkaline Phosphatase Ammonia Troponin T NT-Pro-B Natriuret Pep Albumin LDL Cholesterol Direct HDL Cholesterol Salicylates Acetaminophen 07/07/19 07/07/19 04:43 05:29 WBC MCH RDW Lymph # Seg Neutrophils % Seg Neuts % (Manual) Lymphocytes % (Manual) Nucleated RBC % Lymphocytes # (Manual) PT INR POC ABG pH ABG pH POC ABG pCO2 POC ABG pO2 ABG pO2 ABG Base Excess ABG Hemoglobin Sodium Potassium 3.1 L Chloride Carbon Dioxide BUN Creatinine Glucose 162 H POC Glucose 163 H Calcium Iron AST Alkaline Phosphatase Ammonia Troponin T NT-Pro-B Natriuret Pep Albumin LDL Cholesterol Direct HDL Cholesterol Salicylates Acetaminophen Allied health notes reviewed: nursing
[2019-07-07] MEDS: ACETAMINOPHEN 325 MG TAB PO PRN ×2 (12:27→20:18)
[2019-07-07] MEDS: ONDANSETRON 4 MG/2 ML INJ IV PRN ×2 (12:35→21:09)
--- NOTE | 2019-07-07 15:10 | Progress Note ---
Assessment and Plan - Patient Problems (1) Acute kidney injury superimposed on chronic kidney disease Current Visit: Yes Status: Acute Plan to address problem: Patient has OLEKSANDR on already progressed CKD IV, likely in the setting of acute/chronic systolic heart failure and cardiorenal syndrome. pt with good UOP on lewis, improved volume status. cont IV bumex to 2mg once daily. pt with improved mental status after daily HD. Monitor daily renal functions. Avoid nephrotoxins. Maintain MAP >65mmHg. (2) Altered mental status Current Visit: Yes Status: Acute Plan to address problem: Possibly secondary to Lyrica overdose. mental status improved significantly with daily HD (3) Acute HFrEF (heart failure with reduced ejection fraction) Current Visit: Yes Status: Acute Plan to address problem: ECHO findings noted with severely decreased systolic functions, and significant elevation of BNP noted. Strict I/O. cont Bumex 2mg IV qd. Please carefully document urine output/response with diuretic therapy. (4) Acute and chronic respiratory failure with hypoxia Current Visit: Yes Status: Acute Plan to address problem: Likely in the setting of acute on chronic CHF. cont IV diuresis, fluid removal with HD Further recommendations per pulmonology. She also has a h/o COPD. Intubated at this time (5) Fluid overload Current Visit: Yes Status: Acute Plan to address problem: on IV bumex Subjective Date of service: 07/07/19 Principal diagnosis: AMS Interval history: Pt with improved mental status after daily HD, s/p extubation Objective - Vital Signs Vital signs: Vital Signs - 12hr 07/07/19 07/07/19 07/07/19 03:31 04:00 04:30 Temperature 98 F Pulse Rate 91 H 92 H 90 Pulse Rate [ 93 H From Monitor] Pulse Rate [ 93 H Left Radial] Pulse Rate [ 93 H Right Radial] Respiratory 20 18 32 H Rate Blood Pressure 118/70 116/70 114/67 O2 Sat by Pulse 100 100 100 Oximetry 07/07/19 07/07/19 07/07/19 05:00 05:30 06:00 Temperature Pulse Rate 91 H 90 92 H Pulse Rate [ From Monitor] Pulse Rate [ Left Radial] Pulse Rate [ Right Radial] Respiratory 19 23 27 H Rate Blood Pressure 122/78 133/77 107/60 O2 Sat by Pulse 100 100 100 Oximetry 07/07/19 07/07/19 07/07/19 06:30 07:00 07:30 Temperature Pulse Rate 92 H 91 H 89 Pulse Rate [ From Monitor] Pulse Rate [ Left Radial] Pulse Rate [ Right Radial] Respiratory 18 22 20 Rate Blood Pressure 106/55 110/57 114/59 O2 Sat by Pulse 100 100 100 Oximetry 07/07/19 07/07/19 07/07/19 07:31 08:00 08:30 Temperature 97.8 F Pulse Rate 87 89 Pulse Rate [ 87 From Monitor] Pulse Rate [ Left Radial] Pulse Rate [ Right Radial] Respiratory 16 15 Rate Blood Pressure 101/61 120/60 O2 Sat by Pulse 100 99 100 Oximetry 07/07/19 07/07/19 07/07/19 09:01 09:31 09:52 Temperature Pulse Rate 91 H 88 88 Pulse Rate [ From Monitor] Pulse Rate [ Left Radial] Pulse Rate [ Right Radial] Respiratory 18 25 H Rate Blood Pressure 140/59 115/61 115/61 O2 Sat by Pulse 100 100 Oximetry 07/07/19 07/07/19 07/07/19 10:00 10:30 11:00 Temperature Pulse Rate 86 87 86 Pulse Rate [ From Monitor] Pulse Rate [ Left Radial] Pulse Rate [ Right Radial] Respiratory 25 H 29 H 29 H Rate Blood Pressure 127/70 123/65 132/71 O2 Sat by Pulse 100 100 100 Oximetry 07/07/19 07/07/19 07/07/19 11:31 12:00 13:00 Temperature 98.8 F Pulse Rate 87 85 Pulse Rate [ 87 From Monitor] Pulse Rate [ Left Radial] Pulse Rate [ 87 Right Radial] Respiratory 22 32 H Rate Blood Pressure 116/64 123/68 O2 Sat by Pulse 95 96 96 Oximetry 07/07/19 14:00 Temperature Pulse Rate 82 Pulse Rate [ From Monitor] Pulse Rate [ Left Radial] Pulse Rate [ Right Radial] Respiratory 16 Rate Blood Pressure 113/59 O2 Sat by Pulse 96 Oximetry - General Appearance General appearance: well-developed, well-nourished, appears stated age EENT: ATNC, PERRL, mucous membranes moist Neck: no JVD Respiratory: Present: Clear to Ascultation Cardiology: regular, S1S2 Gastrointestinal: normoactive bowel sounds Integumentary: no rash, other (no edema ) Neurologic: no focal deficit, alert and oriented x3, strength 5/5, CN 3-12 intact Psychiatric: mood/affect appropriate, cooperative - Lab 07/07/19 04:43 07/07/19 04:43 Most recent lab results ABG pH 7.284 pH Units (7.350-7.450) L 07/01/19 Unknown ABG pCO2 51.5 mm Hg 07/01/19 Unknown ABG pO2 121.4 mm Hg (80.0-90.0) H 07/01/19 Unknown ABG HCO3 23.9 mmol/L (20.0-26.0) 07/01/19 Unknown ABG O2 Saturation 98.0 % (95.0-99.0) 07/01/19 Unknown Calcium 8.9 mg/dL (8.4-10.2) 07/07/19 04:43 Magnesium 2.30 mg/dL (1.7-2.3) 07/04/19 04:19 Medications & Allergies - Medications Allergies/Adverse Reactions: Allergies KRYSTIAN Inhibitors Allergy (Verified 04/26/14 00:50) Shortness of Breath amitriptyline Allergy (Verified 12/18/17 17:44) Unknown Home Medications: Home Medications Medication Instructions Recorded Confirmed Last Taken Type ALBUTEROL Inhaler (OR & NICU) 2 puff IH QID PRN 03/16/16 07/01/19 06/30/19 History [ProAir HFA Inhaler] Albuterol *Only Ed* [Proventil 2.5 mg IH QIDRT PRN #7 nebu 03/22/16 07/01/19 06/30/19 Rx 0.5% NEBS] Butalb/Acetamin/Caff 50-325-40 1 tab PO Q8HR PRN #90 tablet 03/22/16 07/01/19 06/30/19 Rx [Fioricet 50-325-40] HYDROcodone/APAP 5-325 [[place] 1 each PO QHS #30 tablet 03/22/16 07/01/19 06/30/19 Rx 5-325 mg TAB] ISOSORBIDE MONOnitrate [Imdur ER] 30 mg PO QDAY #30 tablet 03/22/16 07/01/19 06/30/19 Rx Insulin NPH/Regular [NovoLIN 70/30] 30 unit SQ BIDDIAB #30 units 03/22/16 07/01/19 06/30/19 Rx Aspirin [Aspirin BABY CHEW TAB] 81 mg PO QDAY #15 tab.chew 04/08/16 07/01/19 06/30/19 Rx AtorvaSTATin [Lipitor] 40 mg PO QHS #15 tablet 04/08/16 07/01/19 06/30/19 Rx Clopidogrel [Plavix] 75 mg PO QDAY #15 tablet 04/08/16 07/01/19 06/30/19 Rx Chlorhexidine Mouthwash [Peridex] 15 ml MM BID #1 bottle 12/18/17 07/01/19 06/30/19 Rx Carvedilol [Coreg] 12.5 mg PO QDAY 07/01/19 07/01/19 06/30/19 History Escitalopram Oxalate [Lexapro] 10 mg PO QHS 07/01/19 07/01/19 06/30/19 History Ferrous Sulfate [Feosol] 325 mg PO QDAY 07/01/19 07/01/19 06/30/19 History Pregabalin [Lyrica] 75 mg PO QHS 07/01/19 07/01/19 06/30/19 History Sodium Bicarbonate 650 mg PO BID 07/01/19 07/01/19 06/30/19 History Torsemide [Demadex] 10 mg PO QDAY 07/01/19 07/01/19 06/30/19 History hydrALAZINE [Apresoline] 25 mg PO QDAY 07/01/19 07/01/19 06/30/19 History Active Medications: Generic Name Dose Route Start Last Admin Trade Name Freq PRN Reason Stop Dose Admin Acetaminophen 650 mg 07/07/19 11:24 07/07/19 12:27 Tylenol PO 650 mg Q6H PRN Administration Non Cardiac Pain or Temp>100.5 Albuterol 2.5 mg 07/01/19 20:06 Proventil IH Q3HRT PRN Shortness Of Breath Bumetanide 2 mg 07/07/19 10:00 07/07/19 09:53 Bumex IV 2 mg DAILY CHRISTY Administration Carvedilol 12.5 mg 07/04/19 22:00 07/07/19 09:52 Coreg PO 12.5 mg BID CHRISTY Administration Dextrose 50 ml 07/07/19 10:53 D50w (25gm) Syringe IV PRN PRN Hypoglycemia Hydralazine HCl 10 mg 07/02/19 05:49 07/06/19 09:24 Apresoline IV 10 mg Q4H PRN Administration Blood Pressure Hydrophilic Ointment 1 applic 07/03/19 19:12 Vaseline Lip Therapy TP Q2HR PRN Dry Lips Sodium Chloride 100 mls @ 999 mls/hr 07/04/19 15:00 Nacl 0.9% IV LA PRN Hypotension Insulin Glargine 15 units 07/07/19 08:00 07/07/19 08:08 Lantus SUB-Q 15 units QAMDIAB CHRISTY Administration Insulin Human Lispro 0 unit 07/07/19 11:30 07/07/19 12:36 Humalog SUB-Q 4 unit ACHS CHRISTY Administration Protocol Lansoprazole 30 mg 07/06/19 22:00 07/07/19 10:01 Prevacid Solutab FEEDTUBE 30 mg BID CHRISTY Administration Ondansetron HCl 4 mg 07/07/19 12:19 07/07/19 12:35 Zofran IV 4 mg Q4H PRN Administration Nausea And Vomiting Sodium Chloride 10 ml 07/01/19 22:00 07/07/19 09:54 Sodium Chloride Flush Syringe 10 Ml IV 10 ml BID CHRISTY Administration Sodium Chloride 10 ml 07/01/19 20:06 Sodium Chloride Flush Syringe 10 Ml IV PRN PRN LINE FLUSH
--- NOTE | 2019-07-07 16:03 | Consultation ---
History of Present Illness - Reason for Consult Consult date: 07/07/19 - History of Present Illness 59 yo F PMhx HTn, CAD, HFrEF, carotid stenosis, COPD, HTN, DM2, CKD admitted with unresponsiveness. she was found by her family to be somnolent in bed with Lyrica in her hand and on the bed around her. The day after being found like this she was noticed to have vomited on herself, but refused being taken to the hospital. she became more and more fatigued, to the point she could not stay awake. The patient was brought to the ER, and became hypoxic and obtunded and was intubated. Throughout her stay her renal function worsened, however her mental status improved, as did her respiratory status, and she was eventually extubated yesterday. The patient's family prefers for her to be transferred to [facility] as that is where her primary doctor rounds, however he does not admit to the ICU and that has been delaying her transfer. She became febrile yesterday after extubation to 100.8, though that has resolved. She is not currently receiving antibiotics. White count is 11 after being normal throughout her admission. Blood and urine cultures have been no growth. Imaging personally reviewed: CXR: Stable bibasilar opacities. Review of Systems: Bold if positive, otherwise negative General: fevers, chills, rigors HEENT: visual disturbance, diplopia, eye pain Respiratory: cough, sputum, hemoptysis, shortness of breath Cardiovascular: chest pain, syncope Gastrointestinal: nausea, vomiting, diarrhea, abdominal pain Genitourinary: dysuria, hematuria, flank pain Musculoskeletal: neck pain, back pain, joint pain, edema Neurologic: headaches, seizures Hematologic: easy bruising or bleeding Endocrine: night sweats, acute weight loss Skin: rash, jaundice, redness Psychiatric: suicidal, homicidal ideation Past History Past Medical History: CAD, COPD, diabetes, heart failure, migraines Past Surgical History: CABG, Other ( x 2. left nephrectomy s/p aneurysm. left carotid endarterectomy (January 2016). R BKA. Triple bypass (0 05/2016)) Social history: Family history: diabetes, hypertension Medications and Allergies Allergies Allergy/AdvReac Type Severity Reaction Status Date / Time KRYSTIAN Inhibitors Allergy Shortness Verified 04/26/14 00:50 of Breath amitriptyline Allergy Unknown Verified 12/18/17 17:44 Home Medications Medication Instructions Recorded Confirmed Last Taken Type ALBUTEROL Inhaler (OR & NICU) 2 puff IH QID PRN 03/16/16 07/01/19 06/30/19 History [ProAir HFA Inhaler] Albuterol *Only Ed* [Proventil 2.5 mg IH QIDRT PRN #7 nebu 03/22/16 07/01/19 06/30/19 Rx 0.5% NEBS] Butalb/Acetamin/Caff 50-325-40 1 tab PO Q8HR PRN #90 tablet 03/22/16 07/01/19 06/30/19 Rx [Fioricet 50-325-40] HYDROcodone/APAP 5-325 [[place] 1 each PO QHS #30 tablet 03/22/16 07/01/19 06/30/19 Rx 5-325 mg TAB] ISOSORBIDE MONOnitrate [Imdur ER] 30 mg PO QDAY #30 tablet 03/22/16 07/01/19 06/30/19 Rx Insulin NPH/Regular [NovoLIN 70/30] 30 unit SQ BIDDIAB #30 units 03/22/16 07/01/19 06/30/19 Rx Aspirin [Aspirin BABY CHEW TAB] 81 mg PO QDAY #15 tab.chew 04/08/16 07/01/19 06/30/19 Rx AtorvaSTATin [Lipitor] 40 mg PO QHS #15 tablet 04/08/16 07/01/19 06/30/19 Rx Clopidogrel [Plavix] 75 mg PO QDAY #15 tablet 04/08/16 07/01/19 06/30/19 Rx Chlorhexidine Mouthwash [Peridex] 15 ml MM BID #1 bottle 12/18/17 07/01/19 06/30/19 Rx Carvedilol [Coreg] 12.5 mg PO QDAY 07/01/19 07/01/19 06/30/19 History Escitalopram Oxalate [Lexapro] 10 mg PO QHS 07/01/19 07/01/19 06/30/19 History Ferrous Sulfate [Feosol] 325 mg PO QDAY 07/01/19 07/01/19 06/30/19 History Pregabalin [Lyrica] 75 mg PO QHS 07/01/19 07/01/19 06/30/19 History Sodium Bicarbonate 650 mg PO BID 07/01/19 07/01/19 06/30/19 History Torsemide [Demadex] 10 mg PO QDAY 07/01/19 07/01/19 06/30/19 History hydrALAZINE [Apresoline] 25 mg PO QDAY 07/01/19 07/01/19 06/30/19 History Active Meds: Active Medications Acetaminophen (Tylenol) 650 mg PO Q6H PRN PRN Reason: Non Cardiac Pain or Temp>100.5 Last Admin: 07/07/19 12:27 Dose: 650 mg Documented by: Albuterol (Proventil) 2.5 mg IH Q3HRT PRN PRN Reason: Shortness Of Breath Bumetanide (Bumex) 2 mg IV DAILY [facility] Last Admin: 07/07/19 09:53 Dose: 2 mg Documented by: Carvedilol (Coreg) 12.5 mg PO BID [facility] Last Admin: 07/07/19 09:52 Dose: 12.5 mg Documented by: Dextrose (D50w (25gm) Syringe) 50 ml IV PRN PRN PRN Reason: Hypoglycemia Hydralazine HCl (Apresoline) 10 mg IV Q4H PRN PRN Reason: Blood Pressure Last Admin: 07/06/19 09:24 Dose: 10 mg Documented by: Hydrophilic Ointment (Vaseline Lip Therapy) 1 applic TP Q2HR PRN PRN Reason: Dry Lips Sodium Chloride (Nacl 0.9%) 100 mls @ 999 mls/hr IV LA PRN PRN Reason: Hypotension Insulin Glargine (Lantus) 15 units SUB-Q QAMDIAB [facility] Last Admin: 07/07/19 08:08 Dose: 15 units Documented by: Insulin Human Lispro (Humalog) 0 unit SUB-Q [facility]; Protocol Last Admin: 07/07/19 12:36 Dose: 4 unit Documented by: Lansoprazole (Prevacid Solutab) 30 mg FEEDTUBE BID [facility] Last Admin: 07/07/19 10:01 Dose: 30 mg Documented by: Ondansetron HCl (Zofran) 4 mg IV Q4H PRN PRN Reason: Nausea And Vomiting Last Admin: 07/07/19 12:35 Dose: 4 mg Documented by: Sodium Chloride (Sodium Chloride Flush Syringe 10 Ml) 10 ml IV BID CHRISTY Last Admin: 07/07/19 09:54 Dose: 10 ml Documented by: Sodium Chloride (Sodium Chloride Flush Syringe 10 Ml) 10 ml IV PRN PRN PRN Reason: LINE FLUSH Physical Examination - Physical Exam Narrative exam: Physical Exam: Constitutional: Alert, cooperative. No acute distress Head, Ears, Nose: Normocephalic, atraumatic. External ears, nose normal Eyes: Conjunctivae/corneas clear. No icterus. No ptosis. Neck: Supple, no meningeal signs Oral: dentition fair, no thrush Cardiovascular: S1, S2 normal. Respiratory: Good air entry, clear to auscultation bilaterally GI: Soft, mildly tender; bowel sounds normal. No peritoneal signs. Musculoskeletal: No pedal edema, no cyanosis. Skin: No rash or abscess Hem/Lymphatic: No palpable cervical or supraclavicular nodes. No lymphangitis Psych: Mood ok. Affect normal Neurological: Awake, alert, oriented. No gross abnormality - Constitutional Vitals: Vital Signs Temp Pulse Resp BP Pulse Ox 98.8 F 82 16 113/59 96 07/07/19 12:00 07/07/19 14:00 07/07/19 14:00 07/07/19 14:00 07/07/19 14:00 Temperature -Last 24 Hours Temperature 98.8 F Temperature 97.8 F Temperature 98 F Temperature 99.8 F Temperature 99.6 F Temperature 99 F Results - Labs CBC & Chem 7: 07/07/19 04:43 07/07/19 04:43 Labs: Abnormal lab results 07/06/19 07/06/19 07/07/19 Range/Units 17:39 23:26 04:43 WBC 11.1 H (4.5-11.0) K/mm3 MCH 25 L (28-32) pg RDW 23.2 H (13.2-15.2) % Potassium (3.6-5.0) mmol/L Glucose (65-100) mg/dL POC Glucose 266 H 235 H (70-105) 07/07/19 07/07/19 07/07/19 Range/Units 04:43 05:29 11:59 WBC (4.5-11.0) K/mm3 MCH (28-32) pg RDW (13.2-15.2) % Potassium 3.1 L (3.6-5.0) mmol/L Glucose 162 H (65-100) mg/dL POC Glucose 163 H 203 H (70-105) Assessment and Plan Cultures: 07/06 BCx - NGTD 07/03 sputum Cx - negative 07/01 BCx - negative A/P: 59 yo F with significant cardiac history admitted after possible Lyrica overdose and respiratory failure 1. Fevers - Have resolved without treatment. Would continue to monitor at this point and follow up the most recent blood cultures. Would not treat right now, no new localizing symptoms. If fevers recur will consider further imaging and cultures, but for now I would hold off. 2. AMS - resolving, likely 2/2 Lyrica overdose 3. OLEKSANDR - Resolving. If antibiotics started will need to renally dose. 4. DM2 - tight glycemic control for best immune function 5. CAD - s/p CABG 6. HFrEF Recs: - monitor off antibiotics for now - follow up blood cultures - transfer as per family request when able. Thank you for the consult, we will continue to follow. MD Darrel [facility] ([facility]) M: [phone] O: [phone] F: [phone]
[2019-07-08] MEDS: ONDANSETRON 4 MG/2 ML INJ IV PRN ×2 (00:47→08:06)
[2019-07-08] MEDS: ACETAMINOPHEN 325 MG TAB PO PRN (05:10)
[2019-07-08 06:34] LABS: Hematocrit 37.7 % (30.3-42.9); Hemoglobin 11.8 gm/dl (10.1-14.3); Mean Corpuscular HGB Conc 31 % (30-34); Mean Corpuscular Volume 79 fl (79-97); Platelet Count 195 K/mm3 (140-440); Red Blood Count 4.76 M/mm3 (3.65-5.03)
[2019-07-08 06:40] LABS: Calcium 8.9 mg/dL (8.4-10.2)
[2019-07-08 06:59] LABS: Red Cell Distribution Width 22.5 % (13.2-15.2)
[2019-07-08] MEDS: INSULIN GLARGINE 100 UNITS/ML SUB-Q SCH (08:07)
[2019-07-08] MEDS: INSULIN LISPRO 100 UNIT/ML SUB-Q SCH ×4 (08:08→22:24)
[2019-07-08] MEDS ORDERED: POTASSIUM CHLORIDE ER 20 MEQ TAB PO NR (09:33)
--- NOTE | 2019-07-08 09:58 | Progress Note ---
Assessment and Plan - Patient Problems (1) Acute kidney injury superimposed on chronic kidney disease Current Visit: Yes Status: Acute Plan to address problem: Patient has OLEKSANDR on already progressed CKD IV, likely in the setting of acute/chronic systolic heart failure and cardiorenal syndrome. pt with good UOP on lewis, improved volume status with daily HD until Sat. cont bumex changed to 2mg po bid. Monitor daily renal functions. Avoid nephrotoxins. Maintain MAP >65mmHg. (2) Altered mental status Current Visit: Yes Status: Acute Plan to address problem: Possibly secondary to Lyrica overdose. mental status improved significantly with daily HD (3) Acute HFrEF (heart failure with reduced ejection fraction) Current Visit: Yes Status: Acute Plan to address problem: ECHO findings noted with severely decreased systolic functions, and significant elevation of BNP noted. Strict I/O. cont diuresis with bumex. Please carefully document urine output/r esponse with diuretic therapy. (4) Acute and chronic respiratory failure with hypoxia Current Visit: Yes Status: Acute Plan to address problem: Likely in the setting of acute on chronic CHF, volume status improved with IV diuresis, HD. cont bumex 2mg po bid. Further recommendations per pulmonology. She also has a h/o COPD. (5) Fluid overload Current Visit: Yes Status: Acute Plan to address problem: cont bumex 2mg po bid Subjective Date of service: 07/08/19 Principal diagnosis: AMS Interval history: Pt with improved mental status after daily HD, s/p extubation. Awake, alert, in no acute respiratory distress Objective - Vital Signs Vital signs: Vital Signs - 12hr 07/07/19 07/07/19 07/07/19 22:00 22:06 22:21 Temperature Pulse Rate 88 89 87 Pulse Rate [ From Monitor] Respiratory 23 17 Rate Blood Pressure 134/80 134/80 134/80 O2 Sat by Pulse 94 95 Oximetry 07/07/19 07/08/19 07/08/19 23:00 00:00 01:00 Temperature 97.9 F Pulse Rate 86 83 83 Pulse Rate [ 83 From Monitor] Respiratory 14 15 19 Rate Blood Pressure 138/86 138/86 123/71 O2 Sat by Pulse 100 98 96 Oximetry 07/08/19 07/08/19 07/08/19 02:00 03:00 04:00 Temperature 97.7 F Pulse Rate 86 88 87 Pulse Rate [ 95 H From Monitor] Respiratory 18 18 13 Rate Blood Pressure 112/72 130/81 140/79 O2 Sat by Pulse 95 96 97 Oximetry 07/08/19 07/08/19 07/08/19 05:00 06:00 07:00 Temperature Pulse Rate 90 88 89 Pulse Rate [ From Monitor] Respiratory 18 16 21 Rate Blood Pressure 164/95 152/84 158/85 O2 Sat by Pulse 93 96 94 Oximetry 07/08/19 08:38 Temperature Pulse Rate Pulse Rate [ From Monitor] Respiratory Rate Blood Pressure O2 Sat by Pulse 98 Oximetry - General Appearance General appearance: well-developed, well-nourished, appears stated age EENT: ATNC, PERRL, mucous membranes moist Neck: no JVD Respiratory: Present: Decreased Breath Sounds Cardiology: regular, S1S2 Gastrointestinal: normoactive bowel sounds, obese Integumentary: no rash Neurologic: no focal deficit, alert and oriented x3, strength 5/5, CN 3-12 intact Psychiatric: mood/affect appropriate, cooperative - Lab 07/08/19 Unknown 07/08/19 04:00 Most recent lab results ABG pH 7.284 pH Units (7.350-7.450) L 07/01/19 Unknown ABG pCO2 51.5 mm Hg 07/01/19 Unknown ABG pO2 121.4 mm Hg (80.0-90.0) H 07/01/19 Unknown ABG HCO3 23.9 mmol/L (20.0-26.0) 07/01/19 Unknown ABG O2 Saturation 98.0 % (95.0-99.0) 07/01/19 Unknown Calcium 8.9 mg/dL (8.4-10.2) 07/08/19 04:00 Magnesium 2.30 mg/dL (1.7-2.3) 07/04/19 04:19 Medications & Allergies - Medications Allergies/Adverse Reactions: Allergies KRYSTIAN Inhibitors Allergy (Verified 04/26/14 00:50) Shortness of Breath amitriptyline Allergy (Verified 12/18/17 17:44) Unknown Home Medications: Home Medications Medication Instructions Recorded Confirmed Last Taken Type ALBUTEROL Inhaler (OR & NICU) 2 puff IH QID PRN 03/16/16 07/01/19 06/30/19 History [ProAir HFA Inhaler] Albuterol *Only Ed* [Proventil 2.5 mg IH QIDRT PRN #7 nebu 03/22/16 07/01/19 06/30/19 Rx 0.5% NEBS] Butalb/Acetamin/Caff 50-325-40 1 tab PO Q8HR PRN #90 tablet 03/22/16 07/01/19 06/30/19 Rx [Fioricet 50-325-40] HYDROcodone/APAP 5-325 [[place] 1 each PO QHS #30 tablet 03/22/16 07/01/19 06/30/19 Rx 5-325 mg TAB] ISOSORBIDE MONOnitrate [Imdur ER] 30 mg PO QDAY #30 tablet 03/22/16 07/01/19 06/30/19 Rx Insulin NPH/Regular [NovoLIN 70/30] 30 unit SQ BIDDIAB #30 units 03/22/16 07/01/19 06/30/19 Rx Aspirin [Aspirin BABY CHEW TAB] 81 mg PO QDAY #15 tab.chew 04/08/16 07/01/19 06/30/19 Rx AtorvaSTATin [Lipitor] 40 mg PO QHS #15 tablet 04/08/16 07/01/19 06/30/19 Rx Clopidogrel [Plavix] 75 mg PO QDAY #15 tablet 04/08/16 07/01/19 06/30/19 Rx Chlorhexidine Mouthwash [Peridex] 15 ml MM BID #1 bottle 12/18/17 07/01/19 06/30/19 Rx Carvedilol [Coreg] 12.5 mg PO QDAY 07/01/19 07/01/19 06/30/19 History Escitalopram Oxalate [Lexapro] 10 mg PO QHS 07/01/19 07/01/19 06/30/19 History Ferrous Sulfate [Feosol] 325 mg PO QDAY 07/01/19 07/01/19 06/30/19 History Pregabalin [Lyrica] 75 mg PO QHS 07/01/19 07/01/19 06/30/19 History Sodium Bicarbonate 650 mg PO BID 07/01/19 07/01/19 06/30/19 History Torsemide [Demadex] 10 mg PO QDAY 07/01/19 07/01/19 06/30/19 History hydrALAZINE [Apresoline] 25 mg PO QDAY 07/01/19 07/01/19 06/30/19 History Active Medications: Generic Name Dose Route Start Last Admin Trade Name Fernieq PRN Reason Stop Dose Admin Acetaminophen 650 mg 07/07/19 11:24 07/08/19 05:10 Tylenol PO 650 mg Q6H PRN Administration Non Cardiac Pain or Temp>100.5 Albuterol 2.5 mg 07/01/19 20:06 Proventil IH Q3HRT PRN Shortness Of Breath Bumetanide 2 mg 07/08/19 10:00 Bumex PO QDAY CHRISTY Carvedilol 12.5 mg 07/04/19 22:00 07/07/19 22:06 Coreg PO 12.5 mg BID CHRISTY Administration Dextrose 50 ml 07/07/19 10:53 D50w (25gm) Syringe IV PRN PRN Hypoglycemia Hydralazine HCl 10 mg 07/02/19 05:49 07/06/19 09:24 Apresoline IV 10 mg Q4H PRN Administration Blood Pressure Hydrophilic Ointment 1 applic 07/03/19 19:12 Vaseline Lip Therapy TP Q2HR PRN Dry Lips Sodium Chloride 100 mls @ 999 mls/hr 07/04/19 15:00 Nacl 0.9% IV LA PRN Hypotension Insulin Glargine 15 units 07/07/19 08:00 07/08/19 08:07 Lantus SUB-Q 15 units QAMDIAB CHRISTY Administration Insulin Human Lispro 0 unit 07/07/19 11:30 07/08/19 08:08 Humalog SUB-Q 3 unit ACHS CHRISTY Administration Protocol Lansoprazole 30 mg 07/06/19 22:00 07/07/19 22:06 Prevacid Solutab FEEDTUBE 30 mg BID CHRISTY Administration Ondansetron HCl 4 mg 07/07/19 12:19 07/08/19 08:06 Zofran IV 4 mg Q4H PRN Administration Nausea And Vomiting Potassium Chloride 40 meq 07/08/19 09:33 K-Dur PO 07/08/19 09:34 ONCE ONE Sodium Chloride 10 ml 07/01/19 22:00 07/07/19 22:06 Sodium Chloride Flush Syringe 10 Ml IV 10 ml BID CHRISTY Administration Sodium Chloride 10 ml 07/01/19 20:06 Sodium Chloride Flush Syringe 10 Ml IV PRN PRN LINE FLUSH
[2019-07-08] MEDS ORDERED: BUMETANIDE 1 MG TAB PO SCH (10:00)
--- NOTE | 2019-07-08 10:08 | Progress Note ---
Assessment and Plan Cultures: 07/06 BCx - negative 07/03 sputum Cx - usual resp willie 07/01 BCx - negative A/P: 59 yo F with significant cardiac history admitted after possible Lyrica overdose and respiratory failure 1. Fevers - Have resolved without treatment. UA negative. Blood culture negative. CXR with raina pulmonary edema. 2. AMS - resolved, likely 2/2 Lyrica overdose 3. OLEKSANDR - is up today 4. DM2 - tight glycemic control for best immune function 5. CAD - s/p CABG 6. HFrEF Recs: - monitor off antibiotics for now - follow up blood cultures - lewis in place per nursing staff due to retention?, please consider discontinuation if no need Will follow. Marly Hawkins MD Infectious [facility] ([facility]) M [phone] O [phone] Subjective Date of service: 07/08/19 Principal diagnosis: AMS Interval history: Patient reports feeling better, alert, answering questions, no fever for 3 days. Objective - Exam Narrative Exam: General appearance: Alert in NAD Eyes: anicteric sclerae, moist conjunctivae; no lid-lag; PERRLA HENT: Atraumatic; oropharynx clear with moist mucous membranes and no mucosal ulcerations/no oral thrush; normal hard and soft palate. Lungs: +raina rhonchi CV: RRR Abdomen: Soft, non-tender; no masses or hepatosplenomegaly Extremities: +raina BKA with no open wounds Skin: No rash. Psych: no agitated Neuro: alert and oriented x 3. Moving all extermities Lewis with dark urine - Constitutional Vitals: Vital Signs Temp Pulse Resp BP Pulse Ox 97.7 F 89 21 158/85 98 07/08/19 04:00 07/08/19 07:00 07/08/19 07:00 07/08/19 07:00 07/08/19 08:38 Temperature -Last 24 Hours Temperature 97.7 F Temperature 97.9 F Temperature 97.7 F Temperature 97.7 F Temperature 98.8 F - Labs CBC & Chem 7: 07/08/19 Unknown 07/08/19 04:00 Labs: Abnormal lab results 07/07/19 07/07/19 07/07/19 Range/Units 11:59 18:14 22:00 MCH (28-32) pg RDW (13.2-15.2) % Potassium (3.6-5.0) mmol/L BUN (7-17) mg/dL Creatinine (0.7-1.2) mg/dL Glucose (65-100) mg/dL POC Glucose 203 H 141 H 167 H (70-105) 07/08/19 07/08/19 07/08/19 Range/Units 04:00 08:02 Unknown MCH 25 L (28-32) pg RDW 22.5 H (13.2-15.2) % Potassium 3.0 L (3.6-5.0) mmol/L BUN 22 H (7-17) mg/dL Creatinine 1.7 H (0.7-1.2) mg/dL Glucose 153 H (65-100) mg/dL POC Glucose 175 H (70-105)
--- NOTE | 2019-07-08 10:13 | Progress Note ---
Assessment and Plan Altered mental status Suspected to be secondary to overdose of lyrica vs uremic encephalopaty. Improving. Head CT with NAF. Further eval/management per primary. Acute respiratory failure Extubated. Management per pulmonary. Aspiration PNA S/p abx therapy. Acute heart failure with reduced EF EF currently 20-25% (EF was 35-40% in 09/2017). Can consider ischemic evaluation once medically stabilized. Cont coreg. No ACEI/ARB at this time in setting of renal insufficiency. Cont volume optimization per nephrology. Ischemic cardiomyopathy EF 20-25% (EF 35-40% in 09/2017). Will plan for ischemic evaluation once medically stabilized. Cont coreg. No ACEI/ARB at this time in setting of renal insufficiency. Cont volume optimization per nephrology. CAD s/p CABG at [place] in 05/2016 Cont ASA, statin, BB. NSTEMI Suspect type II. Will plan for ischemic evaluation once medically stabilized. HTN Stable. HLP Cont statin. DM Per primary. H/o left CEA Cont ASA, statin. COPD Per pulmonary. OLEKSANDR on CKD Intermittently requiring HD. Nephrology following. PVD The patient has been seen in conjunction with Dr. Hagan who agrees with the assessment and plan of care. Subjective Date of service: 07/08/19 Principal diagnosis: AMS Interval history: pt extubated, sleeping, awakened with verbal stimulation. no family at bedside. in SR on tele. Objective Last Vital Signs Temp 97.7 F 07/08/19 04:00 Pulse 89 07/08/19 07:00 Resp 21 07/08/19 07:00 BP 158/85 07/08/19 07:00 Pulse Ox 98 07/08/19 08:38 - Physical Examination General: No Apparent Distress HEENT: Positive: PERRL Neck: Positive: neck supple Cardiac: Positive: Reg Rate and Rhythm, S1/S2 Lungs: Positive: Decreased Breath Sounds Neuro: Positive: Grossly Intact Abdomen: Positive: Soft Skin: Negative: Rash Musculoskeletal: No Fluid Collection Extremities: Present: Other (bilateral below-knee amputation). Absent: edema - Labs and Meds CBC 07/08/19 Range/Units Unknown WBC 10.4 (4.5-11.0) K/mm3 RBC 4.76 (3.65-5.03) M/mm3 Hgb 11.8 (10.1-14.3) gm/dl Hct 37.7 (30.3-42.9) % Plt Count 195 (140-440) K/mm3 Comprehensive Metabolic Panel 07/08/19 Range/Units 04:00 Sodium 141 (137-145) mmol/L Potassium 3.0 L (3.6-5.0) mmol/L Chloride 100.7 (98-107) mmol/L Carbon Dioxide 28 (22-30) mmol/L BUN 22 H (7-17) mg/dL Creatinine 1.7 H (0.7-1.2) mg/dL Glucose 153 H (65-100) mg/dL Calcium 8.9 (8.4-10.2) mg/dL - Imaging and Cardiology EKG: report reviewed, image reviewed Echo: report reviewed (09/2017 showed EF 35-40%, mild LVH, severe LAE, mild AR and MR, mod TR, RVSP 66mmHg. 06/2019: EF 20-25%, restrictive diastolic filling, RV mildly dilated, mild MR, mod TR, RVSP 54mmHg, mild CO. ) - Telemetry EKG Rhythm: Sinus Rhythm - EKG Sinus rhythms and dysrhythmias: sinus rhythm - Allied health notes Allied health notes reviewed: nursing
[2019-07-08] MEDS: LANSOPRAZOLE 30 MG SOLUTAB FEEDTUBE SCH ×2 (10:18→22:30)
[2019-07-08] MEDS: carvediloL 12.5 MG TAB PO SCH ×2 (10:18→22:24)
[2019-07-08] MEDS: BUMETANIDE 1 MG TAB PO SCH ×2 (10:24→22:30)
--- NOTE | 2019-07-08 11:31 | Progress Note ---
Assessment and Plan Assessment and plan: Patient is a 59 yo woman with a history of hypertension, CAD s/p PCI, s/p CABG at [place] in 05/2016, ICMP, HFrEF (Echo done 09/2017 showed EF 35-40%, mild LVH, severe LAE, mild AR and MR, mod TR, RVSP 66mmHg), carotid stenosis s/p left CEA in 01/2016, COPD, HTN, HLP, DM type 2 and CKD who presented to [facility] ED with AMS and unresponsiveness. According to ED record, the family found her basically somnolent in the bed with some Lyrica pills in her hand and several pills lying on the bed next to her on Monday. Then on Monday, they noticed that she had vomited on herself and seemed a little groggy. Family called EMS but the pt refused to be transported to the hospital. As the day progressed family states the patient appeared to get weaker and then eventually she could not keep her eyes open. Family states they were able to convince the patient to come to the emergency department. On evaluation, the patient is lying on the stretcher with somniferous respirations. She is currently on O2 via nasal cannula with O2 sats WNL. Head CT with NAF. Cardiology has been consulted for HF. CXR with some vascular congestion, pro-BNP >85762. Other labwork significant for ABG pH 7.27, BUN/Cr 67/2.7, K+ 5.2, AST 52, ALK phos 203, ammonia 64. On 07/03/19 around 5pm; patient became hypoxic and obtunded, ABG showed worsening acidosis with hypercapnea, I discuss Dr. Lozoya. I elected to Intubated instead of bipap because pt is obtunded. I called Anesthesia and uneventful intubation done via guide-scope. D/w Dr. Lozoya and daughter Vickiekarina at bedside and another daughter over the phone. Also, spoke with her PCP Dr. Booth over the phone prior to intubation. Flakito handed me the phone with Dr. Booth and her sister on 3 way. * TTE Conclusions: Global LVSF is severely decreased, estimated EF 20-25%, lv diastolic filling is restrictive, RV is mildly dilated, RVSF is moderately reduced, mild MR, moderate TR, RVSP is calcuated at 54 mmHg, mild pulmonic regurgitation, no pericardial effusion, Inferior vena cava is dilated * pCXR Impression: 1.Stable cardiomegaly 2. Diminished lung volumes with mild vascular congestion Acute on chronic hypoxic respiratory failure with ETT in place since 07/03/19: Diuresis, trying to extubate today Acute metabolic encephalopathy most likely from drug overdose: poison control recommended conservative management. Suspect Lyrica Overdose: HD for clearance Aspiration pneumonia unlikely: stopped abx Acute on chronic systolic heart failure: treat with IV diuretic bid, monitor bmp daily, Cardiology is following Acute on chronic CKD 3: Nephrology is following, input noted, Monitor daily renal functions. Avoid nephrotoxins. Maintain MAP >65mmHg. Bloody substance in NGT: stopped the L.I.S and consulted GI, treat with IV PPI History of Ischemic cardiomyopathy History of CAD (coronary artery disease) History of coronary artery bypass graft Hypertension: continue to monitor Hyperlipidemia: statins Diabetes mellitus type 2: ssi, accuchecks COPD (chronic obstructive pulmonary disease): nebs Hyperkalemia: treated hyperkalemia with kayexalate NSTEMI (non-ST elevated myocardial infarction) type 2: Cardiology is following, input noted PVD (peripheral vascular disease) 07/01/19: Admitted to [facility], stayed in ED over 24 hours. Admitted to IMCU 07/02/19: I took over care and requested ICU bed for possible intubation as her mental status was poor (she was obtunded), consulted CCM who evaluate patient, ABG done and Intensvist determined she did not need intubation at the time and ok to admitted to IMCU, so I changed location back from ICU to IMCU. 07/03/19: Renal function worsened, Mental status worsened, she became hypoxic and pCO2 increased with worsening acidosis, and she was emergently intubated by Anesthesia in the IMCU, transferred to ICU 07/04/19 On 07/04/19, She had lewis catheter inserted and ~1600 urine was ex pelled then She had right femoral vas cath placed and Hemodialysis done. D/w son Juan Manuel over the phone, he is in [place], [place]. Also, d.w daughter Isis at bedside. They want to transfer to [facility] because of preference but her PCP Dr. Booth doesn't admit to ICU. Hemodialysis started via Right Femoral vas cath 07/05/19: Mental status improved. Still intubated and no sedation is needed. Restraints renewed. This is the first day she follows some commands, weak hand transactional attorney and opens eyes to verbal command. She tracking with her eyes and her eyes . She had lewis catheter inserted yesterday 07/04/19 and 1600 urine was expelled immediately. The urine retention was probably related to the drug overdose and s hould get better. She had right femoral vas cath placed and Hemodialysis yesterday. D/W son Juan Manuel at bedside 07/06/19: HD today, mental status improving, she is squeezing my hand on command with good and equal strength bilaterally, hopefully to extubated today. SSI ordered, increase Lantus as BG uncontrolled, renew restraints. She spiked a fever, give tylenol and ordered set of blood culture 07/07/19: Extubated yesterday around 4pm. Overnight uneventful. She pulled out NGT, bedside swallow evaluation pending. Consider downgrading to IMCU or tele, defer to Social Welfare Research Worker. Blood culture pending, consulted ID for new onset fevers. 07/08/19: Doing much better, moving all extremities including bilateral BKA stumps. She still feels weak and not quite at baseline. Will downgrade to medsurg unit. Will discharge when no more Hemodialysis is needed and right femoral Vas cath is removed. CCT 33 minutes History Interval history: Patient was seen and examined. Follow-up on current diagnosis of AMS. No overnight events reported to me. Imaging, nursing note, chart, labs and old chart reviewed. Extubated. This is the first day she follows some commands. She tracking with her eyes. Hospitalist Physical - Physical exam Narrative exam: Gen: ill appearing, obtunded, mildly increase accessory muscles HEENT: NCAT, eyes matted shut with crust especially left eye, OP Clear Neck: supple, no adenopathy, no thyromegaly, no JVD CVS/Heart: tachycardic normal S1S2, pulses present bilaterally Chest/Lungs: tachypenic, diminished bs bilateral Symmetrical chest expansion, good air entry bilaterally GI/Abdomen: soft, NTND, good bowel sounds, no guarding or rebound /Bladder: no suprapubic tenderness, no CVA or paraspinal tenderness Extermity/Skin: no obvious rash MSK: confused Neuro: CN 2-12 grossly intact, not following directions. Psych: confused - Constitutional Vitals: Temp Pulse Resp BP Pulse Ox 97.7 F 90 21 158/97 98 07/08/19 04:00 07/08/19 10:18 07/08/19 07:00 07/08/19 10:18 07/08/19 08:38 General appearance: Present: other (withdrawn, lethargic) Results - Labs CBC & Chem 7: 07/08/19 Unknown 07/08/19 04:00 Labs: Laboratory Last Values WBC 10.4 K/mm3 (4.5-11.0) 07/08/19 Unknown RBC 4.76 M/mm3 (3.65-5.03) 07/08/19 Unknown Hgb 11.8 gm/dl (10.1-14.3) 07/08/19 Unknown Hct 37.7 % (30.3-42.9) 07/08/19 Unknown MCV 79 fl (79-97) 07/08/19 Unknown MCH 25 pg (28-32) L 07/08/19 Unknown MCHC 31 % (30-34) 07/08/19 Unknown RDW 22.5 % (13.2-15.2) H 07/08/19 Unknown Plt Count 195 K/mm3 (140-440) 07/08/19 Unknown Lymph % (Auto) 18.3 % (13.4-35.0) 07/01/19 15:22 [place] % (Auto) 6.6 % (0.0-7.3) 07/01/19 15:22 Eos % (Auto) 2.4 % (0.0-4.3) 07/01/19 15:22 Baso % (Auto) 0.9 % (0.0-1.8) 07/01/19 15:22 Lymph # 1.1 K/mm3 (1.2-5.4) L 07/01/19 15:22 [place] # 0.4 K/mm3 (0.0-0.8) 07/01/19 15:22 Eos # 0.1 K/mm3 (0.0-0.4) 07/01/19 15:22 Baso # 0.1 K/mm3 (0.0-0.1) 07/01/19 15:22 Add Manual Diff Complete 07/02/19 11:39 Total Counted 100 07/02/19 11:39 Seg Neutrophils % 71.8 % (40.0-70.0) H 07/01/19 15:22 Seg Neuts % (Manual) 81.0 % (40.0-70.0) H 07/02/19 11:39 Band Neutrophils % 2.0 % 07/02/19 11:39 Lymphocytes % (Manual) 8.0 % (13.4-35.0) L 07/02/19 11:39 Reactive Lymphs % (Man) 0 % 07/02/19 11:39 Monocytes % (Manual) 7.0 % (0.0-7.3) 07/02/19 11:39 Eosinophils % (Manual) 0 % (0.0-4.3) 07/02/19 11:39 Basophils % (Manual) 1.0 % (0.0-1.8) 07/02/19 11:39 Metamyelocytes % 1.0 % 07/02/19 11:39 Myelocytes % 0 % 07/02/19 11:39 Promyelocytes % 0 % 07/02/19 11:39 Blast Cells % 0 % 07/02/19 11:39 Nucleated RBC % 1.0 % (0.0-0.9) H 07/02/19 11:39 Seg Neutrophils # 4.4 K/mm3 (1.8-7.7) 07/01/19 15:22 Seg Neutrophils # Man 6.8 K/mm3 (1.8-7.7) 07/02/19 11:39 Band Neutrophils # 0.2 K/mm3 07/02/19 11:39 Lymphocytes # (Manual) 0.7 K/mm3 (1.2-5.4) L 07/02/19 11:39 Abs React Lymphs (Man) 0.0 K/mm3 07/02/19 11:39 Monocytes # (Manual) 0.6 K/mm3 (0.0-0.8) 07/02/19 11:39 Eosinophils # (Manual) 0.0 K/mm3 (0.0-0.4) 07/02/19 11:39 Basophils # (Manual) 0.1 K/mm3 (0.0-0.1) 07/02/19 11:39 Metamyelocytes # 0.1 K/mm3 07/02/19 11:39 Myelocytes # 0.0 K/mm3 07/02/19 11:39 Promyelocytes # 0.0 K/mm3 07/02/19 11:39 Blast Cells # 0.0 K/mm3 07/02/19 11:39 WBC Morphology Not Reportable 07/02/19 11:39 Hypersegmented Neuts Not Reportable 07/02/19 11:39 Hyposegmented Neuts Not Reportable 07/02/19 11:39 Hypogranular Neuts Not Reportable 07/02/19 11:39 Smudge Cells Not Reportable 07/02/19 11:39 Toxic Granulation Not Reportable 07/02/19 11:39 Toxic Vacuolation Not Reportable 07/02/19 11:39 Dohle Bodies Not Reportable 07/02/19 11:39 Pelger-Huet Anomaly Not Reportable 07/02/19 11:39 Ziyad Rods Not Reportable 07/02/19 11:39 Platelet Estimate Consistent w auto 07/02/19 11:39 Clumped Platelets Not Reportable 07/02/19 11:39 Plt Clumps, EDTA Not Reportable 07/02/19 11:39 Large Platelets Few 07/02/19 11:39 Giant Platelets Not Reportable 07/02/19 11:39 Platelet Satelliting Not Reportable 07/02/19 11:39 Plt Morphology Comment Not Reportable 07/02/19 11:39 RBC Morphology Not Reportable 07/02/19 11:39 Dimorphic RBCs Not Reportable 07/02/19 11:39 Polychromasia Rare 07/02/19 11:39 Hypochromasia 1+ 07/02/19 11:39 Poikilocytosis Few 07/02/19 11:39 Anisocytosis 1+ 07/02/19 11:39 Microcytosis Not Reportable 07/02/19 11:39 Macrocytosis Rare 07/02/19 11:39 Spherocytes Rare 07/02/19 11:39 Pappenheimer Bodies Not Reportable 07/02/19 11:39 Sickle Cells Not Reportable 07/02/19 11:39 Target Cells Rare 07/02/19 11:39 Tear Drop Cells Not Reportable 07/02/19 11:39 Ovalocytes Not Reportable 07/02/19 11:39 Helmet Cells Not Reportable 07/02/19 11:39 [place] Bodies Not Reportable 07/02/19 11:39 [place] Rings Not Reportable 07/02/19 11:39 [place] Cells Not Reportable 07/02/19 11:39 Bite Cells Not Reportable 07/02/19 11:39 Crenated Cell Not Reportable 07/02/19 11:39 Elliptocytes Not Reportable 07/02/19 11:39 Acanthocytes (Spur) Not Reportable 07/02/19 11:39 Rouleaux Not Reportable 07/02/19 11:39 Hemoglobin C Crystals Not Reportable 07/02/19 11:39 Schistocytes Not Reportable 07/02/19 11:39 Malaria parasites Not Reportable 07/02/19 11:39 Lonnie Bodies Not Reportable 07/02/19 11:39 Hem Pathologist Commnt No 07/02/19 11:39 PT 15.1 Sec. (12.2-14.9) H 07/01/19 15:22 INR 1.22 (0.87-1.13) H 07/01/19 15:22 APTT 32.6 Sec. (24.2-36.6) 07/01/19 15:22 POC ABG pH 7.480 (7.35-7.45) H 07/06/19 11:37 ABG pH 7.284 pH Units (7.350-7.450) L 07/01/19 Unknown POC ABG pCO2 33.7 (35-45) L 07/06/19 11:37 ABG pCO2 51.5 mm Hg 07/01/19 Unknown POC ABG pO2 91 (80-105) 07/06/19 11:37 ABG pO2 121.4 mm Hg (80.0-90.0) H 07/01/19 Unknown POC ABG HCO3 25.1 (22-26 mml/L) 07/06/19 11:37 ABG HCO3 23.9 mmol/L (20.0-26.0) 07/01/19 Unknown POC ABG Total CO2 26 (23-27mmol/L) 07/06/19 11:37 POC ABG O2 Sat 98 07/06/19 11:37 ABG O2 Saturation 98.0 % (95.0-99.0) 07/01/19 Unknown ABG O2 Content 14.3 (0.0-44) 07/01/19 Unknown POC ABG Base Excess 2 ((-2) - (+3)mmol/L) 07/06/19 11:37 ABG Base Excess -3.1 mmol/L (-2.0-3.0) L 07/01/19 Unknown ABG Hemoglobin 10.5 gm/dl (12.0-16.0) L 07/01/19 Unknown ABG Carboxyhemoglobin 2.0 % (0.0-5.0) 07/01/19 Unknown ABG Methemoglobin 0.6 % (0.0-1.5) 07/01/19 Unknown Oxyhemoglobin 95.6 % (95.0-99.0) 07/01/19 Unknown FiO2 25 % 07/06/19 11:37 Sodium 141 mmol/L (137-145) 07/08/19 04:00 Potassium 3.0 mmol/L (3.6-5.0) L 07/08/19 04:00 Chloride 100.7 mmol/L (98-107) 07/08/19 04:00 Carbon Dioxide 28 mmol/L (22-30) 07/08/19 04:00 Anion Gap 15 mmol/L 07/08/19 04:00 BUN 22 mg/dL (7-17) H 07/08/19 04:00 Creatinine 1.7 mg/dL (0.7-1.2) H 07/08/19 04:00 Estimated GFR 37 ml/min 07/08/19 04:00 BUN/Creatinine Ratio 13 % 07/08/19 04:00 Glucose 153 mg/dL (65-100) H 07/08/19 04:00 POC Glucose 115 (70-105) H 07/08/19 11:13 Calcium 8.9 mg/dL (8.4-10.2) 07/08/19 04:00 Magnesium 2.30 mg/dL (1.7-2.3) 07/04/19 04:19 Iron 26 ug/dL (37-170) L 07/01/19 18:35 Total Bilirubin 0.90 mg/dL (0.1-1.2) 07/02/19 11:39 AST 37 units/L (5-40) 07/02/19 11:39 ALT 36 units/L (7-56) 07/02/19 11:39 Alkaline Phosphatase 202 units/L (35-129) H 07/02/19 11:39 Ammonia 64.0 umol/L (25-60) H 07/01/19 15:35 Troponin T 0.193 ng/mL (0.00-0.029) H* D 07/03/19 04:51 NT-Pro-B Natriuret Pep > 81237 pg/mL (0-900) H 07/01/19 23:32 Total Protein 7.6 g/dL (6.3-8.2) 07/02/19 11:39 Albumin 3.5 g/dL (3.9-5) L 07/02/19 11:39 Albumin/Globulin Ratio 0.9 % 07/02/19 11:39 Triglycerides 93 mg/dL (2-149) 07/01/19 15:22 Cholesterol 83 mg/dL (50-199) 07/01/19 15:22 LDL Cholesterol Direct 38 mg/dL (50-130) L 07/01/19 15:22 HDL Cholesterol 32 mg/dL (40-59) L 07/01/19 15:22 Cholesterol/HDL Ratio 2.59 % 07/01/19 15:22 TSH 0.724 mlU/mL (0.270-4.200) 07/01/19 23:32 Free T4 1.28 ng/dL (0.76-1.46) 07/01/19 23:32 Urine Color Yellow (Yellow) 07/01/19 14:28 Urine Turbidity Clear (Clear) 07/01/19 14:28 Urine pH 5.0 (5.0-7.0) 07/01/19 14:28 Ur Specific [place] 1.012 (1.003-1.030) 07/01/19 14:28 Urine Protein 100 mg/dl mg/dL (Negative) 07/01/19 14:28 Urine Glucose (UA) Neg mg/dL (Negative) 07/01/19 14:28 Urine Ketones Neg mg/dL (Negative) 07/01/19 14:28 Urine Blood Neg (Negative) 07/01/19 14:28 Urine Nitrite Neg (Negative) 07/01/19 14:28 Urine Bilirubin Neg (Negative) 07/01/19 14:28 Urine Urobilinogen < 2.0 mg/dL (<2.0) 07/01/19 14:28 Ur Leukocyte Esterase Neg (Negative) 07/01/19 14:28 Urine WBC (Auto) 1.0 /HPF (0.0-6.0) 07/01/19 14:28 Urine RBC (Auto) 2.0 /HPF (0.0-6.0) 07/01/19 14:28 U Epithel Cells (Auto) 1.0 /HPF (0-13.0) 07/01/19 14:28 Salicylates < 0.3 mg/dL (2.8-20.0) L 07/01/19 15:22 Urine Opiates Screen Presumptive negative 07/01/19 14:28 Urine Methadone Screen Presumptive negative 07/01/19 14:28 Acetaminophen < 5.0 ug/mL (10.0-30.0) L 07/01/19 15:22 Ur Barbiturates Screen Presumptive negative 07/01/19 14:28 Ur Phencyclidine Scrn Presumptive negative 07/01/19 14:28 Ur Amphetamines Screen Presumptive negative 07/01/19 14:28 U Benzodiazepines Scrn Presumptive positive 07/01/19 14:28 Urine Cocaine Screen Presumptive negative 07/01/19 14:28 U Marijuana (THC) Screen Presumptive negative 07/01/19 14:28 Drugs of Abuse Note Disclamer 07/01/19 14:28 Plasma/Serum Alcohol < 0.01 % (0-0.07) 07/01/19 15:22 Hepatitis A IgM Ab Non-reactive (NonReactive) 07/04/19 15:58 Hep Bs Antigen Non-reactive (Negative) 07/04/19 15:58 Hep B Core IgM Ab Non-reactive (NonReactive) 07/04/19 15:58 Hepatitis C Antibody Non-reactive (NonReactive) 07/04/19 15:58 Active Medications - Current Medications Current Medications: Generic Name Dose Route Start Last Admin Trade Name Freq PRN Reason Stop Dose Admin Acetaminophen 650 mg 07/07/19 11:24 07/08/19 05:10 Tylenol PO 650 mg Q6H PRN Administration Non Cardiac Pain or Temp>100.5 Albuterol 2.5 mg 07/01/19 20:06 Proventil IH Q3HRT PRN Shortness Of Breath Aspirin 81 mg 07/09/19 10:00 Baby Aspirin PO QDAY CHRISTY Atorvastatin Calcium 40 mg 07/08/19 22:00 Lipitor PO QHS CHRISTY Bumetanide 2 mg 07/08/19 10:00 07/08/19 10:24 Bumex PO 2 mg BID CHRISTY Administration Carvedilol 12.5 mg 07/04/19 22:00 07/08/19 10:18 Coreg PO 12.5 mg BID CHRISTY Administration Dextrose 50 ml 07/07/19 10:53 D50w (25gm) Syringe IV PRN PRN Hypoglycemia Hydralazine HCl 10 mg 07/02/19 05:49 07/06/19 09:24 Apresoline IV 10 mg Q4H PRN Administration Blood Pressure Hydrophilic Ointment 1 applic 07/03/19 19:12 Vaseline Lip Therapy TP Q2HR PRN Dry Lips Sodium Chloride 100 mls @ 999 mls/hr 07/04/19 15:00 Nacl 0.9% IV LA PRN Hypotension Insulin Glargine 15 units 07/07/19 08:00 07/08/19 08:07 Lantus SUB-Q 15 units QAMDIAB CHRISTY Administration Insulin Human Lispro 0 unit 07/07/19 11:30 07/08/19 08:08 Humalog SUB-Q 3 unit ACHS CHRISTY Administration Protocol Lansoprazole 30 mg 07/06/19 22:00 07/08/19 10:18 Prevacid Solutab FEEDTUBE 30 mg BID CHRISTY Administration Ondansetron HCl 4 mg 07/07/19 12:19 07/08/19 08:06 Zofran IV 4 mg Q4H PRN Administration Nausea And Vomiting Phenol 1 spray 07/08/19 10:34 Chloraseptic MM PRN PRN Sore Throat Potassium Chloride 40 meq 07/08/19 09:33 07/08/19 10:25 K-Dur PO 07/08/19 11:30 40 meq ONCE NR Administration Sodium Chloride 10 ml 07/01/19 22:00 07/07/19 22:06 Sodium Chloride Flush Syringe 10 Ml IV 10 ml BID CHRISTY Administration Sodium Chloride 10 ml 07/01/19 20:06 Sodium Chloride Flush Syringe 10 Ml IV PRN PRN LINE FLUSH Nutrition/Malnutrition Assess - Dietary Evaluation Nutrition/Malnutrition Findings: Nutrition Notes Start: 07/03/19 10:46 Freq: Status: Active Protocol: Document 07/05/19 11:16 LM (Rec: 07/05/19 11:30 LM [id number]) Nutrition Notes Initial or Follow up Reassessment Current Diagnosis Acute Kidney Injury,CKD(stage I-IV),COPD,Coronary Artery Disease,Diabetes,Hypertension Other Pertinent Diagnosis on HD Current Diet NPO Labs/Tests K 3.3 BUN 33 Cr 1.4 BG 250 Pertinent Medications Reviewed Height 5 ft 1 in Weight 91.1 kg [place] Body Weight (kg) 47.72 BMI 37.9 Subjective/Other Information MD consult for TF. Pt getting HD. Burn Absent Trauma Absent Minimum of two criteria No #2 Nutrition Diagnosis Inadequate oral intake Diagnosis Progress(for reassessment Continues documentation) #1 Nutrition Diagnosis Inadequate energy intake Diagnosis Progress(for reassessment Continues documentation) Is patient on ventilator? Yes Is Patient Ambulatory and/or Out of Bed No REE-([facility]-confined to bed) 1712.616 Kcal/Kg value to use for calculation 16 Approximate Energy Requirements Using 1458 kcal/Kg Calculation Used for Recommendations Kcal/kg Additional Notes Protein: 57-95 g (1.2-2g/kg IBW 47.72 kg) Fluids: 1 ml/kcal or per MD Nutrition Intervention Change Diet Order: TF Nutrition Support: Nepro 1.8 at 40 ml/hr Flush 170 ml q4hr or per MD Kcal 1,728 Protein (gm) 78 Fluid (mL) 698 Goal #1 TF start/tolerance Goal #2 Meet at least 75% of energy and protein needs Anticipated Discharge Needs: unable to determine at this time Follow-Up By: 07/08/19 Additional Comments F/U for TF tolerance
--- NOTE | 2019-07-08 16:31 | Progress Note ---
Assessment and Plan Imp: 1. A/C systolic CHF 2. ICMP 3. OLEKSANDR on CKD 4. Acute respiratory failure, hypoxia 5. ALAN, noncompliant with CPAP 6. Obesity Rec: 1. Diuresis; renal following; K repleted 2. Other plans as per cardiology 3. Need to repeat sleep studies and obtain new CPAP machine was discussed, patient expressed understanding 4. Will follow w/ you Plan of care reviewed w/ patient, she understands/agrees Subjective Date of service: 07/08/19 Principal diagnosis: AMS Interval history: No events. SOB better. On nasal cannula. Denies chest pain or other complaints currently. Active Medications Acetaminophen (Tylenol) 650 mg PO Q6H PRN PRN Reason: Non Cardiac Pain or Temp>100.5 Last Admin: 07/08/19 05:10 Dose: 650 mg Documented by: Albuterol (Proventil) 2.5 mg IH Q3HRT PRN PRN Reason: Shortness Of Breath Aspirin (Baby Aspirin) 81 mg PO QDAY CHRISTY Atorvastatin Calcium (Lipitor) 40 mg PO QHS CHRISTY Bumetanide (Bumex) 2 mg PO BID [facility] Last Admin: 07/08/19 10:24 Dose: 2 mg Documented by: Carvedilol (Coreg) 12.5 mg PO BID [facility] Last Admin: 07/08/19 10:18 Dose: 12.5 mg Documented by: Dextrose (D50w (25gm) Syringe) 50 ml IV PRN PRN PRN Reason: Hypoglycemia Hydralazine HCl (Apresoline) 10 mg IV Q4H PRN PRN Reason: Blood Pressure Last Admin: 07/06/19 09:24 Dose: 10 mg Documented by: Hydrophilic Ointment (Vaseline Lip Therapy) 1 applic TP Q2HR PRN PRN Reason: Dry Lips Sodium Chloride (Nacl 0.9%) 100 mls @ 999 mls/hr IV LA PRN PRN Reason: Hypotension Insulin Glargine (Lantus) 15 units SUB-Q QAMDIAB [facility] Last Admin: 07/08/19 08:07 Dose: 15 units Documented by: Insulin Human Lispro (Humalog) 0 unit SUB-Q ACHS [facility]; Protocol Last Admin: 07/08/19 12:00 Dose: Not Given Documented by: Lansoprazole (Prevacid Solutab) 30 mg FEEDTUBE BID [facility] Last Admin: 07/08/19 10:18 Dose: 30 mg Documented by: Ondansetron HCl (Zofran) 4 mg IV Q4H PRN PRN Reason: Nausea And Vomiting Last Admin: 07/08/19 08:06 Dose: 4 mg Documented by: Phenol (Chloraseptic) 1 spray MM PRN PRN PRN Reason: Sore Throat Sodium Chloride (Sodium Chloride Flush Syringe 10 Ml) 10 ml IV BID CHRISTY Last Admin: 07/08/19 10:00 Dose: 10 ml Documented by: Sodium Chloride (Sodium Chloride Flush Syringe 10 Ml) 10 ml IV PRN PRN PRN Reason: LINE FLUSH Objective Vital Signs - 12hr 07/08/19 07/08/19 07/08/19 05:00 06:00 07:00 Temperature Pulse Rate 90 88 89 Pulse Rate [ From Monitor] Respiratory 18 16 21 Rate Blood Pressure 164/95 152/84 158/85 O2 Sat by Pulse 93 96 94 Oximetry 07/08/19 07/08/19 07/08/19 08:00 08:38 09:00 Temperature Pulse Rate 92 H 90 Pulse Rate [ 92 H From Monitor] Respiratory 24 24 Rate Blood Pressure 146/90 138/84 O2 Sat by Pulse 98 98 96 Oximetry 07/08/19 07/08/19 07/08/19 10:00 10:18 11:00 Temperature Pulse Rate 91 H 90 85 Pulse Rate [ From Monitor] Respiratory 23 18 Rate Blood Pressure 147/80 158/97 152/83 O2 Sat by Pulse 100 100 Oximetry 07/08/19 07/08/19 07/08/19 12:00 13:00 14:00 Temperature 97.8 F Pulse Rate 85 91 H 86 Pulse Rate [ 85 From Monitor] Respiratory 15 16 23 Rate Blood Pressure 146/86 137/71 151/86 O2 Sat by Pulse 100 92 100 Oximetry Constitutional: no acute distress, other (obtunded) Eyes: non-icteric ENT: oropharynx moist Neck: supple Effort: normal Ascultation: Bilateral: rhonchi Cardiovascular: regular rate and rhythm Gastrointestinal: normoactive bowel sounds, soft, non-tender, non-distended Integumentary: normal Extremities: no cyanosis, no edema, pink and warm, other (s/p bilateral BKA) Neurologic: normal mental status, non-focal exam, pupils equal and round Psychiatric: mood appropriate, affect normal CBC and BMP: 07/08/19 Unknown 07/08/19 04:00 ABG, PT/INR, D-dimer: ABG POC ABG pH 7.480 (7.35-7.45) H 07/06/19 11:37 ABG pH 7.284 pH Units (7.350-7.450) L 07/01/19 Unknown POC ABG pCO2 33.7 (35-45) L 07/06/19 11:37 ABG pCO2 51.5 mm Hg 07/01/19 Unknown POC ABG pO2 91 (80-105) 07/06/19 11:37 ABG pO2 121.4 mm Hg (80.0-90.0) H 07/01/19 Unknown POC ABG HCO3 25.1 (22-26 mml/L) 07/06/19 11:37 POC ABG Total CO2 26 (23-27mmol/L) 07/06/19 11:37 POC ABG O2 Sat 98 07/06/19 11:37 ABG O2 Saturation 98.0 % (95.0-99.0) 07/01/19 Unknown PT/INR, D-dimer PT 15.1 Sec. (12.2-14.9) H 07/01/19 15:22 INR 1.22 (0.87-1.13) H 07/01/19 15:22 Abnormal lab findings: Abnormal Labs 07/01/19 07/01/19 07/01/19 15:22 15:22 15:22 WBC MCH 25 L RDW 22.1 H Lymph # 1.1 L Seg Neutrophils % 71.8 H Seg Neuts % (Manual) Lymphocytes % (Manual) Nucleated RBC % Lymphocytes # (Manual) PT 15.1 H INR 1.22 H POC ABG pH ABG pH POC ABG pCO2 POC ABG pO2 ABG pO2 ABG Base Excess ABG Hemoglobin Sodium Potassium 5.2 H Chloride Carbon Dioxide BUN 67 H Creatinine 2.7 H Glucose 146 H POC Glucose Calcium Iron AST 52 H Alkaline Phosphatase 203 H Ammonia Troponin T NT-Pro-B Natriuret Pep Albumin 3.4 L LDL Cholesterol Direct HDL Cholesterol Salicylates Acetaminophen 07/01/19 07/01/19 07/01/19 15:22 15:22 15:22 WBC MCH RDW Lymph # Seg Neutrophils % Seg Neuts % (Manual) Lymphocytes % (Manual) Nucleated RBC % Lymphocytes # (Manual) PT INR POC ABG pH ABG pH POC ABG pCO2 POC ABG pO2 ABG pO2 ABG Base Excess ABG Hemoglobin Sodium Potassium Chloride Carbon Dioxide BUN Creatinine Glucose POC Glucose Calcium Iron AST Alkaline Phosphatase Ammonia Troponin T 0.121 H* NT-Pro-B Natriuret Pep Albumin LDL Cholesterol Direct 38 L HDL Cholesterol 32 L Salicylates < 0.3 L Acetaminophen < 5.0 L 07/01/19 07/01/19 07/01/19 15:35 18:35 23:32 WBC MCH RDW Lymph # Seg Neutrophils % Seg Neuts % (Manual) Lymphocytes % (Manual) Nucleated RBC % Lymphocytes # (Manual) PT INR POC ABG pH ABG pH POC ABG pCO2 POC ABG pO2 ABG pO2 ABG Base Excess ABG Hemoglobin Sodium Potassium Chloride Carbon Dioxide BUN Creatinine Glucose POC Glucose Calcium Iron 26 L AST Alkaline Phosphatase Ammonia 64.0 H Troponin T NT-Pro-B Natriuret Pep > 21232 H Albumin LDL Cholesterol Direct HDL Cholesterol Salicylates Acetaminophen 07/01/19 07/02/19 07/02/19 Unknown 07:32 10:33 WBC MCH RDW Lymph # Seg Neutrophils % Seg Neuts % (Manual) Lymphocytes % (Manual) Nucleated RBC % Lymphocytes # (Manual) PT INR POC ABG pH 7.275 L ABG pH 7.284 L POC ABG pCO2 POC ABG pO2 76 L ABG pO2 121.4 H ABG Base Excess -3.1 L ABG Hemoglobin 10.5 L Sodium Potassium Chloride Carbon Dioxide BUN Creatinine Glucose POC Glucose 164 H Calcium Iron AST Alkaline Phosphatase Ammonia Troponin T NT-Pro-B Natriuret Pep Albumin LDL Cholesterol Direct HDL Cholesterol Salicylates Acetaminophen 07/02/19 07/02/19 07/02/19 11:39 11:39 11:39 WBC MCH 25 L RDW 22.3 H Lymph # Seg Neutrophils % Seg Neuts % (Manual) 81.0 H Lymphocytes % (Manual) 8.0 L Nucleated RBC % 1.0 H Lymphocytes # (Manual) 0.7 L PT INR POC ABG pH ABG pH POC ABG pCO2 POC ABG pO2 ABG pO2 ABG Base Excess ABG Hemoglobin Sodium Potassium 5.7 H Chloride 109.5 H Carbon Dioxide 14 L D BUN 73 H Creatinine 2.6 H Glucose 187 H POC Glucose Calcium Iron AST Alkaline Phosphatase 202 H Ammonia Troponin T 0.138 H* NT-Pro-B Natriuret Pep Albumin 3.5 L LDL Cholesterol Direct HDL Cholesterol Salicylates Acetaminophen 07/03/19 07/03/19 07/03/19 04:51 10:22 16:53 WBC MCH 24 L RDW 22.4 H Lymph # Seg Neutrophils % Seg Neuts % (Manual) Lymphocytes % (Manual) Nucleated RBC % Lymphocytes # (Manual) PT INR POC ABG pH 7.222 L ABG pH POC ABG pCO2 60.0 H POC ABG pO2 167 H ABG pO2 ABG Base Excess ABG Hemoglobin Sodium 149 H Potassium 5.3 H Chloride 110.6 H Carbon Dioxide 17 L BUN 79 H Creatinine 2.8 H Glucose 244 H POC Glucose Calcium Iron AST Alkaline Phosphatase Ammonia Troponin T 0.193 H* D NT-Pro-B Natriuret Pep Albumin LDL Cholesterol Direct HDL Cholesterol Salicylates Acetaminophen 07/03/19 07/04/19 07/04/19 20:42 04:17 04:19 WBC MCH RDW Lymph # Seg Neutrophils % Seg Neuts % (Manual) Lymphocytes % (Manual) Nucleated RBC % Lymphocytes # (Manual) PT INR POC ABG pH ABG pH POC ABG pCO2 32.8 L 31.8 L POC ABG pO2 207 H 155 H ABG pO2 ABG Base Excess ABG Hemoglobin Sodium 151 H Potassium Chloride 110.7 H Carbon Dioxide 16 L BUN 88 H Creatinine 2.8 H Glucose 303 H POC Glucose Calcium 10.5 H Iron AST Alkaline Phosphatase Ammonia Troponin T NT-Pro-B Natriuret Pep Albumin LDL Cholesterol Direct HDL Cholesterol Salicylates Acetaminophen 07/04/19 07/04/19 07/04/19 04:19 13:32 17:42 WBC MCH 24 L RDW 22.7 H Lymph # Seg Neutrophils % Seg Neuts % (Manual) Lymphocytes % (Manual) Nucleated RBC % Lymphocytes # (Manual) PT INR POC ABG pH ABG pH POC ABG pCO2 POC ABG pO2 ABG pO2 ABG Base Excess ABG Hemoglobin Sodium Potassium Chloride Carbon Dioxide BUN Creatinine Glucose POC Glucose 340 H 334 H Calcium Iron AST Alkaline Phosphatase Ammonia Troponin T NT-Pro-B Natriuret Pep Albumin LDL Cholesterol Direct HDL Cholesterol Salicylates Acetaminophen 07/04/19 07/05/19 07/05/19 23:31 04:22 05:23 WBC MCH RDW Lymph # Seg Neutrophils % Seg Neuts % (Manual) Lymphocytes % (Manual) Nucleated RBC % Lymphocytes # (Manual) PT INR POC ABG pH ABG pH POC ABG pCO2 32.9 L POC ABG pO2 ABG pO2 ABG Base Excess ABG Hemoglobin Sodium Potassium 3.3 L D Chloride Carbon Dioxide BUN 33 H Creatinine 1.4 H Glucose 250 H POC Glucose 223 H Calcium Iron AST Alkaline Phosphatase Ammonia Troponin T NT-Pro-B Natriuret Pep Albumin LDL Cholesterol Direct HDL Cholesterol Salicylates Acetaminophen 07/05/19 07/05/19 07/05/19 05:23 05:38 11:21 WBC MCH 25 L RDW 22.4 H Lymph # Seg Neutrophils % Seg Neuts % (Manual) Lymphocytes % (Manual) Nucleated RBC % Lymphocytes # (Manual) PT INR POC ABG pH ABG pH POC ABG pCO2 POC ABG pO2 ABG pO2 ABG Base Excess ABG Hemoglobin Sodium Potassium Chloride Carbon Dioxide BUN Creatinine Glucose POC Glucose 262 H 256 H Calcium Iron AST Alkaline Phosphatase Ammonia Troponin T NT-Pro-B Natriuret Pep Albumin LDL Cholesterol Direct HDL Cholesterol Salicylates Acetaminophen 07/05/19 07/05/19 07/05/19 16:54 17:43 23:58 WBC MCH RDW Lymph # Seg Neutrophils % Seg Neuts % (Manual) Lymphocytes % (Manual) Nucleated RBC % Lymphocytes # (Manual) PT INR POC ABG pH 7.518 H ABG pH POC ABG pCO2 32.4 L POC ABG pO2 ABG pO2 ABG Base Excess ABG Hemoglobin Sodium Potassium Chloride Carbon Dioxide BUN Creatinine Glucose POC Glucose 219 H 254 H Calcium Iron AST Alkaline Phosphatase Ammonia Troponin T NT-Pro-B Natriuret Pep Albumin LDL Cholesterol Direct HDL Cholesterol Salicylates Acetaminophen 07/06/19 07/06/19 07/06/19 04:23 05:03 11:37 WBC MCH RDW Lymph # Seg Neutrophils % Seg Neuts % (Manual) Lymphocytes % (Manual) Nucleated RBC % Lymphocytes # (Manual) PT INR POC ABG pH 7.480 H ABG pH POC ABG pCO2 33.7 L POC ABG pO2 70 L ABG pO2 ABG Base Excess ABG Hemoglobin Sodium Potassium Chloride Carbon Dioxide BUN Creatinine Glucose POC Glucose 300 H Calcium Iron AST Alkaline Phosphatase Ammonia Troponin T NT-Pro-B Natriuret Pep Albumin LDL Cholesterol Direct HDL Cholesterol Salicylates Acetaminophen 07/06/19 07/06/19 07/06/19 12:09 17:39 23:26 WBC MCH RDW Lymph # Seg Neutrophils % Seg Neuts % (Manual) Lymphocytes % (Manual) Nucleated RBC % Lymphocytes # (Manual) PT INR POC ABG pH ABG pH POC ABG pCO2 POC ABG pO2 ABG pO2 ABG Base Excess ABG Hemoglobin Sodium Potassium Chloride Carbon Dioxide BUN Creatinine Glucose POC Glucose 355 H 266 H 235 H Calcium Iron AST Alkaline Phosphatase Ammonia Troponin T NT-Pro-B Natriuret Pep Albumin LDL Cholesterol Direct HDL Cholesterol Salicylates Acetaminophen 07/06/19 07/06/19 07/07/19 Unknown Unknown 04:43 WBC 11.1 H MCH 25 L 25 L RDW 22.9 H 23.2 H Lymph # Seg Neutrophils % Seg Neuts % (Manual) Lymphocytes % (Manual) Nucleated RBC % Lymphocytes # (Manual) PT INR POC ABG pH ABG pH POC ABG pCO2 POC ABG pO2 ABG pO2 ABG Base Excess ABG Hemoglobin Sodium Potassium 3.5 L Chloride Carbon Dioxide BUN 22 H Creatinine 1.4 H Glucose 316 H POC Glucose Calcium Iron AST Alkaline Phosphatase Ammonia Troponin T NT-Pro-B Natriuret Pep Albumin LDL Cholesterol Direct HDL Cholesterol Salicylates Acetaminophen 07/07/19 07/07/19 07/07/19 04:43 05:29 11:59 WBC MCH RDW Lymph # Seg Neutrophils % Seg Neuts % (Manual) Lymphocytes % (Manual) Nucleated RBC % Lymphocytes # (Manual) PT INR POC ABG pH ABG pH POC ABG pCO2 POC ABG pO2 ABG pO2 ABG Base Excess ABG Hemoglobin Sodium Potassium 3.1 L Chloride Carbon Dioxide BUN Creatinine Glucose 162 H POC Glucose 163 H 203 H Calcium Iron AST Alkaline Phosphatase Ammonia Troponin T NT-Pro-B Natriuret Pep Albumin LDL Cholesterol Direct HDL Cholesterol Salicylates Acetaminophen 07/07/19 07/07/19 07/08/19 18:14 22:00 04:00 WBC MCH RDW Lymph # Seg Neutrophils % Seg Neuts % (Manual) Lymphocytes % (Manual) Nucleated RBC % Lymphocytes # (Manual) PT INR POC ABG pH ABG pH POC ABG pCO2 POC ABG pO2 ABG pO2 ABG Base Excess ABG Hemoglobin Sodium Potassium 3.0 L Chloride Carbon Dioxide BUN 22 H Creatinine 1.7 H Glucose 153 H POC Glucose 141 H 167 H Calcium Iron AST Alkaline Phosphatase Ammonia Troponin T NT-Pro-B Natriuret Pep Albumin LDL Cholesterol Direct HDL Cholesterol Salicylates Acetaminophen 07/08/19 07/08/19 07/08/19 08:02 11:13 Unknown WBC MCH 25 L RDW 22.5 H Lymph # Seg Neutrophils % Seg Neuts % (Manual) Lymphocytes % (Manual) Nucleated RBC % Lymphocytes # (Manual) PT INR POC ABG pH ABG pH POC ABG pCO2 POC ABG pO2 ABG pO2 ABG Base Excess ABG Hemoglobin Sodium Potassium Chloride Carbon Dioxide BUN Creatinine Glucose POC Glucose 175 H 115 H Calcium Iron AST Alkaline Phosphatase Ammonia Troponin T NT-Pro-B Natriuret Pep Albumin LDL Cholesterol Direct HDL Cholesterol Salicylates Acetaminophen Chest x-ray: report reviewed, image reviewed Allied health notes reviewed: nursing
[2019-07-08] MEDS: PHENOL 1.4% 177 ML BOTTLE MM PRN (17:28)
[2019-07-09] MEDS: PHENOL 1.4% 177 ML BOTTLE MM PRN ×3 (02:08→18:00)
[2019-07-09 05:37] LABS: Hematocrit 36.1 % (30.3-42.9); Hemoglobin 11.2 gm/dl (10.1-14.3); Mean Corpuscular HGB Conc 31 % (30-34); Mean Corpuscular Volume 80 fl (79-97); Platelet Count 207 K/mm3 (140-440); Red Blood Count 4.52 M/mm3 (3.65-5.03)
[2019-07-09 05:38] LABS: Red Cell Distribution Width 23.1 % (13.2-15.2)
[2019-07-09] MEDS: INSULIN LISPRO 100 UNIT/ML SUB-Q SCH ×3 (07:30→16:30)
[2019-07-09] MEDS ORDERED: POTASSIUM CHLORIDE ER 20 MEQ TAB PO ONE (08:30)
--- NOTE | 2019-07-09 09:32 | Progress Note ---
Assessment and Plan Altered mental status Suspected to be secondary to overdose of lyrica vs uremic encephalopaty. Improving. Head CT with NAF. Further eval/management per primary. Acute respiratory failure Extubated. Management per pulmonary. Aspiration PNA S/p abx therapy. Acute heart failure with reduced EF EF currently 20-25% (EF was 35-40% in 09/2017). Will plan for lexiscan MPI stress test in AM. NPO after MN. Cont coreg. No ACEI/ARB at this time in setting of renal insufficiency. Cont volume optimization per nephrology. Ischemic cardiomyopathy EF 20-25% (EF 35-40% in 09/2017). Will plan for ischemic evaluation once medically stabilized. Cont coreg. No ACEI/ARB at this time in setting of renal insufficiency. Cont volume optimization per nephrology. CAD s/p CABG at [facility] in 05/2016 Cont ASA, statin, BB. NSTEMI Suspect type II. Will plan for lexiscan MPI stress test in AM. NPO after MN. HTN Stable. HLP Cont statin. DM Per primary. H/o left CEA Cont ASA, statin. COPD Per pulmonary. OLEKSANDR on CKD Intermittently requiring HD. Nephrology following. PVD The patient has been seen in conjunction with Dr. Hagan who agrees with the assessment and plan of care. Subjective Date of service: 07/09/19 Principal diagnosis: AMS Interval history: pt sleeping, awakened with verbal stimulation. no family at bedside. telemetry discontinued as she has been transferred to 3rd floor. Objective Last Vital Signs Temp 98.5 F 07/09/19 04:40 Pulse 81 07/09/19 04:40 Resp 18 07/09/19 04:40 BP 147/83 07/09/19 04:40 Pulse Ox 100 07/09/19 04:40 - Physical Examination General: No Apparent Distress HEENT: Positive: PERRL Neck: Positive: neck supple Cardiac: Positive: Reg Rate and Rhythm, S1/S2 Lungs: Positive: Decreased Breath Sounds Neuro: Positive: Grossly Intact Abdomen: Positive: Soft Skin: Negative: Rash Musculoskeletal: No Fluid Collection Extremities: Present: Other (bilateral below-knee amputation). Absent: edema - Labs and Meds CBC 07/09/19 Range/Units 04:57 WBC 11.2 H (4.5-11.0) K/mm3 RBC 4.52 (3.65-5.03) M/mm3 Hgb 11.2 (10.1-14.3) gm/dl Hct 36.1 (30.3-42.9) % Plt Count 207 (140-440) K/mm3 Comprehensive Metabolic Panel 07/09/19 Range/Units 04:57 Sodium 140 (137-145) mmol/L Potassium 3.2 L (3.6-5.0) mmol/L Chloride 101.3 (98-107) mmol/L Carbon Dioxide 29 (22-30) mmol/L BUN 32 H (7-17) mg/dL Creatinine 2.0 H (0.7-1.2) mg/dL Glucose 161 H (65-100) mg/dL Calcium 9.0 (8.4-10.2) mg/dL - Imaging and Cardiology EKG: report reviewed, image reviewed Echo: report reviewed (09/2017 showed EF 35-40%, mild LVH, severe LAE, mild AR and MR, mod TR, RVSP 66mmHg. 06/2019: EF 20-25%, restrictive diastolic filling, RV mildly dilated, mild MR, mod TR, RVSP 54mmHg, mild [place]. ) - EKG Sinus rhythms and dysrhythmias: sinus rhythm - Allied health notes Allied health notes reviewed: nursing
--- NOTE | 2019-07-09 09:47 | Progress Note ---
Assessment and Plan - Patient Problems (1) Acute kidney injury superimposed on chronic kidney disease Current Visit: Yes Status: Acute Plan to address problem: Patient has OLEKSANDR on already progressed CKD IV, likely in the setting of acute/chronic systolic heart failure and cardiorenal syndrome. pt with good UOP on lewis, improved volume status with daily HD until Sat. cont bumex, changed to 2mg po bid. Monitor daily renal functions. Avoid nephrotoxins. Maintain MAP >65mmHg. no indication for renal replacement therapy at present, will remove vascath for now. If azotemia worsens further in the setting of progressive CKD stage 4 and uremic encephalopathy develops again, at that time we need to consider mcfp HD with patient and family. (2) Altered mental status Current Visit: Yes Status: Acute Plan to address problem: Possibly secondary to Lyrica overdose. mental status improved significantly with daily HD (3) Acute HFrEF (heart failure with reduced ejection fraction) Current Visit: Yes Status: Acute Plan to address problem: ECHO findings noted with severely decreased systolic functions, and significant elevation of BNP noted. Strict I/O. cont diuresis with bumex. Please carefully document urine output/response with diuretic therapy. (4) Acute and chronic respiratory failure with hypoxia Current Visit: Yes Status: Acute Plan to address problem: Likely in the setting of acute on chronic CHF, volume status improved with IV diuresis, HD. cont bumex 2mg po bid. Further recommendations per pulmonology. She also has a h/o COPD. (5) Fluid overload Current Visit: Yes Status: Acute Plan to address problem: cont bumex 2mg po bid Subjective Date of service: 07/09/19 Principal diagnosis: AMS Interval history: Pt with improved mental status after daily HD, s/p extubation. Awake, alert, in no acute respiratory distress Objective - Vital Signs Vital signs: Vital Signs - 12hr 07/08/19 07/08/19 07/09/19 22:24 22:40 04:40 Temperature 98.1 F 98.5 F Pulse Rate 86 84 81 Respiratory 18 18 Rate Blood Pressure 151/91 151/90 147/83 O2 Sat by Pulse 100 100 Oximetry - General Appearance General appearance: well-developed, well-nourished, appears stated age EENT: ATNC, PERRL, mucous membranes moist Neck: no JVD Respiratory: Present: Clear to Ascultation Cardiology: regular, S1S2 Gastrointestinal: normoactive bowel sounds, obese Integumentary: no rash, other (b/l BKA ) Neurologic: no focal deficit, alert and oriented x3, strength 5/5, CN 3-12 intact Psychiatric: mood/affect appropriate, cooperative - Lab 07/09/19 04:57 07/09/19 04:57 Most recent lab results ABG pH 7.284 pH Units (7.350-7.450) L 07/01/19 Unknown ABG pCO2 51.5 mm Hg 07/01/19 Unknown ABG pO2 121.4 mm Hg (80.0-90.0) H 07/01/19 Unknown ABG HCO3 23.9 mmol/L (20.0-26.0) 07/01/19 Unknown ABG O2 Saturation 98.0 % (95.0-99.0) 07/01/19 Unknown Calcium 9.0 mg/dL (8.4-10.2) 07/09/19 04:57 Magnesium 2.30 mg/dL (1.7-2.3) 07/04/19 04:19 Medications & Allergies - Medications Allergies/Adverse Reactions: Allergies KRYSTIAN Inhibitors Allergy (Verified 04/26/14 00:50) Shortness of Breath amitriptyline Allergy (Verified 12/18/17 17:44) Unknown Home Medications: Home Medications Medication Instructions Recorded Confirmed Last Taken Type ALBUTEROL Inhaler (OR & NICU) 2 puff IH QID PRN 03/16/16 07/01/19 06/30/19 History [ProAir HFA Inhaler] Albuterol *Only Ed* [Proventil 2.5 mg IH QIDRT PRN #7 nebu 03/22/16 07/01/19 06/30/19 Rx 0.5% NEBS] Butalb/Acetamin/Caff 50-325-40 1 tab PO Q8HR PRN #90 tablet 03/22/16 07/01/19 06/30/19 Rx [Fioricet 50-325-40] HYDROcodone/APAP 5-325 [[place] 1 each PO QHS #30 tablet 03/22/16 07/01/19 Rx 5-325 mg TAB] ISOSORBIDE MONOnitrate [Imdur ER] 30 mg PO QDAY #30 tablet 03/22/16 07/01/19 06/30/19 Rx Insulin NPH/Regular [NovoLIN 70/30] 30 unit SQ BIDDIAB #30 units 03/22/16 07/01/19 06/30/19 Rx Aspirin [Aspirin BABY CHEW TAB] 81 mg PO QDAY #15 tab.chew 04/08/16 07/01/19 06/30/19 Rx AtorvaSTATin [Lipitor] 40 mg PO QHS #15 tablet 04/08/16 07/01/19 06/30/19 Rx Clopidogrel [Plavix] 75 mg PO QDAY #15 tablet 04/08/16 07/01/19 06/30/19 Rx Chlorhexidine Mouthwash [Peridex] 15 ml MM BID #1 bottle 12/18/17 07/01/19 06/30/19 Rx Carvedilol [Coreg] 12.5 mg PO QDAY 07/01/19 07/01/19 06/30/19 History Escitalopram Oxalate [Lexapro] 10 mg PO QHS 07/01/19 07/01/19 06/30/19 History Ferrous Sulfate [Feosol] 325 mg PO QDAY 07/01/19 07/01/19 06/30/19 History Pregabalin [Lyrica] 75 mg PO QHS 07/01/19 07/01/19 06/30/19 History Sodium Bicarbonate 650 mg PO BID 07/01/19 07/01/19 06/30/19 History Torsemide [Demadex] 10 mg PO QDAY 07/01/19 07/01/19 06/30/19 History hydrALAZINE [Apresoline] 25 mg PO QDAY 07/01/19 07/01/19 06/30/19 History Active Medications: Generic Name Dose Route Start Last Admin Trade Name Freq PRN Reason Stop Dose Admin Acetaminophen 650 mg 07/07/19 11:24 07/08/19 05:10 Tylenol PO 650 mg Q6H PRN Administration Non Cardiac Pain or Temp>100.5 Albuterol 2.5 mg 07/01/19 20:06 Proventil IH Q3HRT PRN Shortness Of Breath Aspirin 81 mg 07/09/19 10:00 Baby Aspirin PO QDAY CHRISTY Atorvastatin Calcium 40 mg 07/08/19 22:00 07/08/19 22:24 Lipitor PO 40 mg QHS CHRISTY Administration Bumetanide 2 mg 07/08/19 10:00 07/08/19 22:30 Bumex PO 2 mg BID CHRISTY Administration Carvedilol 12.5 mg 07/04/19 22:00 07/08/19 22:24 Coreg PO 12.5 mg BID CHRISTY Administration Dextrose 50 ml 07/07/19 10:53 D50w (25gm) Syringe IV PRN PRN Hypoglycemia Hydralazine HCl 10 mg 07/02/19 05:49 07/06/19 09:24 Apresoline IV 10 mg Q4H PRN Administration Blood Pressure Hydrophilic Ointment 1 applic 07/03/19 19:12 Vaseline Lip Therapy TP Q2HR PRN Dry Lips Sodium Chloride 100 mls @ 999 mls/hr 07/04/19 15:00 Nacl 0.9% IV LA PRN Hypotension Insulin Glargine 15 units 07/07/19 08:00 07/08/19 08:07 Lantus SUB-Q 15 units QAMDIAB CHRISTY Administration Insulin Human Lispro 0 unit 07/07/19 11:30 07/09/19 07:30 Humalog SUB-Q 3 unit ACHS CHRISTY Administration Protocol Lansoprazole 30 mg 07/06/19 22:00 07/08/19 22:30 Prevacid Solutab FEEDTUBE 30 mg BID CHRISTY Administration Ondansetron HCl 4 mg 07/07/19 12:19 07/08/19 08:06 Zofran IV 4 mg Q4H PRN Administration Nausea And Vomiting Phenol 1 spray 07/08/19 10:34 07/09/19 02:08 Chloraseptic MM 1 spray PRN PRN Administration Sore Throat Sodium Chloride 10 ml 07/01/19 22:00 07/08/19 22:25 Sodium Chloride Flush Syringe 10 Ml IV 10 ml BID CHRISTY Administration Sodium Chloride 10 ml 07/01/19 20:06 Sodium Chloride Flush Syringe 10 Ml IV PRN PRN LINE FLUSH
[2019-07-09] MEDS: ASPIRIN 81 MG TAB CHEW PO SCH (10:08)
[2019-07-09] MEDS: carvediloL 12.5 MG TAB PO SCH ×2 (10:08→21:31)
[2019-07-09] MEDS: BUMETANIDE 1 MG TAB PO SCH ×2 (10:08→21:33)
[2019-07-09] MEDS: LANSOPRAZOLE 30 MG SOLUTAB FEEDTUBE SCH ×2 (10:08→21:42)
[2019-07-09] MEDS: INSULIN GLARGINE 100 UNITS/ML SUB-Q SCH (10:09)
[2019-07-09] MEDS: ACETAMINOPHEN 325 MG TAB PO PRN ×2 (10:18→17:59)
[2019-07-09] MEDS ORDERED: NEOMY 3.5 MG/BACIT 400 UNITS/POLY B 5000 UNITS/GM OINT PACKET TP STA (12:22)
--- NOTE | 2019-07-09 12:36 | Progress Note ---
Subjective Date of service: 07/09/19 Principal diagnosis: AMS Interval history: Assessment and plan: Patient is a 59 yo woman with a history of hypertension, CAD s/p PCI, s/p CABG at [facility] in 05/2016, ICMP, HFrEF (Echo done 09/2017 showed EF 35-40%, mild LVH, severe LAE, mild AR and MR, mod TR, RVSP 66mmHg), carotid stenosis s/p left CEA in 01/2016, COPD, HTN, HLP, DM type 2 and CKD who presented to [facility] ED with AMS and unresponsiveness. According to ED record, the family found her basically somnolent in the bed with some Lyrica pills in her hand and several pills lying on the bed next to her on Monday. Then on Monday, they noticed that she had vomited on herself and seemed a little groggy. Family called EMS but the pt refused to be transported to the hospital. As the day progressed family states the patient appeared to get weaker and then eventually she could not keep her eyes open. Family states they were able to convince the patient to come to the emergency department. On evaluation, the patient is lying on the stretcher with somniferous respirations. She is currently on O2 via nasal cannula with O2 sats WNL. Head CT with NAF. Cardiology has been consulted for HF. CXR with some vascular congestion, pro-BNP >93220. Other labwork significant for ABG pH 7.27, BUN/Cr 67/2.7, K+ 5.2, AST 52, ALK phos 203, ammonia 64. On 07/03/19 around 5pm; patient became hypoxic and obtunded, ABG showed worsening acidosis with hypercapnea, I discuss Dr. Lozoya. I elected to Intubated instead of bipap because pt is obtunded. I called Anesthesia and uneventful intubation done via guide-scope. D/w Dr. Lozoya and daughter Vickiekarina at bedside and another daughter over the phone. Also, spoke with her PCP Dr. Booth over the phone prior to intubation. Flakito handed me the phone with Dr. Booth and her sister on [address] way. * TTE Conclusions: Global LVSF is severely decreased, estimated EF 20-25%, lv diastolic filling is restrictive, RV is mildly dilated, RVSF is moderately reduced, mild MR, moderate TR, RVSP is calcuated at 54 mmHg, mild pulmonic regurgitation, no pericardial effusion, Inferior vena cava is dilated * pCXR Impression: 1.Stable cardiomegaly 2. Diminished lung volumes with mild vascular congestion 07/01/19: Admitted to [facility], stayed in ED over 24 hours. Admitted to IM 07/02/19: I took over care and requested ICU bed for possible intubation as her mental status was poor (she was obtunded), consulted CCM who evaluate patient, ABG done and Intensvist determined she did not need intubation at the time and ok to admitted to [facility], so I changed location back from ICU to IM. 07/03/19: Renal function worsened, Mental status worsened, she became hypoxic and pCO2 increased with worsening acidosis, and she was emergently intubated by Anesthesia in the IM, transferred to ICU 07/04/19 On 07/04/19, She had lewis catheter inserted and ~1600 urine was expelled then She had right femoral vas cath placed and Hemodialysis done. D/w son Juan Manuel over the phone, he is in [place], [place]. Also, d.w daughter Isis at bedside. They want to transfer to [facility] because of preference but her PCP Dr. Booth doesn't admit to ICU. Hemodialysis started via Right Femoral vas cath 07/05/19: Mental status improved. Still intubated and no sedation is needed. Restraints renewed. 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 She tracking with her eyes and her eyes . She had lewis catheter inserted yesterday 07/04/19 and 1600 urine was expelled immediately. The urine retention was probably related to the drug overdose and should get better. She had right femoral vas cath placed and Hemodialysis yesterday. D/W son Juan Manuel at bedside 07/06/19: HD today, mental status improving, she is squeezing my hand on command with good and equal strength bilaterally, hopefully to extubated today. SSI ordered, increase Lantus as BG uncontrolled, renew restraints. She spiked a fever, give tylenol and ordered set of blood culture 07/07/19: Extubated yesterday around 4pm. Overnight uneventful. She pulled out NGT, bedside swallow evaluation pending. Consider downgrading to IMCU or tele, defer to Grinding Operator. Blood culture pending, consulted ID for new onset fevers. 07/08/19: Doing much better, moving all extremities including bilateral BKA stumps. She still feels weak and not quite at baseline. Will downgrade to medsurg unit. Will discharge when no more Hemodialysis is needed and right femoral Vas cath is removed. 07/09 patient is A&O x 3 today. offers no complaints chart, labs and all inter disciplinary notes reviewed. scheduled for MPI stress test tomorrow CCT 25 min Hospitalist Physical - Physical exam Narrative exam: Gen: ill appearing, obtunded, mildly increase accessory muscles HEENT: NCAT, eyes matted shut with crust especially left eye, OP Clear Neck: supple, no adenopathy, no thyromegaly, no JVD CVS/Heart: tachycardic normal S1S2, pulses present bilaterally Chest/Lungs: tachypenic, diminished bs bilateral Symmetrical chest expansion, good air entry bilaterally GI/Abdomen: soft, NTND, good bowel sounds, no guarding or rebound /Bladder: no suprapubic tenderness, no CVA or paraspinal tenderness Extermity/Skin: no obvious rash MSK: confused Neuro: CN 2-12 grossly intact, not following directions. Psych: confused A/P: Altered mental status r/o secondary to overdose of lyrica vs uremic encephalopaty. Improved Acute respiratory failure Extubated. stable pulmonary following Aspiration PNA S/p abx therapy. Acute heart failure with reduced EF cardiology note reviewed EF currently 20-25% (EF was 35-40% in 09/2017). For lexiscan MPI stress test in AM. Cont coreg. No ACEI/ARB at this time in setting of renal insufficiency. Ischemic cardiomyopathy EF 20-25% (EF 35-40% in 09/2017). W Cont coreg. No ACEI/ARB at this time CAD s/p CABG at [facility] in 05/2016 Cont ASA, statin, BB. NSTEMI for lexiscan MPI stress test in AM. HTN Stable. HLP Cont statin. DM acu-checks reviewed cont. present management H/o left CEA Cont ASA, statin. COPD cont. neb treatments OLEKSANDR on CKD Intermittently requiring HD. Nephrology following. Objective - Constitutional Vitals: Vital Signs - 12hr 07/09/19 07/09/19 07/09/19 04:40 10:00 10:08 Temperature 98.5 F Pulse Rate 81 81 Respiratory 18 Rate Blood Pressure 147/83 143/81 O2 Sat by Pulse 100 97 Oximetry - Labs CBC & Chem 7: 07/09/19 04:57 07/09/19 04:57 Labs: Abnormal lab results 07/08/19 07/08/19 07/08/19 Range/Units 12:30 16:41 21:33 WBC (4.5-11.0) K/mm3 MCH (28-32) pg RDW (13.2-15.2) % Potassium (3.6-5.0) mmol/L BUN (7-17) mg/dL Creatinine (0.7-1.2) mg/dL Glucose (65-100) mg/dL POC Glucose 123 H 149 H 192 H (70-105) 07/09/19 07/09/19 07/09/19 Range/Units 04:57 04:57 07:43 WBC 11.2 H (4.5-11.0) K/mm3 MCH 25 L (28-32) pg RDW 23.1 H (13.2-15.2) % Potassium 3.2 L (3.6-5.0) mmol/L BUN 32 H (7-17) mg/dL Creatinine 2.0 H (0.7-1.2) mg/dL Glucose 161 H (65-100) mg/dL POC Glucose 159 H (70-105) 07/09/19 Range/Units 12:18 WBC (4.5-11.0) K/mm3 MCH (28-32) pg RDW (13.2-15.2) % Potassium (3.6-5.0) mmol/L BUN (7-17) mg/dL Creatinine (0.7-1.2) mg/dL Glucose (65-100) mg/dL POC Glucose 226 H (70-105)
--- NOTE | 2019-07-09 13:46 | Progress Note ---
Assessment and Plan Imp: 1. A/C systolic CHF 2. ICMP 3. OLEKSANDR on CKD 4. Acute respiratory failure, hypoxia 5. ALAN, noncompliant with CPAP 6. Obesity Rec: 1. Diuresis; renal following; K repleted 2. Other plans as per cardiology 3. Need to repeat sleep studies and obtain new CPAP machine was discussed, patient expressed understanding 4. Will follow w/ you but okay to d/c home pulmonary-godoy after ensuring adequate oxygenation on RA Plan of care reviewed w/ patient, she understands/agrees Subjective Date of service: 07/09/19 Principal diagnosis: AMS Interval history: No events. SOB better. On nasal cannula. Denies chest pain or other complaints currently. Active Medications Acetaminophen (Tylenol) 650 mg PO Q6H PRN PRN Reason: Non Cardiac Pain or Temp>100.5 Last Admin: 07/09/19 10:18 Dose: 650 mg Documented by: Albuterol (Proventil) 2.5 mg IH Q3HRT PRN PRN Reason: Shortness Of Breath Aspirin (Baby Aspirin) 81 mg PO QDAY [facility] Last Admin: 07/09/19 10:08 Dose: 81 mg Documented by: Atorvastatin Calcium (Lipitor) 40 mg PO QHS [facility] Last Admin: 07/08/19 22:24 Dose: 40 mg Documented by: Bumetanide (Bumex) 2 mg PO BID [facility] Last Admin: 07/09/19 10:08 Dose: 2 mg Documented by: Carvedilol (Coreg) 12.5 mg PO BID [facility] Last Admin: 07/09/19 10:08 Dose: 12.5 mg Documented by: Dextrose (D50w (25gm) Syringe) 50 ml IV PRN PRN PRN Reason: Hypoglycemia Hydralazine HCl (Apresoline) 10 mg IV Q4H PRN PRN Reason: Blood Pressure Last Admin: 07/06/19 09:24 Dose: 10 mg Documented by: Hydrophilic Ointment (Vaseline Lip Therapy) 1 applic TP Q2HR PRN PRN Reason: Dry Lips Sodium Chloride (Nacl 0.9%) 100 mls @ 999 mls/hr IV LA PRN PRN Reason: Hypotension Insulin Glargine (Lantus) 15 units SUB-Q QAMDIAB [facility] Last Admin: 07/09/19 10:09 Dose: 15 units Documented by: Insulin Human Lispro (Humalog) 0 unit SUB-Q ACHS [facility]; Protocol Last Admin: 07/09/19 11:30 Dose: 4 unit Documented by: Lansoprazole (Prevacid Solutab) 30 mg FEEDTUBE BID [facility] Last Admin: 07/09/19 10:08 Dose: 30 mg Documented by: Ondansetron HCl (Zofran) 4 mg IV Q4H PRN PRN Reason: Nausea And Vomiting Last Admin: 07/08/19 08:06 Dose: 4 mg Documented by: Phenol (Chloraseptic) 1 spray MM PRN PRN PRN Reason: Sore Throat Last Admin: 07/09/19 10:18 Dose: 1 spray Documented by: Sodium Chloride (Sodium Chloride Flush Syringe 10 Ml) 10 ml IV BID [facility] Last Admin: 07/09/19 10:16 Dose: 10 ml Documented by: Sodium Chloride (Sodium Chloride Flush Syringe 10 Ml) 10 ml IV PRN PRN PRN Reason: LINE FLUSH Objective Vital Signs - 12hr 07/09/19 07/09/19 07/09/19 04:40 10:00 10:08 Temperature 98.5 F Pulse Rate 81 81 Respiratory 18 Rate Blood Pressure 147/83 143/81 O2 Sat by Pulse 100 97 Oximetry Constitutional: no acute distress Eyes: non-icteric ENT: oropharynx moist Neck: supple Effort: normal Ascultation: Bilateral: clear Cardiovascular: regular rate and rhythm (no mrg) Gastrointestinal: normoactive bowel sounds, soft, non-tender, non-distended Integumentary: normal Extremities: no cyanosis, no edema, pink and warm, other (s/p bilateral BKA) Neurologic: normal mental status, non-focal exam, pupils equal and round Psychiatric: mood appropriate, affect normal CBC and BMP: 07/09/19 04:57 07/09/19 04:57 ABG, PT/INR, D-dimer: ABG POC ABG pH 7.480 (7.35-7.45) H 07/06/19 11:37 ABG pH 7.284 pH Units (7.350-7.450) L 07/01/19 Unknown POC ABG pCO2 33.7 (35-45) L 07/06/19 11:37 ABG pCO2 51.5 mm Hg 07/01/19 Unknown POC ABG pO2 91 (80-105) 07/06/19 11:37 ABG pO2 121.4 mm Hg (80.0-90.0) H 07/01/19 Unknown POC ABG HCO3 25.1 (22-26 mml/L) 07/06/19 11:37 POC ABG Total CO2 26 (23-27mmol/L) 07/06/19 11:37 POC ABG O2 Sat 98 07/06/19 11:37 ABG O2 Saturation 98.0 % (95.0-99.0) 07/01/19 Unknown PT/INR, D-dimer PT 15.1 Sec. (12.2-14.9) H 07/01/19 15:22 INR 1.22 (0.87-1.13) H 07/01/19 15:22 Abnormal lab findings: Abnormal Labs 07/01/19 07/01/19 07/01/19 15:22 15:22 15:22 WBC MCH 25 L RDW 22.1 H Lymph # 1.1 L Seg Neutrophils % 71.8 H Seg Neuts % (Manual) Lymphocytes % (Manual) Nucleated RBC % Lymphocytes # (Manual) PT 15.1 H INR 1.22 H POC ABG pH ABG pH POC ABG pCO2 POC ABG pO2 ABG pO2 ABG Base Excess ABG Hemoglobin Sodium Potassium 5.2 H Chloride Carbon Dioxide BUN 67 H Creatinine 2.7 H Glucose 146 H POC Glucose Calcium Iron AST 52 H Alkaline Phosphatase 203 H Ammonia Troponin T NT-Pro-B Natriuret Pep Albumin 3.4 L LDL Cholesterol Direct HDL Cholesterol Salicylates Acetaminophen 07/01/19 07/01/19 07/01/19 15:22 15:22 15:22 WBC MCH RDW Lymph # Seg Neutrophils % Seg Neuts % (Manual) Lymphocytes % (Manual) Nucleated RBC % Lymphocytes # (Manual) PT INR POC ABG pH ABG pH POC ABG pCO2 POC ABG pO2 ABG pO2 ABG Base Excess ABG Hemoglobin Sodium Potassium Chloride Carbon Dioxide BUN Creatinine Glucose POC Glucose Calcium Iron AST Alkaline Phosphatase Ammonia Troponin T 0.121 H* NT-Pro-B Natriuret Pep Albumin LDL Cholesterol Direct 38 L HDL Cholesterol 32 L Salicylates < 0.3 L Acetaminophen < 5.0 L 07/01/19 07/01/19 07/01/19 15:35 18:35 23:32 WBC MCH RDW Lymph # Seg Neutrophils % Seg Neuts % (Manual) Lymphocytes % (Manual) Nucleated RBC % Lymphocytes # (Manual) PT INR POC ABG pH ABG pH POC ABG pCO2 POC ABG pO2 ABG pO2 ABG Base Excess ABG Hemoglobin Sodium Potassium Chloride Carbon Dioxide BUN Creatinine Glucose POC Glucose Calcium Iron 26 L AST Alkaline Phosphatase Ammonia 64.0 H Troponin T NT-Pro-B Natriuret Pep > 80576 H Albumin LDL Cholesterol Direct HDL Cholesterol Salicylates Acetaminophen 07/01/19 07/02/19 07/02/19 Unknown 07:32 10:33 WBC MCH RDW Lymph # Seg Neutrophils % Seg Neuts % (Manual) Lymphocytes % (Manual) Nucleated RBC % Lymphocytes # (Manual) PT INR POC ABG pH 7.275 L ABG pH 7.284 L POC ABG pCO2 POC ABG pO2 76 L ABG pO2 121.4 H ABG Base Excess -3.1 L ABG Hemoglobin 10.5 L Sodium Potassium Chloride Carbon Dioxide BUN Creatinine Glucose POC Glucose 164 H Calcium Iron AST Alkaline Phosphatase Ammonia Troponin T NT-Pro-B Natriuret Pep Albumin LDL Cholesterol Direct HDL Cholesterol Salicylates Acetaminophen 07/02/19 07/02/19 07/02/19 11:39 11:39 11:39 WBC MCH 25 L RDW 22.3 H Lymph # Seg Neutrophils % Seg Neuts % (Manual) 81.0 H Lymphocytes % (Manual) 8.0 L Nucleated RBC % 1.0 H Lymphocytes # (Manual) 0.7 L PT INR POC ABG pH ABG pH POC ABG pCO2 POC ABG pO2 ABG pO2 ABG Base Excess ABG Hemoglobin Sodium Potassium 5.7 H Chloride 109.5 H Carbon Dioxide 14 L D BUN 73 H Creatinine 2.6 H Glucose 187 H POC Glucose Calcium Iron AST Alkaline Phosphatase 202 H Ammonia Troponin T 0.138 H* NT-Pro-B Natriuret Pep Albumin 3.5 L LDL Cholesterol Direct HDL Cholesterol Salicylates Acetaminophen 07/03/19 07/03/19 07/03/19 04:51 10:22 16:53 WBC MCH 24 L RDW 22.4 H Lymph # Seg Neutrophils % Seg Neuts % (Manual) Lymphocytes % (Manual) Nucleated RBC % Lymphocytes # (Manual) PT INR POC ABG pH 7.222 L ABG pH POC ABG pCO2 60.0 H POC ABG pO2 167 H ABG pO2 ABG Base Excess ABG Hemoglobin Sodium 149 H Potassium 5.3 H Chloride 110.6 H Carbon Dioxide 17 L BUN 79 H Creatinine 2.8 H Glucose 244 H POC Glucose Calcium Iron AST Alkaline Phosphatase Ammonia Troponin T 0.193 H* D NT-Pro-B Natriuret Pep Albumin LDL Cholesterol Direct HDL Cholesterol Salicylates Acetaminophen 07/03/19 07/04/19 07/04/19 20:42 04:17 04:19 WBC MCH RDW Lymph # Seg Neutrophils % Seg Neuts % (Manual) Lymphocytes % (Manual) Nucleated RBC % Lymphocytes # (Manual) PT INR POC ABG pH ABG pH POC ABG pCO2 32.8 L 31.8 L POC ABG pO2 207 H 155 H ABG pO2 ABG Base Excess ABG Hemoglobin Sodium 151 H Potassium Chloride 110.7 H Carbon Dioxide 16 L BUN 88 H Creatinine 2.8 H Glucose 303 H POC Glucose Calcium 10.5 H Iron AST Alkaline Phosphatase Ammonia Troponin T NT-Pro-B Natriuret Pep Albumin LDL Cholesterol Direct HDL Cholesterol Salicylates Acetaminophen 07/04/19 07/04/19 07/04/19 04:19 13:32 17:42 WBC MCH 24 L RDW 22.7 H Lymph # Seg Neutrophils % Seg Neuts % (Manual) Lymphocytes % (Manual) Nucleated RBC % Lymphocytes # (Manual) PT INR POC ABG pH ABG pH POC ABG pCO2 POC ABG pO2 ABG pO2 ABG Base Excess ABG Hemoglobin Sodium Potassium Chloride Carbon Dioxide BUN Creatinine Glucose POC Glucose 340 H 334 H Calcium Iron AST Alkaline Phosphatase Ammonia Troponin T NT-Pro-B Natriuret Pep Albumin LDL Cholesterol Direct HDL Cholesterol Salicylates Acetaminophen 07/04/19 07/05/19 07/05/19 23:31 04:22 05:23 WBC MCH RDW Lymph # Seg Neutrophils % Seg Neuts % (Manual) Lymphocytes % (Manual) Nucleated RBC % Lymphocytes # (Manual) PT INR POC ABG pH ABG pH POC ABG pCO2 32.9 L POC ABG pO2 ABG pO2 ABG Base Excess ABG Hemoglobin Sodium Potassium 3.3 L D Chloride Carbon Dioxide BUN 33 H Creatinine 1.4 H Glucose 250 H POC Glucose 223 H Calcium Iron AST Alkaline Phosphatase Ammonia Troponin T NT-Pro-B Natriuret Pep Albumin LDL Cholesterol Direct HDL Cholesterol Salicylates Acetaminophen 07/05/19 07/05/19 07/05/19 05:23 05:38 11:21 WBC MCH 25 L RDW 22.4 H Lymph # Seg Neutrophils % Seg Neuts % (Manual) Lymphocytes % (Manual) Nucleated RBC % Lymphocytes # (Manual) PT INR POC ABG pH ABG pH POC ABG pCO2 POC ABG pO2 ABG pO2 ABG Base Excess ABG Hemoglobin Sodium Potassium Chloride Carbon Dioxide BUN Creatinine Glucose POC Glucose 262 H 256 H Calcium Iron AST Alkaline Phosphatase Ammonia Troponin T NT-Pro-B Natriuret Pep Albumin LDL Cholesterol Direct HDL Cholesterol Salicylates Acetaminophen 07/05/19 07/05/19 07/05/19 16:54 17:43 23:58 WBC MCH RDW Lymph # Seg Neutrophils % Seg Neuts % (Manual) Lymphocytes % (Manual) Nucleated RBC % Lymphocytes # (Manual) PT INR POC ABG pH 7.518 H ABG pH POC ABG pCO2 32.4 L POC ABG pO2 ABG pO2 ABG Base Excess ABG Hemoglobin Sodium Potassium Chloride Carbon Dioxide BUN Creatinine Glucose POC Glucose 219 H 254 H Calcium Iron AST Alkaline Phosphatase Ammonia Troponin T NT-Pro-B Natriuret Pep Albumin LDL Cholesterol Direct HDL Cholesterol Salicylates Acetaminophen 07/06/19 07/06/19 07/06/19 04:23 05:03 11:37 WBC MCH RDW Lymph # Seg Neutrophils % Seg Neuts % (Manual) Lymphocytes % (Manual) Nucleated RBC % Lymphocytes # (Manual) PT INR POC ABG pH 7.480 H ABG pH POC ABG pCO2 33.7 L POC ABG pO2 70 L ABG pO2 ABG Base Excess ABG Hemoglobin Sodium Potassium Chloride Carbon Dioxide BUN Creatinine Glucose POC Glucose 300 H Calcium Iron AST Alkaline Phosphatase Ammonia Troponin T NT-Pro-B Natriuret Pep Albumin LDL Cholesterol Direct HDL Cholesterol Salicylates Acetaminophen 07/06/19 07/06/19 07/06/19 12:09 17:39 23:26 WBC MCH RDW Lymph # Seg Neutrophils % Seg Neuts % (Manual) Lymphocytes % (Manual) Nucleated RBC % Lymphocytes # (Manual) PT INR POC ABG pH ABG pH POC ABG pCO2 POC ABG pO2 ABG pO2 ABG Base Excess ABG Hemoglobin Sodium Potassium Chloride Carbon Dioxide BUN Creatinine Glucose POC Glucose 355 H 266 H 235 H Calcium Iron AST Alkaline Phosphatase Ammonia Troponin T NT-Pro-B Natriuret Pep Albumin LDL Cholesterol Direct HDL Cholesterol Salicylates Acetaminophen 07/06/19 07/06/19 07/07/19 Unknown Unknown 04:43 WBC 11.1 H MCH 25 L 25 L RDW 22.9 H 23.2 H Lymph # Seg Neutrophils % Seg Neuts % (Manual) Lymphocytes % (Manual) Nucleated RBC % Lymphocytes # (Manual) PT INR POC ABG pH ABG pH POC ABG pCO2 POC ABG pO2 ABG pO2 ABG Base Excess ABG Hemoglobin Sodium Potassium 3.5 L Chloride Carbon Dioxide BUN 22 H Creatinine 1.4 H Glucose 316 H POC Glucose Calcium Iron AST Alkaline Phosphatase Ammonia Troponin T NT-Pro-B Natriuret Pep Albumin LDL Cholesterol Direct HDL Cholesterol Salicylates Acetaminophen 07/07/19 07/07/19 07/07/19 04:43 05:29 11:59 WBC MCH RDW Lymph # Seg Neutrophils % Seg Neuts % (Manual) Lymphocytes % (Manual) Nucleated RBC % Lymphocytes # (Manual) PT INR POC ABG pH ABG pH POC ABG pCO2 POC ABG pO2 ABG pO2 ABG Base Excess ABG Hemoglobin Sodium Potassium 3.1 L Chloride Carbon Dioxide BUN Creatinine Glucose 162 H POC Glucose 163 H 203 H Calcium Iron AST Alkaline Phosphatase Ammonia Troponin T NT-Pro-B Natriuret Pep Albumin LDL Cholesterol Direct HDL Cholesterol Salicylates Acetaminophen 07/07/19 07/07/19 07/08/19 18:14 22:00 04:00 WBC MCH RDW Lymph # Seg Neutrophils % Seg Neuts % (Manual) Lymphocytes % (Manual) Nucleated RBC % Lymphocytes # (Manual) PT INR POC ABG pH ABG pH POC ABG pCO2 POC ABG pO2 ABG pO2 ABG Base Excess ABG Hemoglobin Sodium Potassium 3.0 L Chloride Carbon Dioxide BUN 22 H Creatinine 1.7 H Glucose 153 H POC Glucose 141 H 167 H Calcium Iron AST Alkaline Phosphatase Ammonia Troponin T NT-Pro-B Natriuret Pep Albumin LDL Cholesterol Direct HDL Cholesterol Salicylates Acetaminophen 07/08/19 07/08/19 07/08/19 08:02 11:13 12:30 WBC MCH RDW Lymph # Seg Neutrophils % Seg Neuts % (Manual) Lymphocytes % (Manual) Nucleated RBC % Lymphocytes # (Manual) PT INR POC ABG pH ABG pH POC ABG pCO2 POC ABG pO2 ABG pO2 ABG Base Excess ABG Hemoglobin Sodium Potassium Chloride Carbon Dioxide BUN Creatinine Glucose POC Glucose 175 H 115 H 123 H Calcium Iron AST Alkaline Phosphatase Ammonia Troponin T NT-Pro-B Natriuret Pep Albumin LDL Cholesterol Direct HDL Cholesterol Salicylates Acetaminophen 07/08/19 07/08/19 07/08/19 16:41 21:33 Unknown WBC MCH 25 L RDW 22.5 H Lymph # Seg Neutrophils % Seg Neuts % (Manual) Lymphocytes % (Manual) Nucleated RBC % Lymphocytes # (Manual) PT INR POC ABG pH ABG pH POC ABG pCO2 POC ABG pO2 ABG pO2 ABG Base Excess ABG Hemoglobin Sodium Potassium Chloride Carbon Dioxide BUN Creatinine Glucose POC Glucose 149 H 192 H Calcium Iron AST Alkaline Phosphatase Ammonia Troponin T NT-Pro-B Natriuret Pep Albumin LDL Cholesterol Direct HDL Cholesterol Salicylates Acetaminophen 07/09/19 07/09/19 07/09/19 04:57 04:57 07:43 WBC 11.2 H MCH 25 L RDW 23.1 H Lymph # Seg Neutrophils % Seg Neuts % (Manual) Lymphocytes % (Manual) Nucleated RBC % Lymphocytes # (Manual) PT INR POC ABG pH ABG pH POC ABG pCO2 POC ABG pO2 ABG pO2 ABG Base Excess ABG Hemoglobin Sodium Potassium 3.2 L Chloride Carbon Dioxide BUN 32 H Creatinine 2.0 H Glucose 161 H POC Glucose 159 H Calcium Iron AST Alkaline Phosphatase Ammonia Troponin T NT-Pro-B Natriuret Pep Albumin LDL Cholesterol Direct HDL Cholesterol Salicylates Acetaminophen 07/09/19 12:18 WBC MCH RDW Lymph # Seg Neutrophils % Seg Neuts % (Manual) Lymphocytes % (Manual) Nucleated RBC % Lymphocytes # (Manual) PT INR POC ABG pH ABG pH POC ABG pCO2 POC ABG pO2 ABG pO2 ABG Base Excess ABG Hemoglobin Sodium Potassium Chloride Carbon Dioxide BUN Creatinine Glucose POC Glucose 226 H Calcium Iron AST Alkaline Phosphatase Ammonia Troponin T NT-Pro-B Natriuret Pep Albumin LDL Cholesterol Direct HDL Cholesterol Salicylates Acetaminophen Chest x-ray: report reviewed, image reviewed Allied health notes reviewed: nursing
--- NOTE | 2019-07-09 16:22 | Progress Note ---
Assessment and Plan Cultures: 07/06 BCx - negative 07/03 sputum Cx - usual resp willie 07/01 BCx - negative A/P: 59 yo F with significant cardiac history admitted after possible Lyrica overdose and respiratory failure 1. Fevers - Have resolved without treatment. UA negative. Blood culture negative. CXR with raina pulmonary edema. 2. AMS - resolved, likely 2/2 Lyrica overdose 3. OLEKSANDR - is up today 4. DM2 - tight glycemic control for best immune function 5. CAD - s/p CABG 6. HFrEF Recs: - monitor off antibiotics for now - follow up blood cultures - lewis in place per nursing staff due to retention?, please consider discontinuation if no need Will SIGN OFF Marly Hawkins MD Infectious Diseases [employer] ([facility]) M [phone] O [phone] Subjective Date of service: 07/09/19 Principal diagnosis: AMS Interval history: Patient reports feeling better, alert, answering questions, no fever for 4 days. Objective - Exam Narrative Exam: General appearance: Alert in NAD Eyes: anicteric sclerae, moist conjunctivae; no lid-lag; PERRLA HENT: Atraumatic; oropharynx clear with moist mucous membranes and no mucosal ulcerations/no oral thrush; normal hard and soft palate. Lungs: +raina rhonchi CV: RRR Abdomen: Soft, non-tender; no masses or hepatosplenomegaly Extremities: +raina BKA with no open wounds Skin: No rash. Psych: no agitated Neuro: alert and oriented x 3. Moving all extermities Lewis with dark urine - Constitutional Vitals: Vital Signs Temp Pulse Resp BP Pulse Ox 98.5 F 79 18 144/76 100 07/09/19 04:40 07/09/19 12:11 07/09/19 04:40 07/09/19 12:09 07/09/19 12:11 Temperature -Last 24 Hours Temperature 98.5 F Temperature 98.1 F Temperature 98.7 F - Labs CBC & Chem 7: 07/09/19 04:57 07/09/19 04:57 Labs: Abnormal lab results 07/08/19 07/08/19 07/08/19 Range/Units 12:30 16:41 21:33 WBC (4.5-11.0) K/mm3 MCH (28-32) pg RDW (13.2-15.2) % Potassium (3.6-5.0) mmol/L BUN (7-17) mg/dL Creatinine (0.7-1.2) mg/dL Glucose (65-100) mg/dL POC Glucose 123 H 149 H 192 H (70-105) 07/09/19 07/09/19 07/09/19 Range/Units 04:57 04:57 07:43 WBC 11.2 H (4.5-11.0) K/mm3 MCH 25 L (28-32) pg RDW 23.1 H (13.2-15.2) % Potassium 3.2 L (3.6-5.0) mmol/L BUN 32 H (7-17) mg/dL Creatinine 2.0 H (0.7-1.2) mg/dL Glucose 161 H (65-100) mg/dL POC Glucose 159 H (70-105) 07/09/19 Range/Units 12:18 WBC (4.5-11.0) K/mm3 MCH (28-32) pg RDW (13.2-15.2) % Potassium (3.6-5.0) mmol/L BUN (7-17) mg/dL Creatinine (0.7-1.2) mg/dL Glucose (65-100) mg/dL POC Glucose 226 H (70-105)
[2019-07-10] MEDS: INSULIN LISPRO 100 UNIT/ML SUB-Q SCH ×4 (00:32→17:47)
[2019-07-10] MEDS: ACETAMINOPHEN 325 MG TAB PO PRN ×2 (01:52→11:34)
[2019-07-10 06:09] LABS: Calcium 9.1 mg/dL (8.4-10.2)
[2019-07-10] MEDS ORDERED: REGADENOSON 0.4 MG/5 ML INJ IV ONE ×2 (08:26→08:27)
--- NOTE | 2019-07-10 08:35 | Discharge Summary ---
Providers - Providers Date of Admission: 07/01/19 20:07 Date of discharge: 07/10/19 Attending physician: ABHAY TELLEZ 07/01/19 20:36 Consult to Physician [CONS] Routine Comment: Consulting Provider: GRISELDA BEST Physician Instructions: Reason For Exam: CHF 07/01/19 20:38 Consult to Physician [CONS] Routine Comment: Consulting Provider: SHELDON DOUGLAS Physician Instructions: Reason For Exam: OLEKSANDR 07/02/19 12:19 Consult to Physician [CONS] Routine Comment: Consulting Provider: AMADA RAZO Physician Instructions: Reason For Exam: resp failure/CCM 07/03/19 15:24 Consult to Physician [CONS] Routine Comment: Consulting Provider: ALONDRA PETERSON Physician Instructions: Reason For Exam: blood from NGT 07/04/19 08:00 Consult to Dietitian/Nutrition [CONS] Routine Physician Instructions: Reason For Exam: Reason for Consult: Evaluate nutritional intake 07/04/19 11:41 Consult to Physician [CONS] Routine Comment: Consulting Provider: FLORES MORALES Physician Instructions: Reason For Exam: Vas Cath placement 07/05/19 10:08 Consult to Dietitian/Nutrition [CONS] Routine Physician Instructions: Reason For Exam: Reason for Consult: Write/Manage Tube Feeding 07/07/19 06:47 Consult to Physician [CONS] Routine Comment: Consulting Provider: GRANT TUCKER Physician Instructions: Reason For Exam: new onset fever 07/09/19 12:25 Consult to Mental Health [CONS] Routine Reason For Exam: intentional drug OD Place consult to:: psychiatry/INDIO Notified:: INDIO Phone number called:: [phone] Was contact made?: Yes If yes, spoke with:: SHERRY Time called:: 12:38 Primary care physician: [facility] Hospitalization Reason for admission: sob, chf Condition: Fair Hospital course: 59 yo F PMhx HTN, CAD, HFrEF, carotid stenosis, COPD, HTN, DM2, CKD admitted with unresponsiveness. She was found by her family to be somnolent in bed with Lyrica in her hand and on the bed around her. The day after being found like this she was noticed to have vomited on herself, but refused to be taken to the hospital. She became more and more fatigued, to the point she could not stay awake. The patient was brought to the ER, and became hypoxic and obtunded and was intubated. The patient was admitted with diagnosis of acute hypoxic respiratory failure and encephalopathy. Her encephalopathy Suspected to be secondary to overdose of lyrica vs uremic encephalopaty. CT scan of the head was found to be negative. Respiratory failure was multifactorial and felt to be secondary to aspiration pneumonia along with acute heart failure with reduced EF. The patient was seen by nephrology, pulmonary and cardiology in consultation. Throughout her stay her renal function worsened, however her mental status improved, as did her respiratory status, and she was eventually extubated 07/01/19. She became febrile yesterday after extubation to 100.8, however quickly resolved. The patient was seen by ID in consultation and antibiotics were not started. The fevers resolved without treatment. Pulmonary recommended to repeat sleep studies and obtain new CPAP as an outpatient but otherwise okay for discharge. Cardiology requested for ischemic evaluation for the heart failure with reduced EF secondary to ischemic cardiomyopathy. The patient was also diagnosed with NSTEMI presumably type 2. If patient's stress test negative, patient will discharge home. Disposition: DC- TO HOME OR SELFCARE Time spent for discharge: 35 - Discharge Diagnoses (1) Uremic encephalopathy Status: Acute (2) Acute HFrEF (heart failure with reduced ejection fraction) Status: Acute (3) Acute and chronic respiratory failure with hypoxia Status: Acute (4) Acute kidney injury superimposed on CKD Status: Acute (5) Acute on chronic systolic heart failure Status: Acute (6) Acute respiratory failure Status: Acute (7) Altered mental status Status: Acute (8) CHF (congestive heart failure) Status: Acute Qualifiers: Heart failure type: systolic Heart failure chronicity: acute on chronic Qualified Code(s): I50.23 - Acute on chronic systolic (congestive) heart failure (9) Elevated troponin Status: Acute Comment: Levator troponin secondary to chronic kidney disease no further workup needed. (10) Encephalopathy Status: Acute (11) HTN (hypertension) Status: Acute Qualifiers: Hypertension type: essential hypertension Qualified Code(s): I10 - Essential (primary) hypertension (12) NSTEMI (non-ST elevated myocardial infarction) Status: Acute (13) CAD (coronary artery disease) Status: Chronic Qualifiers: Coronary Disease-Associated Artery/Lesion type: [place] coronary artery Comment: Agent will require evaluation for CABG procedure for coronary artery disease patient verbalizes understanding of this and no follow-up appointment. (14) COPD (chronic obstructive pulmonary disease) Status: Chronic Qualifiers: COPD type: emphysema Comment: Stable we'll continue metered-dose inhaler treatment. (15) Diabetes Status: Chronic (16) Hyperlipidemia Status: Chronic (17) Ischemic cardiomyopathy Status: Chronic Core Measure Documentation - Palliative Care Palliative Care/ Comfort Measures: Not Applicable - Core Measures Any of the following diagnoses?: none - Acute [place] Discharge Requirements Aspirin at discharge: Yes KRYSTIAN/ARB for LVSD if EF <40%: No Reason for no KRYSTIAN/ARB: Renal impairment Beta glory at discharge: Yes Statin for LDL = or >100 mg/dl on DC: Yes - Heart Failure Discharge Requirements KRYSTIAN/ARB for LVSD if EF <40%: No Reason for no KRYSTIAN/ARB: Renal impairment Beta glory at discharge: Yes Exam - Constitutional Vitals: Temp Pulse Resp BP Pulse Ox 98.3 F 80 18 144/74 100 07/10/19 06:05 07/10/19 06:05 07/10/19 06:05 07/10/19 06:05 07/10/19 06:05 General appearance: Present: no acute distress, well-nourished - EENT Eyes: Present: PERRL ENT: hearing intact, clear oral mucosa - Neck Neck: Present: supple, normal ROM - Respiratory Respiratory effort: normal Respiratory: bilateral: CTA - Cardiovascular Heart Sounds: Present: S1 & S2. Absent: rub, click - Extremities Extremities: pulses symmetrical, No edema Peripheral Pulses: within normal limits - Abdominal General gastrointestinal: Present: soft, non-tender, non-distended, normal bowel sounds Female genitourinary: Present: normal - Integumentary Integumentary: Present: clear, warm, dry - Musculoskeletal Musculoskeletal: gait normal, strength equal bilaterally - Psychiatric Psychiatric: appropriate mood/affect, intact judgment & insight - Neurologic Neurologic: CNII-XII intact, moves all extremities Plan Activity: advance as tolerated Weight Bearing Status: Weight Bear as Tolerated Diet: low fat, low cholesterol, low salt, diabetic Follow up with: PRIMARY CARE, [Primary Care Provider] - 3-5 Days Prescriptions: hydrALAZINE [Apresoline TAB] 25 mg PO QDAY #30 Aspirin [Aspirin BABY CHEW TAB] 81 mg PO QDAY #30 tab.chew Bumetanide [Bumex 1 mg tab] 2 mg PO BID #60 tablet Carvedilol [Coreg] 12.5 mg PO BID #60 tablet AtorvaSTATin [Lipitor] 40 mg PO QHS #30 tablet HYDROcodone/APAP 5-325 [Wright 5-325 mg TAB] 1 each PO QHS #30 tablet Clopidogrel [Plavix] 75 mg PO QDAY #15 tablet Lansoprazole Solutab [Prevacid Solutab] 30 mg FEEDTUBE BID #60 tab.tiff
--- NOTE | 2019-07-10 10:33 | Progress Note ---
Assessment and Plan Altered mental status Suspected to be secondary to overdose of lyrica vs uremic encephalopaty. Improving. Head CT with NAF. Further eval/management per primary. Acute respiratory failure Extubated. Management per pulmonary. Aspiration PNA S/p abx therapy. Acute heart failure with reduced EF EF currently 20-25% (EF was 35-40% in 09/2017). Cont coreg. No ACEI/ARB at this time in setting of renal insufficiency. Cont volume optimization per nephrology. S/p lexiscan MPI stress test this AM which showed mild to mod inferolateral ischemia, EF 36%. Will continue with medical management at this time as pt is asymptomatic and currently has multiple other medical issues, including renal failure. Will f/u as OP. Ischemic cardiomyopathy EF 20-25% (EF 35-40% in 09/2017). S/p lexiscan MPI stress test this AM which showed mild to mod inferolateral ischemia, EF 36%. Will continue with medical management at this time as pt is asymptomatic and currently has multiple other medical issues, including renal failure. Will f/u as OP. Cont coreg. No ACEI/ARB at this time in setting of renal insufficiency. Cont volume optimization per nephrology. CAD s/p CABG at [place] in 05/2016 Cont ASA, statin, BB. NSTEMI Suspect type II. S/p lexiscan MPI stress test this AM which showed mild to mod inferolateral ischemia, EF 36%. Will continue with medical management at this time as pt is asymptomatic and currently has multiple other medical issues, including renal failure. Will f/u as OP. HTN Stable. HLP Cont statin. DM Per primary. H/o left CEA Cont ASA, statin. COPD Per pulmonary. OLEKSANDR on CKD Intermittently requiring HD. Nephrology following. PVD S/p lexiscan MPI stress test this AM which showed mild to mod inferolateral ischemia, EF 36%. Will continue with medical management at this time as pt is asymptomatic and currently has multiple other medical issues, including renal failure. Will f/u as OP. Pt may discharge from cardiology standpoint. Recommend follow up in our office with Dr. FLORA Watson within 1-2 weeks of discharge ([phone]). The patient has been seen in conjunction with Dr. Hagna who agrees with the assessment and plan of care. Subjective Date of service: 10/02/19 Principal diagnosis: AMS Interval history: pt for stress test today, no current complaints. Objective Last Vital Signs Temp 98.3 F 07/10/19 06:05 Pulse 80 07/10/19 06:05 Resp 18 07/10/19 06:05 BP 144/74 07/10/19 06:05 Pulse Ox 100 07/10/19 06:05 - Physical Examination General: No Apparent Distress HEENT: Positive: PERRL Neck: Positive: neck supple Cardiac: Positive: Reg Rate and Rhythm, S1/S2 Lungs: Positive: Decreased Breath Sounds Neuro: Positive: Grossly Intact Abdomen: Positive: Soft Skin: Negative: Rash Musculoskeletal: No Fluid Collection Extremities: Present: Other (bilateral below-knee amputation). Absent: edema - Labs and Meds Comprehensive Metabolic Panel 07/10/19 Range/Units 04:27 Sodium 139 (137-145) mmol/L Potassium 3.7 (3.6-5.0) mmol/L Chloride 100.7 (98-107) mmol/L Carbon Dioxide 26 (22-30) mmol/L BUN 38 H (7-17) mg/dL Creatinine 1.9 H (0.7-1.2) mg/dL Glucose 125 H (65-100) mg/dL Calcium 9.1 (8.4-10.2) mg/dL - Imaging and Cardiology EKG: report reviewed, image reviewed Echo: report reviewed (09/2017 showed EF 35-40%, mild LVH, severe LAE, mild AR and MR, mod TR, RVSP 66mmHg. 06/2019: EF 20-25%, restrictive diastolic filling, RV mildly dilated, mild MR, mod TR, RVSP 54mmHg, mild [place]. ) - EKG Sinus rhythms and dysrhythmias: sinus rhythm - Allied health notes Allied health notes reviewed: nursing
[2019-07-10] MEDS: BUMETANIDE 1 MG TAB PO SCH (11:26)
[2019-07-10] MEDS: LANSOPRAZOLE 30 MG SOLUTAB FEEDTUBE SCH (11:27)
[2019-07-10] MEDS: carvediloL 12.5 MG TAB PO SCH (11:27)
[2019-07-10] MEDS: INSULIN GLARGINE 100 UNITS/ML SUB-Q SCH (11:34)
[2019-07-10] MEDS: ASPIRIN 81 MG TAB CHEW PO SCH (11:34)
[2019-07-10 11:39] VITALS: BP 127/77
--- NOTE | 2019-07-10 13:30 | Progress Note ---
Assessment and Plan Imp: 1. A/C systolic CHF 2. ICMP 3. OLEKSANDR on CKD 4. Acute respiratory failure, hypoxia 5. ALAN, noncompliant with CPAP 6. Obesity Rec: 1. Need to repeat sleep studies and obtain new CPAP machine was discussed, patient expressed understanding; gave her our office # to schedule f/u appt. for the same 2. Okay to d/c home pulmonary-godoy Plan of care reviewed w/ patient, she understands/agrees Subjective Date of service: 07/10/19 Principal diagnosis: AMS Interval history: No events. No SOB on RA. Denies chest pain or other complaints currently. Active Medications Acetaminophen (Tylenol) 650 mg PO Q6H PRN PRN Reason: Non Cardiac Pain or Temp>100.5 Last Admin: 07/10/19 11:34 Dose: 650 mg Documented by: Albuterol (Proventil) 2.5 mg IH Q3HRT PRN PRN Reason: Shortness Of Breath Aspirin (Baby Aspirin) 81 mg PO QDAY [facility] Last Admin: 07/10/19 11:34 Dose: 81 mg Documented by: Atorvastatin Calcium (Lipitor) 40 mg PO QHS [facility] Last Admin: 07/09/19 21:32 Dose: 40 mg Documented by: Bumetanide (Bumex) 2 mg PO BID [facility] Last Admin: 07/10/19 11:26 Dose: 2 mg Documented by: Carvedilol (Coreg) 12.5 mg PO BID [facility] Last Admin: 07/10/19 11:27 Dose: 12.5 mg Documented by: Dextrose (D50w (25gm) Syringe) 50 ml IV PRN PRN PRN Reason: Hypoglycemia Hydralazine HCl (Apresoline) 10 mg IV Q4H PRN PRN Reason: Blood Pressure Last Admin: 07/06/19 09:24 Dose: 10 mg Documented by: Hydrophilic Ointment (Vaseline Lip Therapy) 1 applic TP Q2HR PRN PRN Reason: Dry Lips Sodium Chloride (Nacl 0.9%) 100 mls @ 999 mls/hr IV LA PRN PRN Reason: Hypotension Insulin Glargine (Lantus) 15 units SUB-Q QAMDIAB [facility] Last Admin: 07/10/19 11:34 Dose: 15 units Documented by: Insulin Human Lispro (Humalog) 0 unit SUB-Q ACHS [facility]; Protocol Last Admin: 07/10/19 08:30 Dose: Not Given Documented by: Lansoprazole (Prevacid Solutab) 30 mg FEEDTUBE BID [facility] Last Admin: 07/10/19 11:27 Dose: 30 mg Documented by: Ondansetron HCl (Zofran) 4 mg IV Q4H PRN PRN Reason: Nausea And Vomiting Last Admin: 07/08/19 08:06 Dose: 4 mg Documented by: Phenol (Chloraseptic) 1 spray MM PRN PRN PRN Reason: Sore Throat Last Admin: 07/09/19 18:00 Dose: 1 spray Documented by: Sodium Chloride (Sodium Chloride Flush Syringe 10 Ml) 10 ml IV BID [facility] Last Admin: 07/10/19 11:27 Dose: 10 ml Documented by: Sodium Chloride (Sodium Chloride Flush Syringe 10 Ml) 10 ml IV PRN PRN PRN Reason: LINE FLUSH Objective Vital Signs - 12hr 07/10/19 07/10/19 07/10/19 06:05 08:50 09:35 Temperature 98.3 F Pulse Rate 80 Respiratory 18 Rate Blood Pressure 144/74 171/95 177/98 O2 Sat by Pulse 100 Oximetry 07/10/19 07/10/19 07/10/19 09:37 09:38 09:40 Temperature Pulse Rate Respiratory Rate Blood Pressure 163/87 145/93 155/96 O2 Sat by Pulse Oximetry 07/10/19 07/10/19 07/10/19 09:42 09:45 09:46 Temperature Pulse Rate Respiratory Rate Blood Pressure 161/94 116/64 119/66 O2 Sat by Pulse Oximetry 07/10/19 07/10/19 07/10/19 09:47 09:50 11:32 Temperature 97.6 F Pulse Rate 85 Respiratory 20 Rate Blood Pressure 121/64 116/63 127/77 O2 Sat by Pulse 94 Oximetry Constitutional: no acute distress Eyes: non-icteric ENT: oropharynx moist Neck: supple Effort: normal Ascultation: Bilateral: clear Percussion: Bilateral: not dull Cardiovascular: regular rate and rhythm (no mrg) Gastrointestinal: normoactive bowel sounds, soft, non-tender, non-distended Integumentary: normal Extremities: no cyanosis, no edema, pink and warm, other (s/p bilateral BKA) Neurologic: normal mental status, non-focal exam, pupils equal and round Psychiatric: mood appropriate, affect normal CBC and BMP: 07/09/19 04:57 07/10/19 04:27 ABG, PT/INR, D-dimer: ABG POC ABG pH 7.480 (7.35-7.45) H 07/06/19 11:37 ABG pH 7.284 pH Units (7.350-7.450) L 07/01/19 Unknown POC ABG pCO2 33.7 (35-45) L 07/06/19 11:37 ABG pCO2 51.5 mm Hg 07/01/19 Unknown POC ABG pO2 91 (80-105) 07/06/19 11:37 ABG pO2 121.4 mm Hg (80.0-90.0) H 07/01/19 Unknown POC ABG HCO3 25.1 (22-26 mml/L) 07/06/19 11:37 POC ABG Total CO2 26 (23-27mmol/L) 07/06/19 11:37 POC ABG O2 Sat 98 07/06/19 11:37 ABG O2 Saturation 98.0 % (95.0-99.0) 07/01/19 Unknown PT/INR, D-dimer PT 15.1 Sec. (12.2-14.9) H 07/01/19 15:22 INR 1.22 (0.87-1.13) H 07/01/19 15:22 Abnormal lab findings: Abnormal Labs 07/01/19 07/01/19 07/01/19 15:22 15:22 15:22 WBC MCH 25 L RDW 22.1 H Lymph # 1.1 L Seg Neutrophils % 71.8 H Seg Neuts % (Manual) Lymphocytes % (Manual) Nucleated RBC % Lymphocytes # (Manual) PT 15.1 H INR 1.22 H POC ABG pH ABG pH POC ABG pCO2 POC ABG pO2 ABG pO2 ABG Base Excess ABG Hemoglobin Sodium Potassium 5.2 H Chloride Carbon Dioxide BUN 67 H Creatinine 2.7 H Glucose 146 H POC Glucose Calcium Iron AST 52 H Alkaline Phosphatase 203 H Ammonia Troponin T NT-Pro-B Natriuret Pep Albumin 3.4 L LDL Cholesterol Direct HDL Cholesterol Salicylates Acetaminophen 07/01/19 07/01/19 07/01/19 15:22 15:22 15:22 WBC MCH RDW Lymph # Seg Neutrophils % Seg Neuts % (Manual) Lymphocytes % (Manual) Nucleated RBC % Lymphocytes # (Manual) PT INR POC ABG pH ABG pH POC ABG pCO2 POC ABG pO2 ABG pO2 ABG Base Excess ABG Hemoglobin Sodium Potassium Chloride Carbon Dioxide BUN Creatinine Glucose POC Glucose Calcium Iron AST Alkaline Phosphatase Ammonia Troponin T 0.121 H* NT-Pro-B Natriuret Pep Albumin LDL Cholesterol Direct 38 L HDL Cholesterol 32 L Salicylates < 0.3 L Acetaminophen < 5.0 L 07/01/19 07/01/19 07/01/19 15:35 18:35 23:32 WBC MCH RDW Lymph # Seg Neutrophils % Seg Neuts % (Manual) Lymphocytes % (Manual) Nucleated RBC % Lymphocytes # (Manual) PT INR POC ABG pH ABG pH POC ABG pCO2 POC ABG pO2 ABG pO2 ABG Base Excess ABG Hemoglobin Sodium Potassium Chloride Carbon Dioxide BUN Creatinine Glucose POC Glucose Calcium Iron 26 L AST Alkaline Phosphatase Ammonia 64.0 H Troponin T NT-Pro-B Natriuret Pep > 23824 H Albumin LDL Cholesterol Direct HDL Cholesterol Salicylates Acetaminophen 07/01/19 07/02/19 07/02/19 Unknown 07:32 10:33 WBC MCH RDW Lymph # Seg Neutrophils % Seg Neuts % (Manual) Lymphocytes % (Manual) Nucleated RBC % Lymphocytes # (Manual) PT INR POC ABG pH 7.275 L ABG pH 7.284 L POC ABG pCO2 POC ABG pO2 76 L ABG pO2 121.4 H ABG Base Excess -3.1 L ABG Hemoglobin 10.5 L Sodium Potassium Chloride Carbon Dioxide BUN Creatinine Glucose POC Glucose 164 H Calcium Iron AST Alkaline Phosphatase Ammonia Troponin T NT-Pro-B Natriuret Pep Albumin LDL Cholesterol Direct HDL Cholesterol Salicylates Acetaminophen 07/02/19 07/02/19 07/02/19 11:39 11:39 11:39 WBC MCH 25 L RDW 22.3 H Lymph # Seg Neutrophils % Seg Neuts % (Manual) 81.0 H Lymphocytes % (Manual) 8.0 L Nucleated RBC % 1.0 H Lymphocytes # (Manual) 0.7 L PT INR POC ABG pH ABG pH POC ABG pCO2 POC ABG pO2 ABG pO2 ABG Base Excess ABG Hemoglobin Sodium Potassium 5.7 H Chloride 109.5 H Carbon Dioxide 14 L D BUN 73 H Creatinine 2.6 H Glucose 187 H POC Glucose Calcium Iron AST Alkaline Phosphatase 202 H Ammonia Troponin T 0.138 H* NT-Pro-B Natriuret Pep Albumin 3.5 L LDL Cholesterol Direct HDL Cholesterol Salicylates Acetaminophen 07/03/19 07/03/19 07/03/19 04:51 10:22 16:53 WBC MCH 24 L RDW 22.4 H Lymph # Seg Neutrophils % Seg Neuts % (Manual) Lymphocytes % (Manual) Nucleated RBC % Lymphocytes # (Manual) PT INR POC ABG pH 7.222 L ABG pH POC ABG pCO2 60.0 H POC ABG pO2 167 H ABG pO2 ABG Base Excess ABG Hemoglobin Sodium 149 H Potassium 5.3 H Chloride 110.6 H Carbon Dioxide 17 L BUN 79 H Creatinine 2.8 H Glucose 244 H POC Glucose Calcium Iron AST Alkaline Phosphatase Ammonia Troponin T 0.193 H* D NT-Pro-B Natriuret Pep Albumin LDL Cholesterol Direct HDL Cholesterol Salicylates Acetaminophen 07/03/19 07/04/19 07/04/19 20:42 04:17 04:19 WBC MCH RDW Lymph # Seg Neutrophils % Seg Neuts % (Manual) Lymphocytes % (Manual) Nucleated RBC % Lymphocytes # (Manual) PT INR POC ABG pH ABG pH POC ABG pCO2 32.8 L 31.8 L POC ABG pO2 207 H 155 H ABG pO2 ABG Base Excess ABG Hemoglobin Sodium 151 H Potassium Chloride 110.7 H Carbon Dioxide 16 L BUN 88 H Creatinine 2.8 H Glucose 303 H POC Glucose Calcium 10.5 H Iron AST Alkaline Phosphatase Ammonia Troponin T NT-Pro-B Natriuret Pep Albumin LDL Cholesterol Direct HDL Cholesterol Salicylates Acetaminophen 07/04/19 07/04/19 07/04/19 04:19 13:32 17:42 WBC MCH 24 L RDW 22.7 H Lymph # Seg Neutrophils % Seg Neuts % (Manual) Lymphocytes % (Manual) Nucleated RBC % Lymphocytes # (Manual) PT INR POC ABG pH ABG pH POC ABG pCO2 POC ABG pO2 ABG pO2 ABG Base Excess ABG Hemoglobin Sodium Potassium Chloride Carbon Dioxide BUN Creatinine Glucose POC Glucose 340 H 334 H Calcium Iron AST Alkaline Phosphatase Ammonia Troponin T NT-Pro-B Natriuret Pep Albumin LDL Cholesterol Direct HDL Cholesterol Salicylates Acetaminophen 09/26/19 09/27/19 09/27/19 23:31 04:22 05:23 WBC MCH RDW Lymph # Seg Neutrophils % Seg Neuts % (Manual) Lymphocytes % (Manual) Nucleated RBC % Lymphocytes # (Manual) PT INR POC ABG pH ABG pH POC ABG pCO2 32.9 L POC ABG pO2 ABG pO2 ABG Base Excess ABG Hemoglobin Sodium Potassium 3.3 L D Chloride Carbon Dioxide BUN 33 H Creatinine 1.4 H Glucose 250 H POC Glucose 223 H Calcium Iron AST Alkaline Phosphatase Ammonia Troponin T NT-Pro-B Natriuret Pep Albumin LDL Cholesterol Direct HDL Cholesterol Salicylates Acetaminophen 07/05/19 07/05/19 07/05/19 05:23 05:38 11:21 WBC MCH 25 L RDW 22.4 H Lymph # Seg Neutrophils % Seg Neuts % (Manual) Lymphocytes % (Manual) Nucleated RBC % Lymphocytes # (Manual) PT INR POC ABG pH ABG pH POC ABG pCO2 POC ABG pO2 ABG pO2 ABG Base Excess ABG Hemoglobin Sodium Potassium Chloride Carbon Dioxide BUN Creatinine Glucose POC Glucose 262 H 256 H Calcium Iron AST Alkaline Phosphatase Ammonia Troponin T NT-Pro-B Natriuret Pep Albumin LDL Cholesterol Direct HDL Cholesterol Salicylates Acetaminophen 07/05/19 07/05/19 07/05/19 16:54 17:43 23:58 WBC MCH RDW Lymph # Seg Neutrophils % Seg Neuts % (Manual) Lymphocytes % (Manual) Nucleated RBC % Lymphocytes # (Manual) PT INR POC ABG pH 7.518 H ABG pH POC ABG pCO2 32.4 L POC ABG pO2 ABG pO2 ABG Base Excess ABG Hemoglobin Sodium Potassium Chloride Carbon Dioxide BUN Creatinine Glucose POC Glucose 219 H 254 H Calcium Iron AST Alkaline Phosphatase Ammonia Troponin T NT-Pro-B Natriuret Pep Albumin LDL Cholesterol Direct HDL Cholesterol Salicylates Acetaminophen 07/06/19 07/06/19 07/06/19 04:23 05:03 11:37 WBC MCH RDW Lymph # Seg Neutrophils % Seg Neuts % (Manual) Lymphocytes % (Manual) Nucleated RBC % Lymphocytes # (Manual) PT INR POC ABG pH 7.480 H ABG pH POC ABG pCO2 33.7 L POC ABG pO2 70 L ABG pO2 ABG Base Excess ABG Hemoglobin Sodium Potassium Chloride Carbon Dioxide BUN Creatinine Glucose POC Glucose 300 H Calcium Iron AST Alkaline Phosphatase Ammonia Troponin T NT-Pro-B Natriuret Pep Albumin LDL Cholesterol Direct HDL Cholesterol Salicylates Acetaminophen 07/06/19 07/06/19 07/06/19 12:09 17:39 23:26 WBC MCH RDW Lymph # Seg Neutrophils % Seg Neuts % (Manual) Lymphocytes % (Manual) Nucleated RBC % Lymphocytes # (Manual) PT INR POC ABG pH ABG pH POC ABG pCO2 POC ABG pO2 ABG pO2 ABG Base Excess ABG Hemoglobin Sodium Potassium Chloride Carbon Dioxide BUN Creatinine Glucose POC Glucose 355 H 266 H 235 H Calcium Iron AST Alkaline Phosphatase Ammonia Troponin T NT-Pro-B Natriuret Pep Albumin LDL Cholesterol Direct HDL Cholesterol Salicylates Acetaminophen 07/06/19 07/06/19 07/07/19 Unknown Unknown 04:43 WBC 11.1 H MCH 25 L 25 L RDW 22.9 H 23.2 H Lymph # Seg Neutrophils % Seg Neuts % (Manual) Lymphocytes % (Manual) Nucleated RBC % Lymphocytes # (Manual) PT INR POC ABG pH ABG pH POC ABG pCO2 POC ABG pO2 ABG pO2 ABG Base Excess ABG Hemoglobin Sodium Potassium 3.5 L Chloride Carbon Dioxide BUN 22 H Creatinine 1.4 H Glucose 316 H POC Glucose Calcium Iron AST Alkaline Phosphatase Ammonia Troponin T NT-Pro-B Natriuret Pep Albumin LDL Cholesterol Direct HDL Cholesterol Salicylates Acetaminophen 07/07/19 07/07/19 07/07/19 04:43 05:29 11:59 WBC MCH RDW Lymph # Seg Neutrophils % Seg Neuts % (Manual) Lymphocytes % (Manual) Nucleated RBC % Lymphocytes # (Manual) PT INR POC ABG pH ABG pH POC ABG pCO2 POC ABG pO2 ABG pO2 ABG Base Excess ABG Hemoglobin Sodium Potassium 3.1 L Chloride Carbon Dioxide BUN Creatinine Glucose 162 H POC Glucose 163 H 203 H Calcium Iron AST Alkaline Phosphatase Ammonia Troponin T NT-Pro-B Natriuret Pep Albumin LDL Cholesterol Direct HDL Cholesterol Salicylates Acetaminophen 07/07/19 07/07/19 07/08/19 18:14 22:00 04:00 WBC MCH RDW Lymph # Seg Neutrophils % Seg Neuts % (Manual) Lymphocytes % (Manual) Nucleated RBC % Lymphocytes # (Manual) PT INR POC ABG pH ABG pH POC ABG pCO2 POC ABG pO2 ABG pO2 ABG Base Excess ABG Hemoglobin Sodium Potassium 3.0 L Chloride Carbon Dioxide BUN 22 H Creatinine 1.7 H Glucose 153 H POC Glucose 141 H 167 H Calcium Iron AST Alkaline Phosphatase Ammonia Troponin T NT-Pro-B Natriuret Pep Albumin LDL Cholesterol Direct HDL Cholesterol Salicylates Acetaminophen 07/08/19 07/08/19 07/08/19 08:02 11:13 12:30 WBC MCH RDW Lymph # Seg Neutrophils % Seg Neuts % (Manual) Lymphocytes % (Manual) Nucleated RBC % Lymphocytes # (Manual) PT INR POC ABG pH ABG pH POC ABG pCO2 POC ABG pO2 ABG pO2 ABG Base Excess ABG Hemoglobin Sodium Potassium Chloride Carbon Dioxide BUN Creatinine Glucose POC Glucose 175 H 115 H 123 H Calcium Iron AST Alkaline Phosphatase Ammonia Troponin T NT-Pro-B Natriuret Pep Albumin LDL Cholesterol Direct HDL Cholesterol Salicylates Acetaminophen 07/08/19 07/08/19 07/08/19 16:41 21:33 Unknown WBC MCH 25 L RDW 22.5 H Lymph # Seg Neutrophils % Seg Neuts % (Manual) Lymphocytes % (Manual) Nucleated RBC % Lymphocytes # (Manual) PT INR POC ABG pH ABG pH POC ABG pCO2 POC ABG pO2 ABG pO2 ABG Base Excess ABG Hemoglobin Sodium Potassium Chloride Carbon Dioxide BUN Creatinine Glucose POC Glucose 149 H 192 H Calcium Iron AST Alkaline Phosphatase Ammonia Troponin T NT-Pro-B Natriuret Pep Albumin LDL Cholesterol Direct HDL Cholesterol Salicylates Acetaminophen 07/09/19 07/09/19 07/09/19 04:57 04:57 07:43 WBC 11.2 H MCH 25 L RDW 23.1 H Lymph # Seg Neutrophils % Seg Neuts % (Manual) Lymphocytes % (Manual) Nucleated RBC % Lymphocytes # (Manual) PT INR POC ABG pH ABG pH POC ABG pCO2 POC ABG pO2 ABG pO2 ABG Base Excess ABG Hemoglobin Sodium Potassium 3.2 L Chloride Carbon Dioxide BUN 32 H Creatinine 2.0 H Glucose 161 H POC Glucose 159 H Calcium Iron AST Alkaline Phosphatase Ammonia Troponin T NT-Pro-B Natriuret Pep Albumin LDL Cholesterol Direct HDL Cholesterol Salicylates Acetaminophen 07/09/19 07/09/19 07/09/19 12:18 17:06 22:06 WBC MCH RDW Lymph # Seg Neutrophils % Seg Neuts % (Manual) Lymphocytes % (Manual) Nucleated RBC % Lymphocytes # (Manual) PT INR POC ABG pH ABG pH POC ABG pCO2 POC ABG pO2 ABG pO2 ABG Base Excess ABG Hemoglobin Sodium Potassium Chloride Carbon Dioxide BUN Creatinine Glucose POC Glucose 226 H 154 H 175 H Calcium Iron AST Alkaline Phosphatase Ammonia Troponin T NT-Pro-B Natriuret Pep Albumin LDL Cholesterol Direct HDL Cholesterol Salicylates Acetaminophen 07/10/19 07/10/19 07/10/19 04:27 08:09 11:41 WBC MCH RDW Lymph # Seg Neutrophils % Seg Neuts % (Manual) Lymphocytes % (Manual) Nucleated RBC % Lymphocytes # (Manual) PT INR POC ABG pH ABG pH POC ABG pCO2 POC ABG pO2 ABG pO2 ABG Base Excess ABG Hemoglobin Sodium Potassium Chloride Carbon Dioxide BUN 38 H Creatinine 1.9 H Glucose 125 H POC Glucose 123 H 169 H Calcium Iron AST Alkaline Phosphatase Ammonia Troponin T NT-Pro-B Natriuret Pep Albumin LDL Cholesterol Direct HDL Cholesterol Salicylates Acetaminophen Chest x-ray: report reviewed, image reviewed Allied health notes reviewed: nursing
--- NOTE | 2019-07-10 13:46 | Consultation ---
History of Present Illness - Reason for Consult Consult date: 07/10/19 Reason for consult: Initial Psychiatric Evaluation - History of Present Psychiatric Illness Patient is a 59 year old female that presented to the hospital for altered mental status. Patient states, " I don't want to talk. I'm going home." Current Psychiatric Medications: Unable to Assess. Patient refused assessment. Past Psychiatric History: Unable to Assess. Patient refused assessment. Past Medication Trials: Unable to Assess. Patient refused assessment. History of Alcohol/Drug Abuse: Unable to Assess. Patient refused assessment. History of Trauma Abuse: Unable to Assess. Patient refused assessment. Social History: Unable to Assess. Patient refused assessment. Family History of Psychiatric Illness: Unable to Assess. Patient refused assessment. Medications and Allergies Allergies Allergy/AdvReac Type Severity Reaction Status Date / Time KRYSTIAN Inhibitors Allergy Shortness Verified 04/26/14 00:50 of Breath amitriptyline Allergy Unknown Verified 12/18/17 17:44 Home Medications Medication Instructions Recorded Confirmed Last Taken Type ALBUTEROL Inhaler (OR & NICU) 2 puff IH QID PRN 03/16/16 07/01/19 06/30/19 History [ProAir HFA Inhaler] Albuterol *Only Ed* [Proventil 2.5 mg IH QIDRT PRN #7 nebu 03/22/16 07/01/19 06/30/19 Rx 0.5% NEBS] Butalb/Acetamin/Caff 50-325-40 1 tab PO Q8HR PRN #90 tablet 03/22/16 07/01/19 06/30/19 Rx [Fioricet 50-325-40] ISOSORBIDE MONOnitrate [Imdur ER] 30 mg PO QDAY #30 tablet 03/22/16 07/01/19 Rx Insulin NPH/Regular [NovoLIN 70/30] 30 unit SQ BIDDIAB #30 units 03/22/16 07/01/19 06/30/19 Rx Aspirin [Aspirin BABY CHEW TAB] 81 mg PO QDAY #15 tab.chew 04/08/16 07/01/19 06/30/19 Rx AtorvaSTATin [Lipitor] 40 mg PO QHS #15 tablet 04/08/16 07/01/19 06/30/19 Rx Chlorhexidine Mouthwash [Peridex] 15 ml MM BID #1 bottle 12/18/17 07/01/19 06/30/19 Rx Carvedilol [Coreg] 12.5 mg PO QDAY 07/01/19 07/01/19 06/30/19 History Escitalopram Oxalate [Lexapro] 10 mg PO QHS 07/01/19 07/01/19 06/30/19 History Ferrous Sulfate [Feosol 325 MG tab] 325 mg PO QDAY 07/01/19 07/01/19 06/30/19 H istory Sodium Bicarbonate 650 mg PO BID 07/01/19 07/01/19 06/30/19 History Aspirin [Aspirin BABY CHEW TAB] 81 mg PO QDAY #30 tab.chew 07/10/19 Unknown Rx AtorvaSTATin [Lipitor] 40 mg PO QHS #30 tablet 07/10/19 Unknown Rx Bumetanide [Bumex 1 mg tab] 2 mg PO BID #60 tablet 07/10/19 Unknown Rx Carvedilol [Coreg] 12.5 mg PO BID #60 tablet 07/10/19 Unknown Rx Clopidogrel [Plavix] 75 mg PO QDAY #15 tablet 07/10/19 Unknown Rx HYDROcodone/APAP 5-325 [[place] 1 each PO QHS #30 tablet 07/10/19 Unknown Rx 5-325 mg TAB] Insulin Glargine [Lantus VIAL] 15 units SUB-Q QAMDIAB units 07/10/19 Unknown Rx Lansoprazole Solutab [Prevacid 30 mg FEEDTUBE BID #60 tab.rapdis 07/10/19 U nknown Rx Solutab] hydrALAZINE [Apresoline TAB] 25 mg PO QDAY #30 07/10/19 Unknown Rx Active Meds: Active Medications Acetaminophen (Tylenol) 650 mg PO Q6H PRN PRN Reason: Non Cardiac Pain or Temp>100.5 Last Admin: 07/10/19 11:34 Dose: 650 mg Documented by: Albuterol (Proventil) 2.5 mg IH Q3HRT PRN PRN Reason: Shortness Of Breath Aspirin (Baby Aspirin) 81 mg PO QDAY [facility] Last Admin: 07/10/19 11:34 Dose: 81 mg Documented by: Atorvastatin Calcium (Lipitor) 40 mg PO QHS [facility] Last Admin: 07/09/19 21:32 Dose: 40 mg Documented by: Bumetanide (Bumex) 2 mg PO BID [facility] Last Admin: 07/10/19 11:26 Dose: 2 mg Documented by: Carvedilol (Coreg) 12.5 mg PO BID [facility] Last Admin: 07/10/19 11:27 Dose: 12.5 mg Documented by: Dextrose (D50w (25gm) Syringe) 50 ml IV PRN PRN PRN Reason: Hypoglycemia Hydralazine HCl (Apresoline) 10 mg IV Q4H PRN PRN Reason: Blood Pressure Last Admin: 07/06/19 09:24 Dose: 10 mg Documented by: Hydrophilic Ointment (Vaseline Lip Therapy) 1 applic TP Q2HR PRN PRN Reason: Dry Lips Sodium Chloride (Nacl 0.9%) 100 mls @ 999 mls/hr IV LA PRN PRN Reason: Hypotension Insulin Glargine (Lantus) 15 units SUB-Q QAMDIAB [facility] Last Admin: 07/10/19 11:34 Dose: 15 units Documented by: Insulin Human Lispro (Humalog) 0 unit SUB-Q [facility]; Protocol Last Admin: 07/10/19 08:30 Dose: Not Given Documented by: Lansoprazole (Prevacid Solutab) 30 mg FEEDTUBE BID [facility] Last Admin: 07/10/19 11:27 Dose: 30 mg Documented by: Ondansetron HCl (Zofran) 4 mg IV Q4H PRN PRN Reason: Nausea And Vomiting Last Admin: 07/08/19 08:06 Dose: 4 mg Documented by: Phenol (Chloraseptic) 1 spray MM PRN PRN PRN Reason: Sore Throat Last Admin: 07/09/19 18:00 Dose: 1 spray Documented by: Sodium Chloride (Sodium Chloride Flush Syringe 10 Ml) 10 ml IV BID [facility] Last Admin: 07/10/19 11:27 Dose: 10 ml Documented by: Sodium Chloride (Sodium Chloride Flush Syringe 10 Ml) 10 ml IV PRN PRN PRN Reason: LINE FLUSH Mental Status Exam - Vital signs Last Vital Signs Temp 97.6 F 07/10/19 11:32 Pulse 85 07/10/19 11:32 Resp 20 07/10/19 11:32 BP 127/77 07/10/19 11:32 Pulse Ox 94 07/10/19 11:32 - Exam Narrative exam: Unable to assess patient's mental status due to patient's refusal. Results Result Diagrams: 07/09/19 04:57 07/10/19 04:27 Abnormal lab results 07/09/19 07/09/19 07/10/19 Range/Units 17:06 22:06 04:27 BUN 38 H (7-17) mg/dL Creatinine 1.9 H (0.7-1.2) mg/dL Glucose 125 H (65-100) mg/dL POC Glucose 154 H 175 H (70-105) 07/10/19 07/10/19 Range/Units 08:09 11:41 BUN (7-17) mg/dL Creatinine (0.7-1.2) mg/dL Glucose (65-100) mg/dL POC Glucose 123 H 169 H (70-105) All other labs normal. Assessment and Plan Assessment and plan: Provider unable to complete an initial psychiatric psychiatric evaluation. Patient refused to speak with provider. Recommendation/Plan: 1. Will attempt to reassess in 24 hours if patient hasn't discharged.
== END 2019-07-10 19:16 | disposition home health service (06) | DRG 917 ==
LOC: ED 13:21 → IMCU 20:07 → CC1 07-02 10:47 → IMCU 07-02 12:45 → CC1 07-03 17:50 → IMCU 07-07 11:08 → 3A 07-08 16:06
PROVIDERS: ADMIT Internal Medicine; ATTEND Hospitalist
PROC: 4A033R1 Measurement of Arterial Saturation, Peripheral, Percutaneous Approach (ICD-10-PCS; 2019-07-02)
PROC: 5A1945Z Respiratory Ventilation, 24-96 Consecutive Hours (ICD-10-PCS; principal; 2019-07-03)
PROC: 0BH17EZ Insertion of Endotracheal Airway into Trachea, Via Natural or Artificial Opening (ICD-10-PCS; 2019-07-03)
PROC: 5A1D70Z Performance of Urinary Filtration, Intermittent, Less than 6 Hours Per Day (ICD-10-PCS; 2019-07-04)
PROC: 06H033Z Insertion of Infusion Device into Inferior Vena Cava, Percutaneous Approach (ICD-10-PCS; 2019-07-04)
PROC: 5A1D70Z Performance of Urinary Filtration, Intermittent, Less than 6 Hours Per Day (ICD-10-PCS; 2019-07-05)
PROC: 5A1D70Z Performance of Urinary Filtration, Intermittent, Less than 6 Hours Per Day (ICD-10-PCS; 2019-07-06)
DX: T42.6X1A Poisoning by other antiepileptic and sedative-hypnotic drugs, accidental (unintentional), initial encounter (principal); J96.21 Acute and chronic respiratory failure with hypoxia; I21.A1 Myocardial infarction type 2; I50.23 Acute on chronic systolic (congestive) heart failure; J96.22 Acute and chronic respiratory failure with hypercapnia; G92 Toxic encephalopathy; J69.0 Pneumonitis due to inhalation of food and vomit; N17.9 Acute kidney failure, unspecified; K72.90 Hepatic failure, unspecified without coma; I25.5 Ischemic cardiomyopathy; E87.5 Hyperkalemia; I13.0 Hypertensive heart and chronic kidney disease with heart failure and stage 1 through stage 4 chronic kidney disease, or unspecified chronic kidney disease; E11.22 Type 2 diabetes mellitus with diabetic chronic kidney disease; K92.2 Gastrointestinal hemorrhage, unspecified; J43.9 Emphysema, unspecified; I25.10 Atherosclerotic heart disease of native coronary artery without angina pectoris; E11.40 Type 2 diabetes mellitus with diabetic neuropathy, unspecified; E11.51 Type 2 diabetes mellitus with diabetic peripheral angiopathy without gangrene; G43.909 Migraine, unspecified, not intractable, without status migrainosus; N18.4 Chronic kidney disease, stage 4 (severe); E87.6 Hypokalemia; G47.33 Obstructive sleep apnea (adult) (pediatric); E78.00 Pure hypercholesterolemia, unspecified; I25.2 Old myocardial infarction; Z95.1 Presence of aortocoronary bypass graft; Z90.5 Acquired absence of kidney; Z89.511 Acquired absence of right leg below knee; Z82.49 Family history of ischemic heart disease and other diseases of the circulatory system; Z83.3 Family history of diabetes mellitus; Z88.8 Allergy status to other drugs, medicaments and biological substances; Z79.01 Long term (current) use of anticoagulants; Z79.4 Long term (current) use of insulin; Z79.899 Other long term (current) drug therapy; Z79.82 Long term (current) use of aspirin; Z87.891 Personal history of nicotine dependence; Y92.092 Bedroom in other non-institutional residence as the place of occurrence of the external cause; Z68.34 Body mass index [BMI] 34.0-34.9, adult
CPT/HCPCS: 36415; 36600; 70450; 71045; 74018; 78452; 80048; 80053; 80061; 80074; 80307; 80320; 81001; 82140; 82803; 82962; 83540; 83735; 83880; 84439; 84443; 84484; 85007; 85025; 85027; 85610; 85730; 87040; 87070; 87116; 87205; 93005; 93010; 93017; 93306; 94002; 94003; 94640; 94760; G0378; A6250; A9270-GY; A9502; C9113; G0480; J0360; J0692; J1644; J1815; J1940; J2060; J2310; J2405; J2597; J2704; J2785; J3370; J3480; J7030; J7040

== ENCOUNTER 2019-08-24 14:38 | Inpatient (IN) | payer MEDICAID ==
--- NOTE | 2019-08-24 15:36 | Emergency Department Report ---
HPI - General Chief Complaint: Nausea/Vomiting/Diarrhea Time Seen by Provider: 08/24/19 15:00 - HPI HPI: Room 1 The pt is a 59 y/o F p/w a cc of BARRERA/AMS. The pt is very lethargic and only provides a limited history. The pt admits to having a BARRERA which began last PM. Pt denies preceding trauma. Pt denies Fever, n/v. ED Past Medical Hx - Past Medical History Hx Hypertension: Yes (1994) Hx Heart Attack/AMI: Yes (10/04/201411/2015) Hx Congestive Heart Failure: Yes Hx Diabetes: Yes (1994) Hx Arthritis: Yes Hx Headaches / Migraines: Yes Hx Asthma: Yes Hx COPD: Yes Additional medical history: sciatica, DDD. high cholesterol. fibromyalgia. neuropathy. 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 left nephrectomy s/p aneurysm. left carotid endarterectomy (January 2016). R BKA. Triple bypass (05/2016) - Family History Family history: no significant - Social History Smoking Status: Never Smoker Substance Use Type: None - Medications Home Medications: Home Medications Medication Instructions Recorded Confirmed Last Taken Type ALBUTEROL Inhaler (OR & NICU) 2 puff IH QID PRN 03/16/16 07/01/19 06/30/19 History [ProAir HFA Inhaler] Albuterol *Only Ed* [Proventil 2.5 mg IH QIDRT PRN #7 nebu 03/22/16 07/01/19 06/30/19 Rx 0.5% NEBS] Butalb/Acetamin/Caff 50-325-40 1 tab PO Q8HR PRN #90 tablet 03/22/16 07/01/19 06/30/19 Rx [Fioricet 50-325-40] ISOSORBIDE MONOnitrate [Imdur ER] 30 mg PO QDAY #30 tablet 03/22/16 07/01/19 06/30/19 Rx Insulin NPH/Regular [NovoLIN 70/30] 30 unit SQ BIDDIAB #30 units 03/22/16 07/01/19 06/30/19 Rx Aspirin [Aspirin BABY CHEW TAB] 81 mg PO QDAY #15 tab.chew 04/08/16 07/01/19 06/30/19 Rx AtorvaSTATin [Lipitor] 40 mg PO QHS #15 tablet 04/08/16 07/01/19 06/30/19 Rx Chlorhexidine Mouthwash [Peridex] 15 ml MM BID #1 bottle 12/18/17 07/01/19 06/30/19 Rx Escitalopram Oxalate [Lexapro] 10 mg PO QHS 07/01/19 07/01/19 06/30/19 History Ferrous Sulfate [Feosol 325 MG tab] 325 mg PO QDAY 07/01/19 07/01/19 06/30/19 History Sodium Bicarbonate 650 mg PO BID 07/01/19 07/01/19 06/30/19 History carvediloL [Coreg] 12.5 mg PO QDAY 07/01/19 07/01/19 06/30/19 History Aspirin [Aspirin BABY CHEW TAB] 81 mg PO QDAY #30 tab.chew 07/10/19 Unknown Rx AtorvaSTATin [Lipitor] 40 mg PO QHS #30 tablet 07/10/19 Unknown Rx Bumetanide [Bumex 1 mg tab] 2 mg PO BID #60 tablet 07/10/19 Unknown Rx Clopidogrel [Plavix] 75 mg PO QDAY #15 tablet 07/10/19 Unknown Rx HYDROcodone/APAP 5-325 [[place] 1 each PO QHS #30 tablet 07/10/19 Unknown Rx 5-325 mg TAB] Insulin Glargine [Lantus VIAL] 15 units SUB-Q QAMDIAB units 07/10/19 Unknown Rx Lansoprazole Solutab [Prevacid 30 mg FEEDTUBE BID #60 tab.rapdis 07/10/19 Unknown Rx Solutab] carvediloL [Coreg] 12.5 mg PO BID #60 tablet 07/10/19 Unknown Rx hydrALAZINE [Apresoline TAB] 25 mg PO QDAY #30 07/10/19 Unknown Rx ED Review of Systems ROS: Stated complaint: N/V Other details as noted in HPI Comment: Unobtainable due to pts medical conditions Physical Exam - Physical Exam Vital Signs: Vital Signs 08/24/19 14:57 Pulse Rate 95 H Respiratory 19 Rate Blood Pressure 144/85 [Left] O2 Sat by Pulse 96 Oximetry Physical Exam: GEN: WD WN F lying on stretcher asleep. Awakens to verbal and tactile stimuli but is lethargic. Pt answers questions but requires frequent reawakening HEENT: EOMI, NCAT NECK: Trachea midline, no stridor CV: rrr no m/r/g PULM: CTA bilat, no resp distress ABD: S/NT/ND +BS SKIN: No diaphoresis NEURO: GCS 13. Pt will not fully cooperate with Neuro exam MS: no deformity ED Course Vital Signs 08/24/19 14:57 Pulse Rate 95 H Respiratory 19 Rate Blood Pressure 144/85 [Left] O2 Sat by Pulse 96 Oximetry ED Medical Decision Making - Lab Data Result diagrams: 08/24/19 15:27 08/24/19 15:27 Laboratory Tests 08/24/19 08/24/19 08/24/19 15:15 15:27 15:27 WBC 5.1 RBC 4.22 Hgb 10.9 Hct 34.8 MCV 83 MCH 26 L MCHC 31 RDW 29.0 H Plt Count 322 Add Manual Diff Complete Total Counted 100 Seg Neuts % (Manual) 67.0 Band Neutrophils % 0 Lymphocytes % (Manual) 20.0 Reactive Lymphs % (Man) 0 Monocytes % (Manual) 10.0 H Eosinophils % (Manual) 2.0 Basophils % (Manual) 1.0 Metamyelocytes % 0 Myelocytes % 0 Promyelocytes % 0 Blast Cells % 0 Nucleated RBC % Not Reportable Seg Neutrophils # Man 3.4 Band Neutrophils # 0.0 Lymphocytes # (Manual) 1.0 L Abs React Lymphs (Man) 0.0 Monocytes # (Manual) 0.5 Eosinophils # (Manual) 0.1 Basophils # (Manual) 0.1 Metamyelocytes # 0.0 Myelocytes # 0.0 Promyelocytes # 0.0 Blast Cells # 0.0 WBC Morphology Not Reportable Hypersegmented Neuts Not Reportable Hyposegmented Neuts Not Reportable Hypogranular Neuts Not Reportable Smudge Cells Not Reportable Toxic Granulation Not Reportable Toxic Vacuolation Not Reportable Dohle Bodies Not Reportable Pelger-Huet Anomaly Not Reportable Ziyad Rods Not Reportable Platelet Estimate Not Reportable Clumped Platelets Not Reportable Plt Clumps, EDTA Not Reportable Large Platelets Not Reportable Giant Platelets Not Reportable Platelet Satelliting Not Reportable Plt Morphology Comment Not Reportable RBC Morphology Not Reportable Dimorphic RBCs Yes Polychromasia Not Reportable Hypochromasia Not Reportable Poikilocytosis Not Reportable Anisocytosis 2+ Microcytosis 1+ Macrocytosis Not Reportable Spherocytes Not Reportable Pappenheimer Bodies Not Reportable Sickle Cells Not Reportable Target Cells Not Reportable Tear Drop Cells Not Reportable Ovalocytes Not Reportable Helmet Cells Not Reportable Jaramillo[place] Bodies Not Reportable [place] Rings Not Reportable [place] Cells Not Reportable Bite Cells Not Reportable Crenated Cell Not Reportable Elliptocytes Not Reportable Acanthocytes (Spur) Not Reportable Rouleaux Not Reportable Hemoglobin C Crystals Not Reportable Schistocytes Not Reportable Malaria parasites Not Reportable Lonnie Bodies Not Reportable Hem Pathologist Commnt No PT 15.9 H INR 1.29 H APTT 27.5 Sodium Potassium Chloride Carbon Dioxide Anion Gap BUN Creatinine Estimated GFR BUN/Creatinine Ratio Glucose POC Glucose 79 Calcium Total Bilirubin AST ALT Alkaline Phosphatase Ammonia Total Creatine Kinase CK-MB (CK-2) CK-MB (CK-2) Rel Index Troponin T NT-Pro-B Natriuret Pep Total Protein Albumin Albumin/Globulin Ratio Triglycerides Cholesterol LDL Cholesterol Direct HDL Cholesterol Cholesterol/HDL Ratio TSH Free T4 Plasma/Serum Alcohol 08/24/19 08/24/19 08/24/19 15:27 15:27 15:27 WBC RBC Hgb Hct MCV MCH MCHC RDW Plt Count Add Manual Diff Total Counted Seg Neuts % (Manual) Band Neutrophils % Lymphocytes % (Manual) Reactive Lymphs % (Man) Monocytes % (Manual) Eosinophils % (Manual) Basophils % (Manual) Metamyelocytes % Myelocytes % Promyelocytes % Blast Cells % Nucleated RBC % Seg Neutrophils # Man Band Neutrophils # Lymphocytes # (Manual) Abs React Lymphs (Man) Monocytes # (Manual) Eosinophils # (Manual) Basophils # (Manual) Metamyelocytes # Myelocytes # Promyelocytes # Blast Cells # WBC Morphology Hypersegmented Neuts Hyposegmented Neuts Hypogranular Neuts Smudge Cells Toxic Granulation Toxic Vacuolation Dohle Bodies Pelger-Huet Anomaly Ziyad Rods Platelet Estimate Clumped Platelets Plt Clumps, EDTA Large Platelets Giant Platelets Platelet Satelliting Plt Morphology Comment RBC Morphology Dimorphic RBCs Polychromasia Hypochromasia Poikilocytosis Anisocytosis Microcytosis Macrocytosis Spherocytes Pappenheimer Bodies Sickle Cells Target Cells Tear Drop Cells Ovalocytes Helmet Cells Jaramillo-[place] Bodies [place] Rings Bartlett Cells Bite Cells Crenated Cell Elliptocytes Acanthocytes (Spur) Rouleaux Hemoglobin C Crystals Schistocytes Malaria parasites Lonnie Bodies Hem Pathologist Commnt PT INR APTT Sodium 134 L Potassium 4.8 Chloride 98.9 Carbon Dioxide 17 L Anion Gap 23 BUN 52 H Creatinine 1.9 H Estimated GFR 33 BUN/Creatinine Ratio 27 Glucose 73 POC Glucose Calcium 9.7 Total Bilirubin 0.80 AST 16 ALT 14 Alkaline Phosphatase 127 Ammonia 54.0 Total Creatine Kinase 26 L CK-MB (CK-2) 2.2 CK-MB (CK-2) Rel Index 8.4 H Troponin T 0.134 H* NT-Pro-B Natriuret Pep > 73890 H Total Protein 6.4 Albumin 3.2 L Albumin/Globulin Ratio 1.0 Triglycerides 101 Cholesterol 89 LDL Cholesterol Direct 40 L HDL Cholesterol 36 L Cholesterol/HDL Ratio 2.47 TSH 2.890 Free T4 1.62 H Plasma/Serum Alcohol 08/24/19 16:27 WBC RBC Hgb Hct MCV MCH MCHC RDW Plt Count Add Manual Diff Total Counted Seg Neuts % (Manual) Band Neutrophils % Lymphocytes % (Manual) Reactive Lymphs % (Man) Monocytes % (Manual) Eosinophils % (Manual) Basophils % (Manual) Metamyelocytes % Myelocytes % Promyelocytes % Blast Cells % Nucleated RBC % Seg Neutrophils # Man Band Neutrophils # Lymphocytes # (Manual) Abs React Lymphs (Man) Monocytes # (Manual) Eosinophils # (Manual) Basophils # (Manual) Metamyelocytes # Myelocytes # Promyelocytes # Blast Cells # WBC Morphology Hypersegmented Neuts Hyposegmented Neuts Hypogranular Neuts Smudge Cells Toxic Granulation Toxic Vacuolation Dohle Bodies Pelger-Huet Anomaly Ziyad Rods Platelet Estimate Clumped Platelets Plt Clumps, EDTA Large Platelets Giant Platelets Platelet Satelliting Plt Morphology Comment RBC Morphology Dimorphic RBCs Polychromasia Hypochromasia Poikilocytosis Anisocytosis Microcytosis Macrocytosis Spherocytes Pappenheimer Bodies Sickle Cells Target Cells Tear Drop Cells Ovalocytes Helmet Cells Jaramillo-[place] Bodies [place] Rings Myriam Cells Bite Cells Crenated Cell Elliptocytes Acanthocytes (Spur) Rouleaux Hemoglobin C Crystals Schistocytes Malaria parasites Lonnie Bodies Hem Pathologist Commnt PT INR APTT Sodium Potassium Chloride Carbon Dioxide Anion Gap BUN Creatinine Estimated GFR BUN/Creatinine Ratio Glucose POC Glucose Calcium Total Bilirubin AST ALT Alkaline Phosphatase Ammonia Total Creatine Kinase CK-MB (CK-2) CK-MB (CK-2) Rel Index Troponin T NT-Pro-B Natriuret Pep Total Protein Albumin Albumin/Globulin Ratio Triglycerides Cholesterol LDL Cholesterol Direct HDL Cholesterol Cholesterol/HDL Ratio TSH Free T4 Plasma/Serum Alcohol < 0.01 - EKG Data -: EKG Interpreted by Me EKG shows normal: sinus rhythm Rate: normal - EKG Data When compared to previous EKG there are: previous EKG unavailable Interpretation: nonspecific ST-T wave berny (TWI aVL) - Radiology Data Radiology results: report reviewed (CT Head), image reviewed (CT Head) [facility] [address] [place] [address] Cat Scan Report Signed Patient: KRISSY ESCOBAR MR#: [id number] 9 : 1960 Acct:[id number] Age/Sex: 59 / F ADM Date: 08/24/19 Loc: ED Attending Dr: Ordering Physician: YURI PORTILLO MD Date of Service: 08/24/19 Procedure(s): CT head/brain wo con Accession Number(s): [id number] cc: YURI PORTILLO MD CT head/brain wo con INDICATION / CLINICAL INFORMATION: 59 years Female; BARRERA, altered mental status. TECHNIQUE: Routine CT head without contrast. All CT scans at this location are performed using CT dose reduction for ALARA by means of automated exposure control. COMPARISON: CT scan of the brain from 07/01/2019 FINDINGS: BRAIN / INTRACRANIAL CONTENTS: No acute hemorrhage, mass effect, midline shift, hydrocephalus, or acute, large territorial infarct. No chronic infarct or focal atrophy. Normal brain volume and ventricular/sulcal size for age. No significant white matter abnormality. CRANIOCERVICAL JUNCTION: No significant abnormality. ORBITS: No significant abnormality of visualized orbits. SINUSES / MASTOIDS: : Mucosal thickening is seen in the right sphenoid sinus. ADDITIONAL FINDINGS: None. IMPRESSION: I do not see an acute parenchymal lesion in the brain. CT findings remain unchanged. Signer Name: Radha Anthony MD Signed: 08/24/2019 5:15 PM Workstation Name: [id number] Transcribed By: BS Dictated By: Radha Smith MD Electronically Authenticated By: Radha Smith MD Signed Date/Time: 08/24/191714 DD/ 12 TD/TT: - Differential Diagnosis AMS, ICH, Hepatic encephalopathy Critical care attestation.: If time is entered above; I have spent that time in minutes in the direct care of this critically ill patient, excluding procedure time. ED Disposition Clinical Impression: Altered mental status Disposition: DC-09 OP ADMIT IP TO THIS HOSP Is pt being admited?: No Does the pt Need Aspirin: Yes Condition: Fair [facility] [Primary Care Provider] - 3-5 Days Time of Disposition: 17:37 (Hospitalist paged (Dr Iglesias))
[2019-08-24 15:52] LABS: Hematocrit 34.8 % (30.3-42.9); Hemoglobin 10.9 gm/dl (10.1-14.3); Mean Corpuscular HGB Conc 31 % (30-34); Mean Corpuscular Volume 83 fl (79-97); Platelet Count 322 K/mm3 (140-440); Red Blood Count 4.22 M/mm3 (3.65-5.03)
[2019-08-24 15:57] LABS: INR 1.29 (0.87-1.13)
[2019-08-24 15:58] LABS: Partial Thromboplastin Time 27.5 Sec. (24.2-36.6)
[2019-08-24 16:03] LABS: Creatine Kinase MB 2.2 ng/mL (0.0-4.0)
[2019-08-24 16:07] LABS: Alanine Aminotransferase 14 units/L (7-56); Albumin 3.2 g/dL (3.9-5); BUN/Creatinine Ratio 27; Blood Urea Nitrogen 52 mg/dL (7-17); Calcium 9.7 mg/dL (8.4-10.2); Hemolysis Index 4
[2019-08-24 16:14] LABS: Free T4 (Free Thyroxine) 1.62 ng/dL (0.76-1.46)
[2019-08-24 16:22] LABS: Chol/HDL Ratio 2.47 %; HDL Cholesterol 36 mg/dL (40-59); LDL Cholesterol,Direct 40 mg/dL (50-130)
[2019-08-24 16:33] LABS: Anisocytosis 2+; Dimorphic RBC Yes; Total Cells Counted 100
--- NOTE | 2019-08-24 17:19 | Cat Scan Report ---
CT head/brain wo con INDICATION / CLINICAL INFORMATION: 59 years Female; BARRERA, altered mental status. TECHNIQUE: Routine CT head without contrast. All CT scans at this location are performed using CT dos e reduction for ALARA by means of automated exposure control. COMPARISON: CT scan of the brain from 07/01/2019 FINDINGS: BRAIN / INTRACRANIAL CONTENTS: No acute hemorrhage, mass effect, midline shift, hydrocephalus, or acu te, large territorial infarct. No chronic infarct or focal atrophy. Normal brain volume and ventricul ar/sulcal size for age. No significant white matter abnormality. CRANIOCERVICAL JUNCTION: No significant abnormality. ORBITS: No significant abnormality of visualized orbits. SINUSES / MASTOIDS: : Mucosal thickening is seen in the right sphenoid sinus. ADDITIONAL FINDINGS: None. IMPRESSION: I do not see an acute parenchymal lesion in the brain. CT findings remain unchanged. Signer Name: Radha Anthony MD Signed: 08/24/2019 5:15 PM Workstation Name: [id number]
[2019-08-24] MEDS ORDERED: ASPIRIN 300 MG RECT SUPP PR ONE (17:39)
--- NOTE | 2019-08-24 17:51 | History and Physical Report ---
History of Present Illness Chief complaint: confused, and sleepy History of present illness: 59 YO Female with HTN, IA, CHD, Systolic CHF(EF 30%), DM complicated by Neuropathy, OA, Migraine BARRERA, COPD, CAD S/P Stent Placement, Sciatica, HLD, Fibromyalgia present to ED for evaluation. Pt is lethargic and unable to provide history. Pt history provided ED staff, and EMS. As per staff, the patient reported not feeling well to day. Pt acknowledges headache. Pt notified EMS and upon arrival the patient was found to be in distress and transported to [facility]. Pt seen and evaluated in ED and found to have Encephalopathy, OLEKSANDR, Acidosis. Pt admitted to medical floor with remote telemetry. Prior admission on 07/01/19 reviewed. All listed medication reconciled at time of admission. Pt is lethargic but has a positive gag reflex and in able to protect her airway. - Past History Past Medical History: other (see HPI) Past Surgical History: Other (CABG, Other ( x 2. left nephrectomy s/p aneurysm. left carotid endarterectomy (January 2016). R BKA. Triple bypass (05/2016))) Social history: . denies: smoking, alcohol abuse, prescription drug abuse Family history: diabetes, hypertension Medications and Allergies Allergies Allergy/AdvReac Type Severity Reaction Status Date / Time KRYSTIAN Inhibitors Allergy Shortness Verified 04/26/14 00:50 of Breath amitriptyline Allergy Unknown Verified 12/18/17 17:44 Home Medications Medication Instructions Recorded Confirmed Last Taken Type ALBUTEROL Inhaler (OR & NICU) 2 puff IH QID PRN 03/16/16 08/24/19 06/30/19 History [ProAir HFA Inhaler] Albuterol *Only Ed* [Proventil 2.5 mg IH QIDRT PRN #7 nebu 03/22/16 08/24/19 Rx 0.5% NEBS] Butalb/Acetamin/Caff 50-325-40 1 tab PO Q8HR PRN #90 tablet 03/22/16 08/24/19 06/30/19 Rx [Fioricet 50-325-40] ISOSORBIDE MONOnitrate [Imdur ER] 30 mg PO QDAY #30 tablet 03/22/16 08/24/19 06/30/19 Rx Insulin NPH/Regular [NovoLIN 70/30] 30 unit SQ BIDDIAB #30 units 03/22/16 08/24/19 06/30/19 Rx Aspirin [Aspirin BABY CHEW TAB] 81 mg PO QDAY #15 tab.chew 04/08/16 08/24/19 06/30/19 Rx AtorvaSTATin [Lipitor] 40 mg PO QHS #15 tablet 04/08/16 08/24/19 06/30/19 Rx Chlorhexidine Mouthwash [Peridex] 15 ml MM BID #1 bottle 12/18/17 08/24/19 06/30/19 Rx Escitalopram Oxalate [Lexapro] 10 mg PO QHS 07/01/19 08/24/19 06/30/19 History Ferrous Sulfate [Feosol 325 MG tab] 325 mg PO QDAY 07/01/19 08/24/19 06/30/19 History Sodium Bicarbonate 650 mg PO BID 07/01/19 08/24/19 06/30/19 History Bumetanide [Bumex 1 mg tab] 2 mg PO BID #60 tablet 07/10/19 08/24/19 Unknown Rx Clopidogrel [Plavix] 75 mg PO QDAY #15 tablet 07/10/19 08/24/19 Unknown Rx HYDROcodone/APAP 5-325 [[place] 1 each PO QHS #30 tablet 07/10/19 08/24/19 Unknown Rx 5-325 mg TAB] Insulin Glargine [Lantus VIAL] 15 units SUB-Q QAMDIAB units 07/10/19 08/24/19 Unknown Rx Lansoprazole Solutab [Prevacid 30 mg FEEDTUBE BID #60 tab.rapdis 07/10/19 08/24/19 Unknown Rx Solutab] carvediloL [Coreg] 12.5 mg PO BID #60 tablet 07/10/19 08/24/19 Unknown Rx hydrALAZINE [Apresoline TAB] 25 mg PO QDAY #30 07/10/19 08/24/19 Unknown Rx Review of Systems ROS unobtainable: due to mental status Exam - Constitutional Vitals: Temp Pulse Resp BP Pulse Ox 98.3 F 96 H 18 136/98 96 08/24/19 15:19 08/24/19 15:19 08/24/19 15:25 08/24/19 15:19 08/24/19 15:25 General appearance: Present: mild distress - EENT Eyes: Present: PERRL ENT: hearing intact, clear oral mucosa - Neck Neck: Present: supple, normal ROM - Respiratory Respiratory effort: normal Respiratory: bilateral: CTA - Cardiovascular Heart Sounds: Present: S1 & S2. Absent: rub, click - Extremities Extremities: pulses symmetrical, No edema Peripheral Pulses: within normal limits - Abdominal General gastrointestinal: Present: soft, non-tender, non-distended, normal bowel sounds Female genitourinary: Present: normal - Integumentary Integumentary: Present: clear, warm, dry - Musculoskeletal Musculoskeletal: generalized weakness - Psychiatric Psychiatric: no appropriate mood/affect, no intact judgment & insight, no memory intact - Neurologic Neurologic: CNII-XII intact, moves all extremities Results - Labs CBC & Chem 7: 08/24/19 15:27 08/24/19 15:27 Labs: Abnormal lab results 08/24/19 08/24/19 08/24/19 Range/Units 15:27 15:27 15:27 MCH 26 L (28-32) pg RDW 29.0 H (13.2-15.2) % Monocytes % (Manual) 10.0 H (0.0-7.3) % Lymphocytes # (Manual) 1.0 L (1.2-5.4) K/mm3 PT 15.9 H (12.2-14.9) Sec. INR 1.29 H (0.87-1.13) Sodium 134 L (137-145) mmol/L Carbon Dioxide 17 L (22-30) mmol/L BUN 52 H (7-17) mg/dL Creatinine 1.9 H (0.7-1.2) mg/dL Total Creatine Kinase 26 L (30-135) units/L CK-MB (CK-2) Rel Index 8.4 H (0-4) Troponin T 0.134 H* (0.00-0.029) ng/mL NT-Pro-B Natriuret Pep > 40942 H (0-900) pg/mL Albumin 3.2 L (3.9-5) g/dL LDL Cholesterol Direct 40 L (50-130) mg/dL HDL Cholesterol 36 L (40-59) mg/dL Free T4 (0.76-1.46) ng/dL 08/24/19 Range/Units 15:27 MCH (28-32) pg RDW (13.2-15.2) % Monocytes % (Manual) (0.0-7.3) % Lymphocytes # (Manual) (1.2-5.4) K/mm3 PT (12.2-14.9) Sec. INR (0.87-1.13) Sodium (137-145) mmol/L Carbon Dioxide (22-30) mmol/L BUN (7-17) mg/dL Creatinine (0.7-1.2) mg/dL Total Creatine Kinase (30-135) units/L CK-MB (CK-2) Rel Index (0-4) Troponin T (0.00-0.029) ng/mL NT-Pro-B Natriuret Pep (0-900) pg/mL Albumin (3.9-5) g/dL LDL Cholesterol Direct (50-130) mg/dL HDL Cholesterol (40-59) mg/dL Free T4 1.62 H (0.76-1.46) ng/dL Assessment and Plan - Patient Problems (1) Metabolic encephalopathy Current Visit: Yes Status: Acute Plan to address problem: CT Head, Neuro check, seizure precautions, aspiration precautions, fall precautions, thyroid panel, CMP, (2) Acidosis Current Visit: Yes Status: Acute Plan to address problem: IVF resuscitation therapy, repeat bmp. (3) OLEKSANDR (acute kidney injury) Current Visit: Yes Status: Acute Plan to address problem: IVF resuscitation therapy, monitor uop q shift, monitor serum creatnine. (4) Obesity hypoventilation syndrome Current Visit: Yes Status: Acute Plan to address problem: Supplemental oxygen, nebulizer therapy, AABG, NIPPV, pulse oximetry (5) Diabetes Current Visit: Yes Status: Acute Plan to address problem: ADA diet, insulin ,accu check, hypoglycemia protocol (6) HTN (hypertension) Current Visit: Yes Status: Acute Qualifiers: Hypertension type: essential hypertension Qualified Code(s): I10 - Essen tial (primary) hypertension Plan to address problem: Monitor BP q shift, continue medical management (7) CHF (congestive heart failure) Current Visit: Yes Status: Acute Qualifiers: Heart failure type: systolic Plan to address problem: Strict I/O, daily weight, afterload reduction, blood pressure control, monitor uop q shift, monitor fluid balance, supplemental oxygen, pulse oximetry. (8) DVT prophylaxis Current Visit: Yes Status: Acute Plan to address problem: SCD to BLE while in bed.
[2019-08-24] MEDS ORDERED: ACETAMINOPHEN 325 MG TAB PO PRN (18:57)
[2019-08-24] MEDS ORDERED: ALBUTEROL 2.5 MG/3 ML NEBU IH PRN (18:57)
[2019-08-24] MEDS ORDERED: ONDANSETRON 4 MG/2 ML INJ IV PRN (18:57)
[2019-08-24] MEDS ORDERED: carvediloL 6.25 MG TAB ONE (21:12)
[2019-08-24] MEDS ORDERED: BUTALB/ACETAMINOPHEN/CAFFEINE TAB ONE (21:16)
[2019-08-24] MEDS: carvediloL 12.5 MG TAB PO SCH ×2 (21:19→22:57)
[2019-08-24] MEDS: BUTALB/ACETAMINOPHEN/CAFFEINE TAB PO PRN (21:20)
[2019-08-24 21:42] LABS: Free T4 (Free Thyroxine) 1.49 ng/dL (0.76-1.46)
[2019-08-24] MEDS: DEXTROSE 50% IN WATER (25GM) 50 ML SYRINGE IV PRN (23:29)
[2019-08-24] MEDS: LANSOPRAZOLE 30 MG SOLUTAB FEEDTUBE SCH (23:48)
[2019-08-24] MEDS: SODIUM BICARBONATE 650 MG TAB PO SCH (23:49)
[2019-08-24] MEDS: ESCITALOPRAM 10 MG TAB PO SCH (23:50)
[2019-08-25] MEDS: CHLORHEXIDINE MOUTHWASH 473ML MM SCH ×3 (00:42→23:34)
[2019-08-25] MEDS: BUMETANIDE 1 MG TAB PO SCH ×3 (00:42→23:36)
[2019-08-25] MEDS: INSULIN LISPRO 100 UNIT/ML SUB-Q SCH ×4 (00:42→17:08)
[2019-08-25] MEDS: DEXTROSE 50% IN WATER (25GM) 50 ML SYRINGE IV PRN (02:16)
[2019-08-25] MEDS ORDERED: diphenhydrAMINE 25 MG CAP PO ONE (04:30)
[2019-08-25 06:27] LABS: ABG Base Excess -4.1 mmol/L (-2.0-3.0); ABG HCO3 20.6 mmol/L (20.0-26.0); ABG Methemoglobin 0.5 % (0.0-1.5); ABG Oxygen Saturation 97.1 % (95.0-99.0); ABG PH 7.375 pH Units (7.350-7.450); ABG PO2 85.6 mm Hg (80.0-90.0)
[2019-08-25 08:09] LABS: Albumin 2.9 g/dL (3.9-5); Calcium 9.4 mg/dL (8.4-10.2)
--- NOTE | 2019-08-25 10:02 | Progress Note ---
Assessment and Plan Assessment and plan: Metabolic encephalopathy CT Head negative, Cont to treat underlying causes Acidosis IVF resuscitation therapy, repeat bmp. OLEKSANDR (acute kidney injury) IVF resuscitation therapy, monitor uop q shift, monitor serum creatnine. Obesity hypoventilation syndrome Supplemental oxygen, nebulizer therapy, AABG, NIPPV, pulse oximetry Diabetes ADA diet, insulin ,accu check, hypoglycemia protocol HTN (hypertension) Monitor BP q shift, continue medical management CHF (congestive heart failure) Strict I/O, daily weight, afterload reduction, blood pressure control, monitor uop q shift, monitor fluid balance, supplemental oxygen, pulse oximetry. DVT prophylaxis SCD to BLE while in bed. History Interval history: No new issues since admission Hospitalist Physical - Constitutional Vitals: Temp Pulse Resp BP Pulse Ox 97.7 F 85 20 116/88 95 08/25/19 05:44 08/25/19 05:44 08/25/19 05:44 08/25/19 05:44 08/25/19 07:33 General appearance: Present: no acute distress - EENT Eyes: Present: PERRL, EOM intact ENT: hearing intact, clear oral mucosa, dentition normal - Neck Neck: Present: supple, normal ROM - Respiratory Respiratory effort: normal Respiratory: bilateral: CTA - Cardiovascular Rhythm: regular Heart Sounds: Present: S1 & S2. Absent: gallop, rub - Extremities Extremities: no ischemia, No edema, Full ROM - Abdominal General gastrointestinal: soft, non-tender, non-distended, normal bowel sounds - Integumentary Integumentary: Present: clear, warm, dry - Neurologic Neurologic: CNII-XII intact, moves all extremities Results - Labs CBC & Chem 7: 08/24/19 15:27 08/25/19 07:00 Labs: Laboratory Last Values WBC 5.1 K/mm3 (4.5-11.0) 08/24/19 15:27 RBC 4.22 M/mm3 (3.65-5.03) 08/24/19 15:27 Hgb 10.9 gm/dl (10.1-14.3) 08/24/19 15:27 Hct 34.8 % (30.3-42.9) 08/24/19 15:27 MCV 83 fl (79-97) 08/24/19 15:27 MCH 26 pg (28-32) L 08/24/19 15: MCHC 31 % (30-34) 08/24/19 15: RDW 29.0 % (13.2-15.2) H 08/24/19 15: Plt Count 322 K/mm3 (140-440) 08/24/19 15: Add Manual Diff Complete 08/24/19 15: Total Counted 100 08/24/19 15: Seg Neuts % (Manual) 67.0 % (40.0-70.0) 08/24/19 15: Band Neutrophils % 0 % 08/24/19 15: Lymphocytes % (Manual) 20.0 % (13.4-35.0) 08/24/19 15: Reactive Lymphs % (Man) 0 % 08/24/19 15: Monocytes % (Manual) 10.0 % (0.0-7.3) H 08/24/19 15: Eosinophils % (Manual) 2.0 % (0.0-4.3) 08/24/19 15: Basophils % (Manual) 1.0 % (0.0-1.8) 08/24/19 15: Metamyelocytes % 0 % 08/24/19 15: Myelocytes % 0 % 08/24/19 15: Promyelocytes % 0 % 08/24/19 15: Blast Cells % 0 % 08/24/19 15: Nucleated RBC % Not Reportable 08/24/19 15: Seg Neutrophils # Man 3.4 K/mm3 (1.8-7.7) 08/24/19 15: Band Neutrophils # 0.0 K/mm3 08/24/19 15: Lymphocytes # (Manual) 1.0 K/mm3 (1.2-5.4) L 08/24/19 15:27 Abs React Lymphs (Man) 0.0 K/mm3 08/24/19 15:27 Monocytes # (Manual) 0.5 K/mm3 (0.0-0.8) 08/24/19 15:27 Eosinophils # (Manual) 0.1 K/mm3 (0.0-0.4) 08/24/19 15:27 Basophils # (Manual) 0.1 K/mm3 (0.0-0.1) 08/24/19 15:27 Metamyelocytes # 0.0 K/mm3 08/24/19 15:27 Myelocytes # 0.0 K/mm3 08/24/19 15:27 Promyelocytes # 0.0 K/mm3 08/24/19 15:27 Blast Cells # 0.0 K/mm3 08/24/19 15:27 WBC Morphology Not Reportable 08/24/19 15:27 Hypersegmented Neuts Not Reportable 08/24/19 15:27 Hyposegmented Neuts Not Reportable 08/24/19 15:27 Hypogranular Neuts Not Reportable 08/24/19 15:27 Smudge Cells Not Reportable 08/24/19 15:27 Toxic Granulation Not Reportable 08/24/19 15:27 Toxic Vacuolation Not Reportable 08/24/19 15:27 Dohle Bodies Not Reportable 08/24/19 15:27 Pelger-Huet Anomaly Not Reportable 08/24/19 15:27 Ziyad Rods Not Reportable 08/24/19 15:27 Platelet Estimate Not Reportable 08/24/19 15:27 Clumped Platelets Not Reportable 08/24/19 15:27 Plt Clumps, EDTA Not Reportable 08/24/19 15:27 Large Platelets Not Reportable 08/24/19 15:27 Giant Platelets Not Reportable 08/24/19 15:27 Platelet Satelliting Not Reportable 08/24/19 15:27 Plt Morphology Comment Not Reportable 08/24/19 15:27 RBC Morphology Not Reportable 08/24/19 15:27 Dimorphic RBCs Yes 08/24/19 15:27 Polychromasia Not Reportable 08/24/19 15:27 Hypochromasia Not Reportable 08/24/19 15:27 Poikilocytosis Not Reportable 08/24/19 15:27 Anisocytosis 2+ 08/24/19 15:27 Microcytosis 1+ 08/24/19 15:27 Macrocytosis Not Reportable 08/24/19 15:27 Spherocytes Not Reportable 08/24/19 15:27 Pappenheimer Bodies Not Reportable 08/24/19 15:27 Sickle Cells Not Reportable 08/24/19 15:27 Target Cells Not Reportable 08/24/19 15:27 Tear Drop Cells Not Reportable 08/24/19 15:27 Ovalocytes Not Reportable 08/24/19 15:27 Helmet Cells Not Reportable 08/24/19 15:27 [place] Bodies Not Reportable 08/24/19 15:27 [place] Rings Not Reportable 08/24/19 15:27 [place] Cells Not Reportable 08/24/19 15:27 Bite Cells Not Reportable 08/24/19 15:27 Crenated Cell Not Reportable 08/24/19 15:27 Elliptocytes Not Reportable 08/24/19 15:27 Acanthocytes (Spur) Not Reportable 08/24/19 15:27 Rouleaux Not Reportable 08/24/19 15:27 Hemoglobin C Crystals Not Reportable 08/24/19 15:27 Schistocytes Not Reportable 08/24/19 15:27 Malaria parasites Not Reportable 08/24/19 15:27 Lonnie Bodies Not Reportable 08/24/19 15:27 Hem Pathologist Commnt No 08/24/19 15:27 PT 15.9 Sec. (12.2-14.9) H 08/24/19 15:27 INR 1.29 (0.87-1.13) H 08/24/19 15:27 APTT 27.5 Sec. (24.2-36.6) 08/24/19 15:27 ABG pH 7.375 pH Units (7.350-7.450) 08/25/19 05:55 ABG pCO2 36.0 mm Hg 08/25/19 05:55 ABG pO2 85.6 mm Hg (80.0-90.0) 08/25/19 05:55 ABG HCO3 20.6 mmol/L (20.0-26.0) 08/25/19 05:55 ABG O2 Saturation 97.1 % (95.0-99.0) 08/25/19 05:55 ABG O2 Content 11.3 (0.0-44) 08/25/19 05:55 ABG Base Excess -4.1 mmol/L (-2.0-3.0) L 08/25/19 05:55 ABG Hemoglobin 8.4 gm/dl (12.0-16.0) L 08/25/19 05:55 ABG Carboxyhemoglobin 2.5 % (0.0-5.0) 08/25/19 05:55 ABG Methemoglobin 0.5 % (0.0-1.5) 08/25/19 05:55 Oxyhemoglobin 94.1 % (95.0-99.0) L 08/25/19 05:55 FiO2 28 % 08/25/19 05:55 Sodium 137 mmol/L (137-145) 08/25/19 07:00 Potassium 4.7 mmol/L (3.6-5.0) 08/25/19 07:00 Chloride 103.0 mmol/L (98-107) 08/25/19 07:00 Carbon Dioxide 17 mmol/L (22-30) L 08/25/19 07:00 Anion Gap 22 mmol/L 08/25/19 07:00 BUN 46 mg/dL (7-17) H 08/25/19 07:00 Creatinine 1.7 mg/dL (0.7-1.2) H 08/25/19 07:00 Estimated GFR 37 ml/min 08/25/19 07:00 BUN/Creatinine Ratio 27 % 08/25/19 07:00 Glucose 69 mg/dL (65-100) 08/25/19 07:00 POC Glucose 73 (70-105) 08/25/19 08:16 Calcium 9.4 mg/dL (8.4-10.2) 08/25/19 07:00 Total Bilirubin 0.70 mg/dL (0.1-1.2) 08/25/19 07:00 AST 16 units/L (5-40) 08/25/19 07:00 ALT 14 units/L (7-56) 08/25/19 07:00 Alkaline Phosphatase 116 units/L (35-129) 08/25/19 07:00 Ammonia 46.0 umol/L (25-60) 08/24/19 20:50 Total Creatine Kinase 26 units/L (30-135) L 08/24/19 15:27 CK-MB (CK-2) 2.2 ng/mL (0.0-4.0) 08/24/19 15:27 CK-MB (CK-2) Rel Index 8.4 (0-4) H 08/24/19 15:27 Troponin T 0.134 ng/mL (0.00-0.029) H* 08/24/19 15:27 NT-Pro-B Natriuret Pep > 16341 pg/mL (0-900) H 08/24/19 15:27 Total Protein 6.0 g/dL (6.3-8.2) L 08/25/19 07:00 Albumin 2.9 g/dL (3.9-5) L 08/25/19 07:00 Albumin/Globulin Ratio 0.9 % 08/25/19 07:00 Triglycerides 101 mg/dL (2-149) 08/24/19 15:27 Cholesterol 89 mg/dL (50-199) 08/24/19 15:27 LDL Cholesterol Direct 40 mg/dL (50-130) L 08/24/19 15:27 HDL Cholesterol 36 mg/dL (40-59) L 08/24/19 15: Cholesterol/HDL Ratio 2.47 % 08/24/19 15: TSH 3.010 mlU/mL (0.270-4.200) 08/24/19 20:50 Free T4 1.49 ng/dL (0.76-1.46) H 08/24/19 20:50 Plasma/Serum Alcohol < 0.01 % (0-0.07) 08/24/19 16:27 Active Medications - Current Medications Current Medications: Generic Name Dose Route Start Last Admin Trade Name Freq PRN Reason Stop Dose Admin Acetaminophen 650 mg 08/24/19 18:57 Tylenol PO Q4H PRN Pain MILD(1-3)/Fever >100.5/BARRERA Acetaminophen/Butalbital/Caffeine 1 tab 08/24/19 19:15 08/24/19 21:20 Fioricet PO 1 tab Q8H PRN Administration Headache Albuterol 2.5 mg 08/24/19 18:57 Proventil IH Q4H PRN Shortness Of Breath Aspirin 81 mg 08/25/19 10:00 Baby Aspirin PO QDAY CHRISTY Atorvastatin Calcium 40 mg 08/24/19 22:00 08/24/19 23:49 Lipitor PO 40 mg QHS CHRISTY Administration Bumetanide 2 mg 08/24/19 22:00 08/25/19 00:42 Bumex PO 2 mg BID CHRISTY Administration Carvedilol 12.5 mg 08/24/19 22:00 08/24/19 22:57 Coreg PO Not Given BID CHRISTY Chlorhexidine Gluconate 15 ml 08/24/19 22:00 08/25/19 00:42 Peridex MM 15 ml BID CHRISTY Administration Clopidogrel Bisulfate 75 mg 08/25/19 10:00 Plavix PO QDAY CHRISTY Dextrose 50 ml 08/24/19 19:17 08/25/19 02:16 D50w (25gm) Syringe IV 50 ml Q30MIN PRN Administration Hypoglycemia Protocol Escitalopram Oxalate 10 mg 08/24/19 22:00 08/24/19 23:50 Lexapro PO 10 mg QHS CHRISTY Administration Hydralazine HCl 25 mg 08/25/19 10:00 Apresoline PO QDAY [facility] Insulin Human Lispro 0 unit 08/25/19 00:00 08/25/19 05:55 Humalog SUB-Q Not Given Q6HR [facility] Protocol Isosorbide Mononitrate 30 mg 08/25/19 10:00 Imdur PO QDAY CHRISTY Lansoprazole 30 mg 08/24/19 22:00 08/24/19 23:48 Prevacid Solutab FEEDTUBE 30 mg BID CHRISTY Administration Ondansetron HCl 4 mg 08/24/19 18:57 Zofran IV Q8H PRN Nausea And Vomiting Sodium Bicarbonate 650 mg 08/24/19 22:00 08/24/19 23:49 Sodium Bicarbonate PO 650 mg BID CHRISTY Administration Sodium Chloride 10 ml 08/24/19 22:00 08/24/19 22:56 Sodium Chloride Flush Syringe 10 Ml IV 10 ml BID CHRISTY Administration Sodium Chloride 10 ml 08/24/19 18:57 Sodium Chloride Flush Syringe 10 Ml IV PRN PRN LINE FLUSH
[2019-08-25] MEDS: ASPIRIN 81 MG TAB CHEW PO SCH (10:28)
[2019-08-25] MEDS: LANSOPRAZOLE 30 MG SOLUTAB FEEDTUBE SCH ×2 (10:28→23:36)
[2019-08-25] MEDS: carvediloL 12.5 MG TAB PO SCH ×2 (10:29→23:37)
[2019-08-25] MEDS: hydrALAZINE 25 MG TAB PO SCH (10:30)
[2019-08-25] MEDS: CLOPIDOGREL 75 MG TAB PO SCH (10:30)
[2019-08-25] MEDS: SODIUM BICARBONATE 650 MG TAB PO SCH ×2 (10:30→23:37)
[2019-08-25] MEDS: BUTALB/ACETAMINOPHEN/CAFFEINE TAB PO PRN ×2 (11:01→23:46)
[2019-08-25] MEDS ORDERED: LIP THERAPY VASELINE TP PRN (11:01)
[2019-08-25] MEDS: diphenhydrAMINE 25 MG CAP PO PRN ×2 (17:48→23:47)
[2019-08-25] MEDS: ESCITALOPRAM 10 MG TAB PO SCH (23:37)
[2019-08-26] MEDS: INSULIN LISPRO 100 UNIT/ML SUB-Q SCH ×5 (01:47→23:46)
[2019-08-26] MEDS: diphenhydrAMINE 25 MG CAP PO PRN ×2 (06:58→16:17)
[2019-08-26] MEDS: ASPIRIN 81 MG TAB CHEW PO SCH (10:13)
[2019-08-26] MEDS: LANSOPRAZOLE 30 MG SOLUTAB FEEDTUBE SCH ×2 (10:13→23:45)
[2019-08-26] MEDS: hydrALAZINE 25 MG TAB PO SCH (10:14)
[2019-08-26] MEDS: BUMETANIDE 1 MG TAB PO SCH ×2 (10:14→23:42)
[2019-08-26] MEDS: carvediloL 12.5 MG TAB PO SCH ×2 (10:14→23:43)
[2019-08-26] MEDS: CLOPIDOGREL 75 MG TAB PO SCH (10:14)
[2019-08-26] MEDS: SODIUM BICARBONATE 650 MG TAB PO SCH ×2 (10:14→23:43)
[2019-08-26] MEDS: BUTALB/ACETAMINOPHEN/CAFFEINE TAB PO PRN ×2 (10:23→23:59)
[2019-08-26] MEDS: CHLORHEXIDINE MOUTHWASH 473ML MM SCH ×2 (13:14→23:45)
--- NOTE | 2019-08-26 15:55 | Progress Note ---
Assessment and Plan Metabolic encephalopathy CT Head negative, Cont to treat underlying causes Improved Acidosis IVF resuscitation therapy, repeat bmp. OLEKSANDR (acute kidney injury) Secondary to VMN-Vasomotor nephropathy IVF resuscitation therapy, monitor uop q shift, monitor serum creatnine. Cr 1.8 Obesity hypoventilation syndrome Supplemental oxygen, nebulizer therapy, AABG, NIPPV, pulse oximetry Diabetes ADA diet, insulin ,accu check, hypoglycemia protocol HTN (hypertension) Monitor BP q shift, continue medical management Acute on chronic systolic CHF (congestive heart failure) Strict I/O, daily weight, afterload reduction, blood pressure control, monitor uop q shift, monitor fluid balance, supplemental oxygen, pulse oximetry. DVT prophylaxis SCD to BLE while in bed. Subjective Date of service: 08/26/19 Principal diagnosis: AMS Interval history: 59 YO Female with HTN, [place], CHD, Systolic CHF(EF 30%), DM complicated by Neuropathy, OA, Migraine BARRERA, COPD, CAD S/P Stent Placement, Sciatica, HLD, Fibromyalgia present to ED for evaluation. Pt is lethargic and unable to provide history. Pt history provided ED staff, and EMS. As per staff, the patient reported not feeling well to day. Pt acknowledges headache. Pt notified EMS and upon arrival the patient was found to be in distress and transported to [facility]. Pt seen and evaluated in ED and found to have Encephalopathy, OLEKSANDR, Acidosis. Pt admitted to medical floor with remote telemetry. Prior admission on 07/01/19 reviewed. All listed medication reconciled at time of admission. Pt is lethargic but has a positive gag reflex and in able to protect her airway. Symptomatically better. - Objective - Constitutional Vitals: Vital Signs - 12hr 08/26/19 08/26/19 08/26/19 05:25 05:34 08:39 Temperature 98.4 F Pulse Rate 80 Pulse Rate [ 84 Bilateral] Respiratory 18 Rate Respiratory 18 Rate [Bilateral ] Blood Pressure 122/69 O2 Sat by Pulse 98 96 Oximetry 08/26/19 08/26/19 08/26/19 10:13 10:14 12:29 Temperature 98.8 F Pulse Rate 80 Pulse Rate [ Bilateral] Respiratory 20 Rate Respiratory Rate [Bilateral ] Blood Pressure 126/79 126/79 106/73 O2 Sat by Pulse 99 Oximetry General appearance: Present: no acute distress, well-nourished - EENT Eyes: PERRL, EOM intact ENT: hearing intact, clear oral mucosa Ears: bilateral: normal - Neck Neck: supple, normal ROM - Respiratory Respiratory effort: normal Respiratory: bilateral: CTA - Breasts Breasts: normal - Cardiovascular Heart rate: 88 Rhythm: regular Heart Sounds: Present: S1 & S2. Absent: gallop, rub Extremities: no ischemia, pulses intact, No edema, normal color, Full ROM - Gastrointestinal General gastrointestinal: Present: soft, non-tender, non-distended, normal bowel sounds Rectal Exam: deferred - Genitourinary Female genitourinary: normal - Integumentary Integumentary: clear, warm, dry - Musculoskeletal Musculoskeletal: 1, strength equal bilaterally - Neurologic Neurologic: moves all extremities - Psychiatric Psychiatric: memory intact, appropriate mood/affect, intact judgment & insight - Labs CBC & Chem 7: 08/27/19 04:56 08/27/19 04:56 Labs: Abnormal lab results 08/26/19 Range/Units 13:28 POC Glucose 141 H (70-105)
[2019-08-26] MEDS ORDERED: LACTULOSE 20 GM/30 ML ORAL LIQD PO ONE (19:30)
[2019-08-26] MEDS: ESCITALOPRAM 10 MG TAB PO SCH (23:45)
[2019-08-27] MEDS ORDERED: LACTULOSE 20 GM/30 ML ORAL LIQD PO ONE
[2019-08-27 00:09] LABS: Calcium 8.8 mg/dL (8.4-10.2)
[2019-08-27 06:15] LABS: Hematocrit 32.6 % (30.3-42.9); Hemoglobin 10.4 gm/dl (10.1-14.3); Mean Corpuscular HGB Conc 32 % (30-34); Mean Corpuscular Volume 81 fl (79-97); Platelet Count 314 K/mm3 (140-440); Red Blood Count 4.01 M/mm3 (3.65-5.03)
[2019-08-27 06:21] LABS: Red Cell Distribution Width 29.1 % (13.2-15.2)
[2019-08-27 06:22] LABS: Calcium 8.9 mg/dL (8.4-10.2)
[2019-08-27] MEDS: INSULIN LISPRO 100 UNIT/ML SUB-Q SCH ×3 (06:34→17:20)
[2019-08-27] MEDS: diphenhydrAMINE 25 MG CAP PO PRN (07:41)
[2019-08-27 08:39] LABS: Anisocytosis 3+; Basophils % (Manual) 0 % (0.0-1.8); Eosinophils % (Manual) 0 % (0.0-4.3); Hypochromasia 1+; Schistocytes Few; Tear Drop Cells Few; Total Cells Counted 100
[2019-08-27 08:40] LABS: Burr Cells Few; Ovalocytes Few; Platelet Estimate Consistent w Auto; Poikilocytosis Few
[2019-08-27] MEDS: SODIUM BICARBONATE 650 MG TAB PO SCH (09:37)
[2019-08-27] MEDS: CLOPIDOGREL 75 MG TAB PO SCH (09:37)
[2019-08-27] MEDS: LANSOPRAZOLE 30 MG SOLUTAB FEEDTUBE SCH (09:37)
[2019-08-27] MEDS: carvediloL 12.5 MG TAB PO SCH (09:37)
[2019-08-27] MEDS: BUTALB/ACETAMINOPHEN/CAFFEINE TAB PO PRN ×2 (09:38→17:15)
[2019-08-27] MEDS: hydrALAZINE 25 MG TAB PO SCH (09:38)
[2019-08-27] MEDS: ASPIRIN 81 MG TAB CHEW PO SCH (09:39)
[2019-08-27] MEDS: BUMETANIDE 1 MG TAB PO SCH (09:39)
[2019-08-27] MEDS: CHLORHEXIDINE MOUTHWASH 473ML MM SCH (09:41)
[2019-08-27 14:53] VITALS: BP 121/69
--- NOTE | 2019-08-27 14:54 | Progress Note ---
Assessment and Plan Metabolic encephalopathy CT Head negative, Cont to treat underlying causes Improved Acidosis Improved OLEKSANDR (acute kidney injury) Secondary to VMN-Vasomotor nephropathy IVF resuscitation therapy, monitor uop q shift, monitor serum creatnine. Cr 1.8 unchanged Obesity hypoventilation syndrome Supplemental oxygen, nebulizer therapy, AABG, NIPPV, pulse oximetry Diabetes ADA diet, insulin ,accu check, hypoglycemia protocol HTN (hypertension) Well controlled Acute on chronic systolic CHF (congestive heart failure) Strict I/O, daily weight, afterload reduction, blood pressure control, monitor uop q shift, monitor fluid balance, supplemental oxygen, pulse oximetry. DVT prophylaxis SCD to BLE while in bed. Subjective Date of service: 08/27/19 Principal diagnosis: AMS Interval history: 59 YO Female with HTN, [place], CHD, Systolic CHF(EF 30%), DM complicated by Neuropathy, OA, Migraine BARRERA, COPD, CAD S/P Stent Placement, Sciatica, HLD, Fibromyalgia present to ED for evaluation. Pt is lethargic and unable to provide history. Pt history provided ED staff, and EMS. As per staff, the patient reported not feeling well to day. Pt acknowledges headache. Pt notified EMS and upon arrival the patient was found to be in distress and transported to [facility]. Pt seen and evaluated in ED and found to have Encephalopathy, OLEKSANDR, Acidosis. Pt admitted to medical floor with remote telemetry. Prior admission on 07/01/19 reviewed. All listed medication reconciled at time of admission. Pt is lethargic but has a positive gag reflex and in able to protect her airway. Symptomatically better. - Objective - Constitutional Vitals: Vital Signs - 12hr 08/27/19 08/27/19 08/27/19 04:53 07:28 07:36 Temperature 97.9 F Pulse Rate 83 Respiratory 20 Rate Blood Pressure 147/89 O2 Sat by Pulse 99 99 97 Oximetry 08/27/19 08/27/19 09:37 09:38 Temperature Pulse Rate Respiratory Rate Blood Pressure 118/81 118/81 O2 Sat by Pulse Oximetry General appearance: Present: no acute distress, well-nourished - EENT Eyes: PERRL, EOM intact ENT: hearing intact, clear oral mucosa Ears: bilateral: normal - Neck Neck: supple, normal ROM - Respiratory Respiratory effort: normal Respiratory: bilateral: CTA - Breasts Breasts: normal - Cardiovascular Rhythm: regular Heart Sounds: Present: S1 & S2. Absent: gallop, rub Extremities: pulses intact, No edema, normal color, Full ROM - Gastrointestinal General gastrointestinal: Present: soft, non-tender, non-distended, normal bowel sounds - Genitourinary Female genitourinary: normal - Integumentary Integumentary: clear, warm, dry - Musculoskeletal Musculoskeletal: 1, strength equal bilaterally - Neurologic Neurologic: moves all extremities - Psychiatric Psychiatric: memory intact, appropriate mood/affect, intact judgment & insight - Allied health notes Allied health notes reviewed: nursing, case management - Labs CBC & Chem 7: 08/27/19 04:56 08/27/19 04:56 Labs: Abnormal lab results 08/26/19 08/26/19 08/26/19 Range/Units 16:35 22:31 23:34 MCH (28-32) pg RDW (13.2-15.2) % Seg Neuts % (Manual) (40.0-70.0) % Lymphocytes # (Manual) (1.2-5.4) K/mm3 Sodium 136 L (137-145) mmol/L Carbon Dioxide 21 L (22-30) mmol/L BUN 38 H (7-17) mg/dL Creatinine 1.8 H (0.7-1.2) mg/dL Glucose 139 H (65-100) mg/dL POC Glucose 131 H 151 H (70-105) 08/27/19 08/27/19 08/27/19 Range/Units 04:56 04:56 11:41 MCH 26 L (28-32) pg RDW 29.1 H (13.2-15.2) % Seg Neuts % (Manual) 79.0 H (40.0-70.0) % Lymphocytes # (Manual) 0.7 L (1.2-5.4) K/mm3 Sodium (137-145) mmol/L Carbon Dioxide 19 L (22-30) mmol/L BUN 38 H (7-17) mg/dL Creatinine 1.8 H (0.7-1.2) mg/dL Glucose (65-100) mg/dL POC Glucose 115 H (70-105)
--- NOTE | 2019-08-27 15:14 | Discharge Summary ---
Providers - Providers Date of Admission: 08/24/19 18:57 Date of discharge: 08/27/19 Attending physician: DERRICK ANDERSON 08/25/19 03:33 Consult to Wound/ET Nurse [CONS] Routine Reason For Exam: wound eval [facility] Condition: Fair Hospital course: 59 YO Female with HTN, [place], CHD, Systolic CHF(EF 30%), DM complicated by Neuropathy, OA, Migraine BARRERA, COPD, CAD S/P Stent Placement, Sciatica, HLD, Fibromyalgia present to ED for evaluation. Pt is lethargic and unable to provide history. Pt history provided ED staff, and EMS. As per staff, the patient reported not feeling well to day. Pt acknowledges headache. Pt notified EMS and upon arrival the patient was found to be in distress and transported to [facility]. Pt seen and evaluated in ED and found to have Encephalopathy, OLEKSANDR, Acidosis. Pt admitted to medical floor with remote telemetry. Prior admission on 07/01/19 reviewed. All listed medication reconciled at time of admission. Pt is lethargic but has a positive gag reflex and in able to protect her airway. - Metabolic encephalopathy CT Head negative, Cont to treat underlying causes Improved Acidosis Improved OLEKSANDR (acute kidney injury) Secondary to VMN-Vasomotor nephropathy IVF resuscitation therapy, monitor uop q shift, monitor serum creatnine. Cr 1.8 unchanged Underlying CKD Obesity hypoventilation syndrome Counselled about loosing weight Diabetes Cont Home Insulin HTN (hypertension) Well controlled Acute on chronic systolic CHF (congestive heart failure) Improved DVT prophylaxis SCD to BLE while in bed. Disposition: DC-01 TO HOME OR SELFCARE Core Measure Documentation - Palliative Care Palliative Care/ Comfort Measures: Not Applicable - Core Measures Any of the following diagnoses?: none Exam - Constitutional Vitals: Temp Pulse Resp BP Pulse Ox 97.8 F 85 20 121/69 93 08/27/19 12:12 08/27/19 12:12 08/27/19 12:12 08/27/19 12:12 08/27/19 12:12 General appearance: Present: no acute distress, well-nourished - EENT Eyes: Present: PERRL ENT: hearing intact, clear oral mucosa - Neck Neck: Present: supple, normal ROM - Respiratory Respiratory effort: normal Respiratory: bilateral: CTA - Cardiovascular Heart rate: 78 Rhythm: regular Heart Sounds: Present: S1 & S2. Absent: rub, click - Extremities Extremities: no ischemia, pulses intact, pulses symmetrical, No edema Peripheral Pulses: within normal limits - Abdominal General gastrointestinal: Present: soft, non-tender, non-distended, normal bowel sounds Female genitourinary: Present: normal - Rectal Rectal Exam: deferred - Integumentary Integumentary: Present: clear, warm, dry - Musculoskeletal Musculoskeletal: gait normal, strength equal bilaterally - Psychiatric Psychiatric: appropriate mood/affect, intact judgment & insight - Neurologic Neurologic: CNII-XII intact, moves all extremities - Allied Health Allied health notes reviewed: nursing, case management Plan Activity: no restrictions Diet: diabetic Follow up with: DIPTI HAGERSOMERSET MD SHERLYN [Primary Care Provider] - 3-5 Days MARCELO VAUGHN MD [Staff Physician] - 7 Days
== END 2019-08-27 18:40 | disposition home or self-care (01) | DRG 70 ==
LOC: ED 14:38 → 3A 18:57
PROVIDERS: ADMIT Internal Medicine; ATTEND Internal Medicine
PROC: 5A09357 Assistance with Respiratory Ventilation, Less than 24 Consecutive Hours, Continuous Positive Airway Pressure (ICD-10-PCS; principal; 2019-08-24)
PROC: 4A033R1 Measurement of Arterial Saturation, Peripheral, Percutaneous Approach (ICD-10-PCS; 2019-08-25)
DX: G93.41 Metabolic encephalopathy (principal); N17.0 Acute kidney failure with tubular necrosis; I50.23 Acute on chronic systolic (congestive) heart failure; E87.2 Acidosis; I11.0 Hypertensive heart disease with heart failure; E66.2 Morbid (severe) obesity with alveolar hypoventilation; E11.40 Type 2 diabetes mellitus with diabetic neuropathy, unspecified; I25.10 Atherosclerotic heart disease of native coronary artery without angina pectoris; J44.9 Chronic obstructive pulmonary disease, unspecified; G43.909 Migraine, unspecified, not intractable, without status migrainosus; E78.00 Pure hypercholesterolemia, unspecified; Z95.5 Presence of coronary angioplasty implant and graft; I25.2 Old myocardial infarction; Z79.51 Long term (current) use of inhaled steroids; Z79.899 Other long term (current) drug therapy; Z79.4 Long term (current) use of insulin; Z79.82 Long term (current) use of aspirin; Z83.3 Family history of diabetes mellitus; Z82.49 Family history of ischemic heart disease and other diseases of the circulatory system; Z90.5 Acquired absence of kidney; Z89.511 Acquired absence of right leg below knee; Z88.8 Allergy status to other drugs, medicaments and biological substances; Z68.38 Body mass index [BMI] 38.0-38.9, adult; Z71.3 Dietary counseling and surveillance
CPT/HCPCS: 36415; 36600; 70450; 80048; 80053; 80061; 80320; 82140; 82550; 82553; 82803; 82962; 83880; 84439; 84443; 84484; 85007; 85025; 85610; 85730; 87116; 93005; 93010; 94640; 94660; 94760; G0378; A9270-GY; G0480; J1815